=== PATIENT | female | born 1945 | race Caucasian/White ===

== ENCOUNTER → 2023-07-17 08:48 | Outpatient (REF) | payer BC, SELFPAY | LOC: HWRAD 08:48 | PROVIDERS: ATTENDING PHYSICIAN Internal Medicine Hematology & Oncology; FAMILY PHYSICIAN Family Medicine | DX: C48.1 Malignant neoplasm of specified parts of peritoneum (principal); Z51.11 Encounter for antineoplastic chemotherapy; Z45.2 Encounter for adjustment and management of vascular access device; D50.9 Iron deficiency anemia, unspecified; D70.1 Agranulocytosis secondary to cancer chemotherapy | CPT/HCPCS: 71260; 74177; Q9967 ==

== ENCOUNTER → 2023-08-23 14:44 | Outpatient (REF) | payer BC, SELFPAY ==
[2023-08-23 16:04] LABS: % Basophils 0.8 % (0-2); % Immature Granulocytes 0.3 % (0-0.5); % Lymphocytes 18.3 % (20.5-51.1); % Monocytes 17.3 % (1.7-9.3); % Neutrophils 54.3 % (42.2-75.2); Absolute Basophils 0.1 10^3/uL (0-0.2); Absolute Eosinophils 0.7 10^3/uL (0-0.7); Absolute Lymphocytes 1.4 10^3/uL (1.2-3.4); Absolute Monocytes 1.4 10^3/uL (0.1-0.6); Absolute Neutrophils 4.3 10^3/uL (1.4-6.5); Hematocrit 37.5 % (37.0-47.0); Hemoglobin 12.2 g/dL (12.0-16.0); Mean Corp Hgb Conc. 32.5 g/dL (33.0-37.0); Mean Corpuscular Hgb 29.8 pg (27.0-31.0); Mean Corpuscular Volume 91.7 fL (81.0-99.0); Nucleated Red Blood Cells % 0 %; Platelet Count 232 10^3/uL (130-400); Red Blood Cell Count 4.09 10^6/uL (4.20-5.40); Red Cell Dist. Width 20.8 % (11.5-14.5); White Blood Cell Count 7.9 10^3/uL (4.8-10.8)
[2023-08-23 16:27] LABS: NT-proBNP 123 pg/ml
== END ==
LOC: RAD 14:44
PROVIDERS: ATTENDING PHYSICIAN Family Medicine
DX: M79.89 Other specified soft tissue disorders (principal); R60.0 Localized edema
CPT/HCPCS: 36415; 83880; 85025; 93970

== ENCOUNTER → 2023-09-13 12:07 | Outpatient (REF) | payer BC, SELFPAY ==
[2023-09-13 15:28] LABS: Blood Urea Nitrogen 30 mg/dl (7-17); Calcium 9.4 mg/dl (8.4-10.2); Carbon Dioxide 29 mmol/L (22-30); Chloride 100 mmol/L (98-107); Glucose 120 mg/dl (70-99); Potassium 3.8 mmol/L (3.5-5.1); Sodium 138 mmol/L (135-145); eGFR 51.11
== END ==
LOC: HWLAB 12:07
PROVIDERS: ATTENDING PHYSICIAN Family Medicine
DX: R60.0 Localized edema (principal)
CPT/HCPCS: 36415; 80048

== ENCOUNTER → 2023-12-19 10:27 | Outpatient (REF) | payer BC, SELFPAY | LOC: HWRAD 10:27 | PROVIDERS: ATTENDING PHYSICIAN Internal Medicine Hematology & Oncology; FAMILY PHYSICIAN Family Medicine | DX: C48.1 Malignant neoplasm of specified parts of peritoneum (principal); Z51.11 Encounter for antineoplastic chemotherapy; Z45.2 Encounter for adjustment and management of vascular access device; D50.9 Iron deficiency anemia, unspecified; D70.1 Agranulocytosis secondary to cancer chemotherapy | CPT/HCPCS: 71260; 74177; Q9967 ==

== ENCOUNTER 2024-02-18 11:28 | Emergency (ER) | payer BC, SELFPAY ==
[2024-02-18 11:35] VITALS: BP 160/77
--- NOTE | 2024-02-18 11:38 | ED.GENMED ---
ED Provider Triage
-
Patient seen by provider in Triage?: Seen in Triage
Attestation: A medical screening examination has been initiated by a qualified medical provider. Based on the assessment performed at this time, it has been determined that an emergent medical condition may exist and the patient has been informed
that further medical evaluation and possible additional diagnostic testing may be needed.
HPI: 78-year-old female presents for evaluation of acute onset right upper abdominal pain that began this morning while having a bowel movement. She has a large ventral hernia and felt a 'lump' developed adjacent to this hernia after the bowel
movement, took a dose of Tylenol and states pain is resolved, no longer feels the lump
GENERAL: Alert , in no apparent distress
EYE: No visual abnormalities.
NECK: Trachea midline
ENT: No visible abnormalities.
LUNGS: No acute respiratory distress
NEUROLOGICAL: Alert and oriented
SKIN: Skin intact. No visible changes.
MUSCULOSKELETAL: Moving extremities normally
PSYCH: Normal and appropriate interaction.
A/P: Abdominal exam while in a chair with no palpable right upper quadrant hernia, large ventral hernia soft and easily reducible, at this time we will hold off on labs, may be muscular strain versus small lateral abdominal wall hernia
This is a medical evaluation conducted in person to initiate diagnostic evaluation and provide initial therapeutics. Please see further documentation by the treating clinician.
History of Present Illness
General
Chief Complaint: Abdominal Pain
Past History
Past History
ED Past Medical History: Cancer (Ovarian), Renal failure and Other ('Heart murmur')
ED Past Surgical History: Orthopedic and Urological (Bilateral nephrostomy tubes)
Social History
Tobacco: Non-smoker
Alcohol: Occasional
Drug: None
Personal: Other
Living: alone
Employment: Other
Family History
Family History: Other
ED Attending Note
-
Portions of this chart may have been created with voice recognition software.� Occasional wrong word or��sound alike� substitutions may have occurred due to the inherent limitations of voice recognition software.
Discharge Plan
Departure
Prescriptions:
No Action
amlodipine 10 MG tablet
10 mg PO DAILY
pantoprazole 40 MG tablet,delayed release (DR/EC)
40 mg PO BID
multivitamin with folic acid [Tab-A-Crow] 1 TABLET tablet
1 tab PO DAILY
Prevagen 1 tablet tablet
1 tab PO DAILY
acetaminophen 325 mg Tablet
650 mg PO DAILYPRN PRN (Reason: mild pain)
Interventions
Interventions:
*Risk Screen - Suicide Last Done: 02/18/24 11:35
Discharge Date and Time
Print Language: MACEDONIAN
[2024-02-18 12:23] VITALS: BMI 36.1
--- NOTE | 2024-02-18 12:58 | ED.GENMED ---
ED Provider Triage
<Alcon Renteria PA-C - Last Filed: 02/19/24 09:58>
-
Patient seen by provider in Triage?: Seen in Triage
Attestation: A medical screening examination has been initiated by a qualified medical provider. Based on the assessment performed at this time, it has been determined that an emergent medical condition may exist and the patient has been informed
that further medical evaluation and possible additional diagnostic testing may be needed.
HPI: 78-year-old female presents for evaluation of acute onset right upper abdominal pain that began this morning while having a bowel movement. She has a large ventral hernia and felt a 'lump' developed adjacent to this hernia after the bowel
movement, took a dose of Tylenol and states pain is resolved, no longer feels the lump
GENERAL: Alert , in no apparent distress
EYE: No visual abnormalities.
NECK: Trachea midline
ENT: No visible abnormalities.
LUNGS: No acute respiratory distress
NEUROLOGICAL: Alert and oriented
SKIN: Skin intact. No visible changes.
MUSCULOSKELETAL: Moving extremities normally
PSYCH: Normal and appropriate interaction.
A/P: Abdominal exam while in a chair with no palpable right upper quadrant hernia, large ventral hernia soft and easily reducible, at this time we will hold off on labs, may be muscular strain versus small lateral abdominal wall hernia
This is a medical evaluation conducted in person to initiate diagnostic evaluation and provide initial therapeutics. Please see further documentation by the treating clinician.
History of Present Illness
<Rasheeda Klein PA-C - Last Filed: 02/18/24 19:14>
General
Chief Complaint: Abdominal Pain
Source: patient
Exam Limitations: none
Time Seen by Provider: 02/18/24 12:41
Nursing documentation reviewed up to this point in time: agreed with
History of Present Illness
History of Present Illness:
78 y/o female with PMH of ovarian cancer s/p hysterectomy, GERD, HTN, ventral incisional hernia, presents to the emergency department today with concerns of a 30 min episode of severe lower abdominal pain. Patient states that she felt the pain over
her hernia. She stated that this pain started after having a bowel movement. She subsequently took Tylenol and her symptoms resolved. She denies nausea, vomiting, fevers, chills. She had a prior history of ovarian cancer and had to get a
hysterectomy and they believe her hernia to be incisional. She states that she she used to follow with gynecologic oncologic many years ago who wanted her to follow up with general surgery but she has not been able to follow up and did not feel
that it was necessary since it was not causing her any problems. Patient denies dark tarry stools, rectal bleeding, recent travel outside the country.
Past History
<Rasheeda Klein PA-C - Last Filed: 02/18/24 19:14>
Past History
ED Past Medical History: Cancer (Ovarian), Renal failure and Other ('Heart murmur')
ED Past Surgical History: Orthopedic and Urological (Bilateral nephrostomy tubes)
Social History
Tobacco: Non-smoker
Alcohol: Occasional
Drug: None
Personal: Other
Living: alone
Employment: Other
Family History
Family History: Other
Review of Systems
<MILO Heart Last Filed: 02/18/24 19:14>
Review of Systems
All Other Systems: ROS reviewed and negative except as documented in HPI and ROS
Phy Exam
<MILO Heart Last Filed: 02/18/24 19:14>
Physical Exam
Physical Exam:
General: Patient is well appearing and in no acute distress; non-toxic
Skin: Warm and dry, no rashes or lesions
Head: Normocephalic, atraumatic
Eyes: Sclera non-icteric. EOMs intact. PERRLA.
Cardiac: Regular rate and rhythm, no murmurs
Peripheral Vascular: No lower extremity swelling or edema
Pulm: Normal respiratory effort, no wheezes
Abdomen: No abdominal tenderness to palpation. Reducible ventral hernia noted. No guarding.
Neuro: CN II-XII intact, no focal neurologic deficits.
Psychiatric: Appropriate mood and affect.
Course
Carlos Manuellt;Rasheeda Klein PA-C - Last Filed: 02/18/24 19:14>
Orders/Labs/Results
Orders:
Orders
02/18/24 13:26
CT Abd/pelvis W Iv Cont Urgent
Comment:
Reason For Exam: diffuse lower abdominal pain
02/18/24 14:05
Complete Blood Count/With Diff Urgent
Comprehensive Metabolic Panel Urgent
Abnormal Lab Results
02/18/24
14:05
RBC 4.12 L 10^6/uL
(4.20-5.40)
MCH 31.6 H pg
(27.0-31.0)
RDW 15.9 H %
(11.5-14.5)
Absolute Monos (auto) 1.0 H 10^3/uL
(0.1-0.6)
Lymphocytes % 17.5 L %
(20.5-51.1)
Monocytes % 14.5 H %
(1.7-9.3)
Potassium 3.4 L mmol/L
(3.5-5.1)
BUN 25 H mg/dl
(7-17)
02/18/24 14:05
02/18/24 14:05
Vital Signs
Initial and Last Documented VS:
Initial Vital Signs
Temp Pulse Resp BP Pulse Ox
98.7 F 71 20 160/77 97
02/18/24 11:35 02/18/24 11:35 02/18/24 11:35 02/18/24 11:35 02/18/24 11:35
Last Documented Vital Signs
Temp Pulse Resp BP Pulse Ox
98.7 F 71 18 151/82 100
02/18/24 11:35 02/18/24 14:42 02/18/24 14:42 02/18/24 14:42 02/18/24 14:42
<Elvis Escobar MD - Last Filed: 02/18/24 16:22>
Orders/Labs/Results
Orders:
Orders
02/18/24 13:26
CT Abd/pelvis W Iv Cont Urgent
Comment:
Reason For Exam: diffuse lower abdominal pain
02/18/24 14:05
Complete Blood Count/With Diff Urgent
Comprehensive Metabolic Panel Urgent
Abnormal Lab Results
02/18/24
14:05
RBC 4.12 L 10^6/uL
(4.20-5.40)
MCH 31.6 H pg
(27.0-31.0)
RDW 15.9 H %
(11.5-14.5)
Absolute Monos (auto) 1.0 H 10^3/uL
(0.1-0.6)
Lymphocytes % 17.5 L %
(20.5-51.1)
Monocytes % 14.5 H %
(1.7-9.3)
Potassium 3.4 L mmol/L
(3.5-5.1)
BUN 25 H mg/dl
(7-17)
02/18/24 14:05
02/18/24 14:05
Vital Signs
Initial and Last Documented VS:
Initial Vital Signs
Temp Pulse Resp BP Pulse Ox
98.7 F 71 20 160/77 97
02/18/24 11:35 02/18/24 11:35 02/18/24 11:35 02/18/24 11:35 02/18/24 11:35
Last Documented Vital Signs
Temp Pulse Resp BP Pulse Ox
98.7 F 71 18 151/82 100
02/18/24 11:35 02/18/24 14:42 02/18/24 14:42 02/18/24 14:42 02/18/24 14:42
<Alcon Renteria PA-C - Last Filed: 02/19/24 09:58>
Orders/Labs/Results
Orders:
Orders
02/18/24 13:26
CT Abd/pelvis W Iv Cont Urgent
Comment:
Reason For Exam: diffuse lower abdominal pain
02/18/24 14:05
Complete Blood Count/With Diff Urgent
Comprehensive Metabolic Panel Urgent
Abnormal Lab Results
02/18/24
14:05
RBC 4.12 L 10^6/uL
(4.20-5.40)
MCH 31.6 H pg
(27.0-31.0)
RDW 15.9 H %
(11.5-14.5)
Absolute Monos (auto) 1.0 H 10^3/uL
(0.1-0.6)
Lymphocytes % 17.5 L %
(20.5-51.1)
Monocytes % 14.5 H %
(1.7-9.3)
Potassium 3.4 L mmol/L
(3.5-5.1)
BUN 25 H mg/dl
(7-17)
02/18/24 14:05
02/18/24 14:05
Vital Signs
Initial and Last Documented VS:
Initial Vital Signs
Temp Pulse Resp BP Pulse Ox
98.7 F 71 20 160/77 97
02/18/24 11:35 02/18/24 11:35 02/18/24 11:35 02/18/24 11:35 02/18/24 11:35
Last Documented Vital Signs
Temp Pulse Resp BP Pulse Ox
98.7 F 71 18 151/82 100
02/18/24 11:35 02/18/24 14:42 02/18/24 14:42 02/18/24 14:42 02/18/24 14:42
<Rasheeda Klein PA-C - Last Filed: 02/18/24 19:14>
MDM/Problems Addressed
Differential Diagnosis Includes:
ddx include incarcerated hernia, deep hernia pain, diverticulitis, colitis, metastatic disease
MDM/Problems Addressed:
78-year-old female with a history of ovarian cancer, ventral hernia for previous surgical incision presents emergency department today with concerns of 3-minute episode of severe abdominal pain. Patient states that she took Tylenol and by the time
she presented emergency department, her pain resolved. She denies nausea or vomiting, denies any other history of abdominal surgeries. On exam, she is well-appearing, she has a reducible ventral hernia with no signs of incarceration or
strangulation. She has no skin rashes or lesions over the abdomen. Patient was sent for CAT scan of the abdomen which revealed no acute process, did no her multiple hernias, however no signs of obstruction or strangulation. Since being in the
emergency department for around 4 to 5 hours, patient has not had another episode of this pain. She is stable for discharge at this point. Give her follow-up for general surgery. Return precautions discussed
Chronic conditions affecting care:
HTN, GERD, ovarian cancer
<Rasheeda Klein PA-C - Last Filed: 02/18/24 19:14>
*Pulse Oximetry
Patient hypoxic: no
*Critical Care Note
Total Time (30-74mins, 75-104mins- exclusive of procedures): Not Applicable
Data Reviewed
Review of Other/Old Records Reveals: Records (reviewed ER physician documentation from 04/30/23, patient seen for closed head injury) and Discharge Summary (reviewed discharge summary from 04/20/23,)
Source: patient
Prescriptions/Medications Considered But Not Given:
n/a
Further Testing Considered But Not Given:
n/a
<Rasheeda Klein PA-C - Last Filed: 02/18/24 19:14>
Patient Management
Escalation/DeEscalation of care consider admission/obs:
Admit not indicated, patient stable for discharge
ED Attending Note
<Rasheeda Klein PA-C - Last Filed: 02/18/24 19:14>
-
Portions of this chart may have been created with voice recognition software.� Occasional wrong word or��sound alike� substitutions may have occurred due to the inherent limitations of voice recognition software.
<Elvis Escobar MD - Last Filed: 02/18/24 16:22>
ED Attending Note
Patient seen and examined by attending physician: Yes
ED Attending Note:
I have seen and evaluated the patient with a [id number] encounter. I have spoken to the advance practicer provider and involved in the medical history, the physical exam, medical decision making.
Evaluation and management service: agree unless noted differently below.
Results interpretation: agree unless noted differently below.
Focused HPI: 78-year-old female with history as documented presents to the emergency room for evaluation of abdominal pain. She reports she was sitting at her computer at around 9 AM and had sudden onset of rather intense pain in the lower abdomen
near her abdominal wall hernia. She says that the pain was quite intense and she had to stop working. She says she took a Tylenol and after about 30 minutes symptoms completely resolved and she is now completely pain-free. She denies any
associated nausea or vomiting. She had a bowel movement about 20 minutes prior to onset of his symptoms and it was normal. She has not had any recent urinary symptoms. She denies similar symptoms in the past.
Physical exam: Awake alert not in distress. Hypertensive otherwise normal vitals. Abdomen soft, nontender to deep palpation; she has a soft reducible ventral hernia.
Medical Decision Makin-year-old female presents for evaluation after an episode of abdominal pain�since has completely resolved. Hypertensive otherwise normal vitals. Physical exam as above. She had labs done in triage with no clinically
significant abnormalities. She was sent for a CT of the abdomen pelvis and the read is pending. If negative can likely discharge with surgical referral for hernia repair�suspect pain was likely related to her hernia. She has no signs of
incarceration or strangulation at present.
Discharge Plan
Departure
Patient Disposition: Home (Routine Discharge)
Date of Disposition: 02/18/24
Time of Disposition: 16:30
Patient with high blood pressure during this ER visit?: Yes
Condition: Good
Discharge Problem:
Abdominal pain
Instructions: Abdominal Pain, BLOOD PRESSURE
Prescriptions:
No Action
amlodipine 10 MG tablet
10 mg PO DAILY
pantoprazole 40 MG tablet,delayed release (DR/EC)
40 mg PO BID
multivitamin with folic acid [Tab-A-Crow] 1 TABLET tablet
1 tab PO DAILY
Prevagen 1 tablet tablet
1 tab PO DAILY
acetaminophen 325 mg Tablet
650 mg PO DAILYPRN PRN (Reason: mild pain)
Referrals:
Beau Nuno MD [Active] - Call in 1-3 days for appt
UNKNOWN - PT NOT,INTERVIEWE [Family Provider] -
Activity Restrictions/Additional Instructions:
Please return to the emergency department with new or worsening symptoms.
Please call the attached number to schedule appoint with general surgery. You may need repair of your hernia in the future.
Interventions
Interventions:
*Risk Screen - Suicide Last Done: 02/18/24 11:35
*General Assessment Last Done: 02/18/24 12:25
*Nursing Disposition Last Done: 02/18/24 16:39
ZF-Nrsmmo-Ecddajrgec Assessment Last Done: 02/18/24 12:23
Discharge Date and Time
Discharge Date/Time: 02/18/24 16:39
Print Language: SAMI
[2024-02-18 14:42] VITALS: BP 151/82
[2024-02-18 14:49] LABS: % Basophils 0.8 % (0-2); % Eosinophils 3.5 % (0-6); % Immature Granulocytes 0.3 % (0-0.5); % Lymphocytes 17.5 % (20.5-51.1); % Monocytes 14.5 % (1.7-9.3); % Neutrophils 63.4 % (42.2-75.2); Absolute Basophils 0.1 10^3/uL (0-0.2); Absolute Eosinophils 0.2 10^3/uL (0-0.7); Absolute Lymphocytes 1.2 10^3/uL (1.2-3.4); Absolute Neutrophils 4.2 10^3/uL (1.4-6.5); Hematocrit 37.9 % (37.0-47.0); Mean Corp Hgb Conc. 34.3 g/dL (33.0-37.0); Mean Corpuscular Hgb 31.6 pg (27.0-31.0); Mean Platelet Volume 9.1 fL (7.4-10.4); Nucleated Red Blood Cells % 0 %; Platelet Count 208 10^3/uL (130-400); Red Blood Cell Count 4.12 10^6/uL (4.20-5.40); Red Cell Dist. Width 15.9 % (11.5-14.5); White Blood Cell Count 6.6 10^3/uL (4.8-10.8)
[2024-02-18 15:01] LABS: ALT (SGPT) 26 U/L (0-35); AST (SGOT) 27 U/L (14-36); Albumin 4.2 g/dl (3.5-5.0); Alkaline Phosphatase 87 U/L (38-126); Blood Urea Nitrogen 25 mg/dl (7-17); Calcium 9.3 mg/dl (8.4-10.2); Carbon Dioxide 27 mmol/L (22-30); Chloride 103 mmol/L (98-107); Estimated Creatinine Clearance 61 ml/min; Glucose 96 mg/dl (70-99); Potassium 3.4 mmol/L (3.5-5.1); Sodium 141 mmol/L (135-145); Total Bilirubin 0.5 mg/dl (0.2-1.3); Total Protein 7.3 g/dl (6.3-8.2); eGFR > 60.00
== END 2024-02-18 16:39 | disposition home or self-care (01) ==
LOC: EMR 11:28
PROVIDERS: Physician Assistant; EMERGENCY PHYSICIAN Emergency Medicine
DX: R10.30 Lower abdominal pain, unspecified (principal); I10 Essential (primary) hypertension; K21.9 Gastro-esophageal reflux disease without esophagitis
CPT/HCPCS: 99285; 74177; 80053; 85025; Q9967

== ENCOUNTER → 2024-04-10 08:21 | Outpatient (REF) | payer BC, SELFPAY | LOC: HWRAD 08:21 | PROVIDERS: ATTENDING PHYSICIAN Internal Medicine Hematology & Oncology | DX: C48.1 Malignant neoplasm of specified parts of peritoneum (principal); Z51.11 Encounter for antineoplastic chemotherapy; Z45.2 Encounter for adjustment and management of vascular access device; D50.9 Iron deficiency anemia, unspecified; D70.1 Agranulocytosis secondary to cancer chemotherapy | CPT/HCPCS: 71260; 74177; Q9967 ==

== ENCOUNTER → 2024-04-27 14:41 | Outpatient (REF) | payer BC, SELFPAY | LOC: RAD 14:41 | PROVIDERS: ATTENDING PHYSICIAN Internal Medicine Hematology & Oncology | DX: C48.1 Malignant neoplasm of specified parts of peritoneum (principal); Z51.11 Encounter for antineoplastic chemotherapy; Z45.2 Encounter for adjustment and management of vascular access device; D50.9 Iron deficiency anemia, unspecified; D70.1 Agranulocytosis secondary to cancer chemotherapy; R22.42 Localized swelling, mass and lump, left lower limb | CPT/HCPCS: 93970 ==

== ENCOUNTER → 2024-06-12 13:37 | Outpatient (REF) | payer BC, SELFPAY | LOC: HWRCS 13:37 | PROVIDERS: ATTENDING PHYSICIAN Internal Medicine Hematology & Oncology; PRIMARYCARE PHYSICIAN Family Medicine | DX: C48.1 Malignant neoplasm of specified parts of peritoneum (principal) | CPT/HCPCS: 93306 ==

== ENCOUNTER 2024-06-16 02:14 | Observation (INO) | payer BC, SELFPAY ==
[2024-06-15 15:51] VITALS: BMI 37.2
[2024-06-15 15:53] VITALS: BP 187/96
[2024-06-15 20:05] VITALS: BP 148/84
[2024-06-15 20:56] LABS: ALT (SGPT) 14 U/L (0-35); AST (SGOT) 25 U/L (14-36); Albumin 3.7 g/dl (3.5-5.0); Alkaline Phosphatase 101 U/L (38-126); Blood Urea Nitrogen 22 mg/dl (7-17); Calcium 9.2 mg/dl (8.4-10.2); Carbon Dioxide 27 mmol/L (22-30); Chloride 100 mmol/L (98-107); Glucose 115 mg/dl (70-99); Potassium 3.1 mmol/L (3.5-5.1); Sodium 134 mmol/L (135-145); Total Bilirubin 0.5 mg/dl (0.2-1.3); Total Protein 6.8 g/dl (6.3-8.2); eGFR > 60.00
[2024-06-15 21:01] LABS: NT-proBNP 115 pg/ml; Troponin I < 0.012 ng/ml
[2024-06-15 23:00] VITALS: BP 164/88
[2024-06-16] VITALS (13 sets, daily range): BP systolic 75–159; BP diastolic 62–119
--- NOTE | 2024-06-16 00:14 | ED.GENMED ---
History of Present Illness
General
Chief Complaint: Breathing Problem
Source: patient
Exam Limitations: none
Time Seen by Provider: 06/16/24 00:03
Nursing documentation reviewed up to this point in time: agreed with
History of Present Illness
History of Present Illness:
Patient with history of recurrent ovarian cancer, currently receiving treatment, presents to ED secondary to worsening left lower leg redness with drainage, despite taking 2 different antibiotics. In addition, patient has noted increased work of
breathing over the past 2 days with exertion. Denies fever or chills. Denies nausea, vomiting, or diarrhea. Denies loss of appetite. Denies headache. Denies sick contact. Patient does have history of pleural effusion which has required
drainage in the past.
Past History
Past History
ED Past Medical History: Cancer (Ovarian), Renal failure and Other ('Heart murmur')
ED Past Surgical History: Orthopedic and Urological (Bilateral nephrostomy tubes)
Social History
Tobacco: Non-smoker
Alcohol: Occasional
Drug: None
Personal: Other
Living: alone
Employment: Other
Family History
Family History: Other
Review of Systems
Review of Systems
Allergies reviewed?: Yes
All Other Systems: ROS reviewed and negative except as documented in HPI and ROS
Constitutional: Reports no symptoms; Denies fever or chills
Respiratory: Reports trouble breathing; Denies cough
Cardiac: Reports no symptoms
ABD/GI: Reports no symptoms
Musculoskeletal: Reports edema
Skin: Reports other (Leg redness with swelling)
Neurological: Reports no symptoms
Phy Exam
Physical Exam
Physical Exam:
Physical Exam
General: no apparent distress, not acutely ill. afebrile
Head: nc/at. eomi
Neck: supple. normal range of motion.
Abdomen: normal bowel sounds. not tender.
Neuro: alert and oriented. no focal neurological deficits
Skin: LLE erythema/swelling noted with serosanguineous drainage noted along medial malleolus
Psychiatric: well kept. interactive and cooperative
Extremities: no calf tenderness
Scores
Heart Failure Risk
Heart Failure Risk Score: Not Applicable
Course
Orders/Labs/Results
Orders:
Orders
06/15/24 15:59
Electrocardiogram (*1) Urgent
Reason for Study: Shortness of Breath
EKG- Treatment ONCE
06/15/24 16:07
CXR2 [CR Chest - 2 Views ] Urgent
Comment:
Reason For Exam: SOB
06/15/24 20:25
Venous Doppler Lwr Ext Left [US Periph Venous LOWER Ext LT] Urgent
Comment:
Reason For Exam: swelling
06/15/24 20:31
Comprehensive Metabolic Panel Urgent
Magnesium Urgent
Comment: ADDED
NT-proBNP Urgent
Troponin I Urgent
06/15/24 20:45
Complete Blood Count/With Diff Routine
06/16/24 00:14
Piperacillin/Tazo 3.375 Gram [Zosyn] 3.375 gram in 50 ml IV NOW
06/16/24 00:45
Blood Culture Q30M
HOA Source: Blood/Venous
Specimen Description:
06/16/24 00:46
Blood Culture Q30M
HOA Source: Blood/Venous
Specimen Description:
06/16/24 01:19
Vancomycin [Vancocin] 2,000 mg 0.9% Sodium Chloride 500 ml [Nss] 500 ml IV NOW
06/16/24 01:54
Admit/Transfer Patient As Directed
Co-Sign Provider:
Level of Care: Observation services
Assign to:: Medical/Surgical
Physician / Group: hospitalist
Diagnosis: recurrent pleural effusion, cellulitis
06/16/24 01:55
Code Status As Directed
Resuscitation Status: Full Code
PRN Pain Medication Management As Directed
May give lesser potent ordered pain med per pt: Yes
preference::
Protocol:: Medication orders for pain may be administered in a
manner that supports deferring to patient preference
when the pt is:
- Requesting an ordered lesser potent pain medication.
Least to most potent pain medications are defined
as: acetaminophen < NSAID < tramadol < opioids
(morphine, oxycodone, hydromorphone).
- Requesting a lesser dose of the same medication IF
ORDERED.
- Requesting a less intrusive route of administration
if both routes are prescribed by the provider (PO <
IV).
06/16/24 02:00
Flush (0.9% Sodium Chloride) [Flush (Nss)] See Dose Instructions IV PER PROTOCOL
06/16/24 02:01
Potassium Chloride [KCl] 40 meq PO NOW STA
Potassium Chloride [KCl] 20 meq 0.9% Sodium Chloride 150 ml [Nss] 150 ml IV NOW
06/16/24 02:38
Acetaminophen [Tylenol] 650 mg PO Q4HPRN PRN
Bisacodyl [Dulcolax] 10 mg RECTAL [id number] PRN
Docusate W/Senna [Senokot-S] 1 tablet PO BIDPRN PRN
Polyethylene Glycol Powder [Miralax] 17 grams PO DAILYPRN PRN
VANCOMYCIN Pharmacy to Dose [VANCOCIN Pharmacy to Dose] 1 each Pharmacy To Prepare [Call Pharmacy To Prepare] 0 ml IV PER PROTOCOL
06/16/24 02:38
Consult Notification Routine
Specialty to Notify: IRAD (Interventional Radiology)
IRAD CONSULT Routine
Consulting Provider: Franklin Alexander
Was physician already notified: No
Reason for Consult/Procedure: thoracentesis for R pleural effusion
Acknowledgement that appropriate orders are entered: Yes
Body Fluid Cell Count Routine
What is the Body Fluid: pleural fluid
Comment: post procedure
Body Fluid LDH Routine
Fluid Source: Pleural
Body Fluid Protein Routine
Fluid Source: Pleural
Body Fluid pH Routine
Fluid Source: Pleural
Fluid Culture with Gram Stain Routine
HOA Source: Pleural Fluid
Specimen Description:
Comment: post procedure
MRSA Screen Routine
HOA Source: Nose
Specimen Description:
Activity As Directed
Activity Level: With Assistance
Vital Signs As Directed
Frequency: Per unit guidelines
Pulse Ox/spot Check [RESP] Routine
Quantity: 1
DX Deep Vein Thrombosis Video Routine
06/16/24 Breakfast
Regular
Basic Metabolic Panel IN AM
Complete Blood Count/No Diff IN AM
LDH IN AM
Comment: post procedure, add on to morning labs if already drawn
Magnesium IN AM
Total Protein IN AM
Comment: post procedure, add on to morning labs if already drawn
06/16/24 08:00
Amlodipine [Norvasc] 10 mg PO DAILY
Furosemide [Lasix] 40 mg PO DAILY
Pantoprazole [Protonix] 40 mg PO BID
06/16/24 18:00
Enoxaparin Sodium [Lovenox] 40 mg SC QPM
Abnormal Lab Results
06/15/24 06/16/24
20:31 00:45
MCHC 32.9 L g/dL
(33.0-37.0)
RDW 16.1 H %
(11.5-14.5)
Absolute Lymphs (auto) 0.7 L 10^3/uL
(1.2-3.4)
Absolute Monos (auto) 1.0 H 10^3/uL
(0.1-0.6)
Lymphocytes % 10.8 L %
(20.5-51.1)
Monocytes % 14.6 H %
(1.7-9.3)
Sodium 134 L mmol/L
(135-145)
Potassium 3.1 L mmol/L
(3.5-5.1)
BUN 22 H mg/dl
(7-17)
Glucose 115 H mg/dl
(70-99)
06/16/24 00:45
06/15/24 20:31
Vital Signs
Initial and Last Documented VS:
Initial Vital Signs
Temp Pulse Resp BP Pulse Ox
98.2 F 104 18 187/96 97
06/15/24 15:53 06/15/24 15:53 06/15/24 15:53 06/15/24 15:53 06/15/24 15:53
Last Documented Vital Signs
Temp Pulse Resp BP Pulse Ox
97.9 F 78 22 124/66 95
06/15/24 20:05 06/16/24 02:15 06/16/24 02:15 06/16/24 02:00 06/16/24 01:45
MDM/Problems Addressed
MDM/Problems Addressed:
History and exam concerning for worsening left lower leg cellulitis, despite taking antibiotics. As such, will be admitted for IV antibiotics, secondary to failed outpatient therapy. In addition, moderate pleural effusion noted on chest x-ray,
which may require thoracentesis during hospitalization, if patient continues to have symptoms.
*Critical Care Note
Total Time (30-74mins, 75-104mins- exclusive of procedures): Not Applicable
ED Attending Note
-
Portions of this chart may have been created with voice recognition software.� Occasional wrong word or��sound alike� substitutions may have occurred due to the inherent limitations of voice recognition software.
Discharge Plan
Departure
Patient Disposition: Admit
Date of Disposition: 06/16/24
Time of Disposition: 00:15
Admit to: Med/Surg
Presentation/result/management discussed w/ accepting MD/DO: Hospitalist
Discharge Problem:
Pleural effusion
Interventions
Interventions:
*Risk Screen - Suicide Last Done: 06/15/24 15:53
*General Assessment Last Done: 06/16/24 00:51
*Neglect/Abuse Screening Last Done: 06/15/24 15:53
*ED COVID-19 Vaccine History Last Done: 06/16/24 00:51
ED- Cardiac Assessment Last Done: 06/16/24 01:15
ED- Pulmonary Assessment Last Done: 06/16/24 01:15
[2024-06-16] MEDS: ZOSYN 50 IV (00:57)
[2024-06-16 01:15] LABS: % Basophils 0.6 % (0-2); % Eosinophils 2.6 % (0-6); % Immature Granulocytes 0.3 % (0-0.5); % Lymphocytes 10.8 % (20.5-51.1); % Monocytes 14.6 % (1.7-9.3); % Neutrophils 71.1 % (42.2-75.2); Absolute Eosinophils 0.2 10^3/uL (0-0.7); Absolute Lymphocytes 0.7 10^3/uL (1.2-3.4); Absolute Neutrophils 4.7 10^3/uL (1.4-6.5); Hematocrit 40.7 % (37.0-47.0); Hemoglobin 13.4 g/dL (12.0-16.0); Mean Corp Hgb Conc. 32.9 g/dL (33.0-37.0); Mean Corpuscular Hgb 30.3 pg (27.0-31.0); Mean Corpuscular Volume 92.1 fL (81.0-99.0); Mean Platelet Volume 9.2 fL (7.4-10.4); Nucleated Red Blood Cells % 0 %; Platelet Count 225 10^3/uL (130-400); Red Blood Cell Count 4.42 10^6/uL (4.20-5.40); Red Cell Dist. Width 16.1 % (11.5-14.5); White Blood Cell Count 6.6 10^3/uL (4.8-10.8)
[2024-06-16] MEDS: VANCOCIN 540 MG IV (01:36)
[2024-06-16 01:38] LABS: Magnesium 1.8 mg/dl (1.6-2.3)
--- NOTE | 2024-06-16 01:42 | HPS.HSE ---
Family Physician
-
Family Physician: * NONE
Chief Complaint
-
Left lower extremity swelling and shortness of breath
History of Present Illness
This is a 78-year-old female with past medical history of ovarian cancer with peritoneal carcinomatosis status post hysterectomy and status post radiation with recurrence of disease pending repeat chemotherapy, hypertension, GERD who presents to the
emergency department with 2 weeks of left lower extremity swelling and ongoing shortness of breath.
Patient reports that she has been having swelling and pain in the left lower extremity for about 2 weeks. She has tried to oral antibiotics in the outpatient setting with no improvement. She reports tenderness to palpation and redness. She has a
area that weeps. She was transiently on Lasix for bilateral lower extremity swelling recently but this swelling in the right leg is completely resolved with persistent swelling in the left leg. She had an outpatient ultrasound that was negative
for DVT before trial of antibiotics. She denies fevers or chills.
Patient reports that over the last few days she has had more dyspnea on exertion. She does not feel short of breath at rest. She denies having any chest pain palpitations lightheadedness or dizziness. She denies any fevers or chills.
In the emergency department she was afebrile, blood pressure was 140/75 with a pulse of 74 satting 93% on room air. Chest x-ray shows a moderate right pleural effusion. Ultrasound was negative for DVT. CBC was unremarkable. Electrolytes were
notable for a potassium of 3.1.
Medical History
Past Medical History
Past Medical History: Reports Cancer (Ovarian cancer status post hysterectomy and bilateral oophorectomy, carcinomatosis status post oral chemotherapy with recurrence, history of pleural effusion likely malignant.), GERD and HTN
Past Surgical History: Reports Gynocological (Total abdominal hysterectomy with bilateral salpingo-oophorectomy) and Orthopedic (Bilateral hip replacement, total knee arthroplasty)
Social History
Tobacco: Non-smoker
Alcohol: None
Drug: None
Personal: Single
Living: Alone
Employment: Employed
Family History
Family History: Not pertinent
Allergies / Home Medications
Allergies reflects when Allergies were last updated in [facility].
Home Medications with original date entered in [facility]
Allergy/Medication List:
Allergies
Allergy/AdvReac Type Severity Reaction Status Date / Time
adhesive Allergy Rash Verified 06/15/24 15:57
aprepitant [From Emend] Allergy Facial Verified 06/15/24 15:57
redness
and
shaking
all over
fosaprepitant [From Emend] Allergy Facial Verified 06/15/24 15:57
redness
and
shaking
all over
paclitaxel [From Taxol] Allergy Shaking Verified 06/15/24 15:57
all over
and facial
redness
Home Medications
amlodipine 10 mg tablet 10 mg PO DAILY Blood pressure 06/21/21
pantoprazole 40 mg tablet,delayed release 40 mg PO BID Gastrointestinal issue 06/21/21
Prevagen 1 tab PO DAILY Supplement 06/23/21
multivitamin with folic acid 400 mcg tablet ([facility]row) 1 tab PO DAILY Supplement 06/23/21
acetaminophen 325 mg tablet 650 mg PO DAILYPRN PRN mild pain 04/19/23
Review of Systems
-
History Source: Patient
Constitutional: Reports No Symptoms
EENT: Reports No Symptoms
Respiratory: Reports Trouble Breathing
Cardiac: Reports No Symptoms
Abdomen/GI: Reports No Symptoms
: Reports No Symptoms
Musculoskeletal: Reports Edema
Skin: Reports Rash
Neurological: Reports No Symptoms
Endocrine: Reports No Symptoms
Hematologic/Lymphatic: Reports No Symptoms
Psych: Reports No Symptoms
Physical Exam
Vital Signs
Vital Signs
Temp Pulse Resp BP Pulse Ox
97.9 F 74 18 140/75 95
06/15/24 20:05 06/15/24 23:00 06/15/24 15:53 02/04/25 00:36 06/16/24 00:45
Physical Exam
General: Well Developed and No Apparent Distress
HEENT: NormoCephalic, Anicteric, Moist mucous membranes and Atraumatic
Respiratory: Clear
Cardiac: S1/S2 and Regular Rhythm
Breast: Deferred by me
GI: Soft
Rectal: Deferred by Provider
Genito-urinary: Deferred by me
Musculoskeletal: No Clubbing, No Cyanosis and Edema, Left Lower Extremity (2+); No Edema, Right Lower Extremity
Skin: Rash (Apparent cellulitis with erythema redness and induration from the ankle to just below the knee on the left. There is mild tenderness to palpation. There is an area suggestive of her with pain and now crusting.)
Neuro: AO x 3 and Nonfocal/grossly intact
Hematologic/Lymphatic: No Lymphadenopathy
Psych: Calm
Laboratory Results
-
06/16/24 00:45
06/15/24 20:31
Laboratory Results
Total Bilirubin 0.5 mg/dl (0.2-1.3) 06/15/24 20:31
AST 25 U/L (14-36) 06/15/24 20:31
ALT 14 U/L (0-35) 06/15/24 20:31
Alkaline Phosphatase 101 U/L (38-126) 06/15/24 20:31
Troponin I < 0.012 ng/ml 06/15/24 20:31
Data Reviewed
-
Diagnostic Radiology: Image Personally Visualized and interpreted and Report Reviewed by me
Ultrasound: Report Reviewed by me
Lab Data: Labs Reviewed by me
Old Records: Reviewed
Impression/Plan
-
IMPRESSION:
78-year-old female with history of ovarian cancer with carcinomatosis coming into the emergency department with more recent dyspnea on exertion, satting 93% and also with a left lower extremity cellulitis resistant to outpatient antibiotics after 2
weeks of treatment. She is afebrile, no leukocytosis and otherwise well-appearing.
PLAN:
1. Shortness of breath -mostly dyspnea on exertion. She had a recent echocardiogram which shows a EF of 65%, some elevated PA pressures to 45 systolic estimated. She has had 2 lower extremity ultrasounds for over the left lower extremity swelling
over the last 2 weeks that have been negative for DVT. X-ray shows a moderate right pleural effusion. She had a screening CT in March which she showed only a tiny amount of pleural effusion suggesting an increase in the pleural effusion since
then. This increase could be secondary to ongoing malignancy versus exacerbated by congestive heart failure.
- admit to telemetry for possible chf exacerbation
- normal bnp, normal echo, will continue oral lasix for now
- continue lasix 40mg po for now
- IR consult for therapeutic thoracentesis and re-evaluate. If still SOB. Consider CT PE
2. Cellulitis - Appears to have failed outpatient bactrim and a second abx which we are unable to identify
- IV vancomycin for now
- mrsa swab
- negative LE DVT study
DVT PPX - lovenox sq
Code status - full code
[2024-06-16] MEDS: KCL 40 MEQ PO (02:48)
[2024-06-16] MEDS: KCL 160 MEQ IV (04:04)
[2024-06-16] MEDS: TYLENOL 650 MG PO (04:29)
[2024-06-16 05:55] LABS: Hemoglobin 12.2 g/dL (12.0-16.0); Mean Corpuscular Hgb 30.3 pg (27.0-31.0); Mean Platelet Volume 9.2 fL (7.4-10.4); Platelet Count 216 10^3/uL (130-400); Red Blood Cell Count 4.02 10^6/uL (4.20-5.40); Red Cell Dist. Width 16.2 % (11.5-14.5); White Blood Cell Count 6.7 10^3/uL (4.8-10.8)
[2024-06-16 06:27] LABS: Blood Urea Nitrogen 20 mg/dl (7-17); Calcium 8.4 mg/dl (8.4-10.2); Carbon Dioxide 24 mmol/L (22-30); Chloride 106 mmol/L (98-107); Estimated Creatinine Clearance 70 ml/min; Glucose 94 mg/dl (70-99); LDH 193 U/L (120-246); Magnesium 1.9 mg/dl (1.6-2.3); Sodium 138 mmol/L (135-145); Total Protein 6.7 g/dl (6.3-8.2); eGFR > 60.00
[2024-06-16] MEDS: PROTONIX 40 MG PO (07:30)
[2024-06-16] MEDS: LASIX 40 MG PO (07:30)
[2024-06-16] MEDS: NORVASC 10 MG PO (07:30)
[2024-06-16 09:22] LABS: Body Fluid Protein 6.3 g/dl
[2024-06-16 09:44] LABS: Body Fluid Mononuclear 87.8 %; Body Fluid Polymorphonuclear 12.2 %; Body Fluid WBC 1186 /CUMM
[2024-06-16 09:47] LABS: Body Fluid Second Tech EM
[2024-06-16 09:49] LABS: Body Fluid LDH 1570 U/L
--- NOTE | 2024-06-16 10:48 | PHA.VAN.IN ---
Assessment
- Assessment
Renal Function: Appears similar to baseline
AUC Dosing Plan
- Dosing Variables
Dosing Weight (kg): 95
Dosing CrCl (ml/min): 70
Vd coefficient (L/kg): 0.7
- Empiric Dosing
Initial / Loading Dose: 2000mg - 2/4 01:36
Maintenance Regimen: Vanc 1000mg Q12H starting at 1800
Estimated AUC (mcg*h/mL): 496
Estimated Peak (mcg*h/mL): 28.5
Estimated Trough (mcg/ml): 14.3
Estimated Half Life (H): 11.1
- Monitoring
No levels ordered at this time: consider levels in next few days
Pharmacokinetics Vancomycin I
- -
Patient Age: 78
Patient Sex: Female
Vancomycin Day #: 1
Indication: Skin And Soft Tissue
Requesting Provider: Dr. Blunt
Pertinent Antimicrobial Allergies:
no pertinent antibiotic allergies
Height / Weight:
Height 5 ft 3 in
Actual Weight 95.3 kg
Pertinent Past Medical History: BMI ~37; ovarian cancer with carcinomatosis
- Vital Signs / Lab Results
Temp Pulse Resp BP Pulse Ox
97.5 F 73 20 132/76 99
06/16/24 09:45 06/16/24 09:45 06/16/24 09:45 06/16/24 09:45 06/16/24 09:45
Lab Results - Hematology
06/15/24 06/16/24 06/16/24
20:31 00:45 05:36
WBC Cancelled 6.6 6.7
Lab Results - Chemistry
06/15/24 06/16/24
20:31 05:36
BUN 22 H 20 H
Creatinine 0.8 0.7
Estimated Creat Clear 70
Albumin 3.7
Microbiology Results
06/16/24 08:34 Gram Stain - Preliminary
Pleural Fluid
--- NOTE | 2024-06-16 12:14 | CON.ID ---
Consultation
-
Date/Time Consultation Requested: 06/16/24 11:20
Date/Time Consultation Performed: 06/16/24 12:14
Requesting Provider: Dr Clark
Performing Provider: Dr Srinivasan
Reason for Consultation: Non-purulent cellulitis
Chief Complaint / Past History
Chief Complaint
left lower extremity swelling and tenderness
History of Present Illness
Ms Blue is an 78-year-old female with history of ovarian cancer with peritoneal carcinomatosis status post hysterectomy, radiation with recurrence of disease pending repeat chemotherapy; she presented to the emergency department for 2 weeks of
left lower extremity swelling and shortness of breath. She reports bilateral swelling and also pain in the left lower extremity for about 2 weeks. She was placed on keflex 500 mg PO QID by report with no improvement in redness and swelling in that
area; there is weaping on the medial side of her leg. She was transiently on Lasix for bilateral lower extremity swelling and the right leg is completely resolved, however with persistent swelling in the left leg. Outpatient ultrasound that was
negative for DVT. She denies fevers or chills.
In the emergency department she was afebrile, blood pressure was 140/75 with a pulse of 74 satting 93% on room air. wbc 6.6, hgb 13.4, plt 225, na 134, cr 0.8, Chest x-ray shows a moderate right pleural effusion. Ultrasound was negative for DVT.
She underwent throacentesis that was monocytic and body fluid culture no growth to date. blood cultures x2 no growth to date. Initially on vancomycin and zosyn, now on vancomycin. ID is consulted for assistance with mangement.
Past History
Additional Past Medical History:
Ovarian cancer status post hysterectomy and bilateral oophorectomy, carcinomatosis status post oral chemotherapy with recurrence, history of pleural effusion likely malignant.), GERD and HTN
Additional Past Surgical History:
Total abdominal hysterectomy with bilateral salpingo-oophorectomy) and Orthopedic (Bilateral hip replacement, total knee arthroplasty
Allergy History:
adhesive Allergy (Verified 06/15/24 15:57)
Rash
aprepitant [From Emend] Allergy (Verified 06/15/24 15:57)
Facial redness and shaking all over
fosaprepitant [From Emend] Allergy (Verified 06/15/24 15:57)
Facial redness and shaking all over
paclitaxel [From Taxol] Allergy (Verified 06/15/24 15:57)
Shaking all over and facial redness
Medications Reviewed: Yes
Social History
Tobacco: Non-Smoker
Alcohol: None
Drug: None
Family History
Family History: Not Pertinent
Review of Systems
Review of Systems
General: Negative Fever or Chills
All systems: All other systems were reviewed and were negative
Vital Signs
Temp Pulse Resp BP Pulse Ox
97.5 F 73 20 132/76 99
06/16/24 09:45 06/16/24 09:45 06/16/24 09:45 06/16/24 09:45 06/16/24 09:45
Physical Exam
Physical Exam
Constitutional: No Acute Distress
Cardiovascular: Regular Rate and S1/S2; Negative Murmur or Rub
Pulmonary: Clear and Symmetric; Negative Wheezes, Rales or Rhonchi
Gastrointestinal: Soft, Non Tender, Non Distended and Normal Bowel Sounds
Extremities: Other (left lower extremity mild erythema, 2+ edema, area of crusting medially c/w draining wound, mildly warm)
Skin: Warm and Dry; Negative Rash or Jaundice
Lab / Diagnostic Study Results
06/16/24 05:36
06/16/24 05:36
Abs Immat Gran (auto) 0.0 10^3/uL (0-0.05) 06/16/24 00:45
Absolute Neuts (auto) 4.7 10^3/uL (1.4-6.5) 06/16/24 00:45
Absolute Lymphs (auto) 0.7 10^3/uL (1.2-3.4) L 06/16/24 00:45
Absolute Monos (auto) 1.0 10^3/uL (0.1-0.6) H 06/16/24 00:45
Absolute Basos (auto) 0.0 10^3/uL (0-0.2) 06/16/24 00:45
Immature Gran % 0.3 % (0-0.5) 06/16/24 00:45
Neutrophils % 71.1 % (42.2-75.2) 06/16/24 00:45
Lymphocytes % 10.8 % (20.5-51.1) L 06/16/24 00:45
Monocytes % 14.6 % (1.7-9.3) H 06/16/24 00:45
Eosinophils % 2.6 % (0-6) 06/16/24 00:45
Basophils % 0.6 % (0-2) 06/16/24 00:45
Microbiology Results
Micro:
06/16/24 08:34 Body Fluid Culture - Pending
Pleural Fluid Gram Stain - Preliminary
06/16/24 05:36 MRSA Screen - Pending
Nose
06/16/24 00:46 Blood Culture - Pending
Blood/Venous
06/16/24 00:45 Blood Culture - Pending
Blood/Venous
Assessment / Plan
Nonpurulent Cellulitis
Uncontrolled Edema of the LLE
Class II obesity
- emphasized need for compression - can start with TEZ wrap
- elevation 1 hour after meals above the level of the heart
- keflex 1000 mg PO QID x7 more days
- follow up with pcp
--- NOTE | 2024-06-16 12:51 | W.PN.HOSP.TC ---
Today's Communication/Plan
-
Transition to Keflex 1 g for 7 days with leg elevation
Follow-up with oncologist for pleural fluid cytology
Discharge
Assessment / Plan
Assessment / Plan
#Right exudative pleural Effusion
-Presented with exertional dyspnea; recent echocardiogram fairly unremarkable
-Multiple lower extremity ultrasounds recently negative for DVT, low suspicion for PE
-Chest x-ray showed right-sided pleural effusion, recurrent
-Status post thoracentesis of 700 mL yellow fluid from right pleura
-Fluid studies exudative, suspect malignant, cytology pending
-Stable on room air after thoracentesis
-Will follow-up cytology with PCP and oncologist
#Nonpurulent Cellulitis
#Chronic venous insufficiency
-Suspect that antibiotic efficacy dampened by chronic edema in the extremity that cellulitis is present
-Appears to have failed outpatient bactrim and a second abx which we are unable to identify
-Was on IV vancomycin here, consulted ID today for consideration of oral antibiotic regimen
-Transition to Keflex 1 g 4 times daily for 7 days
-Leg elevation above level of heart for 1 hour after meals to promote venous drainage
-Follow-up with PCP
DVT PPX - lovenox sq
Code status - full code
Discussed case with infectious disease
Anticipated Discharge: Today
Subjective/Interval History
-
Date of Service: June 16, 2024
Seen and examined at the bedside following thoracentesis. No acute event since admission. AFVSS on room air
She states she feels much better since fluid was drained. Also mentions that she typically has edema in the left lower extremity that is worse than the right extremity.
Otherwise denies any new complaints. Requesting to go home today
Objective Data
-
Labs:
Laboratory Results
06/16/24 06/16/24
00:45 05:36
WBC 6.6 6.7
Hgb 13.4 12.2
Hct 40.7 37.0
Plt Count 225 216
Sodium 138
Potassium 4.0 D
Chloride 106
Carbon Dioxide 24
BUN 20 H
Creatinine 0.7
Glucose 94
Calcium 8.4
Vital Signs:
Vital Signs
Temp Pulse Resp BP Pulse Ox
97.5 F 73 20 132/76 99
06/16/24 09:45 06/16/24 09:45 06/16/24 09:45 06/16/24 09:45 06/16/24 09:45
Review of Systems
-
History Source: Patient
All other systems: Reviewed and negative
Physical Exam
-
General: Well Developed, No Apparent Distress, Comfortable and Obese
HEENT: Normocephalic, Atraumatic and Moist Mucous Membranes
Respiratory: Clear to Auscultation and Non Labored Respirations; Negative Wheezes, Rales or Decreased Breath Sounds
Cardiac: Regular Rhythm and S1/S2; Negative Murmur, Rub or Gallop
GI: Soft, Nontender, Nondistended and Normal Bowel Sounds
Musculoskeletal: No Clubbing, No Cyanosis and No Edema
Skin: Warm, Dry and Normal Turgor; Negative Rash
Neuro: AO x 3 and Nonfocal/Grossly Intact
Psych: Calm
Data Reviewed
-
Labs: Labs Reviewed by me and Discussed with Patient
[2024-06-16] MEDS: KEFLEX 1000 MG PO (13:18)
--- NOTE | 2024-06-16 13:25 | CM ---
CM reviewed chart and noted dc order
CM met with pt bedside
Pt [place] alone in [place] with [address]
[place] with ADls, drives+
No DMEs or VN/SNF hx
No financial insecurities
PCP- none, PCP retired, she believes she has been to resident clinic once and plans to return and establish care permanently
Rx- [facility]
Pt is OBS- OBS form completed
Copy provided to pt
Discharge Dispositio- home, no needs, family transport
== END 2024-06-16 13:30 | disposition home or self-care (01) ==
LOC: LDRP 02:14
PROVIDERS: Emergency Medicine; ADMITTING PHYSICIAN Internal Medicine; ATTENDING PHYSICIAN Internal Medicine; EMERGENCY PHYSICIAN Emergency Medicine; OTHER PHYSICIAN Student in an Organized Health Care Education/Training Program
DX: C56.9 Malignant neoplasm of unspecified ovary (principal); J91.0 Malignant pleural effusion; R06.02 Shortness of breath; I87.2 Venous insufficiency (chronic) (peripheral); C78.6 Secondary malignant neoplasm of retroperitoneum and peritoneum; L03.116 Cellulitis of left lower limb; M79.89 Other specified soft tissue disorders; I10 Essential (primary) hypertension; K21.9 Gastro-esophageal reflux disease without esophagitis; R60.9 Edema, unspecified; E66.812 Obesity, class 2; K44.9 Diaphragmatic hernia without obstruction or gangrene; R94.31 Abnormal electrocardiogram [ECG] [EKG]; M79.605 Pain in left leg; R06.09 Other forms of dyspnea; Z92.3 Personal history of irradiation; Z92.21 Personal history of antineoplastic chemotherapy; Z90.710 Acquired absence of both cervix and uterus; Z90.722 Acquired absence of ovaries, bilateral; Z96.643 Presence of artificial hip joint, bilateral; Z96.653 Presence of artificial knee joint, bilateral; Z88.8 Allergy status to other drugs, medicaments and biological substances; Z91.048 Other nonmedicinal substance allergy status; Z60.2 Problems related to living alone; Z68.37 Body mass index [BMI] 37.0-37.9, adult
CPT/HCPCS: 88305; 32555; 71045; 71046; 80048; 80053; 83615; 83735; 83880; 83986; 84155; 84157; 84484; 85025; 85027; 87015; 87040; 87070; 87205; 88112; 89051; 93005; 93971; 96365; 96366; 96367; 99285

== ENCOUNTER → 2024-06-24 15:28 | Outpatient (REF) | payer BC, SELFPAY | LOC: HWRAD 15:28 | PROVIDERS: ATTENDING PHYSICIAN Student in an Organized Health Care Education/Training Program | DX: J90 Pleural effusion, not elsewhere classified (principal) | CPT/HCPCS: 71046 ==

== ENCOUNTER 2024-06-25 13:10 | Inpatient (IN) | payer BC, MEDICARE, SELFPAY ==
[2024-06-25] VITALS (13 sets, daily range): BP systolic 108–144; BP diastolic 57–86; BMI 37.6; BMI 36.0
--- NOTE | 2024-06-25 10:23 | ED.GENMED ---
History of Present Illness
<Guerline Hicks PA-C - Last Filed: 06/25/24 11:51>
General
Chief Complaint: Medication Reaction
Source: patient, records and witness
Time Seen by Provider: 06/25/24 10:21
History of Present Illness
History of Present Illness:
78yoF with a history of metastatic ovarian cancer, hypertension, GERD, and anemia presenting after an episode of unresponsiveness. Patient received her first round of a new chemotherapy today (Doxil). Shortly after receiving this, she remembers
feeling funny. She reportedly seemed flushed and then went unresponsive. Staff at the infusion center were unable to palpate a pulse and CPR was initiated. Patient received about 1 minute of chest compressions. She was not on the monitor during the
episode. When ER staff arrived, she was on a non-rebreather mask with palpable pulses. Initial vitals were HR 82, 164/115, and oxygen saturation 96% on NRB. Normal sinus rhythm on the monitor. She did receive IV Solumedrol and Pepcid for possible
drug reaction.
She is awake and alert on arrival. Patient currently reports some chest discomfort which she did not have prior to this episode. She does report feeling short of breath this morning but had to walk to the infusion center without a wheelchair. She
was scheduled to have a thoracentesis today for recurrent pleural effusions. Of note, patient does have L leg swelling and has been on multiple courses of antibiotics recently for cellulitis of the leg. Venous duplex of LLE on 06/15/24 was negative
for DVT. Echocardiogram on 06/12/24 showed an EF of 65%.
Past History
<Guerline Hicks PA-C - Last Filed: 06/25/24 11:51>
Past History
ED Past Medical History: Cancer (Ovarian), Renal failure and Other ('Heart murmur')
ED Past Surgical History: Orthopedic and Urological (Bilateral nephrostomy tubes)
Social History
Tobacco: Non-smoker
Alcohol: Occasional
Drug: None
Personal: Other
Living: alone
Employment: Other
Family History
Family History: Other
Phy Exam
<Guerline Hicks PA-C - Last Filed: 06/25/24 11:51>
General Physical Exam
General Presentation: no apparent distress
General Skin: warm and dry
General Habitus: normal
General Mental: alert
ENT Exam
ENT Exam: normocephalic
Cardiovascular Exam
Cardiovascular Exam: systolic murmur
Pulmonary Exam
Pulmonary Exam: no respiratory distress, no rales, no crackles, no rhonchi, decreased breath sounds and other (Breath sounds decreased at the bases. No crepitus or skin changes of chest wall. )
Neurological Exam
Neurological Exam: alert
Jose Coma Scale
Eye Opening: Spontaneous
Verbal Response: Oriented
Motor Response: Obeys Commands
GCS Total Score: 15
Musculoskeletal Exam
Musculoskeletal Exam: other (L lower leg edematous and covered in crista wrap)
Skin Exam
Skin Exam: normal color and warm/dry
Psychiatric Exam
Psychiatric Exam: normal mood/affect
Course
<Guerline Hicks PA-C - Last Filed: 06/25/24 11:51>
Orders/Labs/Results
Orders:
Orders
06/25/24 10:20
Electrocardiogram (*1) Urgent
Reason for Study: Other
Other Reason for Exam: post code
06/25/24 10:21
EKG- Treatment ONCE
06/25/24 10:22
Cardiac Monitoring- Treatment ONCE
CR Chest Portable - 1 View Urgent
Comment:
Reason For Exam: s/p CPR, SOB
Reason Study Needs to be Portable: Patient Unstable
06/25/24 10:38
Heparin Pf [Heparin Lock Flush] 500 unit .ROUTE .[facility]
06/25/24 10:41
Complete Blood Count/With Diff Urgent
Comprehensive Metabolic Panel Urgent
PT/INR [Prothrombin Time] Urgent
PTT Urgent
Troponin I Urgent
06/25/24 11:30
Add On- LAB Urgent
Tests Added?: BNP
Abnormal Lab Results
06/25/24
10:41
RDW 16.5 H %
(11.5-14.5)
Abs Immat Gran (auto) 0.1 H 10^3/uL
(0-0.05)
Absolute Lymphs (auto) 0.9 L 10^3/uL
(1.2-3.4)
Immature Gran % 1.7 H %
(0-0.5)
Neutrophils % 79.6 H %
(42.2-75.2)
Lymphocytes % 10.6 L %
(20.5-51.1)
Glucose 123 H mg/dl
(70-99)
Albumin 3.4 L g/dl
(3.5-5.0)
06/25/24 10:41
06/25/24 10:41
Vital Signs
Initial and Last Documented VS:
Initial Vital Signs
Temp Pulse Resp BP
97.8 F 85 18 144/79
06/25/24 10:14 06/25/24 10:14 06/25/24 10:14 06/25/24 10:14
Last Documented Vital Signs
Temp Pulse Resp BP Pulse Ox
97.8 F 83 23 140/68 95
06/25/24 10:14 06/25/24 10:46 06/25/24 10:46 06/25/24 10:46 06/25/24 11:42
<Keaton Ferguson MD - Last Filed: 06/25/24 10:49>
Orders/Labs/Results
Orders:
Orders
06/25/24 10:20
Electrocardiogram (*1) Urgent
Reason for Study: Other
Other Reason for Exam: post code
06/25/24 10:21
EKG- Treatment ONCE
06/25/24 10:22
Cardiac Monitoring- Treatment ONCE
CR Chest Portable - 1 View Urgent
Comment:
Reason For Exam: s/p CPR, SOB
Reason Study Needs to be Portable: Patient Unstable
06/25/24 10:38
Heparin Pf [Heparin Lock Flush] 500 unit .ROUTE .[facility]
06/25/24 10:41
Complete Blood Count/With Diff Urgent
Comprehensive Metabolic Panel Urgent
PT/INR [Prothrombin Time] Urgent
PTT Urgent
Troponin I Urgent
06/25/24 11:30
Add On- LAB Urgent
Tests Added?: BNP
Abnormal Lab Results
06/25/24
10:41
RDW 16.5 H %
(11.5-14.5)
Abs Immat Gran (auto) 0.1 H 10^3/uL
(0-0.05)
Absolute Lymphs (auto) 0.9 L 10^3/uL
(1.2-3.4)
Immature Gran % 1.7 H %
(0-0.5)
Neutrophils % 79.6 H %
(42.2-75.2)
Lymphocytes % 10.6 L %
(20.5-51.1)
Glucose 123 H mg/dl
(70-99)
Albumin 3.4 L g/dl
(3.5-5.0)
06/25/24 10:41
06/25/24 10:41
Vital Signs
Initial and Last Documented VS:
Initial Vital Signs
Temp Pulse Resp BP
97.8 F 85 18 144/79
06/25/24 10:14 06/25/24 10:14 06/25/24 10:14 06/25/24 10:14
Last Documented Vital Signs
Temp Pulse Resp BP Pulse Ox
97.8 F 83 23 140/68 95
06/25/24 10:14 06/25/24 10:46 06/25/24 10:46 06/25/24 10:46 06/25/24 11:42
<Guerline Hicks PA-C - Last Filed: 06/25/24 11:51>
MDM/Problems Addressed
Differential Diagnosis Includes:
78yoF here after an episode of unresponsiveness after receiving Doxil for the first time. Hx of metastatic ovarian cancer. She felt funny, became flushed, and lost pulses. Received 1 minute of CPR before pulses came back. Initial rhythm after
episode was NSR. She is awake and alert on arrival. She reports some chest discomfort which she did not have prior to this. Also c/o SOB. She was due for thoracentesis this morning. Differential diagnosis includes but is not limited to: cardiac
arrest, medication reaction, arrhythmia, vasovagal episode
Initial ED plan: Check cardiac labs, coags, EKG, and CXR.
<Guerline Hicks PA-C - Last Filed: 06/25/24 11:51>
*EKG
Interpreted by ED Provider?: Yes
EKG Intrepretation Date: 06/25/24
Heart Rate: 84
Rate: normal
Rhythm: sinus
Townsend: normal axis
Interval: normal interval
QRS Pattern: normal QRS
Ischemia: no ischemia
*Critical Care Note
Total Time (30-74mins, 75-104mins- exclusive of procedures): Not Applicable
<Guerline Hicks PA-C - Last Filed: 06/25/24 11:51>
Update Note
Update Note:
EKG shows NSR without ischemic changes and troponin WNL. CXR shows mild pulmonary edema and small bilateral effusions. Suspect chest pain is musculoskeletal 2/2 chest compressions. Patient continues to be on oxygen, not oxygen dependent at baseline.
Will wean as able. Patient admitted for further evaluation and management.
ED Attending Note
<Guerline Hicks PA-C - Last Filed: 06/25/24 11:51>
-
Portions of this chart may have been created with voice recognition software.� Occasional wrong word or��sound alike� substitutions may have occurred due to the inherent limitations of voice recognition software.
<Keaton Ferguson MD - Last Filed: 06/25/24 10:49>
ED Attending Note
Patient seen and examined by attending physician: Yes
I performed the substantive portion of visit, reviewed & personally made and approve the management plan that is documented in note by myself or CARTER.: Yes
ED Attending Note:
78-year-old female received a first dose of chemotherapeutic medication for peritoneal CA. Apparently became flushed and then unresponsive. Apparently pulseless. CPR times a minute. Upon awakening she was in a normal sinus rhythm with stable
vital signs. No monitor was placed during the episode. Does complain of some chest pain after awakening. Also has had some ongoing shortness of breath but this is not new.
On exam patient is nontoxic and stable. Some decreased breath sounds to the right base. Port upper chest wall. Regular rate and rhythm. Abdomen nontender. Some midline chest wall tenderness. No crepitus. She does have swelling and a wrap to
her left leg.
Impression: Likely medication reaction given the timing. However given prolonged CPR with no documented rhythm she clearly warrants inpatient observation. Would consider pulmonary emboli although unlikely. She does have pleural effusions and a
reason for her ongoing shortness of breath.
Discharge Plan
Departure
Patient Disposition: Admit
Date of Disposition: 06/25/24
Time of Disposition: 11:40
Presentation/result/management discussed w/ accepting MD/DO: Hospitalist
Discharge Problem:
Episode of unresponsiveness
Prescriptions:
No Action
amlodipine 10 MG tablet
10 mg PO DAILY
pantoprazole 40 MG tablet,delayed release (DR/EC)
40 mg PO BID
multivitamin with folic acid [Tab-A-Crow] 1 TABLET tablet
1 tab PO DAILY
Prevagen 1 tablet tablet
1 tab PO DAILY
furosemide 40 mg tablet
40 mg PO DAILY
prochlorperazine maleate 10 mg tablet
10 mg PO Q6HPRN PRN (Reason: nausea/vomiting)
ondansetron 8 mg tablet,disintegrating
8 mg PO Q8HPRN PRN (Reason: nausea/vomiting)
cephalexin 500 mg Capsule
1,000 mg PO QID 7 Days Qty: 56 0RF
Interventions
Interventions:
*General Assessment Last Done: 06/25/24 10:49
ED- Fall Risk Assessment Last Done: 06/25/24 10:49
*ED COVID-19 Vaccine History Last Done: 06/25/24 10:56
ED-Skin Assessment Last Done: 06/25/24 10:49
ED- Pulmonary Assessment Last Done: 06/25/24 10:49
ED-EENT Assessment Last Done: 06/25/24 10:56
Discharge Date and Time
Print Language: YI
[2024-06-25 10:54] LABS: % Basophils 0.4 % (0-2); % Eosinophils 1.6 % (0-6); % Immature Granulocytes 1.7 % (0-0.5); % Lymphocytes 10.6 % (20.5-51.1); % Monocytes 6.1 % (1.7-9.3); % Neutrophils 79.6 % (42.2-75.2); Absolute Eosinophils 0.1 10^3/uL (0-0.7); Absolute Immature Granulocytes 0.1 10^3/uL (0-0.05); Absolute Lymphocytes 0.9 10^3/uL (1.2-3.4); Absolute Monocytes 0.5 10^3/uL (0.1-0.6); Absolute Neutrophils 6.5 10^3/uL (1.4-6.5); Hematocrit 41.5 % (37.0-47.0); Hemoglobin 13.7 g/dL (12.0-16.0); Mean Corpuscular Hgb 30.6 pg (27.0-31.0); Mean Corpuscular Volume 92.6 fL (81.0-99.0); Nucleated Red Blood Cells % 0 %; Platelet Count 206 10^3/uL (130-400); Red Blood Cell Count 4.48 10^6/uL (4.20-5.40); Red Cell Dist. Width 16.5 % (11.5-14.5); White Blood Cell Count 8.2 10^3/uL (4.8-10.8)
[2024-06-25 11:11] LABS: ALT (SGPT) 20 U/L (0-35); AST (SGOT) 36 U/L (14-36); Albumin 3.4 g/dl (3.5-5.0); Alkaline Phosphatase 110 U/L (38-126); Blood Urea Nitrogen 13 mg/dl (7-17); Calcium 8.8 mg/dl (8.4-10.2); Carbon Dioxide 26 mmol/L (22-30); Chloride 102 mmol/L (98-107); Estimated Creatinine Clearance 71 ml/min; Glucose 123 mg/dl (70-99); Potassium 4.1 mmol/L (3.5-5.1); Sodium 137 mmol/L (135-145); Total Bilirubin 0.7 mg/dl (0.2-1.3); Total Protein 6.8 g/dl (6.3-8.2); eGFR > 60.00
[2024-06-25 11:15] LABS: INR 1.06; PT 14.4 Sec (11.4-14.6)
[2024-06-25 11:20] LABS: Troponin I < 0.012 ng/ml
--- NOTE | 2024-06-25 12:18 | HPS.HSE ---
Family Physician
-
Family Physician: Ridge Castaneda MD, Resident
Chief Complaint
-
episode of unresponsiveness
History of Present Illness
Ms. Rosalie Blue is a 78 yo woman with hx metastatic ovarian cancer, essential HTN, GERD, anemia who had episode of unresponsiveness after receiving first found of new chemotherapy today (Doxil). Staff at infusion center were unable to palpate a
pulse and CPR was initiated. She received about one minute of chest compressions, placed on NRB and had palpable puse at time of rapid response arrival. Vitals HR 82, BP 164/115, SpO2 96% NRB. She received IV Solumedrol and IV Pepcid for possible
drug reaction.
Patient states that she didn't feel well last night 2/2 pain in her left leg. She was recently hospitalized 06/16-06/18 for LLE cellulitis and swelling 2/2 venous insufficiency. She states since discharge her wound appears better but her leg looks
more swollen. She has felt short of breath since the weekend, she has known pleural effusions. She couldn't find a wheelchair so walked to infusion center and felt winded. After she was given chemotherapy she had a feeling of generalized illness
and flushing and was going to call for nurse but passed out. She denies chest pain prior to event or while getting ready this morning.
She felt chills last night, none this morning. No recent measured fevers. No nausea/vomiting/diarrhea. She has been eating and drinking okay. Her LLE remains swollen, she has tried elevating it at home with futon but notes that it's often
difficult.
Medical History
Past Medical History
Past Medical History: Reports Cancer (Ovarian cancer status post hysterectomy and bilateral oophorectomy, carcinomatosis status post oral chemotherapy with recurrence, history of pleural effusion likely malignant.), GERD and HTN
Past Surgical History: Reports Gynocological (Total abdominal hysterectomy with bilateral salpingo-oophorectomy) and Orthopedic (Bilateral hip replacement, total knee arthroplasty)
Social History
Tobacco: Non-smoker
Alcohol: None
Drug: None
Personal: Single
Living: Alone
Employment: Employed
Family History
Family History: Not pertinent
Allergies / Home Medications
Allergies reflects when Allergies were last updated in [employer].
Home Medications with original date entered in [employer]
Allergy/Medication List:
Allergies
Allergy/AdvReac Type Severity Reaction Status Date / Time
adhesive Allergy Rash Verified 06/25/24 10:19
aprepitant [From Emend] Allergy Facial Verified 06/25/24 10:19
redness
and
shaking
all over
fosaprepitant [From Emend] Allergy Facial Verified 06/25/24 10:19
redness
and
shaking
all over
paclitaxel [From Taxol] Allergy Shaking Verified 06/25/24 10:19
all over
and facial
redness
Home Medications
amlodipine 10 mg tablet 10 mg PO DAILY Blood pressure 06/21/21
pantoprazole 40 mg tablet,delayed release 40 mg PO DAILY Gastrointestinal issue 06/21/21
Prevagen 1 tab PO DAILY Supplement 06/23/21
multivitamin with folic acid 400 mcg tablet (Tab-A-Crow) 1 tab PO DAILY Supplement 06/23/21
furosemide 40 mg tablet 40 mg PO DAILY Fluid Retention/Swelling 06/16/24
vit C 250 mg-vit E 90 mg-zinc 40 mg-copper 1 [id number] capsule (PreserVision AREDS-2) 1 tab PO BID Supplement 06/25/24
Review of Systems
-
History Source: Patient
A 12 point ROS was completed and negative except as noted: Yes
Physical Exam
Vital Signs
Vital Signs
Temp Pulse Resp BP Pulse Ox
97.8 F 80 18 129/68 94
06/25/24 10:14 06/25/24 12:00 06/25/24 12:05 06/25/24 12:00 06/25/24 12:00
Physical Exam
General: No Apparent Distress and Conversant
HEENT: PERRLA
Respiratory: Rales (bibasilar ); No Wheezes
Cardiac: S1/S2 and Regular Rhythm
GI: Soft and Ostomy
Musculoskeletal: Other (LLE with warmth and edema )
Skin: Warm and Dry; No Rash
Neuro: AO x 3
Psych: Calm
Laboratory Results
-
06/25/24 10:41
06/25/24 10:41
Laboratory Results
PT 14.4 Sec (11.4-14.6) 06/25/24 10:41
INR 1.06 06/25/24 10:41
APTT 28.0 Sec (23.4-35.0) 06/25/24 10:41
Total Bilirubin 0.7 mg/dl (0.2-1.3) 06/25/24 10:41
AST 36 U/L (14-36) 06/25/24 10:41
ALT 20 U/L (0-35) 06/25/24 10:41
Alkaline Phosphatase 110 U/L (38-126) 06/25/24 10:41
Troponin I < 0.012 ng/ml 06/25/24 10:41
Data Reviewed
-
Diagnostic Radiology: Report Reviewed by me
Lab Data: Labs Reviewed by me
Impression/Plan
-
Ms. 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
of new chemotherapy today (Doxil). Staff at infusion center were unable to palpate a pulse and CPR was initiated, she had palpable pulses upon arrival of rapid response team to infusion center.
Triage VS: T 97.8, P 85, RR 18, BP 144/79
LABS: WBC 8.2, Hg 13.7, PLT 206, Na 137, K+ 4.1, Cl 102, CO2 26, Cr 0.7, Glucose 123, liver enzymes WNL, Trop < 0.012
EKG: NSR @ 84, no significant change from prior
CXR:
IMPRESSION:
Mild pulmonary edema with stable size of the small bilateral pleural effusions, more pronounced on the right, with adjacent bibasilar atelectasis.
Loss of Consciousness
-history suggestive of vasovagal syncope; unclear if patient truly lost pulse
-initial Troponin negative
-admit to telemetry
-trend Troponin
-repeat TTE
-Cardiology consult
-PT/OT tomorrow AM (post trending Troponins)
Heart Failure preserved EF acute exacerbation
-CXR with mild edema and patient increasingly short of breath
-TTE from 06/12/24 with EF 65%
-will repeat TTE as above
-hold off on IV Diuresis given recent syncope, for now continue SECOND OPERATOR Lasix 40mg PO QD
-follow up further Cardiology recs
LLE swelling
-patient s/p multiple rounds of antibioitics; US negative on 06/15
-LLE remains swollen, venous insufficiency thought to be contributing
-will repeat LLE US
-consider reconsulting ID based on above results
Essential HTN
-hold SECOND OPERATOR Amlodipine for now
GERD
-SECOND OPERATOR Protonix
Metastatic Ovarian Cancer
-follows with Dr. Chin
-will consult Oncology here
DVT PPx Lovenox subQ
FULL CODE
76 minutes spent on patient care
[2024-06-25 13:09] LABS: NT-proBNP 168 pg/ml
[2024-06-25] MEDS: TYLENOL 1000 MG PO (13:33)
--- NOTE | 2024-06-25 14:02 | CON.ONC ---
Documented by User: [email or web address] Avendano 06/25/24 14:21
Impression
Impression
Primary peritoneal carcinoma
Malignant pleural effusions
suspected anaphylactic reaction to Doxil today.
Plan
Plan
Doxil will be discontinued indefinitely.
Continue as needed thoracentesis for malignant pleural effusions if symptomatic
Goals remain restorative so will opt for another line of palliative intent therapy upon hospital recovery after discharge in follow up with Dr. Chin
Patient History
History of Present Illness
78-year-old female with primary peritoneal carcinoma with progressive disease including poorly healing cellulitis of the left lower extremity and malignant pleural effusions. She was in our office today receiving her first dose of Doxil and had a
suspected anaphylactic reaction send she was unresponsive and seemingly without a pulse after initiation of this medication. She was given Pepcid, Solu-Medrol, CPR, and rapid response was called. Upon rapid response arrival she did have a pulse.
Admission labs show no significant abnormalities in CBC, coags or CMP. She tells me that her chronic left lower extremity pain and swelling are at baseline. Her ultrasound of the left lower extremity today was negative for DVT. Her chest x-ray
shows mild pulmonary edema and small bilateral pleural effusions. She last underwent thoracentesis on June 16, 2024 which drained 700 cc, cytology is positive for malignancy.
Clinically, she is awake and alert. She reports feeling 'much better.' She denies chest pain, palpitations, shortness of breath at rest, nausea, vomiting, diarrhea, constipation, or abdominal pain.
Afebrile, no hypotension, 4 L nasal cannula without hypoxia.
Past-Medical/Surgical History
Past�Medical�History Heart�murmur Hypertension Arthritis, HFpEF
Surgical�History Right�hip�2004 Left�hip�2015 Right�knee�2020 FERNIE/BSO�cytoreduction�12/2021�Dr.�Jas�Knight
Social�History Patient�denies�ever�using�tobacco. Patient�reports�alcohol�use�as�follows:�Patient�reports�on�average�<1�drinks�per�week�of�alcohol/beer.� Current�alcohol�user.�Patient�reports�an�average�of�1�drinks�per�week.
Marital�Status:�Patient�is� Family�Medical�History Aunt�breast�cancer,�Great�Aunt�breast�cancer.
Patient Medication
�Medication �Instructions �Recorded �Confirmed �Last Taken �Type
amlodipine 10 mg tablet 10 mg PO DAILY Blood pressure 06/21/21 06/25/24 06/24/24 History
pantoprazole 40 mg tablet,delayed 40 mg PO DAILY Gastrointestinal 06/21/21 06/25/24 06/24/24 History
release issue
Prevagen 1 tab PO DAILY Supplement 06/23/21 06/25/24 06/24/24 History
multivitamin with folic acid 400 1 tab PO DAILY Supplement 06/23/21 06/25/24 06/24/24 History
mcg tablet (Tab-A-Crow)
furosemide 40 mg tablet 40 mg PO DAILY Fluid 06/16/24 06/25/24 06/24/24 History
Retention/Swelling
vit C 250 mg-vit E 90 mg-zinc 40 1 tab PO BID Supplement 06/25/24 06/25/24 Unknown History
mg-copper 1 [id number]
capsule (PreserVision AREDS-2)
Review of Systems
-
Review of systems notable for HPI, otherwise negative negative
Physical Exam
-
General: No Apparent Distress
HEENT: Moist Mucous Membranes; Negative Jaundice
Cardiology: Normal Sinus Rhythm
Pulmonary: Other (diminished b/l LE)
GI: Soft
Extremities: Pulses Present and Edema (Chronic left lower extremity edema)
Neurology: Non Focal
Psych: Calm
Labs
Lab Results
WBC 8.2 10^3/uL (4.8-10.8) 06/25/24 10:41
RBC 4.48 10^6/uL (4.20-5.40) 06/25/24 10:41
Hgb 13.7 g/dL (12.0-16.0) 06/25/24 10:41
Hct 41.5 % (37.0-47.0) 06/25/24 10:41
MCV 92.6 fL (81.0-99.0) 06/25/24 10:41
MCH 30.6 pg (27.0-31.0) 06/25/24 10:41
MCHC 33.0 g/dL (33.0-37.0) 06/25/24 10:41
RDW 16.5 % (11.5-14.5) H 06/25/24 10:41
Plt Count 206 10^3/uL (130-400) 06/25/24 10:41
MPV 9.0 fL (7.4-10.4) 06/25/24 10:41
Abs Immat Gran (auto) 0.1 10^3/uL (0-0.05) H 06/25/24 10:41
Absolute Neuts (auto) 6.5 10^3/uL (1.4-6.5) 06/25/24 10:41
Absolute Lymphs (auto) 0.9 10^3/uL (1.2-3.4) L 06/25/24 10:41
Absolute Monos (auto) 0.5 10^3/uL (0.1-0.6) 06/25/24 10:41
Absolute Eos (auto) 0.1 10^3/uL (0-0.7) 06/25/24 10:41
Absolute Basos (auto) 0.0 10^3/uL (0-0.2) 06/25/24 10:41
Immature Gran % 1.7 % (0-0.5) H 06/25/24 10:41
Neutrophils % 79.6 % (42.2-75.2) H 06/25/24 10:41
Lymphocytes % 10.6 % (20.5-51.1) L 06/25/24 10:41
Monocytes % 6.1 % (1.7-9.3) 06/25/24 10:41
Eosinophils % 1.6 % (0-6) 06/25/24 10:41
Basophils % 0.4 % (0-2) 06/25/24 10:41
Creatinine 0.7 mg/dL (0.6-1.0) 06/25/24 10:41
Vital Signs
Vital Signs
Temp Pulse Resp BP Pulse Ox
97.8 F 80 18 129/68 94
06/25/24 10:14 06/25/24 12:00 06/25/24 12:05 06/25/24 12:00 06/25/24 12:00

Documented by User: Trev Jamil MD 06/25/24 14:36
Plan
Plan
Doxil will be discontinued indefinitely.
Continue as needed thoracentesis for malignant pleural effusions if symptomatic
Goals remain restorative so will opt for another line of palliative intent therapy upon hospital recovery after discharge in follow up with Dr. Chin
Oncology Addendum:
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
-metastatic ovarian cancer - of Dr. Chin
-apparent anaphylactic reaction to doxil today in office w/ 1st infusion - rapid response/ CPR - to ER
-additional w/u as per ER/ medicine - to evaluate for other causes of unresponsive event
will continue to follow with you.
[2024-06-25 14:13] LABS: Magnesium 1.8 mg/dl (1.6-2.3); Phosphorus 3.5 mg/dl (2.5-4.5)
--- NOTE | 2024-06-25 14:23 | CON.CAR ---
Consultation
Consultation Request
Date/Time Consultation Performed: June 25, 2024 at 14: 50
Requesting Provider: Hospitalist service
Performing Provider: Dr. Franklin Duke
Reason for Consultation: Loss of consciousness
Medical History
-
Chief Complaint: Loss of consciousness with transient CPR during chemotherapy
History of Present Illness:
This is a 78-year-old female with a complex medical history. She was metastatic primary peritoneal carcinoma previously treated with bevacizumab maintenance therapy with concern for significant progression and malignant pleural effusions requiring
periodic thoracentesis. She was at [facility] this morning for initiation of her first dose of Doxil. She reported feeling dizzy and was going to alert her nurse when she became unresponsive. CPR was initiated transiently. She is
now awake and fully conversant. She denies any chest discomfort or prior history of syncope or near syncope. She is reasonably active at home. She does her own grocery shopping and cooking. She cares for her house. She states that general
day-to-day activities have become more difficult but she continues to live independently. Maybe some more shortness of breath with physical activity which improves following thoracenteses. Her last thoracentesis was on 06/16/2024 draining 700 mL with
cytology positive for malignancy.
She has experienced swelling in the left lower extremity over the past several weeks and was tried on oral antibiotics with some improvement. Unfortunately, the leg remains tender to palpation and is quite erythematous. She reports progressive
swelling and discomfort from the bottom of her calf now up to behind the left knee. Last admission she received IV Vancomycin and Zosyn. ID was consulted. She did have left LE ultrasound with no sonographic evidence of left lower extremity DVT.
Multiple prominent left inguinal lymph nodes with largest measuring 2.7x1.3x1.5 cm
-06/25/2024: Left LE Duplex U/S: left LE ultrasound with no sonographic evidence of left lower extremity DVT. Multiple prominent left inguinal lymph nodes with largest measuring 2.7 x 1.3 x 1.5 cm
-06/12/2024: Echo: LV: Hyperdynamic LV with mild concentric hypertrophy and estimated ejection fraction of 65%. RV: Normal, LA: Normal, RA: Normal, MV: MAC with trace MR, AV: Sclerotic but not stenotic. No aortic insufficiency. TV: Mild TR
estimated PAP of 40-45 mmHg, pericardium: Trace pericardial effusion
Past medical history:
-Metastatic primary peritoneal carcinoma
-Hypertension
-Cardiac murmur
-Arthritis
-Degenerative joint disease
Social history:
-Tobacco: None, EtOH: Social use only
Allergies / Home Medications
Allergy/AdvReac Type Severity Reaction Status Date / Time
adhesive Allergy Rash Verified 06/25/24 10:19
aprepitant [From Emend] Allergy Facial Verified 06/25/24 10:19
redness
and
shaking
all over
fosaprepitant [From Emend] Allergy Facial Verified 06/25/24 10:19
redness
and
shaking
all over
paclitaxel [From Taxol] Allergy Shaking Verified 06/25/24 10:19
all over
and facial
redness
�Medication �Instructions �Recorded �Confirmed �Type
amlodipine 10 mg tablet 10 mg PO DAILY Blood pressure 06/21/21 06/25/24 History
pantoprazole 40 mg tablet,delayed 40 mg PO DAILY Gastrointestinal 06/21/21 06/25/24 History
release issue
Prevagen 1 tab PO DAILY Supplement 06/23/21 06/25/24 History
multivitamin with folic acid 400 1 tab PO DAILY Supplement 06/23/21 06/25/24 History
mcg tablet (Tab-A-Crow)
furosemide 40 mg tablet 40 mg PO DAILY Fluid 06/16/24 06/25/24 History
Retention/Swelling
vit C 250 mg-vit E 90 mg-zinc 40 1 tab PO BID Supplement 06/25/24 06/25/24 History
mg-copper 1 [id number]
capsule (PreserVision AREDS-2)
Review of Systems
-
History Source: Patient
All other systems: Negative unless noted
Constitutional: Fatigue and Chills (Subjective fever and rigors 24 hours before admission)
Respiratory: Trouble Breathing (Shortness of breath which temporarily improves following thoracentesis)
Cardiac: Syncope (Syncopal episode today with initiation of chemotherapy. She became dizzy but denied any chest discomfort and reports no history of chest discomfort)
Abdomen/GI: Abdominal Pain and Other (Bloating)
Musculoskeletal: Joint Pain and Muscle Stiffness
Skin: No Symptoms
Neurological: No Symptoms
Physical Exam
Vital Signs
Temp Pulse Resp BP Pulse Ox
97.8 F 80 18 129/68 94
06/25/24 10:14 06/25/24 12:00 06/25/24 12:05 06/25/24 12:00 06/25/24 12:00
Lab Results
06/25/24 10:41
06/25/24 10:41
Troponin I < 0.012 ng/ml 06/25/24 10:41
Nxz-B-Hnpiproppfm Pept 168 pg/ml 06/25/24 10:41
Physical Exam:
GEN: AAO x 3. No acute distress
HEENT: NC/AT, sclera are anicteric, hearing and nares are normal. MMM
NECK: Supple. Normal JVP
LUNGS: Diminished breath sounds at the bases bilaterally. No wheezing.
CV: Regular rate and rhythm. Normal S1/S2. Murmur: I-II/ murmur USB
ABD : Soft, NT, bowel sounds present
EXT: Left leg erythematous below the knee and is tender to palpation and moderately edematous.
NEURO: No focal neurologic deficits
Impression / Plan
-
IMPRESSION:
-Syncopal / unresponsive episode with initiation of chemotherapy: Differential dx would include medication reaction, arrhythmia, or profound vasovagal episode
-Metastatic primary peritoneal carcinoma with malignant pleural effusions
-Inguinal lymphadenopathy
-Small pericardial effusion noted on last echocardiogram
-Cardiac murmur with normal LVEF
RECOMMENDATION:
-Repeat echo to assess for LVOT gradient and pericardial effusion size
-Cardiac monitoring
-Will follow
Data Reviewed
-
EKG: Tracing Personally Visualized and interpreted
Radiology: Report Reviewed by me
Ultrasound: Report Reviewed by me
Medical Tests (Nuc Med, Echo etc): Report Reviewed by me
Labs: Labs Reviewed by me
Total Time Spent with Patient (in minutes): Time reviewing chart and old records, echo, LE ultrasound 55 minutes
--- NOTE | 2024-06-25 14:36 | CON.ID ---
Consultation
-
Date/Time Consultation Requested: 06/25/24 14:30
Date/Time Consultation Performed: 06/25/24 14:37
Requesting Provider: Dr Cortez
Performing Provider: Dr Srinivasan
Reason for Consultation: relapse of cellulitis
Chief Complaint / Past History
Chief Complaint
episode of unresponsiveness
History of Present Illness
Ms Blue is an 78 year old female with history of ovarian cancer with peritoneal carcinomatosis status post hysterectomy, radiation with recurrence of disease pending repeat chemotherapy, class II obesity; she presented to the emergency
department 06/16 for 2 weeks of left lower extremity swelling and shortness of breath. She reported bilateral swelling and also pain in the left lower extremity for about 2 weeks. She was placed on keflex 500 mg PO QID by report with no improvement
in redness and swelling in that area; there is weaping on the medial side of her leg. She was transiently on Lasix for bilateral lower extremity swelling and the right leg is completely resolved, however with persistent swelling in the left leg.
Outpatient ultrasound that was negative for DVT. She denies fevers or chills. She was initially started on cefazolin with some improvement, compression and elevation recommended and she was prescribed kefelx 1000 mg PO QID x7 days.
Then last night she noted some pain in the left leg and increased swelling. No fevers or chills. She has had diffulty elevating the leg at home.
She now represents reports she had her first round of new chemotherapy (doxil) same day, then noted chest discomfort, shortness of breath. She was due for a thoracentesis today but presented to the ER instead where she was noted to have left leg
swelling. While in the office, she was nonresponsive and providers were unable to find a pulse, BRIM CURLER called and CPR started and lasted about 1 minute, placed on NRB, she was prescribed pepcid, solumedrol. She revived. Since then denies chest
pain, palpitations, shortness of breath at rest, nausea, vomiting, diarrhea, constipation, or abdominal pain.
Since arrival this visit she has been afebrile, bp stable, wbc 8.2, hgb 13, plt 206, L shift is noted, cr 0.7, lfts wnl, repeat venous US: no DVT, left inguinal LNs are noted consistent with known malignancy, CXR mild pulmonary edema, with small
bilateral effusions. She has been seen by oncology Dr Jamil who suspects anaphylactic reaction to doxil.
Past History
Additional Past Medical History:
Ovarian cancer status post hysterectomy and bilateral oophorectomy, carcinomatosis status post oral chemotherapy with recurrence, history of pleural effusion likely malignant, GERD and HTN
Additional Past Surgical History:
Total abdominal hysterectomy with bilateral salpingo-oophorectomy) and Orthopedic (Bilateral hip replacement, total knee arthroplasty
Allergy History:
adhesive Allergy (Verified 06/25/24 10:19)
Rash
aprepitant [From Emend] Allergy (Verified 06/25/24 10:19)
Facial redness and shaking all over
fosaprepitant [From Emend] Allergy (Verified 06/25/24 10:19)
Facial redness and shaking all over
paclitaxel [From Taxol] Allergy (Verified 06/25/24 10:19)
Shaking all over and facial redness
Medications Reviewed: Yes
Social History
Tobacco: Non-Smoker
Alcohol: Occasional
Personal:
Family History
Family History: Other (Aunt breast cancer, Great Aunt breast cancer)
Review of Systems
Review of Systems
General: Negative Fever or Chills
All systems: All other systems were reviewed and were negative
Vital Signs
Temp Pulse Resp BP Pulse Ox
97.8 F 80 18 129/68 94
06/25/24 10:14 06/25/24 12:00 06/25/24 12:05 06/25/24 12:00 06/25/24 12:00
Physical Exam
Physical Exam
Constitutional: No Acute Distress
Cardiovascular: Regular Rate and S1/S2; Negative Murmur or Rub
Pulmonary: Clear and Symmetric; Negative Wheezes, Rales or Rhonchi
Gastrointestinal: Soft, Non Tender, Non Distended and Normal Bowel Sounds
Extremities: Other (1+ pitting edema through the LLE, warm, erythema)
Skin: Warm and Dry; Negative Rash or Jaundice
Wound: Other (venous ulceration of the medial left, distal leg with honey colored crusting)
Lab / Diagnostic Study Results
06/25/24 10:41
06/25/24 10:41
Abs Immat Gran (auto) 0.1 10^3/uL (0-0.05) H 06/25/24 10:41
Absolute Neuts (auto) 6.5 10^3/uL (1.4-6.5) 06/25/24 10:41
Absolute Lymphs (auto) 0.9 10^3/uL (1.2-3.4) L 06/25/24 10:41
Absolute Monos (auto) 0.5 10^3/uL (0.1-0.6) 06/25/24 10:41
Absolute Basos (auto) 0.0 10^3/uL (0-0.2) 06/25/24 10:41
Immature Gran % 1.7 % (0-0.5) H 06/25/24 10:41
Neutrophils % 79.6 % (42.2-75.2) H 06/25/24 10:41
Lymphocytes % 10.6 % (20.5-51.1) L 06/25/24 10:41
Monocytes % 6.1 % (1.7-9.3) 06/25/24 10:41
Eosinophils % 1.6 % (0-6) 06/25/24 10:41
Basophils % 0.4 % (0-2) 06/25/24 10:41
PT 14.4 Sec (11.4-14.6) 06/25/24 10:41
INR 1.06 06/25/24 10:41
Assessment / Plan
Recurrent, Nonpurulent LLE Cellulitis
Uncontrolled Lymphedema
Venous Ulceration
- start cefazolin 2 gm IV q8 hours
- compression and elevation
- lotion to the intact skin only
- getting lasix as well
- outpatient follow up with lymphedema clinic for possible SCD script
[2024-06-25 17:24] LABS: Troponin I 0.042 ng/ml
[2024-06-25] MEDS: LOVENOX 40 MG SC (18:02)
[2024-06-25] MEDS: ANCEF 10 IV (18:02)
--- NOTE | 2024-06-25 18:46 | TRANSFER ---
Pt transferred from ED to 333. Pt walked from stretcher to bed. VSS, admission and assessment complete by this RN. Pt on 2L NC. No pain, call garvin within reach. Oriented to room.
[2024-06-25] MEDS: TYLENOL 650 MG PO (20:27)
[2024-06-25 22:51] LABS: Troponin I 0.024 ng/ml
[2024-06-26] VITALS (8 sets, daily range): BP systolic 138–159; BP diastolic 65–87; PULSE 77; O2SAT 97; BMI 35.6
[2024-06-26] MEDS: ANCEF 10 IV ×3 (03:07→17:29)
[2024-06-26] MEDS: TYLENOL 650 MG PO ×3 (03:10→23:21)
[2024-06-26 05:00] LABS: % Basophils 0.1 % (0-2); % Immature Granulocytes 0.3 % (0-0.5); % Lymphocytes 4.7 % (20.5-51.1); % Monocytes 7.2 % (1.7-9.3); % Neutrophils 87.7 % (42.2-75.2); Absolute Lymphocytes 0.5 10^3/uL (1.2-3.4); Absolute Monocytes 0.7 10^3/uL (0.1-0.6); Absolute Neutrophils 8.8 10^3/uL (1.4-6.5); Hematocrit 37.5 % (37.0-47.0); Hemoglobin 12.2 g/dL (12.0-16.0); Mean Corp Hgb Conc. 32.5 g/dL (33.0-37.0); Mean Corpuscular Hgb 30.7 pg (27.0-31.0); Mean Corpuscular Volume 94.2 fL (81.0-99.0); Mean Platelet Volume 8.7 fL (7.4-10.4); Nucleated Red Blood Cells % 0 %; Platelet Count 200 10^3/uL (130-400); Red Blood Cell Count 3.98 10^6/uL (4.20-5.40); Red Cell Dist. Width 16.6 % (11.5-14.5)
[2024-06-26 05:25] LABS: Troponin I < 0.012 ng/ml
[2024-06-26 05:26] LABS: Blood Urea Nitrogen 20 mg/dl (7-17); Calcium 8.6 mg/dl (8.4-10.2); Carbon Dioxide 28 mmol/L (22-30); Chloride 103 mmol/L (98-107); Estimated Creatinine Clearance 69 ml/min; Glucose 135 mg/dl (70-99); Potassium 4.2 mmol/L (3.5-5.1); Sodium 137 mmol/L (135-145); eGFR > 60.00
[2024-06-26] MEDS: PROTONIX 40 MG PO (08:36)
[2024-06-26] MEDS: LASIX 40 MG PO (08:36)
--- NOTE | 2024-06-26 08:57 | W.PN.HOSP.TC ---
Today's Communication/Plan
-
see bold
Assessment / Plan
Assessment / Plan
78 yo woman with hx metastatic ovarian cancer with peritoneal carcinomatosis s/p hysterectomy, radiation with recurrence of disease, essential HTN, ALEXIS, anemia who had episode of unresponsiveness after receiving first found of new chemotherapy today
(Doxil). Staff at infusion center were unable to palpate a pulse and CPR was initiated, she had palpable pulses upon arrival of rapid response team to infusion center.
Loss of Consciousness
-Appreciate oncology input, suspect secondary to anaphylaxis to doxil
-Appreciate cardiology input, echo unremarkable
�Troponins are negative, EKG without any changes, cardiology has signed off
�PT/OT recommends home PT
Heart Failure preserved EF acute exacerbation
-CXR with mild edema and patient increasingly short of breath
-TTE from 06/12/24 with EF 65%
-Continue MACHINE FORMER Lasix 40mg PO QD
Acute left lower extremity cellulitis
-Patient s/p multiple rounds of antibioitics; US negative on 06/15
-Repeat ultrasound on 06/25 also negative
�Seen by ID, started on IV Ancef for cellulitis
Chronic malignant pleural effusion
�Last thoracentesis on 06/16/24
�Consult IR to see if there is enough to drain on the right side
Essential HTN
-Hold MACHINE FORMER Amlodipine for now
GERD
-MACHINE FORMER Protonix
Metastatic Ovarian Cancer
-Follows with Dr. Chin, seen by oncology here
DVT prophylaxis�subcu Lovenox
Full code
Total time spent to see the patient on the floor, examine the patient, review data and lab results, discuss treatment plan with patient, nursing staff around 50 minutes.
Physical Exam
General: Appears chronically ill, no acute distress
HEENT: Normocephalic, Atraumatic, EOMI, MMM
Respiratory: Clear to Auscultation bilaterally
Cardiac: Normal S1/S2, Regular Rate and Rhythm
GI: Soft, Nontender, Nondistended, Normal Bowel Sounds
Extremities: No Clubbing, Cyanosis, or Edema
Neuro: Nonfocal/Grossly Intact
Psych: Calm, Cooperative
Derm: No Visible lesions
Anticipated Discharge: 24 - 48 hours
Subjective/Interval History
-
Date of Service: June 26, 2024
Patient complains of soreness in her left foot. She has dyspnea with activity. She also reports musculoskeletal chest pain from chest compressions. No fever, no vomiting. Poorly
Objective Data
-
Labs:
Laboratory Results
06/26/24
04:45
WBC 10.0
Hgb 12.2
Hct 37.5
Plt Count 200
Sodium 137
Potassium 4.2
Chloride 103
Carbon Dioxide 28
BUN 20 H
Creatinine 0.7
Glucose 135 H
Calcium 8.6
Vital Signs:
Vital Signs
Temp Pulse Resp BP Pulse Ox
96.4 F L 70 13 140/87 96
06/26/24 07:44 06/26/24 08:36 06/26/24 07:44 06/26/24 08:36 06/26/24 07:44
I&O
06/25/24 06/26/24 06/27/24
06:59 06:59 06:59
Intake Total 720 / 720
Balance 720 / 720
--- NOTE | 2024-06-26 10:48 | CM ---
Pt seen bedside. Initial assessment completed. Admitted for episode of unresponsiveness.
Pt reports that she lives alone in a single story home- 2 steps to enter the home. Pt reports she is primarily independent w/ ambulating. Pt shares she does have a cane but she doesn't use it. Pt states she was at SNF a few years ago in [place]
but doesn't recall the name. Pt was prev known to [facility] in the past. Pt denies receiving any current OP or home services at this time. Pt states both her children and her neighbor are very helpful.
Address, points of contact and insurance verified
PCP: Dr. Castaneda
Pharmacy: [facility]
PT/OT evaluated pt and is currently recommending HH at d/c
Plan: Home w/ HH if agreeable. CM will confirm if pt would like HH and which provider
--- NOTE | 2024-06-26 10:56 | W.PN.ID1 ---
Date of Service
Date of Service: June 26, 2024
Today's Communication
c/w cefazolin 2 gm IV q8 hours today, when stable for dc can transition to keflex 500 mg PO QID for a 7 day total course; then transition to oral keflex 500 mg PO qday as suppression indefinitely
Assessment / Plan
Recurrent, Nonpurulent LLE Cellulitis
Uncontrolled Lymphedema
Venous Ulceration
- c/w cefazolin 2 gm IV q8 hours today, when stable for dc can transition to keflex 500 mg PO QID for a 7 day total course; then transition to oral keflex 500 mg PO qday as suppression indefinitely
- compression and elevation
- lotion to the intact skin only
- getting lasix as well
- outpatient follow up with lymphedema clinic
Chief Complaint
-: Cellulitis
Subjective / Review of Systems
afebrile
bp stable
no events overnight
much less erythema and tenderness of the LLE
Vital Signs / Physical Exam
Vital Signs
Vital Signs
Temp Pulse Resp BP Pulse Ox
96.4 F L 70 13 140/87 96
06/26/24 07:44 06/26/24 08:36 06/26/24 07:44 06/26/24 08:36 06/26/24 07:44
Physical Exam
Constitutional: No Acute Distress and Chronically Ill
Cardiovascular: Regular Rate and S1/S2; Negative Murmur or Rub
Pulmonary: Clear and Symmetric; Negative Wheezes or Rales
Gastrointestinal: Soft, Non Tender, Non Distended and Normal Bowel Sounds
Skin: Warm, Dry and Rash (markedly improved, edema remains 1+); Negative Jaundice
Objective Data
Lab Data
Lab Results
06/26/24 04:45
06/26/24 04:45
PT 14.4 Sec (11.4-14.6) 06/25/24 10:41
INR 1.06 06/25/24 10:41
APTT 28.0 Sec (23.4-35.0) 06/25/24 10:41
Estimated Creat Clear 69 ml/min 06/26/24 04:45
Total Bilirubin 0.7 mg/dl (0.2-1.3) 06/25/24 10:41
AST 36 U/L (14-36) 06/25/24 10:41
ALT 20 U/L (0-35) 06/25/24 10:41
Alkaline Phosphatase 110 U/L (38-126) 06/25/24 10:41
Most recent labs reviewed.
--- NOTE | 2024-06-26 11:54 | W.PN.CARDCBS ---
Addendum entered and electronically signed by Franklin Adams MD 06/26/24 15:53:
Pleasant 78-year-old woman with primary peritoneal carcinoma with malignant pleural effusions and inguinal lymphadenopathy who experienced an acute hypersensitivity reaction/anaphylactic response to Doxil infusion on June 25. At present, she
feels well. Receiving Cefazolin for left lower extremity cellulitis
PMH/PSH: As above, plus GERD, hypertension, hysterectomy and bilateral salpingo-oophorectomy, hip replacements, total hip arthroplasty
Current medications: Furosemide 40 mg a day, pantoprazole 40 mg a day, Lovenox, Ancef, heparin
Echo: Normal EF, normal atria, normal RV, aortic sclerosis and trace mitral regurgitation, pulmonary artery pressure 37 mmHg
142/76,, respiratory rate 13, pulse 89, head neck exam unremarkable lungs are clear but decreased in bases, regular rate and rhythm without rales, abdomen benign, extremities with edema on left, leg wrapped,
Labs reviewed
Impression:
Primary peritoneal carcinoma with malignant pleural effusion
Acute hypersensitivity reaction/anaphylaxis to Doxil
Patient has recovered from her acute event and appears stable from cardiac standpoint at this time.
Her echo is satisfactory, troponin was negative, EKG was without acute changes
We will sign off, please call if problems
Original Note:
Today's Communication / Plan
-
stable cardiac status
unresponsive episode felt to be reaction to doxil (chemo)
Impression / Plan
-
IMPRESSION:
-Syncopal / unresponsive episode, felt to be most likely chemotherapy medication reaction, possible anaphylaxis
-Metastatic primary peritoneal carcinoma with malignant pleural effusions
-Inguinal lymphadenopathy
-Small pericardial effusion noted on last echocardiogram
-Cardiac murmur with normal LVEF
ECHO 06/25/24: EF 55 to 60%, trace MR, mild TR, PAP 37 mmHg, pericardial fat pad and trace effusion noted, no significant change compared to prior from 06/12/2024
RECOMMENDATIONS:
-Patient was receiving new chemotherapy (Doxil) yesterday and cancer infusion center when had syncopal/unresponsive episode. She received brief CPR and was brought to the emergency room and subsequently admitted
-Review of telemetry overnight without evidence of arrhythmia, in SR
-Echocardiogram with results as above, EF preserved, no significant pericardial effusion or valvular disease
-Troponin initially negative, increased to 0.04, and has subsequently returned to less than 0.012. No feelings of chest pain. EKG without acute ischemic changes. Suspected transient troponin elevation secondary to CPR so will be treated as
nonischemic myocardial injury
-Doxil will be discontinued indefinitely. Defer to oncology for alternative treatment options
-She reports left lower extremity edema, erythema which has been ongoing for several weeks. She states she has had several courses of antibiotics without improvement. Presently on IV antibiotics. Peripheral vascular ultrasound without evidence of
DVT.
-will plan to sign off
Progress Note - Liturgical Music Director
Subjective
Date of Service: June 26, 2024
Reports no issues overnight. No lightheadedness. Reports some chest soreness likely from CPR
Objective
Labs:
06/26/24 04:45
06/26/24 04:45
Labs
Hgb 12.2 g/dL (12.0-16.0) 06/26/24 04:45
Hct 37.5 % (37.0-47.0) 06/26/24 04:45
Plt Count 200 10^3/uL (130-400) 06/26/24 04:45
PT 14.4 Sec (11.4-14.6) 06/25/24 10:41
INR 1.06 06/25/24 10:41
APTT 28.0 Sec (23.4-35.0) 06/25/24 10:41
Sodium 137 mmol/L (135-145) 06/26/24 04:45
Potassium 4.2 mmol/L (3.5-5.1) 06/26/24 04:45
BUN 20 mg/dl (7-17) H 06/26/24 04:45
Creatinine 0.7 mg/dL (0.6-1.0) 06/26/24 04:45
Glucose 135 mg/dl (70-99) H 06/26/24 04:45
Troponins
06/25/24 06/25/24 06/25/24
10:41 16:30 22:09
Troponin I < 0.012 0.042 H* D 0.024 D
06/26/24
04:45
Troponin I < 0.012 D
Vital Signs and I&O:
Vital Signs
Temp Pulse Resp BP Pulse Ox
97.8 F 79 13 140/82 98
06/26/24 11:09 06/26/24 11:09 06/26/24 11:09 06/26/24 11:09 06/26/24 11:09
Vital Signs
Temp Pulse Resp BP Pulse Ox
97.8 F 79 13 140/82 98
06/26/24 11:09 06/26/24 11:09 06/26/24 11:09 06/26/24 11:09 06/26/24 11:09
Intake & Output
06/24/24 06/25/24 06/26/24 06/27/24
07:59 07:59 07:59 07:59
Intake Total 720 / 720
Balance 720 / 720
Physical Exam
Physical Exam
GEN: No distress, awake, alert, oriented x3. obese. on supp O2
HEENT: supple, anicteric, mmm, eomi
LUNGS: CTA anterolaterally, no wheezes/rales
CV: Reg, S1/S2, 1/6 murmur
ABD: soft, BS+, NT/ND
EXT: No cyanosis, clubbing. 3+ edema of LLE with erythema
NEURO: Gross non-focal
SKIN: Warm, pink, dry. No rash. R chest port
--- NOTE | 2024-06-26 12:51 | W.PN.ONC2 ---
Today's Communication / Plan
-
.
Impression
Impression
Primary peritoneal carcinoma
Malignant pleural effusions
suspected anaphylactic reaction to Doxil 06/25.
Plan
Plan
Doxil will be discontinued indefinitely.
Continue as needed thoracentesis for malignant pleural effusions if symptomatic
Goals remain restorative so will opt for another line of palliative intent therapy upon hospital recovery after discharge in follow up with Dr. Chin
additional w/u per medicine - to evaluate for other causes of unresponsive event
will continue to follow with you.
Subjective/Objective
Subjective
no new complaints. 2L NC
Vital Signs:
Vital Signs
Temp Pulse Resp BP Pulse Ox
97.8 F 79 13 140/82 98
06/26/24 11:09 06/26/24 11:09 06/26/24 11:09 06/26/24 11:09 06/26/24 11:09
Lab Results:
Laboratory Data
WBC 10.0 10^3/uL (4.8-10.8) 06/26/24 04:45
Hgb 12.2 g/dL (12.0-16.0) 06/26/24 04:45
Plt Count 200 10^3/uL (130-400) 06/26/24 04:45
PT 14.4 Sec (11.4-14.6) 06/25/24 10:41
INR 1.06 06/25/24 10:41
APTT 28.0 Sec (23.4-35.0) 06/25/24 10:41
eGFR > 60.00 06/26/24 04:45
Physical Exam
HEENT: Moist Mucous Membranes; No Jaundice
Cardiology: Normal Sinus Rhythm
Pulmonary: Other (diminished b/l bases)
GI: Soft
Extremities: Pulses Present and Edema (LLE dressing intact)
[2024-06-26] MEDS: LOVENOX 40 MG SC (17:29)
[2024-06-26] MEDS: TUMS CHEWABLE TABLET 200 MG PO (21:47)
[2024-06-27] MEDS: ANCEF 10 IV ×2 (01:39→11:18)
[2024-06-27] MEDS: MAALOX 30 ML PO (02:42)
[2024-06-27] MEDS: TORADOL 15 MG IV (02:42)
[2024-06-27 03:55] VITALS: BP 133/70
--- NOTE | 2024-06-27 07:12 | W.PN.ONC2 ---
Today's Communication / Plan
-
Stable for D/C from oncology perspective.
Will need indefinite Keflex ppx
Impression
Impression
Primary peritoneal carcinoma
Malignant pleural effusions
suspected anaphylactic reaction to Doxil 06/25.
Recurrent, Nonpurulent LLE Cellulitis
Plan
Plan
Doxil will be discontinued indefinitely.
Continue as needed thoracentesis for malignant pleural effusions if symptomatic
Appreciate ID advise regarding usp Keflex Tx: transition to keflex 500 mg PO QID for a 7 day total course; then transition to oral keflex 500 mg PO qday as suppression indefinitely
Subjective/Objective
Chief Complaint
ACS Heme ONC
Subjective
Improved. SOB stable.
Vital Signs:
Vital Signs
Temp Pulse Resp BP Pulse Ox
97.8 F 67 18 133/70 97
06/27/24 03:55 06/27/24 03:55 06/27/24 03:55 06/27/24 03:55 06/27/24 03:55
Lab Results:
Laboratory Data
WBC 10.0 10^3/uL (4.8-10.8) 06/26/24 04:45
Hgb 12.2 g/dL (12.0-16.0) 06/26/24 04:45
Plt Count 200 10^3/uL (130-400) 06/26/24 04:45
PT 14.4 Sec (11.4-14.6) 06/25/24 10:41
INR 1.06 06/25/24 10:41
APTT 28.0 Sec (23.4-35.0) 06/25/24 10:41
eGFR > 60.00 06/26/24 04:45
Physical Exam
HEENT: No Jaundice
Cardiology: S1 and S2
Pulmonary: Other (diminished B/L at bases)
GI: Soft
Extremities: No C/C/E
[2024-06-27] MEDS: PROTONIX 40 MG PO (07:16)
[2024-06-27] MEDS: LASIX 40 MG PO (07:16)
[2024-06-27 07:17] VITALS: BP 148/81
[2024-06-27] MEDS: TYLENOL 650 MG PO (07:22)
--- NOTE | 2024-06-27 07:50 | W.PN.HOSP.TC ---
Today's Communication/Plan
-
Discharge home with home care tomorrow
Assessment / Plan
Assessment / Plan
78 yo woman with hx metastatic ovarian cancer with peritoneal carcinomatosis s/p hysterectomy, radiation with recurrence of disease, essential HTN, ALEXIS, anemia who had episode of unresponsiveness after receiving first found of new chemotherapy today
(Doxil). Staff at infusion center were unable to palpate a pulse and CPR was initiated, she had palpable pulses upon arrival of rapid response team to infusion center.
Loss of Consciousness
-Appreciate oncology input, suspect secondary to anaphylaxis to doxil
-Appreciate cardiology input, echo unremarkable
�Troponins are negative, EKG without any changes, cardiology has signed off
�PT/OT recommends home PT, cleared by oncology for discharge
Heart Failure preserved EF acute exacerbation
-CXR with mild edema and patient increasingly short of breath
-TTE from 06/12/24 with EF 65%
-Continue ENVIRONMENTAL HEALTH NURSE Lasix 40mg PO QD
Acute left lower extremity cellulitis
-Patient s/p multiple rounds of antibioitics; US negative on 06/15
-Repeat ultrasound on 06/25 also negative
�Seen by ID, started on IV Ancef for cellulitis
-Plan to discharge on Keflex
Chronic malignant pleural effusion
�Last thoracentesis on 06/16/24
�Consult IR to see if there is enough to drain on the right side
Essential HTN
-Resume amlodipine at decreased dose of 5 mg daily instead of 10 mg
GERD
-ENVIRONMENTAL HEALTH NURSE Protonix
Metastatic Ovarian Cancer
-Follows with Dr. Chin, seen by oncology here
DVT prophylaxis�subcu Lovenox
Full code
Total time spent to see the patient on the floor, examine the patient, review data and lab results, discuss treatment plan with patient, nursing staff around 51 minutes.
Physical Exam
General: Appears chronically ill, no acute distress
HEENT: Normocephalic, Atraumatic, EOMI, MMM
Respiratory: Diminished breath sounds at the bases bilaterally
Cardiac: Normal S1/S2, Regular Rate and Rhythm
GI: Soft, Nontender, Nondistended, Normal Bowel Sounds
Extremities: No Clubbing, Cyanosis
Severe left lower extremity edema, darkened erythema, and tenderness
Neuro: Nonfocal/Grossly Intact
Anticipated Discharge: Within 24 hours
Subjective/Interval History
-
Date of Service: June 26, 2024
Patient reports feeling better. She has musculoskeletal chest pain from compressions. Denies lightheadedness, dizziness, or shortness of breath. No fever, no vomiting.
Objective Data
-
Labs:
Laboratory Results
06/26/24
04:45
WBC 10.0
Hgb 12.2
Hct 37.5
Plt Count 200
Sodium 137
Potassium 4.2
Chloride 103
Carbon Dioxide 28
BUN 20 H
Creatinine 0.7
Glucose 135 H
Calcium 8.6
Vital Signs:
Vital Signs
Temp Pulse Resp BP Pulse Ox
98.0 F 89 13 142/76 97
06/26/24 15:12 06/26/24 15:12 06/26/24 15:12 06/26/24 15:12 06/26/24 15:12
I&O
06/25/24 06/26/24 06/27/24
06:59 06:59 06:59
Intake Total 720 / 720
Balance 720 / 720
--- NOTE | 2024-06-27 13:04 | W.PN.UPDATE ---
Update Note
Progress Note Update
Patient is in need of oxygen on exertion due to pulse oximetry of 94% on room air at rest; 89% on room air with exertion.
Patient was placed on 2L O2 via nasal cannula with saturation of 95%. Oxygen will help to improve hypoxemia.
Patient is mobile within the home. Albuterol therapy has been discussed and is ineffective in treating hypoxemia-related symptoms.
Oxygen will improve the patient's symptoms.
--- NOTE | 2024-06-27 14:51 | CM ---
entered order for discharge .
Spoke with pt h aid her son Fernando will drive her home.
Offered V she declined need.
IMM signed on admission 2 days ago .pt agrees with dc.
PLAN Home no needs
--- NOTE | 2024-06-27 14:52 | W.DCSUMMARY ---
Discharge Summary
Discharge Data
Date of Admission: 06/25/24
Date of Discharge: 06/27/24
-
Pending Results: No
Hospital Course
Discharge diagnosis:
Loss of consciousness with suspected anaphylactic reaction to Doxil
Chronic malignant right pleural effusion
Recurrent left lower extremity cellulitis
Acute heart failure with a preserved ejection fraction
Essential hypertension
Primary peritoneal carcinoma
Gastroesophageal reflux disease
Consults: Cardiology, oncology
Echo:
1. Left ventricle: Normal size and function. The estimated ejection fraction
is 55-60%
2. Right ventricle: Normal
3. Atria: Normal size
4. Mitral valve: Trace mitral regurgitation
5. Aortic valve: Sclerotic. No aortic insufficiency. Trileaflet valve.
6. Tricuspid valve: Mild tricuspid regurgitation. Estimated pulmonary artery
systolic pressure is 37 mmHg
7. Pericardium: Pericardial fat pad and trace effusion is noted
8. When compared to the most recent echocardiogram from 06/12/2024, there has
been no significant change
Hospital course:
78-year-old female with a past medical history of primary peritoneal carcinoma, chronic right malignant pleural effusion, recurrent left lower extremity cellulitis, and heart failure who was admitted for loss of consciousness after receiving a Doxil
infusion. Patient was seen in conjunction with cardiology and oncology. Her echocardiogram was unrevealing. There were no events on telemetry. Oncology suspects that she had an anaphylactic reaction to Doxil.
Patient has a history of heart failure, and did receive a dose of IV Lasix for acute heart failure with a preserved ejection fraction. She was then resumed on her previous home Lasix dose of 40 mg daily.
Patient has recurrent left lower extremity cellulitis. She was seen in conjunction with ID, and treated with IV Ancef. She is discharged on Keflex 2 g 4 times daily for 2 weeks.
For her chronic right malignant pleural effusion, her last thoracentesis with 06/16/2024. She has been instructed to call her oncologist office on 06/29/2024 so they can arrange an outpatient thoracentesis. Patient reports understanding.
Patient's multiple medical conditions have been optimized. She is discharged home with home care. She needs to follow-up with her primary care doctor in 1 week, and her usual oncologist in the office in 2-3 weeks.
Disposition: Home with home care
Discharge planning: Required 47 minutes
Discharge Plan
-
Patient Disposition: Home with Home Care
Discharge Diagnosis/Procedures: Anaphylactic reaction to Doxil, chronic bilateral pleural effusions, peritoneal carcinomatosis, left lower extremity cellulitis
Condition: Fair
Diet: 2 Gram Sodium
Activity: As tolerated
Driving Restrictions: As prior to admission
Activity Restrictions/Additional Instructions:
Please call Dr. Chin's office on 06/29/2024 so he can arrange for outpatient thoracentesis.
Follow-up with your primary care doctor in 1 week.
Referrals:
Ridge Castaneda MD, Resident [Family Provider] - in one week
Prescriptions:
New
cephalexin 500 mg capsule
1,000 mg PO QID 14 Days Qty: 112 0RF
Continued
amlodipine 10 MG tablet
10 mg PO DAILY
pantoprazole 40 MG tablet,delayed release (DR/EC)
40 mg PO DAILY
multivitamin with folic acid [Tab-A-Crow] 1 TABLET tablet
1 tab PO DAILY
Prevagen 1 tablet tablet
1 tab PO DAILY
furosemide 40 mg tablet
40 mg PO DAILY
PreserVision AREDS-2 250-90-40-1 mg Capsule
1 tab PO BID
Discharge Orders:
Discharge Patient (As Directed); Ordered 06/27/24
Ordered By: Leandro Pandya
Discharge Date and Time
Discharge Date/Time: 06/27/24 16:13
Print Language: FRENCH
[2024-06-27 15:25] VITALS: BP 138/76
== END 2024-06-27 16:13 | disposition home or self-care (01) | DRG 915 ==
LOC: 3 WEST ACU 13:10
PROVIDERS: Physician Assistant; ADMITTING PHYSICIAN Student in an Organized Health Care Education/Training Program; ATTENDING PHYSICIAN Family Medicine; CONSULT PHYSICIAN Internal Medicine Hematology & Oncology; EMERGENCY PHYSICIAN Emergency Medicine; FAMILY PHYSICIAN Student in an Organized Health Care Education/Training Program; OTHER PHYSICIAN Internal Medicine Interventional Cardiology; OTHER PHYSICIAN Student in an Organized Health Care Education/Training Program
DX: T88.6XXA Anaphylactic reaction due to adverse effect of correct drug or medicament properly administered, initial encounter (principal); I50.33 Acute on chronic diastolic (congestive) heart failure; J91.0 Malignant pleural effusion; C56.9 Malignant neoplasm of unspecified ovary; C78.6 Secondary malignant neoplasm of retroperitoneum and peritoneum; J98.11 Atelectasis; L03.116 Cellulitis of left lower limb; T45.1X5A Adverse effect of antineoplastic and immunosuppressive drugs, initial encounter; I11.0 Hypertensive heart disease with heart failure; D63.0 Anemia in neoplastic disease; K21.9 Gastro-esophageal reflux disease without esophagitis; I87.2 Venous insufficiency (chronic) (peripheral); Z90.710 Acquired absence of both cervix and uterus; Z96.659 Presence of unspecified artificial knee joint; Z96.643 Presence of artificial hip joint, bilateral; M19.90 Unspecified osteoarthritis, unspecified site; Z80.3 Family history of malignant neoplasm of breast; Z79.899 Other long term (current) drug therapy
CPT/HCPCS: 93308; 71045; 76604; 80048; 80053; 83735; 83880; 84100; 84484; 85025; 85610; 85730; 93005; 93321; 93325; 93971; 97163; 97166; 99285

== ENCOUNTER → 2024-06-29 08:06 | Outpatient (REF) | payer OTHER, SELFPAY | LOC: WOUND 08:06 | PROVIDERS: ATTENDING PHYSICIAN Surgery; FAMILY PHYSICIAN Student in an Organized Health Care Education/Training Program | DX: L97.321 Non-pressure chronic ulcer of left ankle limited to breakdown of skin (principal); I87.2 Venous insufficiency (chronic) (peripheral) | CPT/HCPCS: 99203 ==

== ENCOUNTER → 2024-07-01 15:35 | Outpatient (REF) | payer BC, MEDICARE, SELFPAY ==
[2024-07-01 16:12] LABS: ALT (SGPT) 10 U/L (0-35); AST (SGOT) 21 U/L (14-36); Albumin 3.9 g/dl (3.5-5.0); Alkaline Phosphatase 90 U/L (38-126); Blood Urea Nitrogen 23 mg/dl (7-17); Calcium 8.8 mg/dl (8.4-10.2); Carbon Dioxide 30 mmol/L (22-30); Chloride 96 mmol/L (98-107); Glucose 93 mg/dl (70-99); Potassium 4.1 mmol/L (3.5-5.1); Sodium 135 mmol/L (135-145); Total Bilirubin 0.6 mg/dl (0.2-1.3); Total Protein 7.1 g/dl (6.3-8.2); eGFR > 60.00
[2024-07-01 17:44] LABS: % Basophils 0.4 % (0-2); % Eosinophils 4.2 % (0-6); % Immature Granulocytes 0.4 % (0-0.5); % Lymphocytes 8.2 % (20.5-51.1); % Monocytes 13.8 % (1.7-9.3); Absolute Eosinophils 0.3 10^3/uL (0-0.7); Absolute Lymphocytes 0.6 10^3/uL (1.2-3.4); Absolute Monocytes 1.1 10^3/uL (0.1-0.6); Absolute Neutrophils 5.7 10^3/uL (1.4-6.5); Hematocrit 42.7 % (37.0-47.0); Hemoglobin 13.5 g/dL (12.0-16.0); Mean Corp Hgb Conc. 31.6 g/dL (33.0-37.0); Mean Corpuscular Hgb 30.4 pg (27.0-31.0); Mean Corpuscular Volume 96.2 fL (81.0-99.0); Mean Platelet Volume 10.4 fL (7.4-10.4); Nucleated Red Blood Cells % 0 %; Platelet Count 275 10^3/uL (130-400); Red Blood Cell Count 4.44 10^6/uL (4.20-5.40); Red Cell Dist. Width 16.9 % (11.5-14.5); White Blood Cell Count 7.8 10^3/uL (4.8-10.8)
== END ==
LOC: CLAB 15:35
PROVIDERS: ATTENDING PHYSICIAN Student in an Organized Health Care Education/Training Program
DX: C56.9 Malignant neoplasm of unspecified ovary (principal)
CPT/HCPCS: 80053; 85025

== ENCOUNTER → 2024-07-02 08:24 | Outpatient (REF) | payer BC, MEDICARE, SELFPAY ==
[2024-07-02 08:49] VITALS: BP 135/86; BP_SYST 82
== END ==
LOC: RADI 08:24
PROVIDERS: ATTENDING PHYSICIAN Student in an Organized Health Care Education/Training Program; FAMILY PHYSICIAN Orthopaedic Surgery
DX: J90 Pleural effusion, not elsewhere classified (principal); Z53.8 Procedure and treatment not carried out for other reasons
CPT/HCPCS: 76604

== ENCOUNTER → 2024-07-13 13:56 | Outpatient (REF) | payer BC, MEDICARE, SELFPAY | LOC: WOUND 13:56 | PROVIDERS: ATTENDING PHYSICIAN Surgery; FAMILY PHYSICIAN Student in an Organized Health Care Education/Training Program | DX: L97.321 Non-pressure chronic ulcer of left ankle limited to breakdown of skin (principal); C78.6 Secondary malignant neoplasm of retroperitoneum and peritoneum; I89.0 Lymphedema, not elsewhere classified; I87.2 Venous insufficiency (chronic) (peripheral); C48.2 Malignant neoplasm of peritoneum, unspecified; C56.9 Malignant neoplasm of unspecified ovary | CPT/HCPCS: 99213 ==

== ENCOUNTER → 2024-07-16 11:04 | Outpatient (REF) | payer BC, MEDICARE, SELFPAY ==
[2024-07-16 11:15] VITALS: BP 131/71; BP_SYST 90
[2024-07-16 12:30] VITALS: BP 148/92
== END ==
LOC: RADI 11:04
PROVIDERS: ATTENDING PHYSICIAN Student in an Organized Health Care Education/Training Program
DX: J90 Pleural effusion, not elsewhere classified (principal)
CPT/HCPCS: 32555; 71045

== ENCOUNTER 2024-08-18 15:42 | Emergency (ER) | payer BC, MEDICARE, SELFPAY ==
[2024-08-18 15:47] VITALS: BP 164/84
[2024-08-18 18:28] VITALS: BMI 36.6
--- NOTE | 2024-08-18 19:11 | ED.GENMED ---
History of Present Illness
General
Chief Complaint: Fall
Source: patient
Exam Limitations: none
Time Seen by Provider: 08/18/24 17:55
Nursing documentation reviewed up to this point in time: agreed with
History of Present Illness
History of Present Illness:
pt is a 78 y/o F
with h/o ovarian ca recurrent, chemo, nephrostomy tube, RF
here with mechanical fall today a few hours ago
she was stepping up a step outside her house and went to grab the door handle and msised and fell backwards, striking head on the ground
has a laceration on the back of her head
no thinners
brought in by EMS
small localized headache around wound
tetanus outdated
Past History
Past History
ED Past Medical History: Cancer (Ovarian), Renal failure and Other ('Heart murmur')
ED Past Surgical History: Orthopedic and Urological (Bilateral nephrostomy tubes)
Social History
Tobacco: Non-smoker
Alcohol: Occasional
Drug: None
Personal: Other
Living: alone
Employment: Other
Family History
Family History: Other
Review of Systems
Review of Systems
Allergies reviewed?: Yes
All Other Systems: Not applicable
Phy Exam
Physical Exam
Physical Exam:
GENERAL: Alert , in no apparent distress
HEAD: hematoma R parietal region with bleeding matted to head; after irrigation there is a small 0.25 cm arc shaped superficial lac, closed not bleeding with a 2 cm surroudning hematoma
NECK: no midline tenderness, active ROM intact, no paraspinal muscle tenderness;
EYE: pupils equal and reactive, EOMs intact.
ENT: o/p clr, mmm. no hemotympanum
CARDIAC: Regular rate and rhythm, no edema
LUNGS: Clear breath sounds bilaterally, no acute respiratory distress, no wheezes/rales/rhonchi
ABDOMEN: Soft, without focal tenderness, no r/g, no cvat
NEUROLOGICAL: Alert and oriented, no focal neuro deficits, CN intact, 5/5 strength, sensation intact; tremor slight at rest, much worse with intention
SKIN: Warm and dry,
MUSCULOSKELETAL: lymphedema
PSYCH: Normal and appropriate interaction.
Course
Orders/Labs/Results
Orders:
Orders
08/18/24 15:50
CT Head W/o Iv Contrast Urgent
Comment:
Reason For Exam: fall, head strike
08/18/24 19:18
Tetanus/Diphth/Acelpertussis [Adacel] 0.5 ml IM .ONCE ONE
Vital Signs
Initial and Last Documented VS:
Initial Vital Signs
Temp Pulse Resp BP Pulse Ox
36.6 C 106 16 164/84 95
08/18/24 15:47 08/18/24 15:47 08/18/24 15:47 08/18/24 15:47 08/18/24 15:47
Last Documented Vital Signs
Temp Pulse Resp BP Pulse Ox
36.6 C 106 16 164/84 99
08/18/24 15:47 08/18/24 15:47 08/18/24 15:47 08/18/24 15:47 08/18/24 17:44
MDM/Problems Addressed
Differential Diagnosis Includes:
laceration, head injury
MDM/Problems Addressed:
78 y/o F with ovarian ca
uses cane
no AC
fell backwards striking head today
no LOC
awake and alert, no vomiting, no confusion
head ct neg
laceratino irrigated
\\already closed; no wound repair required
teatnus updated
will see how pt is on her feet, may recommend walker
*Critical Care Note
Total Time (30-74mins, 75-104mins- exclusive of procedures): Not Applicable
ED Attending Note
-
Portions of this chart may have been created with voice recognition software.� Occasional wrong word or��sound alike� substitutions may have occurred due to the inherent limitations of voice recognition software.
Discharge Plan
Departure
Patient Disposition: Home (Routine Discharge)
Date of Disposition: 08/18/24
Time of Disposition: 19:41
Patient with high blood pressure during this ER visit?: No
Condition: Fair
Covid-19: Not Applicable
Discharge Problem:
Fall, Hematoma of scalp
Instructions: Wound Care (DC), Head Injury in Adults (DC)
Prescriptions:
No Action
amlodipine 10 MG tablet
10 mg PO DAILY
pantoprazole 40 MG tablet,delayed release (DR/EC)
40 mg PO DAILY
multivitamin with folic acid [Tab-A-Crow] 1 TABLET tablet
1 tab PO DAILY
Prevagen 1 tablet tablet
1 tab PO DAILY
furosemide 40 mg tablet
40 mg PO DAILY
PreserVision AREDS-2 250-90-40-1 mg Capsule
1 tab PO BID
cephalexin 500 mg capsule
1,000 mg PO QID 14 Days Qty: 112 0RF
Referrals:
Michael Ruano MD, Resident [Family Provider] -
Activity Restrictions/Additional Instructions:
Your CAT scan was negative for any intracranial bleeding or skull fracture. You have a hematoma which is a lump under the skin noted as a bruise. Please ice off-and-on
Take Tylenol every 6 hours as needed for pain. You have a superficial laceration that is closed and not bleeding so we are not going to need to place stitches. It may ooze a little bit here and there. You might want to consider keeping it dry for
24 hours before washing her hair.
Return for any dizziness, vomiting, severe headache, confusion etc. Otherwise follow-up with your doctor. You were given a tetanus shot
Interventions
Interventions:
*Risk Screen - Suicide Last Done: 08/18/24 15:47
*General Assessment Last Done: 08/18/24 15:47
*Neglect/Abuse Screening Last Done: 08/18/24 15:47
*ED- Fall Risk Assessment Last Done: 08/18/24 15:47
*ED COVID-19 Vaccine History Last Done: 08/18/24 15:47
ED-Musculoskeletal Assessment Last Done: 08/18/24 17:44
ED- Neurological Assessment Last Done: 08/18/24 17:44
ED-Skin Assessment Last Done: 08/18/24 17:44
Discharge Date and Time
Print Language: [id number]
[2024-08-18] MEDS: ADACEL 0.5 ML IM (19:26)
== END 2024-08-18 20:13 | disposition home or self-care (01) ==
LOC: EMR 15:42
PROVIDERS: EMERGENCY PHYSICIAN Emergency Medicine
DX: S01.01XA Laceration without foreign body of scalp, initial encounter (principal); W10.9XXA Fall (on) (from) unspecified stairs and steps, initial encounter; C56.9 Malignant neoplasm of unspecified ovary; Z23 Encounter for immunization
CPT/HCPCS: 90471; 99284; 70450; 90715

== ENCOUNTER 2024-08-20 20:31 | Inpatient (IN) | payer BC, MEDICARE, SELFPAY ==
[2024-08-20] VITALS (7 sets, daily range): BP systolic 109–146; BP diastolic 58–72; BMI 33.9
--- NOTE | 2024-08-20 15:20 | ED.GENMED ---
History of Present Illness
<Colleen Bass PA-C - Last Filed: 08/21/24 02:51>
General
Chief Complaint: Weakness
Source: patient
Exam Limitations: none
Time Seen by Provider: 08/20/24 15:16
Nursing documentation reviewed up to this point in time: agreed with
History of Present Illness
History of Present Illness:
Patient is a 78-year-old female with history hypertension, hyperlipidemia, metastatic ovarian cancer currently undergoing treat presenting to the emergency department for generalized weakness. Patient was seen in the ED 2 days ago after a fall with
head strike. She had normal CT imaging of her head at that time. However�since going home she states that she has had intermittent episodes of 'loss of control of her bilateral upper and lower extremities '. Patient reports an episode of fainting
today. She also states that she has been incontinent to urine over the past few days. She feels extremely weak bilaterally.
Patient denies any recent fevers, chest pain, shortness of breath, numbness/tingling in extremities, or bowel incontinence. She has no back pain.
Patient is not on any blood thinners.
Past History
<Colleen Bass PA-C - Last Filed: 08/21/24 02:51>
Past History
ED Past Medical History: Cancer (Ovarian), Renal failure and Other ('Heart murmur')
ED Past Surgical History: Orthopedic and Urological (Bilateral nephrostomy tubes)
Social History
Tobacco: Non-smoker
Alcohol: Occasional
Drug: None
Personal: Other
Living: alone
Employment: Other
Family History
Family History: Other
Review of Systems
<Colleen Bass PA-C - Last Filed: 08/21/24 02:51>
Review of Systems
Allergies reviewed?: Yes
All Other Systems: ROS reviewed and negative except as documented in HPI and ROS
Phy Exam
<Colleen Bass PA-C - Last Filed: 08/21/24 02:51>
Physical Exam
Physical Exam:
Vitals: Mildly hypertensive, otherwise stable vital signs. Afebrile
General: Patient is in no apparent distress.
Skin: Warm and dry, no rashes or lesions
Head: Normocephalic, atraumatic
Eyes: Sclera nonicteric. EOMs intact. No nystagmus.
Throat: Protecting airway
Neck: Normal ROM, no cervical spine tenderness, no meningismus
Cardiac: Regular rate and rhythm, no murmurs.
Pulm: Normal respiratory effort, no wheezes, rales, rhonchi heard on exam.
Abdomen: Abdomen soft and nontender.
Extremities: 2+ pitting edema of right lower extremity with erythema and warmth. Generalized weakness of b/l lower extremities with palpable DP pulses.
Neuro: AAOx3. Grossly intact
Psychiatric: Normal affect.
Course
<Colleen Bass PA-C - Last Filed: 08/21/24 02:51>
Orders/Labs/Results
Orders:
Orders
08/20/24 Dinner
Regular
At Your Request: Full Participation
08/20/24 15:36
Electrocardiogram (*1) Urgent
Reason for Study: Fatigue / Weakness
EKG- Treatment ONCE
08/20/24 15:40
US Legs, Bilateral [US Periph Venous LOWER Ext Jose Carlos] Urgent
Comment: hx malignancy
Reason For Exam: b/l lower extremity swelling
08/20/24 15:51
0.9% Sodium Chloride 500 ml [Nss] 500 ml IV BOLUS
08/20/24 15:57
COVID-19 Antigen Urgent
Source: Nasal Swab
Complete Blood Count/With Diff Urgent
Comprehensive Metabolic Panel Urgent
NT-proBNP Urgent
Troponin I Urgent
Influenza A+B Rapid Molecular Urgent
HOA Source: Nasal Swab
Specimen Description:
08/20/24 16:59
Urinalysis Reflex To Culture Urgent
Date Specimen was Collected: 08/20/24
Time Specimen was Collected: 16:56
08/20/24 18:50
MR Lumbar Without Contrast Urgent
Comment:
Reason For Exam: weakness in hands and feet; h/o metastatic cancer
Recent pill cam endoscopy?: No
MR Thoracic Spine Without Urgent
Comment:
Reason For Exam: weakness in hands and feet; h/o metastatic cancer
Recent pill cam endoscopy?: No
08/20/24 18:51
CeFAZolin 2 GRAM [Ancef] 2 grams in 10 ml IV NOW
08/20/24 19:51
MR Cervical Spine Without Urgent
Comment:
Reason For Exam: weakness in hands and feet; h/o metastatic cancer
Recent pill cam endoscopy?: No
08/20/24 19:52
Admit/Transfer Patient As Directed
Co-Sign Provider:
Level of Care: Inpatient admission
Assign to:: Telemetry
Physician / Group: Thea Blunt
Diagnosis: cellulitis, generalized weakness, transaminitis
Reason for Telemetry: Syncope
Date to Stop Telemetry: 08/22/24
Time to Stop Telemetry: 11:00
Reason for Hospitalization: cellulitis, generalized weakness, transaminitis
Expected length of stay greater than two midnights?: Yes
ELOS- Estimated Length of Stay in days: 3
I certify the patient meets the requirements for IP care: Yes
Furosemide [Lasix] 40 mg IV NOW STA
PRN Pain Medication Management As Directed
May give lesser potent ordered pain med per pt: Yes
preference::
Protocol:: Medication orders for pain may be administered in a
manner that supports deferring to patient preference
when the pt is:
- Requesting an ordered lesser potent pain medication.
Least to most potent pain medications are defined
as: acetaminophen < NSAID < tramadol < opioids
(morphine, oxycodone, hydromorphone).
- Requesting a lesser dose of the same medication IF
ORDERED.
- Requesting a less intrusive route of administration
if both routes are prescribed by the provider (PO <
IV).
08/20/24 19:54
Code Status As Directed
Resuscitation Status: Full Code
08/20/24 19:58
US Abdomen Complete/Upper Urgent
Comment:
Reason For Exam: Transaminitis
08/20/24 20:07
MRSA Screen Routine
HOA Source: Nose
Specimen Description:
08/20/24 20:55
Acetaminophen [Tylenol] 650 mg PO Q4HPRN PRN
08/20/24 20:55
INFECTIOUS DISEASE CONSULT Routine
Consulting Provider: Ela Srinivasan
Was physician already notified: Yes
Activity As Directed
Activity Level: Out of Bed-Early Mobility
Intake/ Output As Directed
Frequency: Per unit guidelines
Vital Signs As Directed
Frequency: Per unit guidelines
Weight As Directed
Frequency: Daily
Pt Eval And Treat Routine
Activity Level: Out of Bed-Early Mobility
DX Deep Vein Thrombosis Video Routine
08/21/24 02:00
CeFAZolin 1 GRAM [Ancef] 1 gram in 5 ml IV Q8H
08/21/24 06:00
Complete Blood Count/No Diff IN AM
Comprehensive Metabolic Panel IN AM
08/21/24 08:00
Amlodipine [Norvasc] 10 mg PO DAILY
Furosemide [Lasix] 40 mg IV DAILY
Pantoprazole [Protonix] 40 mg PO DAILY
08/21/24 18:00
Enoxaparin Sodium [Lovenox] 40 mg SC QPM
08/22/24 11:00
DC Protocol for Telemetry ONCE
Abnormal Lab Results
08/20/24
15:57
RBC 3.34 L 10^6/uL
(4.20-5.40)
Hgb 10.1 L g/dL
(12.0-16.0)
Hct 29.9 L %
(37.0-47.0)
RDW 19.8 H %
(11.5-14.5)
Abs Immat Gran (auto) 0.1 H 10^3/uL
(0-0.05)
Absolute Neuts (auto) 6.6 H 10^3/uL
(1.4-6.5)
Absolute Lymphs (auto) 0.5 L 10^3/uL
(1.2-3.4)
Immature Gran % 1.3 H %
(0-0.5)
Neutrophils % 86.2 H %
(42.2-75.2)
Lymphocytes % 5.9 L %
(20.5-51.1)
BUN 37 H mg/dl
(7-17)
Glucose 123 H mg/dl
(70-99)
AST 157 H U/L
(14-36)
ALT 79 H U/L
(0-35)
Alkaline Phosphatase 180 H U/L
(38-126)
Total Protein 6.0 L g/dl
(6.3-8.2)
Albumin 2.7 L g/dl
(3.5-5.0)
08/20/24 15:57
08/20/24 15:57
Vital Signs
Initial and Last Documented VS:
Initial Vital Signs
BP
135/72
08/20/24 15:22
Last Documented Vital Signs
Temp Pulse Resp BP Pulse Ox
99.1 F 86 25 140/82 94
08/21/24 00:27 08/21/24 01:30 08/21/24 01:30 08/21/24 01:00 08/21/24 01:30
<Elvis Escobar MD - Last Filed: 08/20/24 18:55>
Orders/Labs/Results
Orders:
Orders
08/20/24 Dinner
Regular
At Your Request: Full Participation
08/20/24 15:36
Electrocardiogram (*1) Urgent
Reason for Study: Fatigue / Weakness
EKG- Treatment ONCE
08/20/24 15:40
US Legs, Bilateral [US Periph Venous LOWER Ext Jose Carlos] Urgent
Comment: hx malignancy
Reason For Exam: b/l lower extremity swelling
08/20/24 15:51
0.9% Sodium Chloride 500 ml [Nss] 500 ml IV BOLUS
08/20/24 15:57
COVID-19 Antigen Urgent
Source: Nasal Swab
Complete Blood Count/With Diff Urgent
Comprehensive Metabolic Panel Urgent
NT-proBNP Urgent
Troponin I Urgent
Influenza A+B Rapid Molecular Urgent
HOA Source: Nasal Swab
Specimen Description:
08/20/24 16:59
Urinalysis Reflex To Culture Urgent
Date Specimen was Collected: 08/20/24
Time Specimen was Collected: 16:56
08/20/24 18:50
MR Lumbar Without Contrast Urgent
Comment:
Reason For Exam: weakness in hands and feet; h/o metastatic cancer
Recent pill cam endoscopy?: No
MR Thoracic Spine Without Urgent
Comment:
Reason For Exam: weakness in hands and feet; h/o metastatic cancer
Recent pill cam endoscopy?: No
08/20/24 18:51
CeFAZolin 2 GRAM [Ancef] 2 grams in 10 ml IV NOW
08/20/24 19:51
MR Cervical Spine Without Urgent
Comment:
Reason For Exam: weakness in hands and feet; h/o metastatic cancer
Recent pill cam endoscopy?: No
08/20/24 19:52
Admit/Transfer Patient As Directed
Co-Sign Provider:
Level of Care: Inpatient admission
Assign to:: Telemetry
Physician / Group: Thea Blunt
Diagnosis: cellulitis, generalized weakness, transaminitis
Reason for Telemetry: Syncope
Date to Stop Telemetry: 08/22/24
Time to Stop Telemetry: 11:00
Reason for Hospitalization: cellulitis, generalized weakness, transaminitis
Expected length of stay greater than two midnights?: Yes
ELOS- Estimated Length of Stay in days: 3
I certify the patient meets the requirements for IP care: Yes
Furosemide [Lasix] 40 mg IV NOW STA
PRN Pain Medication Management As Directed
May give lesser potent ordered pain med per pt: Yes
preference::
Protocol:: Medication orders for pain may be administered in a
manner that supports deferring to patient preference
when the pt is:
- Requesting an ordered lesser potent pain medication.
Least to most potent pain medications are defined
as: acetaminophen < NSAID < tramadol < opioids
(morphine, oxycodone, hydromorphone).
- Requesting a lesser dose of the same medication IF
ORDERED.
- Requesting a less intrusive route of administration
if both routes are prescribed by the provider (PO <
IV).
08/20/24 19:54
Code Status As Directed
Resuscitation Status: Full Code
08/20/24 19:58
US Abdomen Complete/Upper Urgent
Comment:
Reason For Exam: Transaminitis
08/20/24 20:07
MRSA Screen Routine
HOA Source: Nose
Specimen Description:
08/20/24 20:55
Acetaminophen [Tylenol] 650 mg PO Q4HPRN PRN
08/20/24 20:55
INFECTIOUS DISEASE CONSULT Routine
Consulting Provider: Ela Srinivasan
Was physician already notified: Yes
Activity As Directed
Activity Level: Out of Bed-Early Mobility
Intake/ Output As Directed
Frequency: Per unit guidelines
Vital Signs As Directed
Frequency: Per unit guidelines
Weight As Directed
Frequency: Daily
Pt Eval And Treat Routine
Activity Level: Out of Bed-Early Mobility
DX Deep Vein Thrombosis Video Routine
08/21/24 02:00
CeFAZolin 1 GRAM [Ancef] 1 gram in 5 ml IV Q8H
08/21/24 06:00
Complete Blood Count/No Diff IN AM
Comprehensive Metabolic Panel IN AM
08/21/24 08:00
Amlodipine [Norvasc] 10 mg PO DAILY
Furosemide [Lasix] 40 mg IV DAILY
Pantoprazole [Protonix] 40 mg PO DAILY
08/21/24 18:00
Enoxaparin Sodium [Lovenox] 40 mg SC QPM
08/22/24 11:00
DC Protocol for Telemetry ONCE
Abnormal Lab Results
08/20/24
15:57
RBC 3.34 L 10^6/uL
(4.20-5.40)
Hgb 10.1 L g/dL
(12.0-16.0)
Hct 29.9 L %
(37.0-47.0)
RDW 19.8 H %
(11.5-14.5)
Abs Immat Gran (auto) 0.1 H 10^3/uL
(0-0.05)
Absolute Neuts (auto) 6.6 H 10^3/uL
(1.4-6.5)
Absolute Lymphs (auto) 0.5 L 10^3/uL
(1.2-3.4)
Immature Gran % 1.3 H %
(0-0.5)
Neutrophils % 86.2 H %
(42.2-75.2)
Lymphocytes % 5.9 L %
(20.5-51.1)
BUN 37 H mg/dl
(7-17)
Glucose 123 H mg/dl
(70-99)
AST 157 H U/L
(14-36)
ALT 79 H U/L
(0-35)
Alkaline Phosphatase 180 H U/L
(38-126)
Total Protein 6.0 L g/dl
(6.3-8.2)
Albumin 2.7 L g/dl
(3.5-5.0)
08/20/24 15:57
08/20/24 15:57
Vital Signs
Initial and Last Documented VS:
Initial Vital Signs
BP
135/72
08/20/24 15:22
Last Documented Vital Signs
Temp Pulse Resp BP Pulse Ox
99.1 F 86 25 140/82 94
08/21/24 00:27 08/21/24 01:30 08/21/24 01:30 08/21/24 01:00 08/21/24 01:30
<Colleen Bass PA-C - Last Filed: 08/21/24 02:51>
MDM/Problems Addressed
Differential Diagnosis Includes:
Not limited to: UTI, acute dehydration, electrolyte imbalance, viral illness, deconditioning, medication side effect, metastatic disease, etc
MDM/Problems Addressed:
78 y.o F w/ history as documented notable for metastatic ovarian cancer presenting today via EMS with lower extremity weakness and frequent falls at home. Also w/ new onset urinary incontinence over the past few days. No fevers, back pain, chest
pain, or shortness of breath. No numbness/tingling in lower extremities. Vitals and physical exam as above. Patient does have generalized weakness to b/l lower extremities w/ 2+ pitting edema of RLE along with overlying erythema and warmth. She has
benign abdominal exam with clear lungs. No evidence of traumatic injury to back with no midline tenderness. Will check basic labs, urine, give IVF. Given current malignancy and increased risk- concern for possible DVT although clinically more
suspicious of cellulitis. Will get b/l lower extremity US.
Update: Labs are reviewed. Mild anemia. Chemistry with new elevations in LFTs along with elevated alkaline phosphatase. One differential for this would be bony metastasis to spine. Other considerations are medication side effect, general
deconditioning, viral illness. No evidence of DVT on b/l lower extremity US. Ultimately - patient will require admission for generalized weakness and frequent falls. Will cover w/ IV abx for suspected cellulitis of RLE. While less likely etiology of
LE weakness given no evidence of urinary retention on exam - attending physician did order MRI thoracic/lumbar spine for evaluation during hospitalization. Patient accepted to hospitalist service in stable condition for continued management.
<Colleen Bass PA-C - Last Filed: 08/21/24 02:51>
*Radiology
Radiology exam reviewed: radiology read reviewed
*Pulse Oximetry
Patient hypoxic: no
*EKG
Interpreted by ED Provider?: Yes
EKG Intrepretation Date: 08/20/24
Interpretation: abnormal
Comparison EKG: changes noted
Heart Rate: 93
Rate: normal
Rhythm: sinus
Interval: long QT
QRS Pattern: normal QRS
Ischemia: non-specific ST changes
*Eight Arm Operator Interpretation
Rate: normal
Interpretation: normal
Heart Rate: 90
Rhythm: sinus
*Critical Care Note
Total Time (30-74mins, 75-104mins- exclusive of procedures): Not Applicable
<Colleen Bass PA-C - Last Filed: 08/21/24 02:51>
Patient Management
Discussion with other providers: Hospitalist (Case discussed with hospitalist)
Escalation/DeEscalation of care consider admission/obs:
Admit for further management
ED Attending Note
<Colleen Bass PA-C - Last Filed: 08/21/24 02:51>
-
Portions of this chart may have been created with voice recognition software.� Occasional wrong word or��sound alike� substitutions may have occurred due to the inherent limitations of voice recognition software.
<Elvis Escobar MD - Last Filed: 08/20/24 18:55>
ED Attending Note
Patient seen and examined by attending physician: Yes
ED Attending Note:
I have seen and evaluated the patient with a [id number] encounter. I have spoken to the advance practicer provider and involved in the medical history, the physical exam, medical decision making.
Evaluation and management service: agree unless noted differently below.
Results interpretation: agree unless noted differently below.
Focused HPI: 78-year-old female with history as noted significant for metastatic ovarian cancer presents for evaluation of weakness in her extremities, multiple falls. Patient says that for the past 2 or 3 days she has felt extremely weak to the
point that she has had 3 falls. No serious injuries or head strike she says but having significant difficulty ambulating which prompted EMS to bring her to the hospital. She has not had any fever or chills. She denies any cough or shortness of
breath. She denies any abdominal pain. No nausea or vomiting. She denies any headache or neck pain or back pain. She has had some incontinence of urine. She has noted some increased swelling in her legs and redness particular on the right side.
Physical exam: Awake and alert oriented x 3. Vital signs normal. Abdomen nontender. She has +2 edema in the legs bilaterally. She has dry cracked skin; right lower extremity in particular is erythematous and warm to the touch; more chronic
venous stasis changes in the left lower extremity. Generally weak in her extremities but strength is symmetric no focal deficits.
Medical Decision Makin-year-old female presents with weakness in her extremities, multiple falls. Vitals and exam as above. Labs sent off including a CBC and a CMP which showed elevated alk phos and marginally elevated transaminases.
Urinalysis shows no infection. DVT study negative. Viral swabs negative. It could be that she is generally weak from right lower extremity cellulitis. Cover with antibiotics. Must also consider spinal metastasis given incontinence and weakness
with known cancer history although somewhat less likely with weakness in arms and legs and weakness being generally symmetric and without objective urinary retention on bladder scan today. Will order MR thoracic and lumbar spine to evaluate. Could
also simply be generalized weakness related to cancer treatment. Will admit for continued management.
Discharge Plan
Departure
Patient Disposition: Admit
Date of Disposition: 08/20/24
Time of Disposition: 18:52
Presentation/result/management discussed w/ accepting MD/DO: Hospitalist
Discharge Problem:
Cellulitis of right leg, Generalized weakness
Interventions
Interventions:
*Risk Screen - Suicide Last Done: 08/20/24 13:26
*General Assessment Last Done: 08/20/24 15:20
*Neglect/Abuse Screening Last Done: 08/20/24 13:26
*ED- Fall Risk Assessment Last Done: 08/20/24 15:20
*ED COVID-19 Vaccine History Last Done: 08/21/24 00:14
ED- Cardiac Assessment Last Done: 08/20/24 15:25
ED- Neurological Assessment Last Done: 08/20/24 15:25
ED- Pulmonary Assessment Last Done: 08/20/24 15:25
[2024-08-20] MEDS: NSS 500 IV (16:00)
[2024-08-20 16:06] LABS: % Basophils 0.1 % (0-2); % Immature Granulocytes 1.3 % (0-0.5); % Lymphocytes 5.9 % (20.5-51.1); % Monocytes 6.5 % (1.7-9.3); % Neutrophils 86.2 % (42.2-75.2); Absolute Immature Granulocytes 0.1 10^3/uL (0-0.05); Absolute Lymphocytes 0.5 10^3/uL (1.2-3.4); Absolute Monocytes 0.5 10^3/uL (0.1-0.6); Absolute Neutrophils 6.6 10^3/uL (1.4-6.5); Hematocrit 29.9 % (37.0-47.0); Hemoglobin 10.1 g/dL (12.0-16.0); Mean Corp Hgb Conc. 33.8 g/dL (33.0-37.0); Mean Corpuscular Hgb 30.2 pg (27.0-31.0); Mean Corpuscular Volume 89.5 fL (81.0-99.0); Mean Platelet Volume 8.8 fL (7.4-10.4); Nucleated Red Blood Cells % 0.9 %; Platelet Count 163 10^3/uL (130-400); Red Blood Cell Count 3.34 10^6/uL (4.20-5.40); Red Cell Dist. Width 19.8 % (11.5-14.5); White Blood Cell Count 7.7 10^3/uL (4.8-10.8)
[2024-08-20 16:29] LABS: NT-proBNP 855 pg/ml; Troponin I < 0.012 ng/ml
[2024-08-20 16:44] LABS: ALT (SGPT) 79 U/L (0-35); AST (SGOT) 157 U/L (14-36); Albumin 2.7 g/dl (3.5-5.0); Alkaline Phosphatase 180 U/L (38-126); Blood Urea Nitrogen 37 mg/dl (7-17); Calcium 8.5 mg/dl (8.4-10.2); Carbon Dioxide 28 mmol/L (22-30); Chloride 99 mmol/L (98-107); Estimated Creatinine Clearance 48 ml/min; Glucose 123 mg/dl (70-99); Potassium 3.5 mmol/L (3.5-5.1); Sodium 135 mmol/L (135-145); Total Bilirubin 0.8 mg/dl (0.2-1.3); eGFR 56.95
[2024-08-20 16:52] LABS: COVID-19 Antigen Negative (Negative)
[2024-08-20 17:15] LABS: Urine Albumin Negative (Neg - Trace); Urine Bilirubin Negative (Negative); Urine Character Clear (Clear); Urine Color Yellow; Urine Glucose Negative (Negative); Urine Ketone Negative (Negative); Urine Leukocyte Negative (Negative); Urine Nitrite Negative (Negative); Urine Occult Blood Negative (Negative); Urine Specific Gravity 1.025 (<1.030); Urine Urobilinogen 1+ (Neg - 1+)
[2024-08-20] MEDS: ANCEF 10 IV (18:57)
--- NOTE | 2024-08-20 19:06 | HPS.HSE ---
Family Physician
-
Family Physician: NOT KNOW UNKNOWN - PT DOES
Chief Complaint
-
weakness and recurrent falls
History of Present Illness
Patient is a 78-year-old female with past medical history significant for hypertension, HFpEF, GERD and metastatic ovarian cancer who presented to [facility] ED for evaluation of BLLE weakness and recurrent falls. Patient reports a fall on Saturday where
she fell back on step and hit hear head. She went to ED for evaluation and was discharged home with no acute findings. Patient then reports yesterday having significant weakness in all extremities with inability to control them that lasted
approximately 30-45 minutes then resolved. Today she reports that she was sitting on futon attempting to get dressed and experienced the same weakness in all extremities and inability to control them, she then woke on floor in front of futon and
does not recall how she got there. Patient denies any previous loss of consciousness, no dizziness, palpitations, cough or shortness of breath. Patient also reported new onset of episodes of urinary incontinence.
Medical History
Past Medical History
Past Medical History: Reports Other
Additional Past Medical History:
hypertension
HFpEF
GERD
Ovarian cancer status post hysterectomy and bilateral oophorectomy
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
history of malignant pleural effusion
Past Surgical History: Reports Other
Additional Past Surgical History:
Total abdominal hysterectomy with bilateral salpingo-oophorectomy
Bilateral hip replacement
right total knee arthroplasty
cataract extraction
Social History
Tobacco: Non-smoker
Alcohol: Occasional
Drug: None
Personal: Single
Living: Alone
Employment: Employed
Family History
Family History: Not pertinent
Allergies / Home Medications
Allergies reflects when Allergies were last updated in [facility].
Home Medications with original date entered in [facility]
Allergy/Medication List:
Allergies
Allergy/AdvReac Type Severity Reaction Status Date / Time
adhesive Allergy Rash Verified 08/20/24 13:30
aprepitant [From Emend] Allergy Facial Verified 08/20/24 13:30
redness
and
shaking
all over
fosaprepitant [From Emend] Allergy Facial Verified 08/20/24 13:30
redness
and
shaking
all over
paclitaxel [From Taxol] Allergy Shaking Verified 08/20/24 13:30
all over
and facial
redness
Home Medications
amlodipine 10 mg tablet 10 mg PO DAILY Blood pressure 06/21/21
pantoprazole 40 mg tablet,delayed release 40 mg PO DAILY Gastrointestinal issue 06/21/21
Prevagen 1 tab PO DAILY Supplement 06/23/21
multivitamin with folic acid 400 mcg tablet (Tab-A-Crow) 1 tab PO DAILY Supplement 06/23/21
furosemide 40 mg tablet 40 mg PO DAILY Fluid Retention/Swelling 06/16/24
vit C 250 mg-vit E 90 mg-zinc 40 mg-copper 1 [id number]-[id number]-qaivyf capsule (PreserVision AREDS-2) 1 tab PO BID Supplement 06/25/24
acetaminophen 500 mg tablet (Tylenol Extra Strength) 1,000 mg PO QIDPRN PRN mild pain 08/20/24
furosemide 20 mg tablet (Lasix) 20 mg PO Q48H 08/20/24
Review of Systems
-
History Source: Patient
Constitutional: Reports No Symptoms
EENT: Reports No Symptoms
Respiratory: Reports No Symptoms
Cardiac: Reports No Symptoms
Abdomen/GI: Reports No Symptoms
: Reports No Symptoms
Musculoskeletal: Reports No Symptoms
Skin: Reports No Symptoms
Neurological: Reports Weakness
Endocrine: Reports No Symptoms
Hematologic/Lymphatic: Reports No Symptoms
Psych: Reports No Symptoms
Physical Exam
Vital Signs
Vital Signs
Temp Pulse Resp BP Pulse Ox
98.4 F 88 16 146/69 94
08/20/24 15:25 08/20/24 17:00 08/20/24 18:00 08/20/24 17:00 08/20/24 18:00
Physical Exam
General: Well Developed, Well Nourished, No Apparent Distress, Comfortable, Conversant and Obese
HEENT: NormoCephalic, Moist mucous membranes, Atraumatic, Tatums Conjunctivae, Nose Appears Normal and Ears Appear Normal
Respiratory: Clear and Non Labored Respirations
Cardiac: S1/S2 and Regular Rhythm; No Murmur or Rub
Breast: Deferred by me
GI: Soft, Non Tender, Non Distended and Normal Bowel Sounds; No Organomegaly
Rectal: Deferred by Provider
Genito-urinary: Deferred by me
Musculoskeletal: No Clubbing, No Cyanosis, Edema, Left Lower Extremity, Edema, Right Lower Extremity and Other (bilateral upper and bilateral lower extremity weakness/intermittent loss of control )
Skin: Rash and IV/Catheter Site
Neuro: Awake, Alert, AO x 3 and Nonfocal/grossly intact
Psych: Calm and Intact Judgment/Insight
Laboratory Results
-
08/20/24 15:57
08/20/24 15:57
Laboratory Results
Total Bilirubin 0.8 mg/dl (0.2-1.3) 08/20/24 15:57
AST 157 U/L (14-36) H 08/20/24 15:57
ALT 79 U/L (0-35) H 08/20/24 15:57
Alkaline Phosphatase 180 U/L (38-126) H 08/20/24 15:57
Troponin I < 0.012 ng/ml 08/20/24 15:57
Data Reviewed
-
Ultrasound: Report Reviewed by me (BL LE US: No evidence of deep venous thrombosis of the lower extremities bilaterally. Enlarged bilateral likely pathologic lymph nodes with suspicious lymph nodes seen on relative recent prior PET scan May 14
2024.)
Medical Tests (Nuc Med, Echo, EKG etc): Report Reviewed by me (EKG: NORMAL SINUS RHYTHM NONSPECIFIC ST ABNORMALITY)
Lab Data: Labs Reviewed by me (hgb 10.1, hct 29.9, WBC 7.7, Neut 86.2, AST 157, ALT 79, Alk Phos 180, BNP 855)
Impression/Plan
-
IMPRESSION/PLAN:
#BLLE weakness and recurrent falls
#RLE cellulitis vs. chronic venous stasis
BLLE US: No evidence of deep venous thrombosis of the lower extremities bilaterally.
Enlarged bilateral likely pathologic lymph nodes with suspicious lymph nodes seen on relative recent prior PET scan May 14, 2024.
EKG: NORMAL SINUS RHYTHM
NONSPECIFIC ST ABNORMALITY
- Admit to telemetry
- Consult ID
- MRSA swab
- IV antibiotics
- supportive care
#transaminitis
likely drug induced
new episodes of BL UE and BL LE weakness and new onset urinary incontinence
AST 157, ALT 79, Alk Phos 180
- MR spine for potential metastatic disease
- Abdominal US pending
- monitor CMP
#hypertension
- continue amlodipine
#HFpEF
BNP 855
- IV Lasix 40mg daily
- hold PO Lasix
- daily weights
- I & Os
#GERD
- continue pantoprazole
#Ovarian cancer status post hysterectomy and bilateral oophorectomy
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
#history of malignant pleural effusion
follows with [facility], currently receiving chemotherapy
- continue to follow out patient
Code status: full code
DCT Prophylaxis: Lovenox sq
--- NOTE | 2024-08-20 19:24 | W.PN.UPDATE ---
Update Note
Progress Note Update
Patient seen and congestion with therapy. Agree with findings on history and physical. I concur with the assessment plan listed otherwise.
Briefly, this is a 78-year-old female who has a past medical history significant for primary peritoneal carcinoma, chronic right malignant pleural effusions, recurrent lower extremity cellulitis, CHF with preserved EF, history of recent admission
for anaphylaxis secondary to doxorubicin infusion which has now been discontinued will now presents to the emergency department with recurrent falls. Patient had a mechanical fall 2 days ago with a head strike and was not on any thinners. She was
evaluated in the ED. CT head was negative. She was discharged. Now presents to the emergency department again with intermittent episodes of weakness and loss of control of her bilateral upper and lower extremities. She reports another fainting
episode today. She reports incontinence of the urine over the last few days. She reports weakness/inability to move her legs bilaterally as well as simultaneous weakness of the upper extremities bilaterally which resolved after about 30 minutes
one day ago. She then found herself sitting on her futon today, she woke up finding her self on the floor when she came to. Unclear duration of episode. She denies any recollection of chest pain, palpitations, lightheadedness or dizziness. She
denies any cough fevers or chills.
Denies numbness tingling or incontinence of the bowel.
In the emergency department, she was afebrile with a temp of 98.4 oxygen saturation of 94% blood pressure of 150/70 with a pulse of 88. Respirate was 16. ECG showed normal sinus rhythm without any acute changes compared to prior. Troponin was
negative. BNP was unchanged at 800. CBC was unremarkable and unchanged compared to prior. Electrolytes BUN/creatinine were essentially in the normal range for her. Sodium 135. She has new elevations in AST to 157, ALT 279 and alk phos 180.
UA was unremarkable. DVT of the joshua lower extremities was negative.
On exam she is generally well appearing with 3+ bilateral lower extremity swelling. There is erythema, edema, induration, tenderness and calor on the RLE. She has weakness in her bilateral lower extremity likely secondary to the swelling. Upper
ext strenght appears intact.
1. Weakness - Bilateral upper and lower extremity weakness with incontinence concerning for new myelopathy with possible mets/cord compression vs cellulitis.
- admit to telemetry
- mri C-T-L spine pending
- u/a is negative
- serial b/s for retention
- steroids/neuro consults depending on mri results
- PT eval
2. Fainting episode - Normal initial evaluation for syncope in ED. She is hemodynamically stable. with apparent volume overload ECG unremarkable. Trop negative.
- telemetry
- orthostatics
- continue her current medications
- recent echo was normal, will not repeat at this time
3. Cellulitis - new RLE cellulitis. Prior admission to with LLE cellulitis improved with ANCEF. Neg MRSA
- Ancef for now
- elevate legs
- ID consultation
4. Transaminitis - Suspect drug induced (gemcitabine, vs volume related as BNP has a significant jump from baseline)
- RUQ u/s
- trend lfts
5. CHF - Mild CHF exacerbation with elevated BNP and joshua LE swelling. Known diastolic CHF on lasix 40 and 60 alternating days. Edema. No JVD appreciated
- telemetry
- increase her diuretics to 40mg iv bid for now and monitor her weight and swelling
- would hold off on repeat echo unless she is orthostatic or hypotensive
DVT PPX - lovenox sq
Code status - Full code
[2024-08-20] MEDS: LASIX 40 MG IV (20:08)
[2024-08-21] VITALS (17 sets, daily range): BP systolic 97–140; BP diastolic 50–82; PULSE 85; BMI 33.9; BMI 35.0
[2024-08-21] MEDS: ANCEF 5 IV ×3 (02:51→17:16)
[2024-08-21 05:37] LABS: Hematocrit 25.8 % (37.0-47.0); Hemoglobin 8.9 g/dL (12.0-16.0); Mean Corp Hgb Conc. 34.5 g/dL (33.0-37.0); Mean Corpuscular Hgb 30.5 pg (27.0-31.0); Mean Corpuscular Volume 88.4 fL (81.0-99.0); Mean Platelet Volume 9.4 fL (7.4-10.4); Platelet Count 146 10^3/uL (130-400); Red Blood Cell Count 2.92 10^6/uL (4.20-5.40); Red Cell Dist. Width 19.4 % (11.5-14.5); White Blood Cell Count 7.2 10^3/uL (4.8-10.8)
[2024-08-21 06:00] LABS: ALT (SGPT) 58 U/L (0-35); AST (SGOT) 107 U/L (14-36); Albumin 2.1 g/dl (3.5-5.0); Alkaline Phosphatase 143 U/L (38-126); Blood Urea Nitrogen 34 mg/dl (7-17); Calcium 7.9 mg/dl (8.4-10.2); Carbon Dioxide 27 mmol/L (22-30); Chloride 103 mmol/L (98-107); Estimated Creatinine Clearance 60 ml/min; Glucose 95 mg/dl (70-99); Potassium 2.9 mmol/L (3.5-5.1); Sodium 137 mmol/L (135-145); Total Bilirubin 0.5 mg/dl (0.2-1.3); eGFR > 60.00
--- NOTE | 2024-08-21 07:32 | W.PN.HOSP.TC ---
Today's Communication/Plan
-
See plan
Assessment / Plan
Assessment / Plan
Physical Exam
General: Not in acute distress
HEENT: Normocephalic, Moist mucous membranes, Atraumatic
Respiratory: Clear to Auscultation Bilaterally
Cardiac: S1/S2 and Regular Rhythm
GI: Soft, Non Tender, Non Distended and Normal Bowel Sounds
Musculoskeletal: No Cyanosis. Edema, Left Lower Extremity; Edema, Right Lower Extremity
Skin: Warm. Dry.
Neuro: Awake, Alert, Oriented x3. Cranial Nerves 2 through 12 intact. Sensation grossly intact bilaterally. Strength 5/5 in the bilateral upper extremities. Strength 2/5 in the bilateral lower extremities.
Psych: Calm and Intact Judgment/Insight
Assessment/Plan
Patient denies any previous loss of consciousness, no dizziness, palpitations, cough or shortness of breath. Patient also reported new onset of episodes of urinary incontinence.
78-year-old female who has a past medical history significant for primary peritoneal carcinoma, metastatic ovarian cancer, chronic right malignant pleural effusions, recurrent lower extremity cellulitis, HFpEF, hypertension, GERD, history of recent
admission for anaphylaxis secondary to doxorubicin infusion (which was previously discontinued) presented for recurrent falls/evaluation of bilateral lower extremity weakness (patient said she had bilateral upper extremity weakness on August 18, 2024
as well -- now improved). Patient had a mechanical fall ~2 days prior to presentation (so on August 18, 2024) with a head strike (on cement floor on step down outside her residence) and was not on any blood thinners. She was evaluated in the ED, and
CT head was negative. She was discharged home. Patient then reports that on August 20, 2024, had significant weakness in all extremities with inability to control them that lasted approximately 30-45 minutes then resolved. Then she reported she was
sitting on futon attempting to get dressed and experienced the same weakness in all extremities and inability to control them, she then woke on floor in front of futon and does not recall how she got there. She reported passing out for a short
period of time, on 08/20/24. She also reported urinary incontinence over the prior few days. She reported weakness/inability to move her legs bilaterally as well as simultaneous weakness of the upper extremities bilaterally which resolved after
about 30 minutes one day prior. She denied any recollection of chest pain, palpitations, lightheadedness or dizziness. She denied any cough fevers or chills and she also denied any neck pain or back pain. She also denied numbness tingling or
incontinence of the bowel.
In the emergency department, she was afebrile with a temp of 98.4 oxygen saturation of 94% blood pressure of 150/70 with a pulse of 88. Respirate was 16. ECG showed normal sinus rhythm without any acute changes compared to prior. Troponin was
negative. BNP was unchanged at 800. CBC was unremarkable and unchanged compared to prior. Electrolytes BUN/creatinine were essentially in the normal range for her. Sodium 135. She had new elevations in AST to 157, ALT 279 and alk phos 180.
UA was unremarkable. DVT of the bilateral lower extremities was negative.
On exam she is generally well appearing with 3+ bilateral lower extremity swelling. There is erythema, edema, induration, tenderness and calor on the RLE. She has weakness in her bilateral lower extremity likely secondary to the swelling. Upper
ext strenght appears intact.'
#Weakness - Bilateral upper and lower extremity weakness with urinary incontinence concerning for new myelopathy with possible mets/cord compression
#Recent Frequent Falls
#Urinary Incontinence associated with the weakness
- Monitor on telemetry
- MRI cbout-Nrimvlpi-B-L spine pending (MRI initially ordered in the ER by ER provider, I then spoke to neurosurgery as a curbside, and they said an MRI both with and without contrast is indicated in this case, so re-ordered MRI
imaging with AND without contrast)
- u/a unremarkable
- Monitor bladder scans for urinary retention
- Steroids/neurosurgery consults depending on MRI results
- PT eval
#Syncope on 08/20/24 - Normal initial evaluation for syncope in ED
- Continue to monitor on telemetry
- Orthostatics
- Continue her current medications
- recent echo in June 2024 was unremarkable, given new syncope (patient has not had syncope before), recheck echo
#Cellulitis - new RLE cellulitis. Prior admission to with LLE cellulitis improved with ANCEF.
- Ancef for now
- elevate legs
- ID consulted at the time of admission
- No DVT on lower extremity ultrasound
- Wound care
#Bilateral Lower Extremity Edema
-Possibly from low albumin vs. CHF
-Follow-up echo
#Transaminitis - Suspect drug induced (gemcitabine) vs volume related as BNP has a significant jump from baseline)
#Elevated Alkaline Phosphatase
- RUQ u/s: Gallbladder with stones and 'wall echo sign'. Negative sonographic Mackay's sign. Mildly enlarged common bile duct and findings suggesting some intrahepatic biliary tract dilatation. Consider MRI/MRCP for more complete evaluation.
- trend lfts
#CHF - Mild CHF exacerbation with elevated BNP and bilateral LE swelling
- Known diastolic CHF on lasix 40 and 60 alternating days. Edema. No JVD appreciated
- Monitor on telemetry
- Continue Lasix 40mg iv bid for now and monitor her weight and swelling
- BNP however is unremarkable for age @ 853 (but increased from baseline)
- Daily weights
- I's and O's
#Metastatic Ovarian Cancer
#Ovarian cancer status post hysterectomy and bilateral oophorectomy
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
#History of malignant pleural effusion
-follows with [facility], currently receiving chemotherapy
-Currently undergoing treatment with Dr. Chin
#Hypertension
-Continue Amlodipine
#GERD
-Continue Pantoprazole
#Enlarged bilateral likely pathologic lymph nodes with suspicious lymph nodes seen on relative recent prior PET scan May 14, 2024 on ultrasound this hospitalization
#Small splenic high attenuation densities most likely representing old granulomatous disease on abdominal ultrasound
#Bilateral parapelvic renal cysts on abdominal ultrasound
DVT Prophylaxis: Lovenox subq
Code Status: Full code
Anticipated Discharge: > 48 hours
Subjective/Interval History
-
Date of Service: August 21, 2024
Patient was seen and examined. She denied any new complaints, still with weakness which is mostly in the legs.
Objective Data
-
Labs:
Laboratory Results
08/21/24
05:15
WBC 7.2
Hgb 8.9 L
Hct 25.8 L
Plt Count 146
Sodium 137
Potassium 2.9 L
Chloride 103
Carbon Dioxide 27
BUN 34 H
Creatinine 0.8
Glucose 95
Calcium 7.9 L
Total Bilirubin 0.5
AST 107 H
ALT 58 H
Alkaline Phosphatase 143 H
Vital Signs:
Vital Signs
Temp Pulse Resp BP Pulse Ox
99.1 F 76 20 120/62 90
08/21/24 00:27 08/21/24 06:15 08/21/24 06:15 08/21/24 06:00 08/21/24 06:15
[2024-08-21] MEDS: PROTONIX 40 MG PO (07:50)
[2024-08-21] MEDS: KCL 40 MEQ PO (07:50)
[2024-08-21] MEDS: NORVASC 10 MG PO (07:50)
[2024-08-21] MEDS: KCL 260 MEQ IV (07:57)
[2024-08-21 08:58] LABS: Magnesium 1.6 mg/dl (1.6-2.3)
--- NOTE | 2024-08-21 09:56 | WOUNDNOTE ---
RIGHT LE BLISTER
--- NOTE | 2024-08-21 10:36 | WOUNDNOTE ---
[facility] RN note: Patient admitted with RLE cellulitis, weakness and falls
See H&P for complete history.
PMH: Ovarian cancer (current) CHF, arthritis, bilateral hip and knee replacement
Wound Location and type/assessment: Patient admitted with right LE open blister, right LE cellulitis. Left LE with dry skin and venous stasis changes. Patient wears compression with TEZ at home. +pedal pulses. Patient can turn with minimal
assistance. She ambulates with walker and cane at home. Heels and sacrum blanchable and intact.
Appetite: Good
Pressure redistribution devices in place: Versa Care Accumax
Plan: Left open blister cleaned with saline and local wound care provided as ordered. Heels off-loaded on pillows on no-sting barrier and adhesive foam applied to heels. Patient explained that she cannot tolerate compression at this time, but is
aware it is ordered for when pain decreases. Aquaphor for dry skin to left LE. Will confirm orders with hospitalist and update nurse. Updated care plan and will follow as needed.
Note to case management of equipment requested for discharge:
Recommend follow up at wound care center upon discharge.
[2024-08-21] MEDS: LASIX IV (10:58)
--- NOTE | 2024-08-21 12:56 | CON.ID ---
Consultation
-
Date/Time Consultation Requested: August 20, 20242054
Date/Time Consultation Performed: August 21, 2024 1300
Requesting Provider: VICKY Burrows
Performing Provider: Dr. Marina Perry
Reason for Consultation: Cellulitis
Chief Complaint / Past History
Chief Complaint
Weakness and falls.
History of Present Illness
78-year-old female with history of primary peritoneal carcinomatosis, malignant pleural effusion, with progression of disease currently on chemotherapy who presented to the hospital due to bilateral lower extremity greater then upper extremity
weakness. On June 20, she presented to the ED after falling and hitting the back of her head. Head CT was unremarkable. She was discharged to home. The following day she noted acute weakness of all 4 extremities, especially lower extremities
lasting about an hour. Yesterday she had recurrence of the lower extremity weakness. She woke up and found herself sitting on the floor next to the futon. She reports urine incontinence several weeks. Patient also noted recent increasing right
leg edema and erythema. No fevers or chills.
Past History
Additional Past Medical History:
Primary peritoneal carcinomatosis, R malignant pleural effusions, with progression, currently on chemo
Ovarian cancer status post FERNIE, BSO
Hypertension
Heart failure with preserved EF
Bilateral lower extremity edema
Bilateral total hip replacement
Right total knee replacement
Allergy History:
adhesive Allergy (Verified 08/20/24 13:30)
Rash
aprepitant [From Emend] Allergy (Verified 08/20/24 13:30)
Facial redness and shaking all over
fosaprepitant [From Emend] Allergy (Verified 08/20/24 13:30)
Facial redness and shaking all over
paclitaxel [From Taxol] Allergy (Verified 08/20/24 13:30)
Shaking all over and facial redness
Medications Reviewed: Yes
Current Antibiotics:
Cefazolin
Social History
Tobacco: Non-Smoker
Alcohol: None
Drug: None
Personal:
Family History
Family History: Not Pertinent
Review of Systems
Review of Systems
General: Negative Fever, Chills or Change in Appetite
HEENT: Negative Sinus Problems or Headache
Cardiovascular: Negative Chest Pain or Dyspnea
Respiratory: Negative Dyspnea or Cough
Gasteroenterology: Negative Nausea, Vomiting or Diarrhea
Genital / Urological: Negative Dysuria or Flank Pain
Endocrine: Weakness
Neurological: Negative Dizziness
All systems: All other systems were reviewed and were negative
Vital Signs
Temp Pulse Resp BP Pulse Ox
97.9 F 85 23 99/55 92
08/21/24 08:01 08/21/24 10:32 08/21/24 10:32 08/21/24 10:32 08/21/24 07:00
Physical Exam
Physical Exam
Constitutional: No Acute Distress, Comfortable and Chronically Ill
Eyes: No Conjunctival Hemorrhage and Sclera Anicteric
Cardiovascular: Regular Rate and S1/S2
Pulmonary: Other (Decreased BS bases)
Gastrointestinal: Soft, Non Tender and Non Distended
Extremities: Edema (RLE>LLE) and Erythema (RLE: foot to knee bright erythema, warm. Ruptured blister on hdz is dry.)
Neurological: AO x 3
Lab / Diagnostic Study Results
08/21/24 05:15
08/21/24 05:15
Abs Immat Gran (auto) 0.1 10^3/uL (0-0.05) H 08/20/24 15:57
Absolute Neuts (auto) 6.6 10^3/uL (1.4-6.5) H 08/20/24 15:57
Absolute Lymphs (auto) 0.5 10^3/uL (1.2-3.4) L 08/20/24 15:57
Absolute Monos (auto) 0.5 10^3/uL (0.1-0.6) 04/10/25 15:57
Absolute Basos (auto) 0.0 10^3/uL (0-0.2) 08/20/24 15:57
Immature Gran % 1.3 % (0-0.5) H 08/20/24 15:57
Neutrophils % 86.2 % (42.2-75.2) H 08/20/24 15:57
Lymphocytes % 5.9 % (20.5-51.1) L 08/20/24 15:57
Monocytes % 6.5 % (1.7-9.3) 08/20/24 15:57
Eosinophils % 0.0 % (0-6) 08/20/24 15:57
Basophils % 0.1 % (0-2) 08/20/24 15:57
Microbiology Results
Micro:
08/20/24 20:07 MRSA Screen - Pending
Nose
08/20/24 15:57 Influenza Types A & B (LOU) - Final
Nasal Swab Negative for Influenza A & B, NAAT
Negative results must be combined with clinical observations
and patient history.
Nucleic Acid Amplification test (NAAT)performed on the
[employer] NOW platform.
08/20/24 ABD US: Gallbladder with stones and 'wall echo sign'. Negative sonographic Mackay's sign. Mildly enlarged common bile duct and findings suggesting some intrahepatic biliary tract dilatation. Consider MRI/MRCP for more complete evaluation.
Assessment / Plan
# Acute RLE cellulitis
- Vasc US: no DVT
- Elevate LE
- Continue with cefazolin (d2)
- When improve, transition to cephalexin 500mg po qid to complete 10day total abx course.
# Weakness of BLE>BUE
# Peritoneal carcinomatosis with progression on chemo
- MRI/ T/L spine pending to assess for mets.
# Conditions [employer]
Primary peritoneal carcinomatosis, R malignant pleural effusions, with progression, currently on chemo
Ovarian cancer status post FERNIE, BSO
Hypertension
Heart failure with preserved EF
Bilateral lower extremity edema
Bilateral total hip replacement
Right total knee replacement
[2024-08-21] MEDS: HYDROPHOR 1 APPLIC TOPICAL (14:07)
[2024-08-21] MEDS: LOVENOX 40 MG SC (17:17)
--- NOTE | 2024-08-21 18:03 | PTCARENOTE ---
Pt. received from ED in hospital bed. Pt. oreitnted to room, and nursing assesment complete. All questions asked and answered. Will continue with plan of care.
[2024-08-21 21:55] LABS: Potassium 3.6 mmol/L (3.5-5.1)
[2024-08-22] MEDS: ANCEF 5 IV ×3 (02:47→17:17)
[2024-08-22] MEDS: FLUSH (NSS) 1 FLUSH IV ×2 (02:48→20:52)
[2024-08-22 03:00] VITALS: BP 129/67
[2024-08-22 06:00] VITALS: BMI 35.3
[2024-08-22 06:13] LABS: Hemoglobin 8.9 g/dL (12.0-16.0); Mean Corp Hgb Conc. 34.2 g/dL (33.0-37.0); Mean Corpuscular Hgb 30.4 pg (27.0-31.0); Mean Corpuscular Volume 88.7 fL (81.0-99.0); Mean Platelet Volume 9.6 fL (7.4-10.4); Platelet Count 139 10^3/uL (130-400); Red Blood Cell Count 2.93 10^6/uL (4.20-5.40); Red Cell Dist. Width 20.2 % (11.5-14.5); White Blood Cell Count 7.9 10^3/uL (4.8-10.8)
[2024-08-22 07:00] VITALS: BP 127/66
[2024-08-22 07:08] LABS: Blood Urea Nitrogen 27 mg/dl (7-17); Calcium 6.9 mg/dl (8.4-10.2); Carbon Dioxide 21 mmol/L (22-30); Chloride 112 mmol/L (98-107); Estimated Creatinine Clearance 80 ml/min; Glucose 78 mg/dl (70-99); Magnesium 1.5 mg/dl (1.6-2.3); Potassium 3.2 mmol/L (3.5-5.1); Sodium 140 mmol/L (135-145); eGFR > 60.00
[2024-08-22] MEDS: NORVASC 10 MG PO (08:06)
[2024-08-22] MEDS: LASIX 40 MG IV (08:06)
[2024-08-22] MEDS: PROTONIX 40 MG PO (08:06)
[2024-08-22] MEDS: TYLENOL 650 MG PO (08:11)
[2024-08-22] MEDS: TIGAN 200 MG IM ×2 (10:53→17:50)
[2024-08-22] MEDS: MAGNESIUM SULFATE 50 IV ×2 (10:54→22:44)
[2024-08-22 11:00] VITALS: BP 142/76
[2024-08-22] MEDS: HYDROPHOR 1 APPLIC TOPICAL (11:08)
--- NOTE | 2024-08-22 12:27 | W.PN.HOSP.TC ---
Today's Communication/Plan
-
See plan
Assessment / Plan
Assessment / Plan
Physical Exam
General: Not in acute distress
HEENT: Normocephalic, Moist mucous membranes, Atraumatic
Respiratory: Clear to Auscultation Bilaterally
Cardiac: S1/S2 and Regular Rhythm
GI: Soft, Non Tender, Non Distended and Normal Bowel Sounds
Musculoskeletal: No Cyanosis. Edema, Left Lower Extremity; Edema, Right Lower Extremity
Skin: Warm. Dry.
Neuro: Awake, Alert, Oriented x3. Cranial Nerves 2 through 12 intact. Sensation grossly intact bilaterally. Strength 5/5 in the bilateral upper extremities. Strength 2/5 in the bilateral lower extremities.
Psych: Calm and Intact Judgment/Insight
Assessment/Plan
Patient denies any previous loss of consciousness, no dizziness, palpitations, cough or shortness of breath. Patient also reported new onset of episodes of urinary incontinence.
78-year-old female who has a past medical history significant for primary peritoneal carcinoma, metastatic ovarian cancer, chronic right malignant pleural effusions, recurrent lower extremity cellulitis, HFpEF, hypertension, GERD, history of recent
admission for anaphylaxis secondary to doxorubicin infusion (which was previously discontinued) presented for recurrent falls/evaluation of bilateral lower extremity weakness (patient said she had bilateral upper extremity weakness on August 18, 2024
as well -- now improved). Patient had a mechanical fall ~2 days prior to presentation (so on August 18, 2024) with a head strike (on cement floor on step down outside her residence) and was not on any blood thinners. She was evaluated in the ED, and
CT head was negative. She was discharged home. Patient then reports that on August 20, 2024, had significant weakness in all extremities with inability to control them that lasted approximately 30-45 minutes then resolved. Then she reported she was
sitting on futon attempting to get dressed and experienced the same weakness in all extremities and inability to control them, she then woke on floor in front of futon and does not recall how she got there. She reported passing out for a short
period of time, on 08/20/24. She also reported urinary incontinence over the prior few days. She reported weakness/inability to move her legs bilaterally as well as simultaneous weakness of the upper extremities bilaterally which resolved after
about 30 minutes one day prior. She denied any recollection of chest pain, palpitations, lightheadedness or dizziness. She denied any cough fevers or chills and she also denied any neck pain or back pain. She also denied numbness tingling or
incontinence of the bowel.
In the emergency department, she was afebrile with a temp of 98.4 oxygen saturation of 94% blood pressure of 150/70 with a pulse of 88. Respirate was 16. ECG showed normal sinus rhythm without any acute changes compared to prior. Troponin was
negative. BNP was unchanged at 800. CBC was unremarkable and unchanged compared to prior. Electrolytes BUN/creatinine were essentially in the normal range for her. Sodium 135. She had new elevations in AST to 157, ALT 279 and alk phos 180.
UA was unremarkable. DVT of the bilateral lower extremities was negative.
On exam she is generally well appearing with 3+ bilateral lower extremity swelling. There is erythema, edema, induration, tenderness and calor on the RLE. She has weakness in her bilateral lower extremity likely secondary to the swelling. Upper
ext strenght appears intact.'

#Weakness - Bilateral upper and lower extremity weakness with urinary incontinence concerning for new myelopathy with possible mets/cord compression
#Recent Frequent Falls
#Urinary Incontinence associated with the weakness
- Monitor on telemetry
- MRI [id number] spine pending (MRI initially ordered in the ER by ER provider, I then spoke to neurosurgery as a curbside, and they said an MRI both with and without contrast is indicated in this case, so re-ordered MRI
imaging with AND without contrast)
- u/a unremarkable
- Monitor bladder scans for urinary retention
- Steroids/neurosurgery consults depending on MRI results
- PT eval
#Syncope on 08/20/24 - Normal initial evaluation for syncope in ED
- Continue to monitor on telemetry -- no concerning findings thus far
- Orthostatics
- Continue her current medications
- Recent echo in June 2024 was unremarkable, given new syncope (patient has not had syncope before), rechecked echo which is unremarkable except for aortic sclerosis without stenosis, mild to moderate tricuspid
regurgitation. Estimated pulmonary artery pressure of 40-45 mmHg - assuming a right atrial pressure of 3 mmHg.
#Nausea/Vomiting on 08/22/24 morning
#Large paraesophageal hiatal hernia on T-Spine MRI
-Unable to properly tolerate oral intake on 08/22/24
-AXR done on 08/22/24 with nonobstructive bowel gas pattern and moderate colonic stool burden
-Could Ancef started on 08/21/24 be contributing?
-Could patient's recent chemotherapy be contributing?
-Check CT of Abdomen/Pelvis with PO and IV contrast
-prn Tigan given mild QTc prolongation in setting of low electrolytes
#Cellulitis - new RLE cellulitis. Prior admission to with LLE cellulitis improved with ANCEF.
- Ancef for now
- elevate legs
- ID consulted at the time of admission
- No DVT on lower extremity ultrasound
- Wound care
#Bilateral Lower Extremity Edema
-Suspected from low albumin; no DVT on lower extremity ultrasound
-Follow-up echo okay
#Severe Spinal Canal Stenosis on L-Spine MRI
#Disc herniations at multiple levels of the spine
-Neurosurgery was consulted given MRI findings and mentioned there us no severe neural compression in the cervical, or thoracic spine to explain patient's episode of bilateral upper, and lower extremity weakness; patient does not have any other
concurrent symptomatology such as severe back pain, bilateral lower extremity paresthesias, or radiculopathy. From a neurosurgical standpoint, it appears that lumbar spondylotic changes/stenosis are likely incidental in nature, chronic findings, and
not the cause of the patient's immediate/acute onset of bilateral upper extremity, and lower extremity weakness. Therefore, no urgent neurosurgical intervention is recommended at present time.
-Continue physical therapy
#Large amount of edema in the right psoas muscle and in the iliacus muscles on L-Spine MRI
-Neurosurgery mentioned unclear what MRI findings regarding edema within the subcutaneous tissues, deep iliacus, psoas, and paraspinal muscles, presacral space mean?
-Possibly posttraumatic from fall
-See neurosurgery note from 08/22/24
#Moderate diffuse interstitial disease in the lungs on T-Spine MRI
#Moderate-sized left pleural effusion with an adjacent large left lower lobe basilar airspace consolidation, on T-Spine MRI
#Small Right Pleural Effusion on T-Spine MRI
#Recent History of Malignant Pleural Effusions
-Patient remains on room air, no SOB and no chest pain
-Can be evaluated for inpatient vs. outpatient thoracentesis
-Will need outpatient pulmonary follow-up
#Transaminitis - Suspect drug induced (gemcitabine) vs volume related as BNP has a significant jump from baseline)
#Elevated Alkaline Phosphatase
- RUQ u/s: Gallbladder with stones and 'wall echo sign'. Negative sonographic Mackay's sign. Mildly enlarged common bile duct and findings suggesting some intrahepatic biliary tract dilatation. Consider MRI/MRCP for more complete evaluation.
- trend lfts
#CHF - Mild CHF exacerbation with elevated BNP and bilateral LE swelling
- Known diastolic CHF on lasix 40 and 60 alternating days. Edema. No JVD appreciated
- Monitor on telemetry
- Continue Lasix 40mg iv bid for now and monitor her weight and swelling
- BNP however is unremarkable for age @ 89 (but increased from baseline)
- Daily weights
- I's and O's
#Moderate cardiomegaly on T-Spine MRI
-Echo from 08/21/24 okay with trivial pericardial effusion
#Metastatic Ovarian Cancer
#Ovarian cancer status post hysterectomy and bilateral oophorectomy
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
#History of malignant pleural effusion
#Suspected anaphylactic reaction to Doxil 06/25/24
-follows with [facility] [place], currently receiving chemotherapy
-Currently undergoing treatment with Dr. Chin
#New Moderate Left Hydroureteronephrosis suggesting distal left ureteral obstruction on L-Spine MRI
#On L-Spine MRI: 1.8 cm mass in the upper pole of the left kidney. Diagnostic possibilities are (1) a complex cyst or (2) less likely renal cell carcinoma
-I discussed with on-call urologist on 08/22/24, and they mentioned based on the L-Spine MRI findings, patient has bilateral parapelvic renal cysts which were errantly interpreted to be �hydro� on MRI; UA shows no blood; Renal function as of
08/22/24 is normal
-Therefore, no need for urology consultation or urosurgical intervention.
#Hypertension
-Continue Amlodipine
#GERD
-Continue Pantoprazole
#Enlarged bilateral likely pathologic lymph nodes with suspicious lymph nodes seen on relative recent prior PET scan May 14, 2024 on ultrasound this hospitalization
#Small splenic high attenuation densities most likely representing old granulomatous disease on abdominal ultrasound
#Bilateral parapelvic renal cysts on abdominal ultrasound
DVT Prophylaxis: Lovenox subq
Code Status: Full code
Anticipated Discharge: > 48 hours
Subjective/Interval History
-
Date of Service: August 22, 2024
Patient was seen and examined. She had some nausea/vomiting today, with poor PO intake given those symptoms, but denied chest pain, abdominal pain or shortness of breath.
Objective Data
-
Labs:
Laboratory Results
08/22/24
05:43
WBC 7.9
Hgb 8.9 L
Hct 26.0 L
Plt Count 139
Sodium 140
Potassium 3.2 L
Chloride 112 H
Carbon Dioxide 21 L
BUN 27 H
Creatinine 0.6
Glucose 78
Calcium 6.9 L*
Total Bilirubin Pending
AST Pending
ALT Pending
Vital Signs:
Vital Signs
Temp Pulse Resp BP Pulse Ox
97.6 F 83 16 142/76 92
08/22/24 11:00 08/22/24 11:00 08/22/24 11:00 08/22/24 11:00 08/22/24 11:00
I&O
08/21/24 08/22/24 08/23/24
06:59 06:59 06:59
Intake Total 480 / 480 480 / 480
Balance 480 / 480 480 / 480
[2024-08-22 12:53] LABS: Troponin I < 0.012 ng/ml
[2024-08-22 12:57] LABS: ALT (SGPT) 56 U/L (0-35); AST (SGOT) 164 U/L (14-36); Direct Bilirubin 0.5 mg/dl (0.0-0.4); Total Bilirubin 0.7 mg/dl (0.2-1.3)
[2024-08-22] MEDS: KCL 260 MEQ IV (13:41)
[2024-08-22 15:00] VITALS: BP 148/76
--- NOTE | 2024-08-22 16:50 | CON.NS ---
Consultation
-
Date/Time Consultation Performed: 08/22/2024; 16:50
Performing Provider: Namita
Chief Complaint
History of Present Illness
This is a neurosurgical consultation on 78-year-old female with active medical issues including hypertension, heart failure, metastatic ovarian cancer with ongoing progression of disease, who presents with bilateral lower extremity weakness,
recurrent falls. She had a fall earlier last week, on Saturday at which time she presented to the emergency room for evaluation. She was discharged home with no acute findings. She then presented again on 08/20/2024 after having significant
weakness in all extremities with inability to control them. This episode lasted approximately 30 to 45 minutes, that then resolved. She was also noted to have possible right lower extremity cellulitis, versus chronic venous stasis. Blood work
revealed transaminitis. MRI of the spine was ordered to look for potential metastatic disease. She does have confirmed peritoneal carcinomatosis status post chemotherapy with recurrence as well as history of malignant pleural effusion.
Patient seen and examined. She reports that she had an episode on Saturday, where she had diffuse weakness of all extremities, but needs to have persistent bilateral lower extremity weakness. She denies any back pain, she denies any numbness,
tingling, or radiating pain into the lower extremities.
Review of Systems
-
A 10 point review systems including constitutional, ENT, cardiovascular, respiratory, GI, , neurologic, musculoskeletal, hematologic, endocrinologic was performed, was negative except for stated in HPI.
Medication and Allergies
Home Medications
Home Medications
�Medication �Instructions �Recorded
amlodipine 10 mg tablet 10 mg PO DAILY Blood pressure 06/21/21
pantoprazole 40 mg tablet,delayed 40 mg PO DAILY Gastrointestinal 06/21/21
release issue
Prevagen 1 tab PO DAILY Supplement 06/23/21
multivitamin with folic acid 400 1 tab PO DAILY Supplement 06/23/21
mcg tablet (Tab-A-Crow)
furosemide 40 mg tablet 40 mg PO DAILY Fluid 06/16/24
Retention/Swelling
vit C 250 mg-vit E 90 mg-zinc 40 1 tab PO BID Supplement 06/25/24
mg-copper 1 [id number]
capsule (PreserVision AREDS-2)
acetaminophen 500 mg tablet 1,000 mg PO QIDPRN PRN mild pain 08/20/24
(Tylenol Extra Strength)
furosemide 20 mg tablet (Lasix) 20 mg PO Q48H 08/20/24
Allergies
Allergies
Allergy/AdvReac Type Severity Reaction Status Date / Time
adhesive Allergy Rash Verified 08/20/24 13:30
aprepitant [From Emend] Allergy Facial Verified 08/20/24 13:30
redness
and
shaking
all over
fosaprepitant [From Emend] Allergy Facial Verified 08/20/24 13:30
redness
and
shaking
all over
paclitaxel [From Taxol] Allergy Shaking Verified 08/20/24 13:30
all over
and facial
redness
Physical Exam
-
Exam:
Awake, alert, no apparent distress
Cranial nerves II to XII are grossly intact.
Speech is fluent, comprehension intact repetition is normal.
Motor: 5/5 strength bilaterally in bilateral upper and lower extremities.
Sensation to light touch intact bilaterally in lower extremities, except for distally in the lower extremities due to significant wrapping of the legs due to vasogenic edema
No tenderness to palpation in the lumbar spine.
Right anterior knee surgical incision/scar
Head is normocephalic atraumatic
Neck is supple
Breathing nonlabored
Cardiac: Regular rate
Abdomen is soft
Extremities: Bilateral lower extremities erythematous, edematous
MRI of the thoracic spine with and without contrast was performed. Images were personally viewed and interpreted by me. There are also localization sagittal T2 database admin images that are available for review looking at the cervical spine. I see no
obvious evidence of severe spinal cord compression, cord signal change noted in the cervical spine. MRI of the thoracic spine does not demonstrate any obvious evidence of thoracic spinal cord compression. MRI of the lumbar spine demonstrates
multilevel lumbar degenerative disc disease, and spondylotic changes, which causes varying levels of spinal stenosis. No obvious acute process within the spinal canal is noted. Patient has moderate to severe spinal stenosis noted at L5-S1, grade 1
anterolisthesis of L4 on L5, with severe central canal stenosis right greater than left foraminal narrowing. Moderate to severe L3-L4 spinal canal stenosis, with moderate to severe spinal canal stenosis at L2-L3.
There is note made regarding moderate edema within the right posterior paraspinal muscles, right psoas muscle, large edema within the iliac us muscles, and presacral space, as well as through the posterior subcutaneous fat of the lower back.
Problems
-
Problem Status Onset Code
Generalized weakness R53.1
Cellulitis of right leg L03.115
Assessment / Plan
-
This is an 78-year-old female who has history of ovarian cancer, with progression of disease through chemotherapy, who presents with bilateral lower extremity weakness, as well as? Bilateral upper extremity weakness. Symptoms and upper extremity
were episodic in nature.
Unclear etiology of bilateral lower extremity weakness, could be multifactorial i.e. focal due to bilateral lower extremity edema, hemodynamic, cardiac etc?
I see no evidence of severe neural compression in the cervical, or thoracic spine to explain patient's episode of bilateral upper, and lower extremity weakness. While she does have moderate to severe lumbar spondylosis, and associated spinal
stenosis, she does not have any other concurrent symptomatology such as severe back pain, bilateral lower extremity paresthesias, or radiculopathy.
Unclear what MRI findings regarding edema within the subcutaneous tissues, deep iliacus, psoas, and paraspinal muscles, presacral space mean?
Could be posttraumatic given patient did say that she fell. She denies having any radiation throughout the peritoneum, or lumbar spine that could explain this.
According to radiology report this did NOT appear to enhance? With contrast, so less likely would be infectious/inflammatory?
From a neurosurgical standpoint, it appears that lumbar spondylotic changes/stenosis are likely incidental in nature, chronic findings, and not the cause of the patient's immediate/acute onset of bilateral upper extremity, and lower extremity
weakness. Therefore, no urgent neurosurgical intervention is recommended at present time.
Suggest ongoing physical therapy and Defer to medicine for further evaluation/workup if needed for these muscle findings, as clinically indicated.
Patient can go home per my specialty: Tomorrow
[2024-08-22] MEDS: LOVENOX 40 MG SC (17:17)
--- NOTE | 2024-08-22 18:26 | PTCARENOTE ---
This AM pt. with sudden onset of nausea and threw up her breakfast. Proceeded to throw up an additional three times. MD notified, a once time dose of tigan, potassium and magnesium ordered. Pt. resting comfortably throughout the day. Ate a few sips
of broth for lunch with no complaints. At around 1800, pt. took a few bites of sherbert and threw up 3 more times. MD notified. Tigan PRN ordered. Pt states 'feeling better' currently resting in bed. Will continue with plan of care.
[2024-08-22 19:09] LABS: Troponin I < 0.012 ng/ml
[2024-08-22 19:30] VITALS: BP 131/66
--- NOTE | 2024-08-22 20:00 | PTCARENOTE ---
Assumed care of patient from previous RN. Patient c/o nausea and requesting additional meds at this time. Per dayshift RN - patient nauseous and vomiting multiple times throughout the day. Patient with increased urine output, incontinent throughout
the day and placed back on purwick by dayshift with total of over 2 canisters output by end of shift. Patient incontinent multiple small stools this afternoon, soft per dayshift. Patient stating she generally does not feel well. Notified VICKY Islas
Wood of concerns that have transpired, as patient has completely different presentation than previous night for this RN. CT head and CT A/P ordered to evaluate. Repeat labs ordered and drawn. Awaiting results and further instruction.
[2024-08-22 20:37] LABS: Potassium 3.2 mmol/L (3.5-5.1)
[2024-08-22] MEDS: ZOFRAN 4 MG IV (21:02)
[2024-08-22 21:03] LABS: Magnesium 1.7 mg/dl (1.6-2.3)
--- NOTE | 2024-08-22 21:03 | PTCARENOTE ---
Addendum entered by Fartun Krause RN 08/23/24 02:27:
Patient verbalizes relief from dose of Zofran after returning to unit. Able to rest comfortably after getting settled back in bed after testing. Call garvin in reach. Will continue to monitor.
Original Note:
Patient down to CT scan for Head and A/P -- vomited on way downstairs, dose of IV zofran verified after leaving unit -- dose pulled and provided to patient down in CT scan. Will monitor.
[2024-08-22] MEDS: CALCIUM GLUCONATE 100 IV (21:23)
[2024-08-22] MEDS: MIRALAX 17 GRAMS PO (22:46)
--- NOTE | 2024-08-22 23:10 | PTCARENOTE ---
Addendum entered by Fartun Krause RN 08/23/24 02:32:
Amylase and Lipase results elevated -- HOME MANAGEMENT SUPERVISOR notified. GI cosulted by PERINATAL SPECIALIST, IVFs ordered. Will continue to monitor.
Original Note:
CT results called in and results also faxed. Notified HOME MANAGEMENT SUPERVISOR of results of A/P scan. Findings for possible acute pancreatitis - HOME MANAGEMENT SUPERVISOR placed orders for Amylase and Lipase to be drawn. Awaiting results.
[2024-08-22 23:53] VITALS: BP 139/85
[2024-08-23 00:09] LABS: Amylase 3013 U/L (30-110); Lipase > 4000 U/L (23-300)
[2024-08-23] MEDS: KCL 270 MEQ IV (01:04)
[2024-08-23] MEDS: ANCEF 5 IV ×2 (02:46→11:01)
[2024-08-23 03:15] VITALS: BP 119/70
--- NOTE | 2024-08-23 04:43 | W.PN.UPDATE ---
Addendum entered and electronically signed by VICKY Leblanc 08/23/24 06:21:
cancelled my Zosyn order since she is continuing Ceftin for cellulitis. Defer to day team for further abt adjustments.
Original Note:
Update Note
Progress Note Update
nursing reports patient with frequent vomiting all day today with limited relief with Tigan. Also incontinent all day of urine and stool..Concerns raised since she had previous fall with head strike few days prior. CT of head at that time was
negative. Neuro checks WNL. Repeated CT head tonight and remained negative for acute findings. CT abd/Pelvis done with concerns for pancreatitis/cholangitis with gallstones. Lipase >4000 and amylase 3013. Will add zosyn IV for now to cover
cholecystitis. Morning labs thus far are pending after magnesium, calcium, and potassium repletion. Vomiting improved with Zofran. LR at 100ml/hr for pancreatitis with caution due to hx of HF (daily use of Lasix).
[2024-08-23 05:19] VITALS: BMI 34.2
[2024-08-23] MEDS: LR 1000 IV ×3 (05:21→20:49)
[2024-08-23 07:00] VITALS: BP 145/86
--- NOTE | 2024-08-23 08:19 | W.PN.HOSP.TC ---
Today's Communication/Plan
-
Acute pancreatitis and cholecystitis
IV Fluids for pancreatitis, but in the setting of CHF, MUST watch carefully for SOB, hypoxia, pulmonary edema, etc
Continue antibiotics with Unasyn
Appreciate specialists involved
Assessment / Plan
Assessment / Plan
Physical Exam
General: Not in acute distress
HEENT: Normocephalic, Moist mucous membranes, Atraumatic
Respiratory: Clear to Auscultation Bilaterally
Cardiac: S1/S2 and Regular Rhythm
GI: Soft, Non Tender, Non Distended and Normal Bowel Sounds
Musculoskeletal: No Cyanosis. Edema, Left Lower Extremity; Edema, Right Lower Extremity
Skin: Warm. Dry.
Neuro: Awake, Alert, Oriented x3. Cranial Nerves 2 through 12 intact. Sensation grossly intact bilaterally. Strength 5/5 in the bilateral upper extremities. Strength 2/5 in the bilateral lower extremities.
Psych: Calm and Intact Judgment/Insight
Assessment/Plan
78-year-old female who has a past medical history significant for primary peritoneal carcinoma, metastatic ovarian cancer, chronic right malignant pleural effusions, recurrent lower extremity cellulitis, HFpEF, hypertension, GERD, history of recent
admission for anaphylaxis secondary to doxorubicin infusion (which was previously discontinued) presented for recurrent falls/evaluation of bilateral lower extremity weakness (patient said she had bilateral upper extremity weakness on August 18, 2024
as well -- now improved). Patient had a mechanical fall ~2 days prior to presentation (so on August 18, 2024) with a head strike (on cement floor on step down outside her residence) and was not on any blood thinners. She was evaluated in the ED, and
CT head was negative. She was discharged home. Patient then reports that on August 20, 2024, had significant weakness in all extremities with inability to control them that lasted approximately 30-45 minutes then resolved. Then she reported she was
sitting on futon attempting to get dressed and experienced the same weakness in all extremities and inability to control them, she then woke on floor in front of futon and does not recall how she got there. She reported passing out for a short
period of time, on 08/20/24. She also reported urinary incontinence over the prior few days. She reported weakness/inability to move her legs bilaterally as well as simultaneous weakness of the upper extremities bilaterally which resolved after
about 30 minutes one day prior. She denied any recollection of chest pain, palpitations, lightheadedness or dizziness. She denied any cough fevers or chills and she also denied any neck pain or back pain. She also denied numbness tingling or
incontinence of the bowel.
In the emergency department, she was afebrile with a temp of 98.4 oxygen saturation of 94% blood pressure of 150/70 with a pulse of 88. Respirate was 16. ECG showed normal sinus rhythm without any acute changes compared to prior. Troponin was
negative. BNP was unchanged at 800. CBC was unremarkable and unchanged compared to prior. Electrolytes BUN/creatinine were essentially in the normal range for her. Sodium 135. She had new elevations in AST to 157, ALT 279 and alk phos 180.
UA was unremarkable. DVT of the bilateral lower extremities was negative.
On exam she is generally well appearing with 3+ bilateral lower extremity swelling. There is erythema, edema, induration, tenderness and calor on the RLE. She has weakness in her bilateral lower extremity likely secondary to the swelling. Upper
ext strenght appears intact.'

#Weakness - Bilateral upper and lower extremity weakness with urinary incontinence concerning for new myelopathy with possible mets/cord compression
#Recent Frequent Falls
#Urinary Incontinence associated with the weakness
- Monitor on telemetry
- MRI [id number] spine pending (MRI initially ordered in the ER by ER provider, I then spoke to neurosurgery as a curbside, and they said an MRI both with and without
contrast is indicated in this case, so re-ordered MRI
imaging with AND without contrast)
- u/a unremarkable
- Monitor bladder scans for urinary retention
- PT eval
#Syncope on 08/20/24
- Continue to monitor on telemetry
- Orthostatics
- Continue her current medications
- Recent echo in June 2024 was unremarkable, given new syncope (patient has not had syncope before), rechecked echo which is unremarkable except for aortic sclerosis
without stenosis, mild to moderate tricuspid regurgitation. Estimated pulmonary artery pressure of 40-45 mmHg - assuming a right atrial pressure of 3 mmHg.
#Nausea/Vomiting on 08/22/24 morning
#Large paraesophageal hiatal hernia on T-Spine MRI
#Moderate hiatal hernia on CT A/P
#Wide neck umbilical hernia on CT A/P
#Acute Pancreatitis (very high lipase+CT showed acute pancreatitis) -- suspected secondary to gallstone, no alcohol intake
#Cholelithiasis
#Acute Cholecystitis
#Mild intrahepatic biliary ductal dilation on CT
-Unable to properly tolerate oral intake on 08/22/24
-AXR done on 08/22/24 with nonobstructive bowel gas pattern and moderate colonic stool burden
-CT of Abdomen/Pelvis with PO and IV contrast findings above with acute pancreatitis and cholecystitis
-MRI/MRCP
-Aggressive IV fluids BUT need to be careful with patient's CHF -- adjust IV fluids to maintain urine output to 0.5 cc/kg/hr -- watch for worsening hypoxia,
pulmonary edema
-Unasyn
-Blood cultures
-GI consulted
-After discussion with GI we determined that a surgery consult was also necessary for a possible percutaneous cholecystostomy tube
-May need HIDA scan and if ACC confirmed then surgery will do the perc tube above
-prn Tigan ordered given mild QTc prolongation in setting of low electrolytes recently
#Transaminitis - gemcitabine) vs gallstones/biliary issues
#Elevated Alkaline Phosphatase
- RUQ u/s: Gallbladder with stones and 'wall echo sign'. Negative sonographic Mackay's sign. Mildly enlarged common bile duct and findings suggesting some intrahepatic biliary
tract dilatation. Consider MRI/MRCP for more complete evaluation.
- Trend LFTs
#Cellulitis - new RLE cellulitis. Prior admission to with LLE cellulitis improved with ANCEF.
- Ancef changed to Unasyn on 08/23/24 given new cholecystitis
- elevate legs
- ID consulted at the time of admission
- No DVT on lower extremity ultrasound
- Wound care
#Bilateral Lower Extremity Edema
-Suspected from low albumin; no DVT on lower extremity ultrasound
-Follow-up echo okay
#Severe Spinal Canal Stenosis on L-Spine MRI
#Disc herniations at multiple levels of the spine
-Neurosurgery was consulted given MRI findings and mentioned there us no severe neural compression in the cervical, or thoracic spine to explain patient's episode of bilateral upper, and lower extremity weakness; patient does not have any other
concurrent symptomatology such as severe back pain, bilateral lower extremity paresthesias, or radiculopathy. From a neurosurgical standpoint, it appears that lumbar spondylotic changes/stenosis are likely incidental in nature, chronic findings, and
not the cause of the patient's immediate/acute onset of bilateral upper extremity, and lower extremity weakness. Therefore, no urgent neurosurgical intervention is recommended at present time.
-Continue physical therapy
#Large amount of edema in the right psoas muscle and in the iliacus muscles on L-Spine MRI
-Neurosurgery mentioned unclear what MRI findings regarding edema within the subcutaneous tissues, deep iliacus, psoas, and paraspinal muscles, presacral space mean?
-Possibly posttraumatic from fall
-See neurosurgery note from 08/22/24
#Moderate diffuse interstitial disease in the lungs on T-Spine MRI
#Moderate-sized left pleural effusion with an adjacent large left lower lobe basilar airspace consolidation, on T-Spine MRI
#Small Right Pleural Effusion on T-Spine MRI
#Recent History of Malignant Pleural Effusions
-Patient today required 2 L of NC oxygen (previously was on room air) -- possibly from IV fluids for pancreatitis -- for now continue IV fluids but may need to be stopped if patient
develops SOB or worsening hypoxia or pulmonary edema
-Can be evaluated for inpatient vs. outpatient thoracentesis
-Will need outpatient pulmonary follow-up
#CHF - Mild CHF exacerbation with elevated BNP and bilateral LE swelling
- Known diastolic CHF on lasix 40 and 60 alternating days. Edema. No JVD appreciated
- Monitor on telemetry
- IV Lasix previously given but now on hold given the above issues with pancreatitis and needing IV fluids
- BNP however is unremarkable for age @ 853 (but increased from baseline)
- Daily weights
- I's and O's
#Moderate cardiomegaly on T-Spine MRI
-Echo from 08/21/24 okay with trivial pericardial effusion
#Metastatic Ovarian Cancer
#Ovarian cancer status post hysterectomy and bilateral oophorectomy
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
#History of malignant pleural effusion
#Suspected anaphylactic reaction to Doxil 06/25/24
-follows with [facility], currently receiving chemotherapy
-Her chemo was Gemzar (gemcitabine) -- the Gemzar is two weeks on one off and this is her third cycle per her report and she is pretty with it
-Currently undergoing treatment with Dr. Chin
#New Moderate Left Hydroureteronephrosis suggesting distal left ureteral obstruction on L-Spine MRI
#On L-Spine MRI: 1.8 cm mass in the upper pole of the left kidney. Diagnostic possibilities are (1) a complex cyst or (2) less likely renal cell carcinoma
#On CT A/P: Malrotation of the kidneys. Mild right hydronephrosis, likely related to mass effect on the proximal ureter from adjacent peripancreatic inflammatory
change
-I discussed with on-call urologist on 08/22/24, and they mentioned based on the L-Spine MRI findings, patient has bilateral parapelvic renal cysts which were errantly interpreted to be �hydro� on MRI; UA shows no blood; Renal function as of
08/22/24 is normal
-Therefore, no need for urology consultation or urosurgical intervention.
#Hypertension
-Continue Amlodipine
#GERD
-Continue Pantoprazole
#Enlarged bilateral likely pathologic lymph nodes with suspicious lymph nodes seen on relative recent prior PET scan May 14, 2024 on ultrasound this hospitalization
#Small splenic high attenuation densities most likely representing old granulomatous disease on abdominal ultrasound
#Bilateral parapelvic renal cysts on abdominal ultrasound
DVT Prophylaxis: Lovenox subq
Code Status: Full code
Total time spent today on patient's care including chart review, placing orders, speaking with the patient and the patient's nurse, coordinating care with specialists, seeing and examining the patient was 60 minutes.
Anticipated Discharge: > 48 hours
Subjective/Interval History
-
Date of Service: August 23, 2024
Patient was seen and examined. She denied any shortness of breath or pain. Still with some nausea.
Objective Data
-
Labs:
Laboratory Results
08/22/24 08/23/24
20:11 06:00
WBC Pending
Hgb Pending
Hct Pending
Plt Count Pending
Sodium Pending
Potassium 3.2 L Pending
Chloride Pending
Carbon Dioxide Pending
BUN Pending
Creatinine Pending
Glucose Pending
Calcium Pending
Total Bilirubin Pending
AST Pending
ALT Pending
Alkaline Phosphatase Pending
Vital Signs:
Vital Signs
Temp Pulse Resp BP Pulse Ox
98.0 F 81 18 119/70 94
08/23/24 03:15 08/23/24 03:15 08/23/24 03:15 08/23/24 03:15 08/23/24 03:15
I&O
08/22/24 08/23/24 08/24/24
06:59 06:59 06:59
Intake Total 480 / 480 2140 / 2140
Output Total 3450 / 3450
Balance 480 / 480 -1310 / -1310
[2024-08-23] MEDS: NORVASC 10 MG PO (08:51)
[2024-08-23] MEDS: MIRALAX PO (08:51)
[2024-08-23] MEDS: HYDROPHOR 1 APPLIC TOPICAL (08:51)
[2024-08-23] MEDS: PROTONIX 40 MG PO (08:51)
[2024-08-23] MEDS: FLAGYL 500 MG 100 IV ×2 (08:55→15:50)
--- NOTE | 2024-08-23 09:52 | CON.GI ---
Consultation
-
Date/Time Consultation Requested: 08/22/2024
Date/Time Consultation Performed: 08/23/2024
Requesting Provider: Ambar Mckoy
Performing Provider: Dr Pandya
Reason for Consultation: elevated lipase
Medical History
Chief Complaint / HPI
Chief Complaint: falls
History of Present Illness:
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 She follows with Dr Chin and her last chemo was gemzar started few months ago
last infusion was Saturday prior to admission. 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 She describes 3 mechanical falls and was in our ER on , Sat and . On the 3rd visit she was admitted. During this admission she was seen
by ID and neurosurgery. She is being treated for cellulitis. GI consulted for abd pain and elevated lipase >4000.
She currently states abd pain is 1 out of 10. She had nausea with vomiting prior to admission which is now resolved. She denies prior history of pancreatitis or gallbladder issues. She denies fever, chills, dysphagia, reflux or heartburn, or
diarrhea. She had some constipation but states had normal BM yesterday. She is not aware of blood b/c she did not look. She does not drink ETOH or any new meds other than gemzar. No prior h/o elevated LFTs
Past Medical History
Past Medical History: Other (Stage 4 ovarian cancer with carcinomatosis and malignant pleural effusion, GERD constipation HTN, CHF, falls)
Past Surgical History: Other (Hysterectomy and BSO, bilateral hip replacement, cataracts, R total knee arthroplasty)
Social History
Tobacco: Non-Smoker
Alcohol: None
Drug: None
Living: Alone (son and daughter lives nearby)
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
Family History
Family History: Other (Denies FH of CRC or GI cancers)
Allergies / Home Medications
Allergy/AdvReac Type Severity Reaction Status Date / Time
adhesive Allergy Rash Verified 08/20/24 13:30
aprepitant [From Emend] Allergy Facial Verified 08/20/24 13:30
redness
and
shaking
all over
fosaprepitant [From Emend] Allergy Facial Verified 08/20/24 13:30
redness
and
shaking
all over
paclitaxel [From Taxol] Allergy Shaking Verified 08/20/24 13:30
all over
and facial
redness
�Medication �Instructions �Recorded
amlodipine 10 mg tablet 10 mg PO DAILY Blood pressure 06/21/21
pantoprazole 40 mg tablet,delayed 40 mg PO DAILY Gastrointestinal 06/21/21
release issue
Prevagen 1 tab PO DAILY Supplement 06/23/21
multivitamin with folic acid 400 1 tab PO DAILY Supplement 06/23/21
mcg tablet (Tab-A-Crow)
furosemide 40 mg tablet 40 mg PO DAILY Fluid 06/16/24
Retention/Swelling
vit C 250 mg-vit E 90 mg-zinc 40 1 tab PO BID Supplement 06/25/24
mg-copper 1 [id number]
capsule (PreserVision AREDS-2)
acetaminophen 500 mg tablet 1,000 mg PO QIDPRN PRN mild pain 08/20/24
(Tylenol Extra Strength)
furosemide 20 mg tablet (Lasix) 20 mg PO Q48H 08/20/24
Review of Systems
-
All other systems: A 12 pt ROS was Negative except as stated above in HPI
Vital Signs
Temp Pulse Resp BP Pulse Ox
97.6 F 82 16 145/86 90
08/23/24 07:00 08/23/24 07:00 08/23/24 07:00 08/23/24 07:00 08/23/24 07:00
Physical Exam
Exam
GEN: No acute distress, conversant, pleasant obese
HEENT: anicteric, extraocular movements intact, clear oropharynx without exudates, PORT in R chest
GI: soft, obese mildly distended, not tender to palpation, normal active bowel sounds, no hepatosplenomegaly
EXT: warm, well perfused, 2+ edema bilaterally with stasis changes bilateral leg wrapped
NEURO: AAOx3, non-focal
Results
WBC 7.9 10^3/uL (4.8-10.8) 08/22/24 05:43
Hgb 8.9 g/dL (12.0-16.0) L 08/22/24 05:43
Hct 26.0 % (37.0-47.0) L 08/22/24 05:43
MCV 88.7 fL (81.0-99.0) 08/22/24 05:43
Plt Count 139 10^3/uL (130-400) 08/22/24 05:43
Absolute Neuts (auto) 6.6 10^3/uL (1.4-6.5) H 08/20/24 15:57
Sodium 140 mmol/L (135-145) 08/22/24 05:43
Potassium 3.2 mmol/L (3.5-5.1) L 08/22/24 20:11
Chloride 112 mmol/L (98-107) H 08/22/24 05:43
Carbon Dioxide 21 mmol/L (22-30) L 08/22/24 05:43
BUN 27 mg/dl (7-17) H 08/22/24 05:43
Creatinine 0.6 mg/dL (0.6-1.0) 08/22/24 05:43
Calcium 6.9 mg/dl (8.4-10.2) L* 08/22/24 05:43
Total Bilirubin 0.7 mg/dl (0.2-1.3) 08/22/24 05:43
AST 164 U/L (14-36) H 08/22/24 05:43
ALT 56 U/L (0-35) H 08/22/24 05:43
Alkaline Phosphatase 143 U/L (38-126) H 08/21/24 05:15
Amylase 3013 U/L (30-110) H* 08/22/24 20:11
Lipase > 4000 U/L (23-300) H* 08/22/24 20:11
Diagnostic Image Results:
CTAP IV contrast: 1. Pronounced inflammatory change surrounding the pancreas, consistent with acute pancreatitis. No evidence of pancreatic necrosis or peripancreatic fluid collection.
2. Multiple gallstones within the gallbladder. Gallbladder wall thickening and adjacent inflammatory change. Findings may be reactive due to acute pancreatitis, or may represent acute cholecystitis.
3. Mild intrahepatic biliary ductal dilation. Common bile duct is of top normal size, measuring 5 mm in diameter. No definite radiopaque common bile duct stones are appreciated. If clinical concern for choledocholithiasis remains high, consider MRCP.
4. Malrotation of the kidneys. Mild right hydronephrosis, likely related to mass effect on the proximal ureter from adjacent peripancreatic inflammatory change.
5. Moderate hiatal hernia. Wide neck umbilical hernia.
Prior GI Procedures:
EGD/Colonoscopy: none prior
Assessment / Plan
-
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 She follows with Dr Chin and her last chemo was gemzar started few months ago
last infusion was Saturday prior to admission. GI consulted for acute pancreatitis 1st episode.
Impression
- Acute pancreatitis
1st episode. Gemzar is only new med and not strongly linked to pancreatitis
Other consideration is gallstone
No ETOH intake
- Leukocytosis
- Elevated LFTs
Could be related to gemzar vs biliary disease
- Frequent falls
- Stage 4 ovarian cancer
- Carcinomatosis
- Constipation
- Moderate hiatal hernia
- GERD
- HTN
- CHF
Recommendations
- C/w abx add blood cultures today
- MRI MRCP
- Check TG and IGG4, correct electrolytes
- C/w IVF tricky given her h/o CHF
- CLD
- Miralax daily
- Protonix 40mg IV daily basis
- Trend LFTs
Will follow with you
Data Reviewed
-
CT Scan: Report Reviewed by me
-
-
Thank you for consultation and allowing me to participate in the patient's care. Please call the licensed professional counselor GI physician during the after hours with any questions or concerns.
[2024-08-23 09:59] LABS: ALT (SGPT) 97 U/L (0-35); AST (SGOT) 338 U/L (14-36); Albumin 2.5 g/dl (3.5-5.0); Alkaline Phosphatase 552 U/L (38-126); Blood Urea Nitrogen 18 mg/dl (7-17); Calcium 8.1 mg/dl (8.4-10.2); Carbon Dioxide 32 mmol/L (22-30); Chloride 100 mmol/L (98-107); Estimated Creatinine Clearance 78 ml/min; Glucose 93 mg/dl (70-99); Potassium 3.7 mmol/L (3.5-5.1); Sodium 136 mmol/L (135-145); Total Bilirubin 2.3 mg/dl (0.2-1.3); Total Protein 5.6 g/dl (6.3-8.2); eGFR > 60.00
[2024-08-23 10:03] LABS: Hematocrit 30.8 % (37.0-47.0); Hemoglobin 10.4 g/dL (12.0-16.0); Mean Corp Hgb Conc. 33.8 g/dL (33.0-37.0); Mean Corpuscular Hgb 30.7 pg (27.0-31.0); Mean Corpuscular Volume 90.9 fL (81.0-99.0); Mean Platelet Volume 9.7 fL (7.4-10.4); Platelet Count 167 10^3/uL (130-400); Red Blood Cell Count 3.39 10^6/uL (4.20-5.40); Red Cell Dist. Width 20.9 % (11.5-14.5); White Blood Cell Count 11.2 10^3/uL (4.8-10.8)
[2024-08-23 10:19] LABS: % Basophils 0.4 % (0-2); % Eosinophils 0.1 % (0-6); % Immature Granulocytes 5.4 % (0-0.5); % Lymphocytes 5.8 % (20.5-51.1); % Monocytes 7.5 % (1.7-9.3); % Neutrophils 80.8 % (42.2-75.2); Absolute Immature Granulocytes 0.6 10^3/uL (0-0.05); Absolute Lymphocytes 0.7 10^3/uL (1.2-3.4); Absolute Monocytes 0.8 10^3/uL (0.1-0.6); Absolute Neutrophils 9.1 10^3/uL (1.4-6.5); Nucleated Red Blood Cells % 1.3 %
--- NOTE | 2024-08-23 10:31 | PTCARENOTE ---
Orders placed to upgrade pt. to IMU due to strict Q1hr I/O with orders to titrate IVF based on urine output. This RN will place bell and call report to IMU when bed is ready.
[2024-08-23 12:06] VITALS: BP 118/75
--- NOTE | 2024-08-23 12:45 | CON.GS ---
Addendum entered and electronically signed by Oleksandr Farooq MD 08/23/24 13:12:
I saw and examined the patient independently.
The Language Interpreter's note was reviewed and I agree with the note, assessment and plan except where noted below.
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
found to have pancreatitis on CT imaging. Gallstones and gallbladder wall thickening also noted. Interestingly the, the patient endorses no abdominal pain and is not tender in the right upper quadrant or epigastrium. Nevertheless, given her CT
scan findings and elevated lipase she meets criteria for pancreatitis and her most likely etiology is gallstone related though secondary medication is also a possibility.
Agree with MRI, if there is concerning findings for acute cholecystitis please obtain a HIDA scan. Given her age, cancer and ongoing syncopal episodes she would be high risk candidate for surgery, we may elect just to do a percutaneous
cholecystostomy tube if ACC is confirmed on HIDA.
Diet per GI
Syncope workup per primary
Continue antibiotics.
Surgery will continue to follow
Original Note:
Medical History
-
History of Present Illness:
78 yo female with a h/o ovarian ca s/p FERNIE/BSO, primary peritoneal carcinomatosis, R malignant pleural effusions, with progression, currently on chemo and HFpEF who presented after several falls through the ED and on ABX for cellulitis of the LE.
She had noted nausea and vomiting yesterday but feels better today. She notes no changes to her bowel habits and has been passing flatus/stools. She complains of mild pressure to her mid abdomen but denies pain or tenderness on exam. She has been
afebrile.
Past Medical History
Past Medical History: Cancer (Ovarian s/p FERNIE/BSO, Primary peritoneal carcinomatosis, R malignant pleural effusions, with progression, currently on chemo), CHF, HTN and Other (known incisional hernia)
Past Surgical History: Gynecological (FERNIE/BSO) and Orthopedic (BL THR, R THR)
Social History
Tobacco: Non-Smoker
Alcohol: None
Personal:
Living: Alone
Employment: Employed
Family History
Family History: Reviewed & Not Pertinent
Allergies / Home Medications
Allergy/AdvReac Type Severity Reaction Status Date / Time
adhesive Allergy Rash Verified 08/20/24 13:30
aprepitant [From Emend] Allergy Facial Verified 08/20/24 13:30
redness
and
shaking
all over
fosaprepitant [From Emend] Allergy Facial Verified 08/20/24 13:30
redness
and
shaking
all over
paclitaxel [From Taxol] Allergy Shaking Verified 08/20/24 13:30
all over
and facial
redness
�Medication �Instructions �Recorded �Confirmed �Type
amlodipine 10 mg tablet 10 mg PO DAILY Blood pressure 06/21/21 08/20/24 History
pantoprazole 40 mg tablet,delayed 40 mg PO DAILY Gastrointestinal 06/21/21 08/20/24 History
release issue
Prevagen 1 tab PO DAILY Supplement 06/23/21 08/20/24 History
multivitamin with folic acid 400 1 tab PO DAILY Supplement 06/23/21 08/20/24 History
mcg tablet (Tab-A-Crow)
furosemide 40 mg tablet 40 mg PO DAILY Fluid 06/16/24 08/20/24 History
Retention/Swelling
vit C 250 mg-vit E 90 mg-zinc 40 1 tab PO BID Supplement 06/25/24 08/20/24 History
mg-copper 1 [id number]
capsule (PreserVision AREDS-2)
acetaminophen 500 mg tablet 1,000 mg PO QIDPRN PRN mild pain 08/20/24 08/20/24 History
(Tylenol Extra Strength)
furosemide 20 mg tablet (Lasix) 20 mg PO Q48H 08/20/24 08/20/24 History
Review of Systems
-
History Source: Patient
All other systems: Negative unless noted
A 10 point review of systems was completed, and was negative except as per HPI.
Physical Exam
Vital Signs
Temp Pulse Resp BP Pulse Ox
97.6 F 77 18 118/75 98
08/23/24 12:06 08/23/24 12:06 08/23/24 12:06 08/23/24 12:06 08/23/24 12:06
08/22/24 08/23/24 08/24/24
06:59 06:59 06:59
Actual Weight 90.492 kg 87.453 kg
Body Mass Index (BMI) 34.2
Lab Results
08/23/24 08:58
08/23/24 08:58
WBC 11.2 10^3/uL (4.8-10.8) H 08/23/24 08:58
Hgb 10.4 g/dL (12.0-16.0) L 08/23/24 08:58
Hct 30.8 % (37.0-47.0) L 08/23/24 08:58
Plt Count 167 10^3/uL (130-400) D 08/23/24 08:58
Abs Immat Gran (auto) 0.6 10^3/uL (0-0.05) H 08/23/24 08:58
Neutrophils % 80.8 % (42.2-75.2) H 08/23/24 08:58
Physical Exam
General: Well Developed
HEENT: Moist Mucous Membranes
Respiratory: Non Labored Respirations
GI: Soft, Non Tender, Non Distended and Other (Incisional hernia: soft/reducible)
Skin: Other (TEZ wraps to BLLE, erythema to RLE)
Neuro: Awake, Alert and AO x 3
Psych: Calm
Data Reviewed
-
CT Scan: Image Personally Visualized and interpreted, Report Reviewed by me, Discussed with Physician, Discussed with Nurse and Discussed with Patient
Labs: Labs Reviewed by me, Discussed with Physician, Discussed with Nurse and Discussed with Patient
Assessment / Plan
-
78 yo female with h/o ovarian ca s/p FERNIE/BSO, primary peritoneal carcinomatosis, R malignant pleural effusions, with progression, currently on chemo and HFpEF who presented after several falls through the ED and has been on ABX for cellulitis of the
LE. She developed intractable n/v yesterday prompting CT imaging which demonstrated acute pancreatitis, gallstones are noted with some reactive gallbladder wall thickening. Incisional hernia without evidence of incarceration on image or exam. Hiatal
hernia present as well. Labwork is remarkable for mild leukocytosis. Bilirubin elevated to 2.3 with transaminitis as well as elevated amylase and lipase. Unclear etiology of pancreatitis: likely medication vs gallstone mediated. She notes
resolution of nausea with mild discomfort to her mid abdomen but is not tender on exam. Incisional hernia present which is soft and reducible on exam without tenderness.
Poor surgical candidate for cholecystectomy given her cancer history and prior surgery, fortunately, there is no evidence of cholecystitides currently. Cholecystectomy in this setting would be to prevent future recurrence and at this point risks
outweigh benefit.
--MRCP pending
--Diet/management of pancreatitis as per GI
--- NOTE | 2024-08-23 14:55 | CM ---
Patient seen at bedside
IA completed
Dx: Cellulitis, generalized weakness
CT abdomen/pelvis done-acute pancreatitis
PMH: h/o ovarian ca s/p FERNIE/BSO, primary peritoneal carcinomatosis, R malignant pleural effusions, with progression, currently on chemotherapy, HF, fall at home
Lives in 1 story home, 2 steps to enter
PT rec Home PT vs. SNF
SNF-would need ins auth
discussed chemo would need to be placed on hold with SNF stay
[facility] in past, denies rehab
PCP: residency clinic, Dr. Chaves
Pharmacy: [address], [place]
PLAN: Anticipate SNF, CM to continue to follow hospital progression for dispo planning
[2024-08-23 15:00] VITALS: BP 123/64
--- NOTE | 2024-08-23 15:50 | W.PN.ID1 ---
Date of Service
Date of Service: August 23, 2024
Today's Communication
switched to unasyn
Assessment / Plan
# Suspected Calculous vs Acalculous cholecystitis
- blood cultures x2 in progress
- MRI abd done but not yet read by radiology awaiting their read
- unasyn
- appreciate surgery and GI input
# Acute RLE cellulitis
- Vasc US: no DVT
- Elevate LE
- adjusted to unasyn as above
# Weakness of BLE>BUE
# Peritoneal carcinomatosis with progression on chemo
- MRI/ T/L spine pending to assess for mets.
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
Primary peritoneal carcinomatosis, R malignant pleural effusions, with progression, currently on chemo
Ovarian cancer status post FERNIE, BSO
Hypertension
Heart failure with preserved EF
Bilateral lower extremity edema
Bilateral total hip replacement
Right total knee replacement
Chief Complaint
-: Cellulitis
Subjective / Review of Systems
afebrile
bp stable
Vital Signs / Physical Exam
Vital Signs
Vital Signs
Temp Pulse Resp BP Pulse Ox
97.6 F 77 18 118/75 98
08/23/24 12:06 08/23/24 12:06 08/23/24 12:06 08/23/24 12:06 08/23/24 12:06
Physical Exam
Constitutional: No Acute Distress
Cardiovascular: Regular Rate and S1/S2; Negative Murmur or Rub
Pulmonary: Clear and Symmetric; Negative Wheezes or Rales
Gastrointestinal: Soft, Non Tender, Non Distended, Normal Bowel Sounds and Other (midline hernia soft, reducible, chronic )
Skin: Warm, Dry and Rash (RLE erythema, warmth, swelling; with compression on); Negative Jaundice
Lines: Port
Objective Data
Lab Data
Lab Results
08/23/24 08:58
08/23/24 08:58
Estimated Creat Clear 78 ml/min 08/23/24 08:58
Total Bilirubin 2.3 mg/dl (0.2-1.3) H D 08/23/24 08:58
AST 338 U/L (14-36) H 08/23/24 08:58
ALT 97 U/L (0-35) H 08/23/24 08:58
Alkaline Phosphatase 552 U/L (38-126) H 08/23/24 08:58
Amylase 3013 U/L (30-110) H* 08/22/24 20:11
Most recent labs reviewed.
Laboratory Tests
08/22/24 08/23/24
20:11 08:58
Total Bilirubin 2.3 H D
AST 338 H
ALT 97 H
Alkaline Phosphatase 552 H
Amylase 3013 H*
Lipase > 4000 H*
Micro Results:
08/23/24 11:45 Blood Culture - Pending
Blood/Venous
08/23/24 10:32 Blood Culture - Pending
Blood/Venous
08/20/24 20:07 MRSA Screen - Final
Nose No Methicillin Resistant Staphylococcus aureus isolated.
08/20/24 15:57 Influenza Types A & B (LOU) - Final
Nasal Swab Negative for Influenza A & B, NAAT
Negative results must be combined with clinical observations
and patient history.
Nucleic Acid Amplification test (NAAT)performed on the
[employer] platform.
08/20/24 ABD US: Gallbladder with stones and 'wall echo sign'. Negative sonographic Mackay's sign. Mildly enlarged common bile duct and findings suggesting some intrahepatic biliary tract dilatation. Consider MRI/MRCP for more complete evaluation.
[2024-08-23] MEDS: UNASYN IV ×2 (17:01→21:29)
--- NOTE | 2024-08-23 17:01 | CON.ONC ---
Impression
Impression
Ovarian/primary peritoneal cancer, currently on palliative gemcitabine
Mechanical falls
Acute hyperbilirubinemia
Mechanical falls
Plan
Plan
Await MRCP, eval for stone causing acute elevation in bilirubin.
Gemcitabine can affect LFT's but LFT's were near normal 08/12 and bili was normal 08/22.
Fractionate bili.
Too soon to say whether gemcitabine is working for her.
Discussions of goals of care are ongoing between pt and Dr. Chin but as of most recent discussion, still wanted active care.
At this time remains full code.
Patient History
History of Present Illness
78-year-old female with history of primary peritoneal carcinomatosis, malignant pleural effusion, with progression of disease currently on gemcitabine chemotherapy. Pt was doing well until 08/18 when she stumbled on steps after failing to grab door
handle solidly. Fell and struck back of head -> ED -> d/c'd home. The next day she was dressing to go out to lunch but began to feel sick and very weak and could not continue getting dressed. She then 'ended up on the floor' and went back to ED.
She reports urine incontinence several weeks. Patient also noted recent increasing right leg edema and erythema. No fevers or chills. Labwork was significant for new onset hyperbilirubinemia with bili 2.3 vs. 0.7 on day before. Labs were also
consistent with pancreatitis which was confirmed upon CT scan although pt had no symptoms. Plan is for MRCP. CT also showed known L pleural effusion and new moderate L hydroureteronephrosis suggesting distal L ureteral obstruction. She has been
diagnosed with acute RLE cellulitis. Pt currently awake, alert and without complaint.
Past-Medical/Surgical History
Past Medical History
Primary peritoneal carcinomatosis, R malignant pleural effusions, with progression, currently on chemo
Ovarian cancer status post FERNIE, BSO
Hypertension
Heart failure with preserved EF
Bilateral lower extremity edema
Past Surgical History
Bilateral total hip replacement
Right total knee replacement
Allergies
Rash from aprepitant
Facial redness and shaking all over from aprepitant
Facial redness and shaking all over from paclitaxel
Anaphylaxis complicated by cardiac arrest from Doxil
Social History
Tobacco: Non-Smoker
Alcohol: None
Drug: None
Personal:
Family History
Family History: Not Pertinent
Patient Medication
�Medication �Instructions �Recorded �Confirmed �Last Taken �Type
amlodipine 10 mg tablet 10 mg PO DAILY Blood pressure 06/21/21 08/20/24 08/19/24 History
pantoprazole 40 mg tablet,delayed 40 mg PO DAILY Gastrointestinal 06/21/21 08/20/24 08/19/24 History
release issue
Prevagen 1 tab PO DAILY Supplement 06/23/21 08/20/24 08/19/24 History
multivitamin with folic acid 400 1 tab PO DAILY Supplement 06/23/21 08/20/24 08/19/24 History
mcg tablet (Tab-A-Crow)
furosemide 40 mg tablet 40 mg PO DAILY Fluid 06/16/24 08/20/24 2 Days Ago History
Retention/Swelling ~08/18/24
vit C 250 mg-vit E 90 mg-zinc 40 1 tab PO BID Supplement 06/25/24 08/20/24 08/19/24 History
mg-copper 1 [id number]
capsule (PreserVision AREDS-2)
acetaminophen 500 mg tablet 1,000 mg PO QIDPRN PRN mild pain 08/20/24 08/20/24 3 Days Ago History
(Tylenol Extra Strength) ~08/17/24
furosemide 20 mg tablet (Lasix) 20 mg PO Q48H 08/20/24 08/20/24 Unknown History
Active Medications
Generic Name Dose Route Start Last Admin
Trade Name Freq PRN Reason Stop Dose Admin
Acetaminophen 650 mg 08/20/24 20:55 08/22/24 08:11
Acetaminophen 325 Mg Tablet PO 09/17/24 20:54 650 mg
Q4HPRN PRN Administration
mild pain/MORRIS/temp> 100.4F
Amlodipine Besylate 10 mg 08/21/24 08:00 08/23/24 08:51
Amlodipine 10 Mg Tablet PO 09/18/24 07:59 10 mg
DAILY MOHAN Administration
Bisacodyl 10 mg 08/23/24 08:00
Bisacodyl 10 Mg Rectal Suppository RECTAL 09/20/24 07:59
DAILYPRN PRN
no bm prior day
Emollient Ointment 0 applic 08/21/24 11:00 08/23/24 08:51
Petrolatum/Mineral Oil (Hydrophor) Oint 100 Gram TOPICAL 09/18/24 10:59 1 applic
DAILY MOHAN Administration
Enoxaparin Sodium 40 mg 08/21/24 18:00 08/22/24 17:17
Enoxaparin Sodium 40 Mg/0.4 Ml Syringe SC 09/18/24 17:59 40 mg
QPM MOHAN Administration
Furosemide 40 mg 08/21/24 08:00 08/22/24 08:06
Furosemide 40 Mg (10 Mg/Ml) 4 Ml Vial IV 09/18/24 07:59 40 mg
DAILY MOHAN Administration
Heparin Sodium (Porcine) 500 unit 08/21/24 17:30 08/22/24 17:17
Heparin Flush Pf (100 Unit/Ml) 5 Ml Syringe IV 09/18/24 17:29 500 unit
PER PROTOCOL MOHAN Administration
Lactated Ringer's 1,000 mls @ 125 mls/hr 08/23/24 02:00 08/23/24 05:21
Lr IV 1,000 mls
.Q8H MOHAN Administration
Ampicillin Sodium/Sulbactam 120 mls @ 240 mls/hr 08/23/24 16:00
Sodium 3 gm/ Sodium Chloride IV
Q6H MOHAN
Pantoprazole Sodium 40 mg 08/21/24 08:00 08/23/24 08:51
Pantoprazole 40 Mg Delayed Release Tablet PO 09/18/24 07:59 40 mg
DAILY MOHAN Administration
Polyethylene Glycol 17 grams 08/22/24 19:20 08/23/24 08:51
Polyethylene Glycol Powder 17 Grams Packet PO 09/19/24 19:19 Not Given
DAILY MOHAN
Sodium Chloride 0 flush 08/20/24 22:00 08/22/24 20:52
Sodium Chloride 0.9% (Flush) Syringe IV 09/17/24 21:59 1 flush
PER PROTOCOL MOHAN Administration
Trimethobenzamide HCl 200 mg 08/22/24 17:45 08/22/24 17:50
Trimethobenzamide 200 Mg/2 Ml Vial IM 09/19/24 17:44 200 mg
Q6HPRN PRN Administration
nausea/vomiting
Review of Systems
-
ROS negative except as per HPI
History Source: Patient and Records
Physical Exam
-
Awake, alert, non-toxic appearing
Lungs clear
Heart regular
Abd soft, non-tender
R leg erythema and swelling
Neuro grossly non-focal
Labs
Lab Results
WBC 11.2 10^3/uL (4.8-10.8) H 08/23/24 08:58
RBC 3.39 10^6/uL (4.20-5.40) L 08/23/24 08:58
Hgb 10.4 g/dL (12.0-16.0) L 08/23/24 08:58
Hct 30.8 % (37.0-47.0) L 08/23/24 08:58
MCV 90.9 fL (81.0-99.0) 08/23/24 08:58
MCH 30.7 pg (27.0-31.0) 08/23/24 08:58
MCHC 33.8 g/dL (33.0-37.0) 08/23/24 08:58
RDW 20.9 % (11.5-14.5) H 08/23/24 08:58
Plt Count 167 10^3/uL (130-400) D 08/23/24 08:58
MPV 9.7 fL (7.4-10.4) 08/23/24 08:58
Abs Immat Gran (auto) 0.6 10^3/uL (0-0.05) H 08/23/24 08:58
Absolute Neuts (auto) 9.1 10^3/uL (1.4-6.5) H 08/23/24 08:58
Absolute Lymphs (auto) 0.7 10^3/uL (1.2-3.4) L 08/23/24 08:58
Absolute Monos (auto) 0.8 10^3/uL (0.1-0.6) H 08/23/24 08:58
Absolute Eos (auto) 0.0 10^3/uL (0-0.7) 08/23/24 08:58
Absolute Basos (auto) 0.0 10^3/uL (0-0.2) 08/23/24 08:58
Immature Gran % 5.4 % (0-0.5) H 08/23/24 08:58
Neutrophils % 80.8 % (42.2-75.2) H 08/23/24 08:58
Lymphocytes % 5.8 % (20.5-51.1) L 08/23/24 08:58
Monocytes % 7.5 % (1.7-9.3) 08/23/24 08:58
Eosinophils % 0.1 % (0-6) 08/23/24 08:58
Basophils % 0.4 % (0-2) 08/23/24 08:58
Creatinine 0.6 mg/dL (0.6-1.0) 08/23/24 08:58
Vital Signs
Vital Signs
Temp Pulse Resp BP Pulse Ox
97.7 F 79 18 123/64 100
08/23/24 15:00 08/23/24 15:00 08/23/24 15:00 08/23/24 15:00 08/23/24 15:00
[2024-08-23] MEDS: LOVENOX 40 MG SC (17:34)
[2024-08-23 18:12] LABS: Direct Bilirubin 1.6 mg/dl (0.0-0.4)
[2024-08-23 19:23] VITALS: BP 121/95
[2024-08-23 23:26] VITALS: BP 115/62
[2024-08-24] VITALS (9 sets, daily range): BP systolic 75–135; BP diastolic 49–79; PULSE 75; O2SAT 98; BMI 34.6
[2024-08-24] MEDS: LR 1000 IV (04:08)
[2024-08-24] MEDS: UNASYN IV ×4 (04:08→21:00)
--- NOTE | 2024-08-24 06:33 | W.PN.HOSP.TC ---
Today's Communication/Plan
-
npo after midnight for ERCP
gentle IV hydration while NPO
daily weight I/O
wean O2 supplementation as tolerated
cont abx as per ID
Assessment / Plan
Assessment / Plan
Physical Exam
General: Not in acute distress
HEENT: Normocephalic, Moist mucous membranes, Atraumatic
Respiratory: Clear to Auscultation Bilaterally
Cardiac: S1/S2 and Regular Rhythm
GI: Soft, Non Tender, Non Distended and Normal Bowel Sounds
Musculoskeletal: No Cyanosis. No edema
Skin: Warm. Dry.
Neuro: AOx3 conversant coherent. Strength 5/5 in the bilateral upper extremities. Strength 3/5 LLE 4/5 RLE
Psych: Calm and Intact Judgment/Insight
Assessment/Plan
78-year-old female who has a past medical history significant for primary peritoneal carcinoma, metastatic ovarian cancer, chronic right malignant pleural effusions, recurrent lower extremity cellulitis, HFpEF, hypertension, GERD, history of recent
admission for anaphylaxis secondary to doxorubicin infusion (which was previously discontinued) presented for recurrent falls/evaluation of bilateral lower extremity weakness (patient said she had bilateral upper extremity weakness on August 18, 2024
as well -- now improved). Patient had a mechanical fall ~2 days prior to presentation (so on August 18, 2024) with a head strike (on cement floor on step down outside her residence) and was not on any blood thinners. She was evaluated in the ED, and
CT head was negative. She was discharged home. Patient then reports that on August 20, 2024, had significant weakness in all extremities with inability to control them that lasted approximately 30-45 minutes then resolved. Then she reported she was
sitting on futon attempting to get dressed and experienced the same weakness in all extremities and inability to control them, she then woke on floor in front of futon and does not recall how she got there. She reported passing out for a short
period of time, on 08/20/24. She also reported urinary incontinence over the prior few days. She reported weakness/inability to move her legs bilaterally as well as simultaneous weakness of the upper extremities bilaterally which resolved after
about 30 minutes one day prior. She denied any recollection of chest pain, palpitations, lightheadedness or dizziness. She denied any cough fevers or chills and she also denied any neck pain or back pain. She also denied numbness tingling or
incontinence of the bowel.
In the emergency department, she was afebrile with a temp of 98.4 oxygen saturation of 94% blood pressure of 150/70 with a pulse of 88. Respirate was 16. ECG showed normal sinus rhythm without any acute changes compared to prior. Troponin was
negative. BNP was unchanged at 800. CBC was unremarkable and unchanged compared to prior. Electrolytes BUN/creatinine were essentially in the normal range for her. Sodium 135. She had new elevations in AST to 157, ALT 279 and alk phos 180.
UA was unremarkable. DVT of the bilateral lower extremities was negative.
On exam she is generally well appearing with 3+ bilateral lower extremity swelling. There is erythema, edema, induration, tenderness and calor on the RLE. She has weakness in her bilateral lower extremity likely secondary to the swelling. Upper
ext strenght appears intact.'

#Weakness - Bilateral upper and lower extremity weakness with urinary incontinence concerning for new myelopathy with possible mets/cord compression (less likely)
#Recent Frequent Falls
#Urinary Incontinence associated with the weakness
- Monitor on telemetry
- MRI brain no acute abn's
- MRI cervical spine appreciated no acute abn's, chronic degenerative changes noted
- u/a unremarkable
- Monitor bladder scans for urinary retention
- PT eval appreciated SNF rehab
-Neurosurgery eval appreciated no surgical intervention indicated at this time
#Syncope on 08/20/24
- Continue to monitor on telemetry
- Orthostatics
- Continue her current medications
- Recent echo in June 2024 was unremarkable, given new syncope (patient has not had syncope before), ECHO was repeated here 08/21 noted no significant change from prior study
#Nausea/Vomiting on 08/22/24 morning
#Acute Pancreatitis (very high lipase+CT showed acute pancreatitis) -- suspected secondary to gallstone, no alcohol intake
#Cholelithiasis
#Mild intrahepatic biliary ductal dilation on CT
#Mild Transaminitis
-AXR done on 08/22/24 with nonobstructive bowel gas pattern and moderate colonic stool burden
-CT of Abdomen/Pelvis with PO and IV contrast findings above with acute pancreatitis vs cholecystitis
- RUQ u/s: Gallbladder with stones and 'wall echo sign'. Negative sonographic Mackay's sign. Mildly enlarged common bile duct and findings suggesting some intrahepatic biliary tract dilatation.
-MRI/MRCP appreciated choledocholithiasis and likely pancreatitis vs cholecystitis (less likely)
-Lipase since trended down <1000, IVF completed
-Unasyn as per ID
-Blood cultures NGTD
-GI consult appreciated npo after midnight for ERCP
-Surgery consult appreciated tentative plan for cholecystectomy this admission timing to be determined
-Tigan Compazine prn Nausea (QT not significantly prolonged recent EKGs 08/22)
#Cellulitis - new RLE cellulitis. Prior admission to with LLE cellulitis improved with ANCEF.
- Ancef changed to Unasyn on 08/23/24 given new cholecystitis
- elevate legs
- ID consult appreciated
- No DVT on lower extremity ultrasound
- Wound care
#Bilateral Lower Extremity Edema
-Suspected from low albumin; no DVT on lower extremity ultrasound
-Repeat ECHO noted no significant change as above
#Severe Spinal Canal Stenosis on L-Spine MRI
#Disc herniations at multiple levels of the spine
-Neurosurgery eval appreciated surgical intervention not indicated
-Continue physical therapy
#Large amount of edema in the right psoas muscle and in the iliacus muscles on L-Spine MRI
-suspect posttraumatic from fall
#Moderate diffuse interstitial disease in the lungs on T-Spine MRI
#Moderate-sized left pleural effusion with an adjacent large left lower lobe basilar airspace consolidation, on T-Spine MRI
#Small Right Pleural Effusion on T-Spine MRI
#Recent History of Malignant Pleural Effusions
-IR eval appreciated s/p Left thoracentesis 550 cc
-wean O2 as tolerated
#Chronic HFpEF
- Known diastolic CHF on lasix 40 and 60 alternating days, diuresis held for IVF given for pancreatitis, cont hold while NPO for ERCP
- Monitor on telemetry
- BNP unremarkable for age @ 853
- Daily weights
- I's and O's
#Metastatic Ovarian Cancer
#Ovarian cancer status post hysterectomy and bilateral oophorectomy
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
#History of malignant pleural effusion
#Suspected anaphylactic reaction to Doxil 06/25/24
-follows with [place], currently receiving chemotherapy
-On Gemzar (gemcitabine) undergoing treatment with Dr. Chin
#New Moderate Left Hydroureteronephrosis suggesting distal left ureteral obstruction on L-Spine MRI
#On L-Spine MRI: 1.8 cm mass in the upper pole of the left kidney. Diagnostic possibilities are (1) a complex cyst or (2) less likely renal cell carcinoma
#On CT A/P: Malrotation of the kidneys. Mild right hydronephrosis, likely related to mass effect on the proximal ureter from adjacent peripancreatic inflammatory
change
-Dr Thomason discussed with on-call urologist on 08/22/24, and they mentioned based on the L-Spine MRI findings, patient has bilateral parapelvic renal cysts which were errantly interpreted to be �hydro� on MRI; UA shows no blood; No significant
Kidney dysfunction noted.
-Per discussion, no need for urology consultation or urosurgical intervention.
#Hypertension
-Continue Amlodipine
#GERD
-Continue Pantoprazole
#Enlarged bilateral likely pathologic lymph nodes with suspicious lymph nodes seen on relative recent prior PET scan May 14, 2024 on ultrasound this hospitalization
#Small splenic high attenuation densities most likely representing old granulomatous disease on abdominal ultrasound
#Bilateral parapelvic renal cysts on abdominal ultrasound
DVT Prophylaxis: Lovenox subq
Code Status: Full code
Discussed with patient and patient's daughter Grace
I spent a total of 50 minutes with the patient or on the floor. More than 50% of this time involved counseling and coordination of care.
Anticipated Discharge: 24 - 48 hours
Subjective/Interval History
-
Date of Service: August 24, 2024
no acute distress resting comfortably in bed. reports overall feeling well. abd pain resolved at this time. remains oxygen dependent but otherwise stable respiratory status.
Objective Data
-
Labs:
Laboratory Results
08/24/24
06:00
WBC Pending
Hgb Pending
Hct Pending
Plt Count Pending
Sodium Pending
Potassium Pending
Chloride Pending
Carbon Dioxide Pending
BUN Pending
Creatinine Pending
Glucose Pending
Calcium Pending
Total Bilirubin Pending
AST Pending
ALT Pending
Alkaline Phosphatase Pending
Vital Signs:
Vital Signs
Temp Pulse Resp BP Pulse Ox
97.7 F 64 18 135/73 97
08/24/24 03:18 08/24/24 03:18 08/24/24 03:18 08/24/24 03:18 08/24/24 03:18
I&O
08/22/24 08/23/24 08/24/24
06:59 06:59 06:59
Intake Total 480 / 480 2140 / 2140 1440 / 1440
Output Total 3450 / 3450 1125 / 1125
Balance 480 / 480 -1310 / -1310 315 / 315
[2024-08-24] MEDS: PROTONIX 40 MG PO (08:12)
[2024-08-24] MEDS: MIRALAX 17 GRAMS PO (08:12)
[2024-08-24] MEDS: NORVASC 10 MG PO (08:12)
[2024-08-24] MEDS: HYDROPHOR 1 APPLIC TOPICAL (08:13)
--- NOTE | 2024-08-24 09:10 | W.PN.ONC2 ---
Documented by User: VICKY Avendano 08/24/24 16:35
Today's Communication / Plan
-
.
Impression
Impression
Ovarian/primary peritoneal cancer, currently on palliative gemcitabine
Mechanical falls
Acute pancreatitis
Acute hyperbilirubinemia -CB 8.8mm w numerous filling defets c/w choledocholithiasis
Moderate bilateral hydronephrosis
Plan
Plan
choledocholithiasis/acute pancreatitis management per GI
gemcitabine induced pancreatitis is a rare complication, usually mild and resolve on their own, however, fulminant acute pancreatitis is a more severe. MRCP findings and acute rise in LFTs more suggestive for gallstone pancreatitis rather then
medication induced
Too soon to say whether gemcitabine is working for her.
restorative goals
on IV abx, follow cultures
f/u B12, folate
f/u MRI brain and C spine
ID, neurosurgery, surgery, and GI are following
Daughter in law at bedside, updates provided and questions answered
Subjective/Objective
Subjective
no new complaints
Vital Signs:
Vital Signs
Temp Pulse Resp BP Pulse Ox
98.4 F 80 16 134/74 2
08/24/24 07:39 08/24/24 07:39 08/24/24 07:39 08/24/24 07:39 08/24/24 07:39
Lab Results:
Laboratory Data
WBC 11.2 10^3/uL (4.8-10.8) H 08/23/24 08:58
Hgb 10.4 g/dL (12.0-16.0) L 08/23/24 08:58
Plt Count 167 10^3/uL (130-400) D 08/23/24 08:58
eGFR > 60.00 08/23/24 08:58

Documented by User: Tatyana Perez MD 08/24/24 19:18
Today's Communication / Plan
-
Plan noted for possible cholecystectomy.
--- NOTE | 2024-08-24 10:11 | W.PN.GI.CBS2 ---
Addendum entered and electronically signed by Mary Reyes Do, MD 08/24/24 14:07:
I saw and examined the patient.
The GASTROENTEROLOGY TEACHER's note was reviewed and I agree with the note.
Comment: Rosalie denies further abd pain tolerating CLD. Denies nausea/vomiting. Vitals stable AF. Exam obese NTTP, NABS. Labs reviewed WBC rising. BC negative
Recommendations
- Results of MRI d/w pt
- Recommend ERCP tomorrow
- C/w CLD and NPO at MN
- C/w abx per ID
- BC negative but WBC rising
- Add INR for tomorrow
- Appreciate surgical recs
Will follow with you
Addendum entered and electronically signed by VICKY Cheung 08/24/24 12:26:
Pt now agreeable to review with daughter-- I updated on MRI results and plan for ERCp. Reviewed with Dr. Shabazz for IR eval for effusion to as now on O2 2 liter
Addendum entered and electronically signed by VICKY Cheung 08/24/24 10:38:
Pt also for MRI brain/cervical spine
Original Note:
Today's Communication / Plan
-
MRI as noted with CBD stones
plan for ERCP tomorrow
cont abx, ID following
am labs pending
ok for clear diet, NPO for am
hold Lovenox, add compression stocking
t/c surgical eval
Miralax daily
cont PPI
AM labs pending
I offered to call family -- pt declined
Assessment / Plan
-
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 She follows with Dr Chin and her last chemo was gemzar started few months ago
last infusion was Saturday prior to admission. GI consulted for acute pancreatitis 1st episode related to gallstone pancreatitis.
08/23/24- MR abdomen -
The common bile duct is mildly dilated measuring 8.8 mm with numerous filling defects consistent with choledocholithiasis.
Findings of acute pancreatitis without evidence of peripancreatic collection. There is edema throughout the right upper quadrant.
Cholelithiasis. There is pericholecystic fluid which may be secondary to the pancreatitis however cholecystitis cannot be excluded.
Moderate bilateral hydronephrosis, similar to prior.
Moderate bilateral pleural effusions with adjacent atelectasis, slightly increased from prior.
Moderate/large hiatal hernia.
Impression
- Acute pancreatitis with gallstone related with numerous filling defects on MRCP, edema and no collection on MRI
1st episode
Gemzar is only new med and not strongly linked to pancreatitis less likely adding to pancreatitis
No ETOH intake
TG, IGG4 pending
-cholelithiasis
- Leukocytosis
- Elevated LFTs
- Frequent falls
- Stage 4 ovarian cancer
-b/l hydro similar to prior on MRI
-moderate b/l pleural effusions slight increase per MRI
- Carcinomatosis
- Constipation
- Moderate/large hiatal hernia
- GERD
- HTN
- CHF
Recommendations
MRI as noted with CBD stones
plan for ERCP tomorrow
cont abx, ID following
am labs pending
ok for clear diet, NPO for am
hold Lovenox, add compression stocking
t/c surgical eval
Miralax daily
cont PPI
AM labs pending
I offered to call family -- pt declined
Subjective
Subjective
Date of Service: August 24, 2024
still with some mild abdominal pain, NPO
Objective
Data Reviewed
Laboratory Data:
Laboratory Results
Magnesium 2.0 mg/dl (1.6-2.3) 08/23/24 08:58
Total Bilirubin 2.3 mg/dl (0.2-1.3) H D 08/23/24 08:58
AST 338 U/L (14-36) H 08/23/24 08:58
ALT 97 U/L (0-35) H 08/23/24 08:58
Alkaline Phosphatase 552 U/L (38-126) H 08/23/24 08:58
Amylase 3013 U/L (30-110) H* 08/22/24 20:11
Lipase > 4000 U/L (23-300) H* 08/22/24 20:11
Vital Signs and I&O:
Vital Signs
Temp Pulse Resp BP Pulse Ox
98.4 F 80 16 134/74 2
08/24/24 07:39 08/24/24 07:39 08/24/24 07:39 08/24/24 07:39 08/24/24 07:39
I&O
08/23/24 08/24/24 08/25/24
06:59 06:59 06:59
Intake Total 2140 / 2140 2440 / 2440
Output Total 3450 / 3450 1125 / 1125
Balance -1310 / -1310 1315 / 1315
Physical Exam
Physical Exam
HEENT: Other (mild jaunidce )
Cardiology: Normal Sinus Rhythm
Pulmonary: Clear
GI: Soft, Non Distended and Tender (minimal epigastric pain)
Extremities: No Edema
Neuro: Non Focal
[2024-08-24 10:17] LABS: % Basophils 0.2 % (0-2); % Eosinophils 0.1 % (0-6); % Monocytes 7.5 % (1.7-9.3); % Neutrophils 87.2 % (42.2-75.2); Absolute Immature Granulocytes 0.3 10^3/uL (0-0.05); Absolute Lymphocytes 0.5 10^3/uL (1.2-3.4); Absolute Monocytes 1.3 10^3/uL (0.1-0.6); Absolute Neutrophils 14.6 10^3/uL (1.4-6.5); Hematocrit 31.2 % (37.0-47.0); Hemoglobin 10.2 g/dL (12.0-16.0); Mean Corp Hgb Conc. 32.7 g/dL (33.0-37.0); Mean Corpuscular Hgb 30.1 pg (27.0-31.0); Mean Platelet Volume 9.9 fL (7.4-10.4); Nucleated Red Blood Cells % 0.2 %; Platelet Count 157 10^3/uL (130-400); Red Blood Cell Count 3.39 10^6/uL (4.20-5.40); Red Cell Dist. Width 21.3 % (11.5-14.5); White Blood Cell Count 16.8 10^3/uL (4.8-10.8)
--- NOTE | 2024-08-24 10:24 | W.PN.GS2 ---
Today's Communication / Plan
-
Tentatively planning for CCY this admission.
Assessment / Plan
-
This is an 78-year-old female with a history of ovarian cancer status post FERNIE/BSO, primary peritoneal carcinomatosis currently on chemotherapy who presents with gallstone pancreatitis confirmed on MRI imaging.
Appreciate GI consult, agree with ERCP upfront.
Given her peritoneal carcinomatosis and ongoing chemotherapy cholecystectomy though indicated will be fairly challenging, we will discuss with the patient regarding timing and risks. If patient is interested in surgery, we will pursue CCY this week
General surgery will continue to follow with you.
Time Spent
Total Time Spent with Patient (in minutes): 20
Subjective Data
-
Date of Service: August 24, 2024
Interval Events:
No acute events overnight. MRI showed significant choledocholithiasis as well as cholelithiasis. Pain Controlled. Denies Nausea/Vomiting. Tolerated diet, n.p.o. for possible procedure today.
Objective Data
-
Intake and Output
08/23/24 08/24/24 08/25/24
06:59 06:59 06:59
Intake Total 2140 / 2140 2440 / 2440
Output Total 3450 / 3450 1125 / 1125
Balance -1310 / -1310 1315 / 1315
Intake:
Oral fluids 1680 / 1680 1440 / 1440
IV fluids (Total) 420 / 420 1000 / 1000
IV piggybacks 40 / 40
Output:
Urine, Voided 3450 / 3450 1125 / 1125
Other:
Number of approximated MODERATE 2 1
amounts of urine
Number of approximated LARGE 4 2
amounts of urine
How many times incontinent 2 2
MODERATE amount urine
How many times incontinent 2 2
SATURATED amount urine
Number of immeasurable emeses? 1
Vital Signs
Temp Pulse Resp BP Pulse Ox
98.4 F 80 16 134/74 2
08/24/24 07:39 08/24/24 07:39 08/24/24 07:39 08/24/24 07:39 08/24/24 07:39
Lab Results
08/24/24 09:28
Calcium 8.1 mg/dl (8.4-10.2) L 08/23/24 08:58
Magnesium 2.0 mg/dl (1.6-2.3) 08/23/24 08:58
Total Bilirubin 2.3 mg/dl (0.2-1.3) H D 08/23/24 08:58
Direct Bilirubin 1.6 mg/dl (0.0-0.4) H 08/23/24 08:58
AST 338 U/L (14-36) H 08/23/24 08:58
ALT 97 U/L (0-35) H 08/23/24 08:58
Alkaline Phosphatase 552 U/L (38-126) H 08/23/24 08:58
Total Protein 5.6 g/dl (6.3-8.2) L 08/23/24 08:58
Albumin 2.5 g/dl (3.5-5.0) L 08/23/24 08:58
Physical Exam
-
GENERAL/NEURO: Awake, Alert, no distress
CHEST: Unlabored breathing on RA
ABDOMEN: Soft, Non-Tender, Non-Distended
Patient has a central line: Yes (Port)
[2024-08-24 12:09] LABS: Folate 4.2 ng/ml (2.76-20); Vitamin B12 969 pg/ml (239-931)
[2024-08-24 12:22] LABS: IgG 1003 mg/dl (700-1600)
[2024-08-24 12:23] LABS: ALT (SGPT) 85 U/L (0-35); AST (SGOT) 202 U/L (14-36); Albumin 2.3 g/dl (3.5-5.0); Alkaline Phosphatase 427 U/L (38-126); Blood Urea Nitrogen 12 mg/dl (7-17); Calcium 7.7 mg/dl (8.4-10.2); Carbon Dioxide 28 mmol/L (22-30); Chloride 97 mmol/L (98-107); Estimated Creatinine Clearance 79 ml/min; Glucose 77 mg/dl (70-99); Iron 37 ug/dl (37-170); Lipase 788 U/L (23-300); Magnesium 1.5 mg/dl (1.6-2.3); Potassium 3.4 mmol/L (3.5-5.1); Sodium 133 mmol/L (135-145); Total Bilirubin 0.8 mg/dl (0.2-1.3); Total Protein 5.3 g/dl (6.3-8.2); Triglycerides 117 mg/dl (10-149); eGFR > 60.00
--- NOTE | 2024-08-24 12:24 | W.PN.ID1 ---
Date of Service
Date of Service: August 24, 2024
Today's Communication
Continue Unasyn. Follow white count. Await await tentative 08/25 ERCP
Assessment / Plan
# Suspected Calculous vs Acalculous cholecystitis
- blood cultures x2 in progress
- MRI abd with mildly dilated CBD and multiple filling defects.
- Continue unasyn
# Acute RLE cellulitis
- Vasc US: no DVT
- Elevate LE
- adjusted to unasyn as above
# Weakness of BLE>BUE
# Peritoneal carcinomatosis with progression on chemo
- MRI of T/L spine and brain pending to assess for mets.
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
Primary peritoneal carcinomatosis, R malignant pleural effusions, with progression, currently on chemo
Ovarian cancer status post FERNIE, BSO
Hypertension
Heart failure with preserved EF
Bilateral lower extremity edema
Bilateral total hip replacement
Right total knee replacement
Chief Complaint
-: Leukocytosis
Subjective / Review of Systems
Review of Systems: No Fever, No Chills, No Abdominal Pain, No Nausea and No Vomiting
Vital Signs / Physical Exam
Vital Signs
Vital Signs
Temp Pulse Resp BP Pulse Ox
98.5 F 83 16 134/79 97
08/24/24 10:53 08/24/24 10:53 08/24/24 10:53 08/24/24 10:53 08/24/24 10:53
Physical Exam
Constitutional: No Acute Distress
Cardiovascular: Regular Rate and S1/S2; Negative Murmur or Rub
Pulmonary: Clear and Symmetric; Negative Wheezes or Rales
Gastrointestinal: Soft, Non Tender, Non Distended, Normal Bowel Sounds and Other (midline hernia soft, reducible, chronic )
Skin: Warm, Dry, Rash (RLE erythema, warmth, swelling; with compression on) and Jaundice
Neurological: Awake and Alert
Psychological: Calm
Lines: Port
Objective Data
Lab Data
Lab Results
08/24/24 09:28
08/24/24 09:27
Estimated Creat Clear 79 ml/min 08/24/24 09:27
Total Bilirubin 0.8 mg/dl (0.2-1.3) D 08/24/24 09:27
AST 202 U/L (14-36) H 08/24/24 09:27
ALT 85 U/L (0-35) H 08/24/24 09:27
Alkaline Phosphatase 427 U/L (38-126) H 08/24/24 09:27
Amylase 3013 U/L (30-110) H* 08/22/24 20:11
Most recent labs reviewed.
Micro Results:
08/23/24 11:45 Blood Culture - Preliminary
Blood/Venous No Growth in 24 hours- Final report to follow
08/23/24 10:32 Blood Culture - Preliminary
Blood/Venous No Growth in 24 hours- Final report to follow
08/20/24 20:07 MRSA Screen - Final
Nose No Methicillin Resistant Staphylococcus aureus isolated.
08/20/24 15:57 Influenza Types A & B (LOU) - Final
Nasal Swab Negative for Influenza A & B, NAAT
Negative results must be combined with clinical observations
and patient history.
Nucleic Acid Amplification test (NAAT)performed on the
[employer] platform.
Imaging:
08/23/24 abdominal ultrasound: Common bile duct is mildly dilated with numerous filling defects consistent with choledocholithiasis. Findings of acute pancreatitis without evidence of Michael pancreatic collection. Edema throughout the right upper
quadrant. There is pericholecystic fluid which may be secondary to pancreatitis but cholecystitis cannot be excluded. Please see full dictation for additional detail.
08/20/24 ABD US: Gallbladder with stones and 'wall echo sign'. Negative sonographic Mackay's sign. Mildly enlarged common bile duct and findings suggesting some intrahepatic biliary tract dilatation. Consider MRI/MRCP for more complete evaluation.
[2024-08-24 15:26] LABS: Body Fluid pH 7.55
[2024-08-24 15:36] LABS: Body Fluid Mononuclear 65.4 %; Body Fluid Polymorphonuclear 34.6 %; Body Fluid WBC 110 /CUMM
[2024-08-24 15:42] LABS: Body Fluid Glucose 118 mg/dl; Body Fluid LDH 161 U/L; Body Fluid Protein 3.1 g/dl; Body Fluid Triglycerides < 30 mg/dl
[2024-08-24 15:56] LABS: Body Fluid Second Tech FB
[2024-08-24 18:19] LABS: Body Fluid Amylase 181 U/L
[2024-08-25] VITALS (10 sets, daily range): BP systolic 95–138; BP diastolic 51–70; BMI 34.9
[2024-08-25] MEDS: LR 1000 IV (01:48)
[2024-08-25] MEDS: UNASYN IV ×4 (03:38→21:16)
--- NOTE | 2024-08-25 05:57 | VATNOTE ---
08/25 8046
Unable to obtain blood return from port. PCN aware and will contact [employer] for order for cathflo. PCN will page VAT when medicaion arrives to floor.
--- NOTE | 2024-08-25 06:22 | W.PN.HOSP.TC ---
Today's Communication/Plan
-
diet as per GI
abx as per ID
see a/p
Assessment / Plan
Assessment / Plan
Physical Exam
General: Not in acute distress
HEENT: Normocephalic, Moist mucous membranes, Atraumatic
Respiratory: Clear to Auscultation Bilaterally, stable respiratory status on room air
Cardiac: S1/S2 and Regular Rhythm
GI: Soft, Non Tender, Non Distended and Normal Bowel Sounds
Musculoskeletal: No Cyanosis. No edema
Skin: Warm. Dry.
Neuro: AOx3 conversant coherent. Strength 5/5 in the bilateral upper extremities. Strength 3/5 LLE 4/5 RLE
Psych: Calm and Intact Judgment/Insight
Assessment/Plan
78-year-old female who has a past medical history significant for primary peritoneal carcinoma, metastatic ovarian cancer, chronic right malignant pleural effusions, recurrent lower extremity cellulitis, HFpEF, hypertension, GERD, history of recent
admission for anaphylaxis secondary to doxorubicin infusion (which was previously discontinued) presented for recurrent falls/evaluation of bilateral lower extremity weakness (patient said she had bilateral upper extremity weakness on August 18, 2024
as well -- now improved). Patient had a mechanical fall ~2 days prior to presentation (so on August 18, 2024) with a head strike (on cement floor on step down outside her residence) and was not on any blood thinners. She was evaluated in the ED, and
CT head was negative. She was discharged home. Patient then reports that on August 20, 2024, had significant weakness in all extremities with inability to control them that lasted approximately 30-45 minutes then resolved. Then she reported she was
sitting on futon attempting to get dressed and experienced the same weakness in all extremities and inability to control them, she then woke on floor in front of futon and does not recall how she got there. She reported passing out for a short
period of time, on 08/20/24. She also reported urinary incontinence over the prior few days. She reported weakness/inability to move her legs bilaterally as well as simultaneous weakness of the upper extremities bilaterally which resolved after
about 30 minutes one day prior. She denied any recollection of chest pain, palpitations, lightheadedness or dizziness. She denied any cough fevers or chills and she also denied any neck pain or back pain. She also denied numbness tingling or
incontinence of the bowel.
In the emergency department, she was afebrile with a temp of 98.4 oxygen saturation of 94% blood pressure of 150/70 with a pulse of 88. Respirate was 16. ECG showed normal sinus rhythm without any acute changes compared to prior. Troponin was
negative. BNP was unchanged at 800. CBC was unremarkable and unchanged compared to prior. Electrolytes BUN/creatinine were essentially in the normal range for her. Sodium 135. She had new elevations in AST to 157, ALT 279 and alk phos 180.
UA was unremarkable. DVT of the bilateral lower extremities was negative.
On exam she is generally well appearing with 3+ bilateral lower extremity swelling. There is erythema, edema, induration, tenderness and calor on the RLE. She has weakness in her bilateral lower extremity likely secondary to the swelling. Upper
ext strenght appears intact.'

#Weakness - Bilateral upper and lower extremity weakness with urinary incontinence concerning for new myelopathy with possible mets/cord compression (less likely)
#Recent Frequent Falls
#Urinary Incontinence associated with the weakness
- Monitor on telemetry
- MRI brain no acute abn's
- MRI cervical spine appreciated no acute abn's, chronic degenerative changes noted
- u/a unremarkable
- Monitor bladder scans for urinary retention
- PT eval appreciated SNF rehab
-Neurosurgery eval appreciated no surgical intervention indicated at this time
#Syncope on 08/20/24
- Continue to monitor on telemetry
- Orthostatics
- Continue her current medications
- Recent echo in June 2024 was unremarkable, given new syncope (patient has not had syncope before), ECHO was repeated here 08/21 noted no significant change from prior study
#Nausea/Vomiting on 08/22/24 morning- since resolved
#Acute Pancreatitis (very high lipase+CT showed acute pancreatitis) -- suspected secondary to gallstone, no alcohol intake
#Cholelithiasis
#Mild intrahepatic biliary ductal dilation on CT
#Mild Transaminitis
-AXR done on 08/22/24 with nonobstructive bowel gas pattern and moderate colonic stool burden
-CT of Abdomen/Pelvis with PO and IV contrast findings above with acute pancreatitis vs cholecystitis
- RUQ u/s: Gallbladder with stones and 'wall echo sign'. Negative sonographic Mackay's sign. Mildly enlarged common bile duct and findings suggesting some intrahepatic biliary tract dilatation.
-MRI/MRCP appreciated choledocholithiasis and likely pancreatitis vs cholecystitis (less likely)
-Lipase since trended down <1000, IVF completed
-Unasyn as per ID
-Blood cultures NGTD
-GI consult appreciated ERCP was attempted 08/25 but unsuccessful, conservative mgmt recommended for now, repeat ERCP attempt planned next week.
-Surgery consult appreciated tentative plan for cholecystectomy this admission timing to be determined
-Tigan Compazine prn Nausea (QT not significantly prolonged recent EKGs 08/22)
#Cellulitis - new RLE cellulitis. Prior admission to with LLE cellulitis improved with ANCEF.
- Ancef changed to Unasyn on 08/23/24 given new cholecystitis
- elevate legs
- ID consult appreciated
- No DVT on lower extremity ultrasound
- Wound care
#Bilateral Lower Extremity Edema
-Suspected from low albumin; no DVT on lower extremity ultrasound
-Repeat ECHO noted no significant change as above
#Severe Spinal Canal Stenosis on L-Spine MRI
#Disc herniations at multiple levels of the spine
-Neurosurgery eval appreciated surgical intervention not indicated
-Continue physical therapy
#Large amount of edema in the right psoas muscle and in the iliacus muscles on L-Spine MRI
-suspect posttraumatic from fall
#Moderate diffuse interstitial disease in the lungs on T-Spine MRI
#Moderate-sized left pleural effusion with an adjacent large left lower lobe basilar airspace consolidation, on T-Spine MRI
#Small Right Pleural Effusion on T-Spine MRI
#Recent History of Malignant Pleural Effusions
-IR eval appreciated s/p Left thoracentesis 550 cc
-weaned off O2, stable respiratory status on room air
#Chronic HFpEF
- Known diastolic CHF on lasix 40 and 60 alternating days, diuresis held for IVF given for pancreatitis, since resumed Lasix 40 mg PO daily (hold when NPO for procedures)
- Monitor on telemetry
- BNP unremarkable for age @ 89
- Daily weights
- I's and O's
#Hypomagnesemia
#Hypokalemia
monitor and replete as necessary
#Metastatic Ovarian Cancer
#Ovarian cancer status post hysterectomy and bilateral oophorectomy
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
#History of malignant pleural effusion
#Suspected anaphylactic reaction to Doxil 06/25/24
-follows with [place], currently receiving chemotherapy
-On Gemzar (gemcitabine) undergoing treatment with Dr. Chin
#New Moderate Left Hydroureteronephrosis suggesting distal left ureteral obstruction on L-Spine MRI
#On L-Spine MRI: 1.8 cm mass in the upper pole of the left kidney. Diagnostic possibilities are (1) a complex cyst or (2) less likely renal cell carcinoma
#On CT A/P: Malrotation of the kidneys. Mild right hydronephrosis, likely related to mass effect on the proximal ureter from adjacent peripancreatic inflammatory
change
-Dr Thomason discussed with on-call urologist on 08/22/24, and they mentioned based on the L-Spine MRI findings, patient has bilateral parapelvic renal cysts which were errantly interpreted to be �hydro� on MRI; UA shows no blood; No significant
Kidney dysfunction noted.
-Per discussion, no need for urology consultation or urosurgical intervention.
#Hypertension
-Continue Amlodipine
#GERD
-Continue Pantoprazole
#Enlarged bilateral likely pathologic lymph nodes with suspicious lymph nodes seen on relative recent prior PET scan May 14, 2024 on ultrasound this hospitalization
#Small splenic high attenuation densities most likely representing old granulomatous disease on abdominal ultrasound
#Bilateral parapelvic renal cysts on abdominal ultrasound
DVT Prophylaxis: Lovenox subq
Code Status: Full code
Discussed with patient
I spent a total of 50 minutes with the patient or on the floor. More than 50% of this time involved counseling and coordination of care.
Anticipated Discharge: 24 - 48 hours
Subjective/Interval History
-
Date of Service: August 25, 2024
No acute distress, reports overall feeling well, pain free. Stable respiratory status on room air, reports significant improvement in shortness of breath since thoracentesis yesterday.
Objective Data
-
Labs:
Laboratory Results
08/25/24
06:00
WBC Pending
Hgb Pending
Hct Pending
Plt Count Pending
PT Pending
INR Pending
APTT Pending
Sodium Pending
Potassium Pending
Chloride Pending
Carbon Dioxide Pending
BUN Pending
Creatinine Pending
Glucose Pending
Calcium Pending
Total Bilirubin Pending
AST Pending
ALT Pending
Alkaline Phosphatase Pending
Vital Signs:
Vital Signs
Temp Pulse Resp BP Pulse Ox
97.9 F 78 20 123/68 96
08/25/24 03:00 08/25/24 03:00 08/25/24 03:00 08/25/24 03:00 08/25/24 03:00
I&O
08/23/24 08/24/24 08/25/24
06:59 06:59 06:59
Intake Total 2140 / 2140 2440 / 2440
Output Total 3450 / 3450 1125 / 1125
Balance -1310 / -1310 1315 / 1315
[2024-08-25] MEDS: CATHFLO/ACTIVASE 2 MG INTRACATH (07:20)
[2024-08-25] MEDS: NORVASC 10 MG PO (07:41)
[2024-08-25] MEDS: PROTONIX 40 MG PO (07:41)
[2024-08-25] MEDS: MIRALAX PO (07:41)
[2024-08-25] MEDS: HYDROPHOR 1 APPLIC TOPICAL (07:42)
[2024-08-25 08:21] LABS: % Basophils 0.2 % (0-2); % Eosinophils 0.2 % (0-6); % Immature Granulocytes 1.8 % (0-0.5); % Lymphocytes 2.9 % (20.5-51.1); % Monocytes 6.5 % (1.7-9.3); % Neutrophils 88.4 % (42.2-75.2); Absolute Immature Granulocytes 0.3 10^3/uL (0-0.05); Absolute Lymphocytes 0.6 10^3/uL (1.2-3.4); Absolute Monocytes 1.3 10^3/uL (0.1-0.6); Absolute Neutrophils 17.1 10^3/uL (1.4-6.5); Hematocrit 30.1 % (37.0-47.0); Hemoglobin 10.1 g/dL (12.0-16.0); Mean Corp Hgb Conc. 33.6 g/dL (33.0-37.0); Mean Corpuscular Hgb 30.6 pg (27.0-31.0); Mean Corpuscular Volume 91.2 fL (81.0-99.0); Mean Platelet Volume 9.7 fL (7.4-10.4); Nucleated Red Blood Cells % 0.1 %; Platelet Count 147 10^3/uL (130-400); Red Cell Dist. Width 21.5 % (11.5-14.5); White Blood Cell Count 19.3 10^3/uL (4.8-10.8)
[2024-08-25 08:31] LABS: INR 1.34; PT 16.8 Sec (11.4-14.6)
[2024-08-25 08:32] LABS: APTT 33.4 Sec (23.4-35.0)
[2024-08-25 09:31] LABS: ALT (SGPT) 69 U/L (0-35); AST (SGOT) 136 U/L (14-36); Albumin 2.1 g/dl (3.5-5.0); Alkaline Phosphatase 354 U/L (38-126); Blood Urea Nitrogen 12 mg/dl (7-17); Calcium 7.5 mg/dl (8.4-10.2); Carbon Dioxide 29 mmol/L (22-30); Chloride 99 mmol/L (98-107); Estimated Creatinine Clearance 79 ml/min; Glucose 80 mg/dl (70-99); Magnesium 1.4 mg/dl (1.6-2.3); Phosphorus 2.6 mg/dl (2.5-4.5); Potassium 3.3 mmol/L (3.5-5.1); Sodium 134 mmol/L (135-145); Total Bilirubin 0.9 mg/dl (0.2-1.3); eGFR > 60.00
--- NOTE | 2024-08-25 10:51 | W.PN.UPDATE ---
Update Note
Progress Note Update
ERCP was aborted - unable to identify major papilla secondary multiple edematous folds in the area. Findings discussed with patient's daughter . She would like to hold off on transfer to tertiary facilities. Since patient is asymptomatic and her
LFT's downtrending it's reasonable to see how she does clinically . Repeat ERCP with next week - inpatient vs outpatient depends on hospital course .
[2024-08-25] MEDS: MAGNESIUM SULFATE 100 IV (11:56)
[2024-08-25] MEDS: KCL ELIXIR 40 MEQ PO (11:56)
--- NOTE | 2024-08-25 12:53 | CM ---
CM attempted to meet with pt to discuss discharge plan. Pt recovering from ERCP today under general anesthesia; unable to converse at this time.
CM to f/u later today and/or in AM to discuss d/c plan for SNF vs. home with home care. Will need SNF authorization if pt chooses SNF transfer.
--- NOTE | 2024-08-25 15:27 | W.PN.ID1 ---
Date of Service
Date of Service: August 25, 2024
Today's Communication
See below.
Assessment / Plan
# Choledocholithiasis, possible cholecystitis
-MRI abd with mildly dilated CBD and multiple filling defects.
-pt asymptomatic
- blood cultures x2 neg to date
- 08/24 failed attempt for ERCP due to edema
- Plan for repeat ERCP next week.
- Continue unasyn for now.
If dc prior to repeat ERCP, can transition to Augmentin 875m po bid through procedure.
# Acute RLE cellulitis
-improving
- Vasc US: no DVT
- Elevate LE/Compression
- Continue Unasyn as above.
# Peritoneal carcinomatosis with progression on chemo
# Malignant pleural effusion
- 08/24 s/p left thoracentesis 500 cc, cx neg to date, cytology pending
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
Primary peritoneal carcinomatosis, R malignant pleural effusions, with progression, currently on chemo
Ovarian cancer status post FERNIE, BSO
Hypertension
Heart failure with preserved EF
Bilateral lower extremity edema
Bilateral total hip replacement
Right total knee replacement
Chief Complaint
-: Leukocytosis and Cellulitis
Subjective / Review of Systems
Right leg swelling better.
No abdominal pain.
No diarrhea. No urine sxs
Vital Signs / Physical Exam
Vital Signs
Vital Signs
Temp Pulse Resp BP Pulse Ox
97.4 F 72 17 138/70 98
08/25/24 15:01 08/25/24 15:01 08/25/24 15:01 08/25/24 15:01 08/25/24 15:01
Physical Exam
Constitutional: No Acute Distress and Comfortable
Eyes: No Conjunctival Hemorrhage
Cardiovascular: Regular Rate and S1/S2
Pulmonary: Other (Decreased BS at bases)
Gastrointestinal: Soft, Non Tender, Distended (mild) and Normal Bowel Sounds
Extremities: Edema (BLE improved) and Erythema (RLE erythroderma decreased, receding)
Neurological: AO x 3
Lines: Port (RCW no erythema)
Objective Data
Lab Data
Lab Results
08/25/24 08:13
08/25/24 08:13
PT 16.8 Sec (11.4-14.6) H 08/25/24 08:13
INR 1.34 08/25/24 08:13
APTT 33.4 Sec (23.4-35.0) 08/25/24 08:13
Estimated Creat Clear 79 ml/min 08/25/24 08:13
Total Bilirubin 0.9 mg/dl (0.2-1.3) 08/25/24 08:13
AST 136 U/L (14-36) H 08/25/24 08:13
ALT 69 U/L (0-35) H 08/25/24 08:13
Alkaline Phosphatase 354 U/L (38-126) H 08/25/24 08:13
Amylase 3013 U/L (30-110) H* 08/22/24 20:11
Most recent labs reviewed.
Micro Results:
08/23/24 11:45 Blood Culture - Preliminary
Blood/Venous No Growth in 48 hours- Final report to follow
08/23/24 10:32 Blood Culture - Preliminary
Blood/Venous No Growth in 48 hours- Final report to follow
08/24/24 15:00 Body Fluid Culture - Preliminary
Pleural Fluid No Growth After 18-24 Hours
Gram Stain - Preliminary
08/20/24 20:07 MRSA Screen - Final
Nose No Methicillin Resistant Staphylococcus aureus isolated.
08/20/24 15:57 Influenza Types A & B (LOU) - Final
Nasal Swab Negative for Influenza A & B, NAAT
Negative results must be combined with clinical observations
and patient history.
Nucleic Acid Amplification test (NAAT)performed on the
[employer] platform.
Imaging:
08/23/24 abdominal ultrasound: Common bile duct is mildly dilated with numerous filling defects consistent with choledocholithiasis. Findings of acute pancreatitis without evidence of Michael pancreatic collection. Edema throughout the right upper
quadrant. There is pericholecystic fluid which may be secondary to pancreatitis but cholecystitis cannot be excluded. Please see full dictation for additional detail.
08/20/24 ABD US: Gallbladder with stones and 'wall echo sign'. Negative sonographic Mackay's sign. Mildly enlarged common bile duct and findings suggesting some intrahepatic biliary tract dilatation. Consider MRI/MRCP for more complete evaluation.
[2024-08-25] MEDS: COMPAZINE 5 MG IV (22:41)
[2024-08-25] MEDS: TYLENOL 650 MG PO (22:55)
[2024-08-26] VITALS (8 sets, daily range): BP systolic 74–136; BP diastolic 51–77; PULSE 82–93; O2SAT 97; BMI 35.6
[2024-08-26] MEDS: UNASYN IV ×4 (03:59→21:42)
[2024-08-26] MEDS: LR IV (06:14)
--- NOTE | 2024-08-26 06:50 | W.PN.HOSP.TC ---
Today's Communication/Plan
-
diet as per GI
abx as per ID
pain control
see a/p
Assessment / Plan
Assessment / Plan
Physical Exam
General: Not in acute distress
HEENT: Normocephalic, Moist mucous membranes, Atraumatic
Respiratory: Clear to Auscultation Bilaterally, stable respiratory status on room air
Cardiac: S1/S2 and Regular Rhythm
GI: Soft, Distended, mild tenderness, Bowel Sounds present
Musculoskeletal: No Cyanosis. No edema
Skin: Warm. Dry.
Neuro: AOx3 conversant coherent. Strength 5/5 in the bilateral upper extremities. Strength 3/5 LLE 4/5 RLE
Psych: Calm and Intact Judgment/Insight
Assessment/Plan
78-year-old female who has a past medical history significant for primary peritoneal carcinoma, metastatic ovarian cancer, chronic right malignant pleural effusions, recurrent lower extremity cellulitis, HFpEF, hypertension, GERD, history of recent
admission for anaphylaxis secondary to doxorubicin infusion (which was previously discontinued) presented for recurrent falls/evaluation of bilateral lower extremity weakness (patient said she had bilateral upper extremity weakness on August 18, 2024
as well -- now improved). Patient had a mechanical fall ~2 days prior to presentation (so on August 18, 2024) with a head strike (on cement floor on step down outside her residence) and was not on any blood thinners. She was evaluated in the ED, and
CT head was negative. She was discharged home. Patient then reports that on August 20, 2024, had significant weakness in all extremities with inability to control them that lasted approximately 30-45 minutes then resolved. Then she reported she was
sitting on futon attempting to get dressed and experienced the same weakness in all extremities and inability to control them, she then woke on floor in front of futon and does not recall how she got there. She reported passing out for a short
period of time, on 08/20/24. She also reported urinary incontinence over the prior few days. She reported weakness/inability to move her legs bilaterally as well as simultaneous weakness of the upper extremities bilaterally which resolved after
about 30 minutes one day prior. She denied any recollection of chest pain, palpitations, lightheadedness or dizziness. She denied any cough fevers or chills and she also denied any neck pain or back pain. She also denied numbness tingling or
incontinence of the bowel.
In the emergency department, she was afebrile with a temp of 98.4 oxygen saturation of 94% blood pressure of 150/70 with a pulse of 88. Respirate was 16. ECG showed normal sinus rhythm without any acute changes compared to prior. Troponin was
negative. BNP was unchanged at 800. CBC was unremarkable and unchanged compared to prior. Electrolytes BUN/creatinine were essentially in the normal range for her. Sodium 135. She had new elevations in AST to 157, ALT 279 and alk phos 180.
UA was unremarkable. DVT of the bilateral lower extremities was negative.
On exam she is generally well appearing with 3+ bilateral lower extremity swelling. There is erythema, edema, induration, tenderness and calor on the RLE. She has weakness in her bilateral lower extremity likely secondary to the swelling. Upper
ext strenght appears intact.'

#Weakness - Bilateral upper and lower extremity weakness with urinary incontinence concerning for new myelopathy with possible mets/cord compression (less likely)
#Recent Frequent Falls
#Urinary Incontinence associated with the weakness
- Monitor on telemetry
- MRI brain no acute abn's
- MRI cervical spine appreciated no acute abn's, chronic degenerative changes noted
- u/a unremarkable
- Monitor bladder scans for urinary retention
- PT eval appreciated SNF rehab
-Neurosurgery eval appreciated no surgical intervention indicated at this time
#Syncope on 08/20/24
- monitor on telemetry
- Orthostatics
- Recent echo in June 2024 was unremarkable, ECHO 08/21 noted no significant change from prior study
#Nausea/Vomiting on 08/22/24 morning- since resolved
#Acute Pancreatitis (very high lipase+CT showed acute pancreatitis) -- likely secondary to gallstones, no alcohol intake
#Cholelithiasis
#Mild intrahepatic biliary ductal dilation on CT
#Mild Transaminitis
-AXR done on 08/22/24 with nonobstructive bowel gas pattern and moderate colonic stool burden
-CT of Abdomen/Pelvis with PO and IV contrast findings above with acute pancreatitis vs cholecystitis
- RUQ u/s: Gallbladder with stones and 'wall echo sign'. Negative sonographic Mackay's sign. Mildly enlarged common bile duct and findings suggesting some intrahepatic biliary tract dilatation.
-MRI/MRCP appreciated choledocholithiasis and likely pancreatitis vs cholecystitis (less likely)
-Lipase since trended down <1000, IVF completed, 08/26 trended back up with associate abd pain, IVF restarted
-Unasyn as per ID
-Blood cultures NGTD
-GI consult appreciated ERCP was attempted 08/25 but unsuccessful, conservative mgmt recommended for now, repeat ERCP attempt planned next week.
-Surgery consult appreciated tentative plan for cholecystectomy this admission timing to be determined
-Tigan Compazine prn Nausea (QT not significantly prolonged recent EKGs 08/22)
-morphine prn mod severe pain
#Constipation
bowel regimen
suppository prn
#Cellulitis - new RLE cellulitis. Prior admission to with LLE cellulitis improved with ANCEF.
- Ancef changed to Unasyn on 08/23/24 given new cholecystitis
- elevate legs
- ID consult appreciated
- No DVT on lower extremity ultrasound
- Wound care
#Bilateral Lower Extremity Edema
-Suspected from low albumin; no DVT on lower extremity ultrasound
-Repeat ECHO noted no significant change as above
#Severe Spinal Canal Stenosis on L-Spine MRI
#Disc herniations at multiple levels of the spine
-Neurosurgery eval appreciated surgical intervention not indicated
-Continue physical therapy
#Large amount of edema in the right psoas muscle and in the iliacus muscles on L-Spine MRI
-suspect posttraumatic from fall
#Moderate diffuse interstitial disease in the lungs on T-Spine MRI
#Moderate-sized left pleural effusion with an adjacent large left lower lobe basilar airspace consolidation, on T-Spine MRI
#Small Right Pleural Effusion on T-Spine MRI
#Recent History of Malignant Pleural Effusions
-IR eval appreciated s/p Left thoracentesis 550 cc
#Chronic HFpEF
- Known diastolic CHF on lasix 40 and 60 alternating days, diuresis held for IVF given for pancreatitis, since resumed Lasix 40 mg PO daily (hold when NPO for procedures)
- Monitor on telemetry
- BNP unremarkable for age @ 89
- Daily weights
- I's and O's
#Hypomagnesemia
#Hypokalemia
monitor and replete as necessary
#Metastatic Ovarian Cancer
#Ovarian cancer status post hysterectomy and bilateral oophorectomy
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
#History of malignant pleural effusion
#Suspected anaphylactic reaction to Doxil 06/25/24
-follows with [place], currently receiving chemotherapy
-On Gemzar (gemcitabine) undergoing treatment with Dr. Chin
-Oncology eval appreciated
#New Moderate Left Hydroureteronephrosis suggesting distal left ureteral obstruction on L-Spine MRI
#On L-Spine MRI: 1.8 cm mass in the upper pole of the left kidney. Diagnostic possibilities are (1) a complex cyst or (2) less likely renal cell carcinoma
#On CT A/P: Malrotation of the kidneys. Mild right hydronephrosis, likely related to mass effect on the proximal ureter from adjacent peripancreatic inflammatory
change
-Dr Thomason discussed with on-call urologist on 08/22/24, and they mentioned based on the L-Spine MRI findings, patient has bilateral parapelvic renal cysts which were errantly interpreted to be �hydro� on MRI; UA shows no blood; No significant
Kidney dysfunction noted.
-Per discussion, no need for urology consultation or urosurgical intervention.
#Hypertension
-Continue Amlodipine
#GERD
-Continue Pantoprazole
#Enlarged bilateral likely pathologic lymph nodes with suspicious lymph nodes seen on relative recent prior PET scan May 14, 2024 on ultrasound this hospitalization
#Small splenic high attenuation densities most likely representing old granulomatous disease on abdominal ultrasound
#Bilateral parapelvic renal cysts on abdominal ultrasound
DVT Prophylaxis: Lovenox subq
Code Status: Full code
Discussed with patient and patient's daughter Grace
I spent a total of 50 minutes with the patient or on the floor. More than 50% of this time involved counseling and coordination of care.
Anticipated Discharge: 24 - 48 hours
Subjective/Interval History
-
Date of Service: August 26, 2024
reports abd pain, lipase level noted elevated, patient also noted constipated. Pain improved as day progressed with prn pain meds and IVF.
Objective Data
-
Labs:
Laboratory Results
08/26/24
06:00
WBC Pending
Hgb Pending
Hct Pending
Plt Count Pending
Sodium Pending
Potassium Pending
Chloride Pending
Carbon Dioxide Pending
BUN Pending
Creatinine Pending
Glucose Pending
Calcium Pending
Total Bilirubin Pending
AST Pending
ALT Pending
Alkaline Phosphatase Pending
Vital Signs:
Vital Signs
Temp Pulse Resp BP Pulse Ox
97.5 F 77 16 121/72 98
08/26/24 03:00 08/26/24 03:00 08/26/24 03:00 08/26/24 03:00 08/26/24 03:00
I&O
08/24/24 08/25/24 08/26/24
06:59 06:59 06:59
Intake Total 2440 / 2440 310 / 310
Output Total 1125 / 1125 350 / 350
Balance 1315 / 1315 -40 / -40
--- NOTE | 2024-08-26 08:09 | W.PN.ONC2 ---
Today's Communication / Plan
-
ERCP unsuccessful. Might need to be repeated next week. D/C planning per GI and medicine.
Cancer status has been progressing and switched to Gemzar. Too soon to know if it's effectively controlling her disease. Abd Ct and MRI do not suggest POD.
Continue supportive care with restorative goals.
Impression
Impression
Ovarian/primary peritoneal cancer, currently on palliative gemcitabine
Mechanical falls
Acute pancreatitis
Acute hyperbilirubinemia -CB 8.8mm w numerous filling defets c/w choledocholithiasis
Moderate bilateral hydronephrosis
Plan
Plan
choledocholithiasis/acute pancreatitis management per GI
gemcitabine induced pancreatitis is a rare complication, usually mild and resolve on their own, however, fulminant acute pancreatitis is a more severe. MRCP findings and acute rise in LFTs more suggestive for gallstone pancreatitis rather then
medication induced
Too soon to say whether gemcitabine is working for her.
restorative goals
on IV abx, follow cultures
MRI brain and C spine negative for mets
ID, neurosurgery, surgery, and GI are following
Subjective/Objective
Chief Complaint
ACS Heme Onc Progress
Subjective
Feels nausea. Uncomfortable in the hospital bed (?mattress, cancer, biliary disease).
Vital Signs:
Vital Signs
Temp Pulse Resp BP Pulse Ox
99.0 F 82 11 127/73 100
08/26/24 07:22 08/26/24 07:22 08/26/24 07:22 08/26/24 07:22 08/26/24 07:22
Lab Results:
Laboratory Data
WBC 19.3 10^3/uL (4.8-10.8) H 08/25/24 08:13
Hgb 10.1 g/dL (12.0-16.0) L 08/25/24 08:13
Plt Count 147 10^3/uL (130-400) 08/25/24 08:13
PT 16.8 Sec (11.4-14.6) H 08/25/24 08:13
INR 1.34 08/25/24 08:13
APTT 33.4 Sec (23.4-35.0) 08/25/24 08:13
eGFR > 60.00 08/25/24 08:13
Physical Exam
NAD
HEENT: No Jaundice
Cardiology: S1 and S2
Pulmonary: Clear
GI: Soft
Extremities: Other (wrapped B/L)
Neuro: Non Focal
[2024-08-26] MEDS: COMPAZINE 5 MG IV (08:38)
[2024-08-26] MEDS: FLUSH (NSS) 2 FLUSH IV (08:39)
[2024-08-26] MEDS: TYLENOL 650 MG PO ×2 (08:40→13:18)
[2024-08-26] MEDS: MIRALAX 17 GRAMS PO (09:09)
[2024-08-26] MEDS: KLOR-CON 20 MEQ PO ×2 (09:09→21:43)
[2024-08-26] MEDS: PROTONIX 40 MG PO (09:10)
[2024-08-26] MEDS: NORVASC 10 MG PO (09:10)
[2024-08-26] MEDS: LASIX 40 MG PO (09:10)
[2024-08-26] MEDS: HYDROPHOR 1 APPLIC TOPICAL (09:14)
--- NOTE | 2024-08-26 10:59 | W.PN.GI.CBS2 ---
Today's Communication / Plan
-
trend LFT
repeat ERCP next week if patient remains in the hospital with
Assessment / Plan
-
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 She follows with Dr Chin and her last chemo was gemzar started few months ago
last infusion was Saturday prior to admission. GI consulted for acute pancreatitis 1st episode related to gallstone pancreatitis.
08/23/24- MR abdomen -
The common bile duct is mildly dilated measuring 8.8 mm with numerous filling defects consistent with choledocholithiasis.
Findings of acute pancreatitis without evidence of peripancreatic collection. There is edema throughout the right upper quadrant.
Cholelithiasis. There is pericholecystic fluid which may be secondary to the pancreatitis however cholecystitis cannot be excluded.
Moderate bilateral hydronephrosis, similar to prior.
Moderate bilateral pleural effusions with adjacent atelectasis, slightly increased from prior.
Moderate/large hiatal hernia.
Impression
- Acute pancreatitis with gallstone related with numerous filling defects on MRCP, edema and no collection on MRI
1st episode
Gemzar is only new med and not strongly linked to pancreatitis less likely adding to pancreatitis
No ETOH intake
TG, IGG4 pending
-cholelithiasis
- Leukocytosis
- Elevated LFTs
- Frequent falls
- Stage 4 ovarian cancer
-b/l hydro similar to prior on MRI
-moderate b/l pleural effusions slight increase per MRI
- Carcinomatosis
- Constipation
- Moderate/large hiatal hernia
- GERD
- HTN
- CHF
ERCP 08/26 - unsuccessful ( edematous folds. Unable to identify major papilla )
Recommendations
follow up am LFT
patient wants to remain on clear liquid for now. advance as tolerated
will plan for repeat ERCP next week with if patient remains in the hospital. Planned discussed with family yesterday.
Total Time Spent with Patient (in minutes): 35
Subjective
Subjective
Date of Service: August 26, 2024
denies any abd pain. tolerating CLD but intermittent nausea .
Objective
Data Reviewed
Laboratory Data:
Laboratory Results
PT 16.8 Sec (11.4-14.6) H 08/25/24 08:13
INR 1.34 08/25/24 08:13
APTT 33.4 Sec (23.4-35.0) 08/25/24 08:13
Phosphorus 2.6 mg/dl (2.5-4.5) 08/25/24 08:13
Magnesium 1.4 mg/dl (1.6-2.3) L 08/25/24 08:13
Total Bilirubin 0.9 mg/dl (0.2-1.3) 08/25/24 08:13
AST 136 U/L (14-36) H 08/25/24 08:13
ALT 69 U/L (0-35) H 08/25/24 08:13
Alkaline Phosphatase 354 U/L (38-126) H 08/25/24 08:13
Amylase 3013 U/L (30-110) H* 08/22/24 20:11
Lipase 788 U/L (23-300) H 08/24/24 09:27
Vital Signs and I&O:
Vital Signs
Temp Pulse Resp BP Pulse Ox
99.0 F 82 11 127/73 100
08/26/24 07:22 08/26/24 09:10 08/26/24 07:22 08/26/24 09:10 08/26/24 07:22
I&O
08/25/24 08/26/24 08/27/24
06:59 06:59 06:59
Intake Total 310 / 310
Output Total 350 / 350 150 / 150
Balance -40 / -40 -150 / -150
Physical Exam
Physical Exam
GI: Soft, Non Distended and Non Tender
[2024-08-26] MEDS: SENOKOT-S 1 TABLET PO ×2 (11:15→21:43)
[2024-08-26 11:19] LABS: Hematocrit 31.6 % (37.0-47.0); Hemoglobin 10.6 g/dL (12.0-16.0); Mean Corp Hgb Conc. 33.5 g/dL (33.0-37.0); Mean Corpuscular Hgb 30.6 pg (27.0-31.0); Mean Corpuscular Volume 91.3 fL (81.0-99.0); Mean Platelet Volume 10.4 fL (7.4-10.4); Platelet Count 209 10^3/uL (130-400); Red Blood Cell Count 3.46 10^6/uL (4.20-5.40); Red Cell Dist. Width 22.5 % (11.5-14.5); White Blood Cell Count 18.6 10^3/uL (4.8-10.8)
[2024-08-26 12:06] LABS: ALT (SGPT) 76 U/L (0-35); AST (SGOT) 164 U/L (14-36); Albumin 2.3 g/dl (3.5-5.0); Alkaline Phosphatase 714 U/L (38-126); Blood Urea Nitrogen 16 mg/dl (7-17); Calcium 7.8 mg/dl (8.4-10.2); Carbon Dioxide 29 mmol/L (22-30); Chloride 99 mmol/L (98-107); Estimated Creatinine Clearance 80 ml/min; Glucose 123 mg/dl (70-99); Magnesium 2.1 mg/dl (1.6-2.3); Phosphorus 2.5 mg/dl (2.5-4.5); Potassium 3.7 mmol/L (3.5-5.1); Sodium 133 mmol/L (135-145); Total Bilirubin 3.3 mg/dl (0.2-1.3); Total Protein 5.3 g/dl (6.3-8.2); eGFR > 60.00
[2024-08-26 12:37] LABS: Lipase > 4000 U/L (23-300)
[2024-08-26] MEDS: NSS 1000 IV (13:18)
--- NOTE | 2024-08-26 13:50 | W.PN.ID1 ---
Date of Service
Date of Service: August 26, 2024
Today's Communication
Continue Unasyn
Assessment / Plan
# Choledocholithiasis, possible cholecystitis
-MRI abd with mildly dilated CBD and multiple filling defects.
-pt asymptomatic
- blood cultures x2 neg to date
- 08/24 failed attempt for ERCP due to edema
- Plan for repeat ERCP next week.
- Continue unasyn for now.
If dc prior to repeat ERCP, can transition to Augmentin 875m po bid through procedure.
# Acute RLE cellulitis
-improving
- Vasc US: no DVT
- Elevate LE/Compression
- Continue Unasyn as above.
# Leukocytosis - slight improvement today.
- continue to trend.
# Ovarian cancer/Peritoneal carcinomatosis with progression on chemo
# Malignant pleural effusion
- 08/24 s/p left thoracentesis 500 cc, cx neg to date, cytology suspicious for malignancy
# Constipation
- Management by hospitalist
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
Primary peritoneal carcinomatosis, R malignant pleural effusions, with progression, currently on chemo
Ovarian cancer status post FERNIE, BSO
Hypertension
Heart failure with preserved EF
Bilateral lower extremity edema
Bilateral total hip replacement
Right total knee replacement
Chief Complaint
-: Leukocytosis and Cellulitis
Subjective / Review of Systems
No new complaints.
Vital Signs / Physical Exam
Vital Signs
Vital Signs
Temp Pulse Resp BP Pulse Ox
97.8 F 80 16 103/56 94
08/26/24 12:13 08/26/24 12:13 08/26/24 12:13 08/26/24 12:13 08/26/24 12:13
Physical Exam
Constitutional: No Acute Distress and Comfortable
Eyes: No Conjunctival Hemorrhage
Cardiovascular: Regular Rate and S1/S2
Pulmonary: Other (Decreased BS at bases)
Gastrointestinal: Soft, Non Tender, Distended (mild) and Normal Bowel Sounds
Extremities: Edema (BLE improved) and Erythema (RLE erythroderma decreased, receding)
Neurological: AO x 3
Lines: Port (RCW no erythema)
Objective Data
Lab Data
Lab Results
08/26/24 10:56
08/26/24 10:56
PT 16.8 Sec (11.4-14.6) H 08/25/24 08:13
INR 1.34 08/25/24 08:13
APTT 33.4 Sec (23.4-35.0) 08/25/24 08:13
Estimated Creat Clear 80 ml/min 08/26/24 10:56
Total Bilirubin 3.3 mg/dl (0.2-1.3) H D 08/26/24 10:56
AST 164 U/L (14-36) H 08/26/24 10:56
ALT 76 U/L (0-35) H 08/26/24 10:56
Alkaline Phosphatase 714 U/L (38-126) H 08/26/24 10:56
Amylase 3013 U/L (30-110) H* 08/22/24 20:11
Most recent labs reviewed.
Micro Results:
08/23/24 11:45 Blood Culture - Preliminary
Blood/Venous No Growth in 72 hours- Final report to follow
08/24/24 15:00 Body Fluid Culture - Preliminary
Pleural Fluid No Growth After 48 Hours
Gram Stain - Preliminary
08/23/24 10:32 Blood Culture - Preliminary
Blood/Venous No Growth in 72 hours- Final report to follow
08/20/24 20:07 MRSA Screen - Final
Nose No Methicillin Resistant Staphylococcus aureus isolated.
08/20/24 15:57 Influenza Types A & B (LOU) - Final
Nasal Swab Negative for Influenza A & B, NAAT
Negative results must be combined with clinical observations
and patient history.
Nucleic Acid Amplification test (NAAT)performed on the
[employer] platform.
Imaging:
08/23/24 abdominal ultrasound: Common bile duct is mildly dilated with numerous filling defects consistent with choledocholithiasis. Findings of acute pancreatitis without evidence of Michael pancreatic collection. Edema throughout the right upper
quadrant. There is pericholecystic fluid which may be secondary to pancreatitis but cholecystitis cannot be excluded. Please see full dictation for additional detail.
08/20/24 ABD US: Gallbladder with stones and 'wall echo sign'. Negative sonographic Mackay's sign. Mildly enlarged common bile duct and findings suggesting some intrahepatic biliary tract dilatation. Consider MRI/MRCP for more complete evaluation.
--- NOTE | 2024-08-26 15:33 | CM ---
PT OT evaluation indicate SNF.
Spoke with pt in room . Reviewed PT evals with patient.
She requested [facility] .
Referral entered in care port.
Pt requested to review above with dgt Grace [phone].Grace agreed with SNF choices.
Will need auth .
PLAN To SNf after located and auth obtained
[2024-08-26] MEDS: LOVENOX 40 MG SC (16:54)
[2024-08-27] MEDS: NSS 1000 IV ×2 (00:26→15:11)
[2024-08-27 03:40] VITALS: BP 143/61
[2024-08-27] MEDS: UNASYN IV ×4 (04:02→21:12)
[2024-08-27 04:17] LABS: Hematocrit 30.3 % (37.0-47.0); Hemoglobin 10.2 g/dL (12.0-16.0); Mean Corp Hgb Conc. 33.7 g/dL (33.0-37.0); Mean Corpuscular Hgb 30.4 pg (27.0-31.0); Mean Corpuscular Volume 90.2 fL (81.0-99.0); Mean Platelet Volume 10.5 fL (7.4-10.4); Platelet Count 216 10^3/uL (130-400); Red Blood Cell Count 3.36 10^6/uL (4.20-5.40); Red Cell Dist. Width 21.9 % (11.5-14.5); White Blood Cell Count 17.6 10^3/uL (4.8-10.8)
[2024-08-27 04:45] LABS: ALT (SGPT) 75 U/L (0-35); AST (SGOT) 127 U/L (14-36); Albumin 2.1 g/dl (3.5-5.0); Alkaline Phosphatase 693 U/L (38-126); Blood Urea Nitrogen 11 mg/dl (7-17); Calcium 7.3 mg/dl (8.4-10.2); Carbon Dioxide 28 mmol/L (22-30); Chloride 97 mmol/L (98-107); Estimated Creatinine Clearance 80 ml/min; Glucose 71 mg/dl (70-99); Magnesium 1.5 mg/dl (1.6-2.3); Phosphorus 2.6 mg/dl (2.5-4.5); Potassium 3.6 mmol/L (3.5-5.1); Sodium 132 mmol/L (135-145); Total Bilirubin 1.6 mg/dl (0.2-1.3); Total Protein 5.2 g/dl (6.3-8.2); eGFR > 60.00
[2024-08-27 06:00] VITALS: BMI 34.5
--- NOTE | 2024-08-27 06:47 | W.PN.HOSP.TC ---
Today's Communication/Plan
-
diet as per GI
cont abx
bowel regimen
pain control
wean O2 supplementation as tolerated
ok to dc case monitor
Assessment / Plan
Assessment / Plan
Physical Exam
General: Not in acute distress
HEENT: Normocephalic, Moist mucous membranes, Atraumatic
Respiratory: Clear to Auscultation Bilaterally, stable respiratory status on room air
Cardiac: S1/S2 and Regular Rhythm
GI: Soft, Distended, mild tenderness, Bowel Sounds present
Musculoskeletal: No Cyanosis. No edema
Skin: Warm. Dry.
Neuro: AOx3 conversant coherent. Strength 5/5 in the bilateral upper extremities. Strength 3/5 LLE 4/5 RLE
Psych: Calm and Intact Judgment/Insight
Assessment/Plan
78-year-old female who has a past medical history significant for primary peritoneal carcinoma, metastatic ovarian cancer, chronic right malignant pleural effusions, recurrent lower extremity cellulitis, HFpEF, hypertension, GERD, history of recent
admission for anaphylaxis secondary to doxorubicin infusion (which was previously discontinued) presented for recurrent falls/evaluation of bilateral lower extremity weakness (patient said she had bilateral upper extremity weakness on August 18, 2024
as well -- now improved). Patient had a mechanical fall ~2 days prior to presentation (so on August 18, 2024) with a head strike (on cement floor on step down outside her residence) and was not on any blood thinners. She was evaluated in the ED, and
CT head was negative. She was discharged home. Patient then reports that on August 20, 2024, had significant weakness in all extremities with inability to control them that lasted approximately 30-45 minutes then resolved. Then she reported she was
sitting on futon attempting to get dressed and experienced the same weakness in all extremities and inability to control them, she then woke on floor in front of futon and does not recall how she got there. She reported passing out for a short
period of time, on 08/20/24. She also reported urinary incontinence over the prior few days. She reported weakness/inability to move her legs bilaterally as well as simultaneous weakness of the upper extremities bilaterally which resolved after
about 30 minutes one day prior. She denied any recollection of chest pain, palpitations, lightheadedness or dizziness. She denied any cough fevers or chills and she also denied any neck pain or back pain. She also denied numbness tingling or
incontinence of the bowel.
In the emergency department, she was afebrile with a temp of 98.4 oxygen saturation of 94% blood pressure of 150/70 with a pulse of 88. Respirate was 16. ECG showed normal sinus rhythm without any acute changes compared to prior. Troponin was
negative. BNP was unchanged at 800. CBC was unremarkable and unchanged compared to prior. Electrolytes BUN/creatinine were essentially in the normal range for her. Sodium 135. She had new elevations in AST to 157, ALT 279 and alk phos 180.
UA was unremarkable. DVT of the bilateral lower extremities was negative.
On exam she is generally well appearing with 3+ bilateral lower extremity swelling. There is erythema, edema, induration, tenderness and calor on the RLE. She has weakness in her bilateral lower extremity likely secondary to the swelling. Upper
ext strenght appears intact.'

#Weakness - Bilateral upper and lower extremity weakness with urinary incontinence concerning for new myelopathy with possible mets/cord compression (less likely)
#Recent Frequent Falls
#Urinary Incontinence associated with the weakness
- Monitor on telemetry
- MRI brain no acute abn's
- MRI cervical spine appreciated no acute abn's, chronic degenerative changes noted
- u/a unremarkable
- Monitor bladder scans for urinary retention
- PT eval appreciated SNF rehab
-Neurosurgery eval appreciated no surgical intervention indicated at this time
#Syncope on 08/20/24
- monitor Orthostatics
- Recent echo in June 2024 was unremarkable, ECHO 08/21 noted no significant change from prior study
- no new episodes syncope or significant arrhythmia noted, telemonitoring completed
#Nausea/Vomiting on 08/22/24 morning- since resolved
#Acute Pancreatitis (very high lipase+CT showed acute pancreatitis) -- likely secondary to gallstones, no alcohol intake
#Cholelithiasis
#Mild intrahepatic biliary ductal dilation on CT
#Mild Transaminitis
-AXR done on 08/22/24 with nonobstructive bowel gas pattern and moderate colonic stool burden
-CT of Abdomen/Pelvis with PO and IV contrast findings above with acute pancreatitis vs cholecystitis
- RUQ u/s: Gallbladder with stones and 'wall echo sign'. Negative sonographic Mackay's sign. Mildly enlarged common bile duct and findings suggesting some intrahepatic biliary tract dilatation.
-MRI/MRCP appreciated choledocholithiasis and likely pancreatitis vs cholecystitis (less likely)
-Lipase since trended down <1000, IVF completed, 08/26 trended back up with associate abd pain, IVF restarted, completed with resolution, diet advanced to clear liquid as per GI
-Unasyn as per ID
-Blood cultures NGTD
-GI consult appreciated ERCP was attempted 08/25 but unsuccessful, conservative mgmt recommended for now, repeat ERCP attempt planned next week.
-Surgery consult appreciated tentative plan for cholecystectomy this admission timing to be determined
-Tigan Compazine prn Nausea (QT not significantly prolonged recent EKGs 08/22)
-morphine prn mod severe pain
#Constipation
bowel regimen
suppository prn
#Cellulitis - new RLE cellulitis. Prior admission to with LLE cellulitis improved with ANCEF.
- Ancef changed to Unasyn on 08/23/24 given new cholecystitis
- elevate legs
- ID consult appreciated
- No DVT on lower extremity ultrasound
- Wound care
#Bilateral Lower Extremity Edema
-Suspected from low albumin; no DVT on lower extremity ultrasound
-Repeat ECHO noted no significant change as above
#Severe Spinal Canal Stenosis on L-Spine MRI
#Disc herniations at multiple levels of the spine
-Neurosurgery eval appreciated surgical intervention not indicated
-Continue physical therapy
#Large amount of edema in the right psoas muscle and in the iliacus muscles on L-Spine MRI
-suspect posttraumatic from fall
#Moderate diffuse interstitial disease in the lungs on T-Spine MRI
#Moderate-sized left pleural effusion with an adjacent large left lower lobe basilar airspace consolidation, on T-Spine MRI
#Small Right Pleural Effusion on T-Spine MRI
#Recent History of Malignant Pleural Effusions
-IR eval appreciated s/p Left thoracentesis 550 cc
#Chronic HFpEF
- Known diastolic CHF on lasix 40 and 60 alternating days, diuresis held for IVF given for pancreatitis, since resumed Lasix 40 mg PO daily (hold when NPO for procedures)
- Monitor on telemetry
- BNP unremarkable for age @ 855
- Daily weights
- I's and O's
#Hypomagnesemia
#Hypokalemia
monitor and replete as necessary
#Metastatic Ovarian Cancer
#Ovarian cancer status post hysterectomy and bilateral oophorectomy
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
#History of malignant pleural effusion
#Suspected anaphylactic reaction to Doxil 06/25/24
-follows with [facility], currently receiving chemotherapy
-On Gemzar (gemcitabine) undergoing treatment with Dr. Chin
-Oncology eval appreciated
#New Moderate Left Hydroureteronephrosis suggesting distal left ureteral obstruction on L-Spine MRI
#On L-Spine MRI: 1.8 cm mass in the upper pole of the left kidney. Diagnostic possibilities are (1) a complex cyst or (2) less likely renal cell carcinoma
#On CT A/P: Malrotation of the kidneys. Mild right hydronephrosis, likely related to mass effect on the proximal ureter from adjacent peripancreatic inflammatory
change
-Dr Thomason discussed with on-call urologist on 08/22/24, and they mentioned based on the L-Spine MRI findings, patient has bilateral parapelvic renal cysts which were errantly interpreted to be �hydro� on MRI; UA shows no blood; No significant
Kidney dysfunction noted.
-Per discussion, no need for urology consultation or urosurgical intervention.
#Hypertension
-Continue Amlodipine
#GERD
-Continue Pantoprazole
#Enlarged bilateral likely pathologic lymph nodes with suspicious lymph nodes seen on relative recent prior PET scan May 14, 2024 on ultrasound this hospitalization
#Small splenic high attenuation densities most likely representing old granulomatous disease on abdominal ultrasound
#Bilateral parapelvic renal cysts on abdominal ultrasound
DVT Prophylaxis: Lovenox subq
Code Status: Full code
Discussed with patient and patient's daughter Grace
I spent a total of 50 minutes with the patient or on the floor. More than 50% of this time involved counseling and coordination of care.
Anticipated Discharge: > 48 hours
Subjective/Interval History
-
Date of Service: August 27, 2024
reports feeling well. Abd pain resolved. Comfortable at this time.
Objective Data
-
Labs:
Laboratory Results
08/27/24
03:49
WBC 17.6 H
Hgb 10.2 L
Hct 30.3 L
Plt Count 216
Sodium 132 L
Potassium 3.6
Chloride 97 L
Carbon Dioxide 28
BUN 11
Creatinine 0.5 L
Glucose 71
Calcium 7.3 L
Total Bilirubin 1.6 H D
AST 127 H
ALT 75 H
Alkaline Phosphatase 693 H
Vital Signs:
Vital Signs
Temp Pulse Resp BP Pulse Ox
97.3 F 81 18 143/61 97
08/27/24 03:40 08/27/24 03:40 08/27/24 03:40 08/27/24 03:40 08/27/24 03:40
I&O
08/25/24 08/26/24 08/27/24
06:59 06:59 06:59
Intake Total 310 / 310 720 / 720
Output Total 350 / 350 1150 / 1150
Balance -40 / -40 -430 / -430
[2024-08-27 07:20] VITALS: BP 126/76
[2024-08-27] MEDS: NORVASC 10 MG PO (07:55)
[2024-08-27] MEDS: MIRALAX 17 GRAMS PO (07:56)
[2024-08-27] MEDS: PROTONIX 40 MG PO (07:56)
[2024-08-27] MEDS: KLOR-CON 20 MEQ PO ×2 (07:56→20:47)
[2024-08-27] MEDS: SENOKOT-S 1 TABLET PO ×2 (07:56→20:47)
[2024-08-27] MEDS: HYDROPHOR 1 APPLIC TOPICAL (08:00)
--- NOTE | 2024-08-27 08:25 | W.PN.ONC2 ---
Today's Communication / Plan
-
.
Impression
Impression
Ovarian/primary peritoneal cancer, currently on palliative gemcitabine
Mechanical falls
Acute pancreatitis, lipase 4000
Acute hyperbilirubinemia -CB 8.8mm w numerous filling deficits c/w choledocholithiasis, ERCP 08/26 unsuccessful -improved T bili to 1.6, stable transaminitis
Moderate bilateral hydronephrosis
RLE cellulitis
Left pleural effusion, s/p thora 08/24, PAX8 ICH stains suspicious for involvement of known ovarian ca
Plan
Plan
choledocholithiasis, possible cholecytstitis/acute pancreatitis management per GI
gemcitabine induced pancreatitis is a rare complication, usually mild and resolve on their own, however, fulminant acute pancreatitis is a more severe. MRCP findings and acute rise in LFTs more suggestive for gallstone pancreatitis rather then
medication induced
possible ERCP next week with Dr. Davenport
Too soon to say whether gemcitabine is working for her.
restorative goals
on IV abx, follow cultures
MRI brain and C spine negative for mets
ID, neurosurgery, surgery, and GI are following
Subjective/Objective
Subjective
no new complaints
Vital Signs:
Vital Signs
Temp Pulse Resp BP Pulse Ox
98.1 F 81 17 126/76 99
08/27/24 07:20 08/27/24 07:55 08/27/24 07:20 08/27/24 07:55 08/27/24 07:20
Lab Results:
Laboratory Data
WBC 17.6 10^3/uL (4.8-10.8) H 08/27/24 03:49
Hgb 10.2 g/dL (12.0-16.0) L 08/27/24 03:49
Plt Count 216 10^3/uL (130-400) 08/27/24 03:49
PT 16.8 Sec (11.4-14.6) H 08/25/24 08:13
INR 1.34 08/25/24 08:13
APTT 33.4 Sec (23.4-35.0) 08/25/24 08:13
eGFR > 60.00 08/27/24 03:49
Physical Exam
HEENT: Moist Mucous Membranes
Cardiology: Normal Sinus Rhythm
Pulmonary: Clear
GI: Soft
Extremities: Pulses Present and Edema (b/l LE wrapped in TEZ)
[2024-08-27] MEDS: MAGNESIUM SULFATE 100 IV (08:45)
[2024-08-27 09:11] LABS: Lipase 361 U/L (23-300)
[2024-08-27 10:54] VITALS: BP 112/56
--- NOTE | 2024-08-27 11:40 | W.PN.ID1 ---
Date of Service
Date of Service: August 27, 2024
Today's Communication
Continue Unasyn.
Assessment / Plan
# Choledocholithiasis
# Gallstone pancreatitis
-MRI abd with mildly dilated CBD and multiple filling defects.
-Lipase >4000 (pt asymptomatic)
- blood cultures x2 neg
- 08/24 failed attempt for ERCP due to edema
- Plan for repeat ERCP next week.
- Continue Unasyn for now.
# Acute RLE cellulitis
- resolving
- Vasc US: no DVT
- Elevate LE/Compression
- Continue Unasyn as above.
# Leukocytosis - trending down
- continue to trend.
# Ovarian cancer/Peritoneal carcinomatosis with progression on chemo
# Bilateral malignant pleural effusion
- 08/24 s/p left thoracentesis 500 cc, cx neg to date, cytology suspicious for malignancy
# Constipation
- Management by hospitalist
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
Primary peritoneal carcinomatosis, R malignant pleural effusions, with progression, currently on chemo
Ovarian cancer status post FERNIE, BSO
Hypertension
Heart failure with preserved EF
Bilateral lower extremity edema
Bilateral total hip replacement
Right total knee replacement
Chief Complaint
-: Leukocytosis and Cellulitis
Subjective / Review of Systems
No BM yet.
No abd pain.
Vital Signs / Physical Exam
Vital Signs
Vital Signs
Temp Pulse Resp BP Pulse Ox
98.1 F 81 16 112/56 97
08/27/24 10:54 08/27/24 10:54 08/27/24 10:54 08/27/24 10:54 08/27/24 10:54
Physical Exam
Constitutional: No Acute Distress and Comfortable
Eyes: No Conjunctival Hemorrhage
Cardiovascular: Regular Rate and S1/S2
Pulmonary: Other (Decreased BS at bases)
Gastrointestinal: Soft, Non Tender, Distended (mild) and Normal Bowel Sounds
Extremities: Edema (BLE improved) and Erythema (RLE erythroderma decreased, receding)
Neurological: AO x 3
Lines: Port (RCW no erythema)
Objective Data
Lab Data
Lab Results
08/27/24 03:49
08/27/24 03:49
PT 16.8 Sec (11.4-14.6) H 08/25/24 08:13
INR 1.34 08/25/24 08:13
APTT 33.4 Sec (23.4-35.0) 08/25/24 08:13
Estimated Creat Clear 80 ml/min 08/27/24 03:49
Total Bilirubin 1.6 mg/dl (0.2-1.3) H D 08/27/24 03:49
AST 127 U/L (14-36) H 08/27/24 03:49
ALT 75 U/L (0-35) H 08/27/24 03:49
Alkaline Phosphatase 693 U/L (38-126) H 08/27/24 03:49
Amylase 3013 U/L (30-110) H* 08/22/24 20:11
Most recent labs reviewed.
Micro Results:
08/24/24 15:00 Body Fluid Culture - Final
Pleural Fluid No Growth After 72 Hours
Gram Stain - Final
08/23/24 10:32 Blood Culture - Preliminary
Blood/Venous No Growth in 4 days- Final report to follow
08/23/24 11:45 Blood Culture - Preliminary
Blood/Venous No Growth in 72 hours- Final report to follow
08/20/24 20:07 MRSA Screen - Final
Nose No Methicillin Resistant Staphylococcus aureus isolated.
08/20/24 15:57 Influenza Types A & B (LOU) - Final
Nasal Swab Negative for Influenza A & B, NAAT
Negative results must be combined with clinical observations
and patient history.
Nucleic Acid Amplification test (NAAT)performed on the
[employer] platform.
Imaging:
08/23/24 abdominal ultrasound: Common bile duct is mildly dilated with numerous filling defects consistent with choledocholithiasis. Findings of acute pancreatitis without evidence of Michael pancreatic collection. Edema throughout the right upper
quadrant. There is pericholecystic fluid which may be secondary to pancreatitis but cholecystitis cannot be excluded. Please see full dictation for additional detail.
08/20/24 ABD US: Gallbladder with stones and 'wall echo sign'. Negative sonographic Mackay's sign. Mildly enlarged common bile duct and findings suggesting some intrahepatic biliary tract dilatation. Consider MRI/MRCP for more complete evaluation.
[2024-08-27 13:56] VITALS: BP 104/53; PULSE 77; O2SAT 99
--- NOTE | 2024-08-27 14:25 | W.PN.GI.CBS2 ---
Today's Communication / Plan
-
clear liquid diet
Assessment / Plan
-
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 She follows with Dr Chin and her last chemo was gemzar started few months ago
last infusion was Saturday prior to admission. GI consulted for acute pancreatitis 1st episode related to gallstone pancreatitis.
08/23/24- MR abdomen -
The common bile duct is mildly dilated measuring 8.8 mm with numerous filling defects consistent with choledocholithiasis.
Findings of acute pancreatitis without evidence of peripancreatic collection. There is edema throughout the right upper quadrant.
Cholelithiasis. There is pericholecystic fluid which may be secondary to the pancreatitis however cholecystitis cannot be excluded.
Moderate bilateral hydronephrosis, similar to prior.
Moderate bilateral pleural effusions with adjacent atelectasis, slightly increased from prior.
Moderate/large hiatal hernia.
Impression
- Acute pancreatitis with gallstone related with numerous filling defects on MRCP, edema and no collection on MRI
1st episode
Gemzar is only new med and not strongly linked to pancreatitis less likely adding to pancreatitis
No ETOH intake
TG, IGG4 pending
-cholelithiasis
- Leukocytosis
- Elevated LFTs
- Frequent falls
- Stage 4 ovarian cancer
-b/l hydro similar to prior on MRI
-moderate b/l pleural effusions slight increase per MRI
- Carcinomatosis
- Constipation
- Moderate/large hiatal hernia
- GERD
- HTN
- CHF
ERCP 08/26 - unsuccessful ( edematous folds. Unable to identify major papilla )
Recommendations
Labs 08/26/2024-liver tests were trending up with elevated lipase. she was c/o nausea . Patient was kept n.p.o. IV fluids were started
Today she is feeling better with no abdominal pain/nausea/vomiting. LFTs/ lipase downtrending again.
Okay to start on clear liquid diet
will plan for repeat ERCP next week with if patient remains in the hospital. Planned discussed with family/ patient
Total Time Spent with Patient (in minutes): 35
Subjective
Subjective
Date of Service: August 27, 2024
Feeling better today. Denies any nausea vomiting or abdominal pain
Objective
Data Reviewed
Laboratory Data:
Laboratory Results
08/27/24 03:49
08/27/24 03:49
Laboratory Results
PT 16.8 Sec (11.4-14.6) H 08/25/24 08:13
INR 1.34 08/25/24 08:13
APTT 33.4 Sec (23.4-35.0) 08/25/24 08:13
Phosphorus 2.6 mg/dl (2.5-4.5) 08/27/24 03:49
Magnesium 1.5 mg/dl (1.6-2.3) L 08/27/24 03:49
Total Bilirubin 1.6 mg/dl (0.2-1.3) H D 08/27/24 03:49
AST 127 U/L (14-36) H 08/27/24 03:49
ALT 75 U/L (0-35) H 08/27/24 03:49
Alkaline Phosphatase 693 U/L (38-126) H 08/27/24 03:49
Amylase 3013 U/L (30-110) H* 08/22/24 20:11
Lipase 361 U/L (23-300) H 08/27/24 03:49
Vital Signs and I&O:
Vital Signs
Temp Pulse Resp BP Pulse Ox
98.1 F 81 16 112/56 94
08/27/24 10:54 08/27/24 10:54 08/27/24 10:54 08/27/24 10:54 08/27/24 13:59
I&O
08/26/24 08/27/24 08/28/24
06:59 06:59 06:59
Intake Total 310 / 310 720 / 720
Output Total 350 / 350 1150 / 1150
Balance -40 / -40 -430 / -430
Physical Exam
Physical Exam
GI: Soft, Non Distended and Non Tender
[2024-08-27 14:55] VITALS: BP 106/55
--- NOTE | 2024-08-27 16:33 | CM ---
PT OT evaluation indicate SNF.
PT assistance of 2.
She requested Ama Lee, [facility] ,[place] .
[facility] does not have a bed. LM with Sherrell Lee for bed.[place] indicated check for bed day of discharge.
Updated [facility] [phone].
Will need auth .
PLAN To SNf after located and auth obtained
[2024-08-27] MEDS: LOVENOX 40 MG SC (17:11)
[2024-08-27 23:45] VITALS: BP 116/57
[2024-08-28] MEDS: UNASYN IV ×4 (03:22→21:25)
[2024-08-28 05:32] VITALS: BMI 34.5
--- NOTE | 2024-08-28 05:39 | W.PN.GI.CBS2 ---
Today's Communication / Plan
-
LFTs improving, continue IV abx as per ID. If worsening pain, would de-escalate diet back to [facility]D over weekend. Plan for eventual ERCP next week pending timing with Dr. Davenport. See rest of care as outlined below.
Assessment / Plan
-
Ms. 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 She follows with Dr Chin and her last chemo was gemzar started few
months ago last infusion was Saturday prior to admission. GI consulted for acute pancreatitis 1st episode related to gallstone pancreatitis.
08/23/24- MR abdomen -
The common bile duct is mildly dilated measuring 8.8 mm with numerous filling defects consistent with choledocholithiasis.
Findings of acute pancreatitis without evidence of peripancreatic collection. There is edema throughout the right upper quadrant.
Cholelithiasis. There is pericholecystic fluid which may be secondary to the pancreatitis however cholecystitis cannot be excluded.
Moderate bilateral hydronephrosis, similar to prior.
Moderate bilateral pleural effusions with adjacent atelectasis, slightly increased from prior.
Moderate/large hiatal hernia.
Impression
#Acute pancreatitis with gallstone related with numerous filling defects on MRCP, edema and no collection on MRI
1st episode
Gemzar is only new med and not strongly linked to pancreatitis less likely adding to pancreatitis
No ETOH intake
TG, IGG4 pending
#Choledocholithiasis/Cholelithiasis
#Leukocytosis
#Elevated LFTs- Improving
#Stage 4 ovarian cancer
#Carcinomatosis
#Moderate b/l pleural effusions slight increase per MRI
#Constipation
#Moderate/large hiatal hernia
S/p ERCP 08/26 - unsuccessful ( edematous folds. Unable to identify major papilla )
Recommendations:
- Okay for low-residue diet, ensure low-fat diet. If worsening pain, would de-escalate back to CLD
- LFTs improving / trending down along with normalization of T Bili, continue to trend q daily
- No other worsening abd pain or other symptoms concerning for cholangitis despite persistent leukocytosis
- Remains on IV Unasyn as per ID
- Will discuss timing of repeat ERCP next week with Dr. Davenport as patient wishes to remain in the hospital, timing to be determined
- IV anti-emetics and pain control PRN
- Rest of care per primary team
Discussed with primary internal medicine team. GI team will monitor peripherally over weekend. Please reach back out if any questions or concerns.
Subjective
Subjective
Date of Service: August 28, 2024
- No acute events overnight, AM labs pending previous LFTs and T Bili trending down from labs on 08/27
Feeling well, resting comfortably without any abdominal pain, nausea or vomiting. No fevers, chills or other constitutional symptoms. Remains pleasant and tolerating diet without difficulty.
Objective
Data Reviewed
Laboratory Data:
Laboratory Results
PT 16.8 Sec (11.4-14.6) H 08/25/24 08:13
INR 1.34 08/25/24 08:13
APTT 33.4 Sec (23.4-35.0) 08/25/24 08:13
Phosphorus 2.6 mg/dl (2.5-4.5) 08/27/24 03:49
Magnesium 1.5 mg/dl (1.6-2.3) L 08/27/24 03:49
Total Bilirubin 1.6 mg/dl (0.2-1.3) H D 08/27/24 03:49
AST 127 U/L (14-36) H 08/27/24 03:49
ALT 75 U/L (0-35) H 08/27/24 03:49
Alkaline Phosphatase 693 U/L (38-126) H 08/27/24 03:49
Amylase 3013 U/L (30-110) H* 08/22/24 20:11
Lipase 361 U/L (23-300) H 08/27/24 03:49
Vital Signs and I&O:
Vital Signs
Temp Pulse Resp BP Pulse Ox
99.2 F 78 16 116/57 92
08/27/24 23:45 08/27/24 23:45 08/27/24 23:45 08/27/24 23:45 08/28/24 00:14
I&O
08/26/24 08/27/24 08/28/24
06:59 06:59 06:59
Intake Total 310 / 310 720 / 720
Output Total 350 / 350 1150 / 1150 200 / 200
Balance -40 / -40 -430 / -430 -200 / -200
Physical Exam
Physical Exam
HEENT: Anicteric and Moist mucous membranes
Cardiology: Normal Sinus Rhythm
Pulmonary: Other (Normal WOB )
GI: Soft, Distended (Protuberant abdomen, obese) and Non Tender
Extremities: Warm
Neuro: Non Focal
[2024-08-28 06:00] LABS: Hematocrit 30.5 % (37.0-47.0); Hemoglobin 10.3 g/dL (12.0-16.0); Mean Corp Hgb Conc. 33.8 g/dL (33.0-37.0); Mean Corpuscular Hgb 30.7 pg (27.0-31.0); Mean Platelet Volume 10.6 fL (7.4-10.4); Platelet Count 276 10^3/uL (130-400); Red Blood Cell Count 3.35 10^6/uL (4.20-5.40); Red Cell Dist. Width 22.8 % (11.5-14.5); White Blood Cell Count 18.2 10^3/uL (4.8-10.8)
[2024-08-28 06:16] LABS: ALT (SGPT) 52 U/L (0-35); AST (SGOT) 64 U/L (14-36); Albumin 2.1 g/dl (3.5-5.0); Alkaline Phosphatase 551 U/L (38-126); Blood Urea Nitrogen 14 mg/dl (7-17); Calcium 7.4 mg/dl (8.4-10.2); Carbon Dioxide 24 mmol/L (22-30); Chloride 100 mmol/L (98-107); Estimated Creatinine Clearance 79 ml/min; Glucose 57 mg/dl (70-99); Magnesium 2.1 mg/dl (1.6-2.3); Phosphorus 2.5 mg/dl (2.5-4.5); Potassium 3.7 mmol/L (3.5-5.1); Sodium 134 mmol/L (135-145); Total Bilirubin 1.1 mg/dl (0.2-1.3); Total Protein 5.1 g/dl (6.3-8.2); eGFR > 60.00
[2024-08-28 07:26] VITALS: BP 138/69
--- NOTE | 2024-08-28 07:31 | W.PN.HOSP.TC ---
Today's Communication/Plan
-
Low residue Low fat diet, diet to be downgraded to clears if not tolerating
cont abx as per ID
bowel regimen
pain control
Assessment / Plan
Assessment / Plan
Physical Exam
General: Not in acute distress
HEENT: Normocephalic, Moist mucous membranes, Atraumatic
Respiratory: Clear to Auscultation Bilaterally, stable respiratory status on room air
Cardiac: S1/S2 and Regular Rhythm
GI: Soft, Distended, mild tenderness, Bowel Sounds present
Musculoskeletal: No Cyanosis. No edema
Skin: Warm. Dry.
Neuro: AOx3 conversant coherent. Strength 5/5 in the bilateral upper extremities. Strength 3/5 LLE 4/5 RLE
Psych: Calm and Intact Judgment/Insight
Assessment/Plan
78-year-old female who has a past medical history significant for primary peritoneal carcinoma, metastatic ovarian cancer, chronic right malignant pleural effusions, recurrent lower extremity cellulitis, HFpEF, hypertension, GERD, history of recent
admission for anaphylaxis secondary to doxorubicin infusion (which was previously discontinued) presented for recurrent falls/evaluation of bilateral lower extremity weakness (patient said she had bilateral upper extremity weakness on August 18, 2024
as well -- now improved). Patient had a mechanical fall ~2 days prior to presentation (so on August 18, 2024) with a head strike (on cement floor on step down outside her residence) and was not on any blood thinners. She was evaluated in the ED, and
CT head was negative. She was discharged home. Patient then reports that on August 20, 2024, had significant weakness in all extremities with inability to control them that lasted approximately 30-45 minutes then resolved. Then she reported she was
sitting on futon attempting to get dressed and experienced the same weakness in all extremities and inability to control them, she then woke on floor in front of futon and does not recall how she got there. She reported passing out for a short
period of time, on 08/20/24. She also reported urinary incontinence over the prior few days. She reported weakness/inability to move her legs bilaterally as well as simultaneous weakness of the upper extremities bilaterally which resolved after
about 30 minutes one day prior. She denied any recollection of chest pain, palpitations, lightheadedness or dizziness. She denied any cough fevers or chills and she also denied any neck pain or back pain. She also denied numbness tingling or
incontinence of the bowel.
In the emergency department, she was afebrile with a temp of 98.4 oxygen saturation of 94% blood pressure of 150/70 with a pulse of 88. Respirate was 16. ECG showed normal sinus rhythm without any acute changes compared to prior. Troponin was
negative. BNP was unchanged at 800. CBC was unremarkable and unchanged compared to prior. Electrolytes BUN/creatinine were essentially in the normal range for her. Sodium 135. She had new elevations in AST to 157, ALT 279 and alk phos 180.
UA was unremarkable. DVT of the bilateral lower extremities was negative.
On exam she is generally well appearing with 3+ bilateral lower extremity swelling. There is erythema, edema, induration, tenderness and calor on the RLE. She has weakness in her bilateral lower extremity likely secondary to the swelling. Upper
ext strenght appears intact.'

#Weakness - Bilateral upper and lower extremity weakness with urinary incontinence concerning for new myelopathy with possible mets/cord compression (less likely)
#Recent Frequent Falls
#Urinary Incontinence associated with the weakness
- Monitor on telemetry
- MRI brain no acute abn's
- MRI cervical spine appreciated no acute abn's, chronic degenerative changes noted
- u/a unremarkable
- Monitor bladder scans for urinary retention
- PT eval appreciated SNF rehab
-Neurosurgery eval appreciated no surgical intervention indicated at this time
#Syncope on 08/20/24
- monitor Orthostatics
- Recent echo in June 2024 was unremarkable, ECHO 08/21 noted no significant change from prior study
- no new episodes syncope or significant arrhythmia noted, telemonitoring completed
#Nausea/Vomiting on 08/22/24 morning- since resolved
#Acute Pancreatitis (very high lipase+CT showed acute pancreatitis) -- likely secondary to gallstones, no alcohol intake
#Cholelithiasis
#Mild intrahepatic biliary ductal dilation on CT
#Mild Transaminitis
-AXR done on 08/22/24 with nonobstructive bowel gas pattern and moderate colonic stool burden
-CT of Abdomen/Pelvis with PO and IV contrast findings above with acute pancreatitis vs cholecystitis
- RUQ u/s: Gallbladder with stones and 'wall echo sign'. Negative sonographic Mackay's sign. Mildly enlarged common bile duct and findings suggesting some intrahepatic biliary tract dilatation.
-MRI/MRCP appreciated choledocholithiasis and likely pancreatitis vs cholecystitis (less likely)
-Lipase since trended down <1000, IVF completed, 08/26 trended back up with associate abd pain, IVF restarted, completed with resolution, diet advanced to clear liquid as per GI
-Unasyn as per ID
-Blood cultures NGTD
-GI consult appreciated ERCP was attempted 08/25 but unsuccessful, conservative mgmt recommended for now, repeat ERCP attempt planned next week.
-Surgery consult appreciated tentative plan for cholecystectomy this admission timing to be determined
-Tigan Compazine prn Nausea (QT not significantly prolonged recent EKGs 08/22)
-morphine prn mod severe pain
#Constipation
bowel regimen
suppository prn
#Cellulitis - new RLE cellulitis. Prior admission to with LLE cellulitis improved with ANCEF.
- Ancef changed to Unasyn on 08/23/24 given new cholecystitis
- elevate legs
- ID consult appreciated
- No DVT on lower extremity ultrasound
- Wound care
#Bilateral Lower Extremity Edema
-Suspected from low albumin; no DVT on lower extremity ultrasound
-Repeat ECHO noted no significant change as above
#Severe Spinal Canal Stenosis on L-Spine MRI
#Disc herniations at multiple levels of the spine
-Neurosurgery eval appreciated surgical intervention not indicated
-Continue physical therapy
#Large amount of edema in the right psoas muscle and in the iliacus muscles on L-Spine MRI
-suspect posttraumatic from fall
#Moderate diffuse interstitial disease in the lungs on T-Spine MRI
#Moderate-sized left pleural effusion with an adjacent large left lower lobe basilar airspace consolidation, on T-Spine MRI
#Small Right Pleural Effusion on T-Spine MRI
#Recent History of Malignant Pleural Effusions
-IR eval appreciated s/p Left thoracentesis 550 cc pleural studies noted likely recurrence malignant pleural effusion
#Chronic HFpEF
- Known diastolic CHF on lasix 40 and 60 alternating days, diuresis held for IVF given for pancreatitis, since resumed Lasix 40 mg PO daily (hold when NPO for procedures)
- Monitor on telemetry
- BNP unremarkable for age @ 855
- Daily weights
- I's and O's
#Hypomagnesemia
#Hypokalemia
monitor and replete as necessary
#Metastatic Ovarian Cancer
#Ovarian cancer status post hysterectomy and bilateral oophorectomy
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
#History of malignant pleural effusion
#Suspected anaphylactic reaction to Doxil 06/25/24
-follows with [facility], currently receiving chemotherapy
-On Gemzar (gemcitabine) undergoing treatment with Dr. Chin
-Oncology eval appreciated
#New Moderate Left Hydroureteronephrosis suggesting distal left ureteral obstruction on L-Spine MRI
#On L-Spine MRI: 1.8 cm mass in the upper pole of the left kidney. Diagnostic possibilities are (1) a complex cyst or (2) less likely renal cell carcinoma
#On CT A/P: Malrotation of the kidneys. Mild right hydronephrosis, likely related to mass effect on the proximal ureter from adjacent peripancreatic inflammatory
change
-Dr Thomason discussed with on-call urologist on 08/22/24, and they mentioned based on the L-Spine MRI findings, patient has bilateral parapelvic renal cysts which were errantly interpreted to be �hydro� on MRI; UA shows no blood; No significant
Kidney dysfunction noted.
-Per discussion, no need for urology consultation or urosurgical intervention.
#Hypertension
-Continue Amlodipine
#GERD
-Continue Pantoprazole
#Enlarged bilateral likely pathologic lymph nodes with suspicious lymph nodes seen on relative recent prior PET scan May 14, 2024 on ultrasound this hospitalization
#Small splenic high attenuation densities most likely representing old granulomatous disease on abdominal ultrasound
#Bilateral parapelvic renal cysts on abdominal ultrasound
DVT Prophylaxis: Lovenox subq
Code Status: Full code
Discussed with patient and patient's daughter Grace
I spent a total of 45 minutes with the patient or on the floor. More than 50% of this time involved counseling and coordination of care.
Anticipated Discharge: > 48 hours
Subjective/Interval History
-
Date of Service: August 28, 2024
no acute distress sitting up comfortably in chair. Tolerating diet, requesting advancement. Overall reports feeling well. denies significant pain at this time.
Objective Data
-
Labs:
Laboratory Results
08/28/24
05:34
WBC 18.2 H
Hgb 10.3 L
Hct 30.5 L
Plt Count 276 D
Sodium 134 L
Potassium 3.7
Chloride 100
Carbon Dioxide 24
BUN 14
Creatinine 0.5 L
Glucose 57 L
Calcium 7.4 L
Total Bilirubin 1.1
AST 64 H
ALT 52 H
Alkaline Phosphatase 551 H
Vital Signs:
Vital Signs
Temp Pulse Resp BP Pulse Ox
97.9 F 88 17 138/69 96
08/28/24 07:26 08/28/24 07:26 08/28/24 07:26 08/28/24 07:26 08/28/24 07:26
I&O
08/27/24 08/28/2425
06:59 06:59 06:59
Intake Total 720 / 720
Output Total 1150 / 1150 200 / 200
Balance -430 / -430 -200 / -200
[2024-08-28] MEDS: KLOR-CON 20 MEQ PO ×2 (09:33→21:25)
[2024-08-28] MEDS: PROTONIX 40 MG PO (09:33)
[2024-08-28] MEDS: NORVASC 10 MG PO (09:34)
[2024-08-28] MEDS: MIRALAX 17 GRAMS PO (09:35)
[2024-08-28] MEDS: LASIX 40 MG PO (09:35)
[2024-08-28] MEDS: SENOKOT-S 1 TABLET PO ×2 (09:35→21:25)
[2024-08-28] MEDS: HYDROPHOR 1 APPLIC TOPICAL (09:38)
--- NOTE | 2024-08-28 10:13 | PN.CDI ---
CDI
- -
CDI:
Physician Documentation Request
Admit Date: 08/20/24 20:31
Dear Doctor Mele,
08/24 Patient underwent left thoracentesis for pleural effusion. 550 cc clear yellow fluid drained.
Report of fluid states 'SUSPICIOUS scattered abnormal cells at least suspicious mitotic figures and reactive mesothelial cells'
Past medical history significant for primary peritoneal cancer, metastatic ovarian cancer.
Could you please further clarify the pleural effusion:
Malignant pleural effusion
pleural effusion not malignant
Other
Use of terms such as suspected, likely, concern for, or probable (associated with a specific diagnosis that is being evaluated, monitored, or treated as if it exists) are acceptable and can be coded in the inpatient setting, when documented at the
time of discharge.
Thank you,
Aracely Lam RN, BSN
CDI Specialist
tiger text
Please use your independent medical judgment in providing your response.
[2024-08-28 10:38] VITALS: BP 120/72; BP 128/63; PULSE 85; PULSE 91; O2SAT 92
--- NOTE | 2024-08-28 12:55 | W.PN.ID1 ---
Date of Service
Date of Service: August 28, 2024
Today's Communication
Continue Unasyn.
Assessment / Plan
# Choledocholithiasis
# Gallstone pancreatitis
# Leukocytosis -persists
-MRI abd with mildly dilated CBD and multiple filling defects.
-Lipase >4000 (pt asymptomatic)
- blood cultures x2 neg
- 08/24 failed attempt for ERCP due to edema
- Plan for repeat ERCP next week.
- Continue Unasyn for now.
# Acute RLE cellulitis
- resolving
- Vasc US: no DVT
- Elevate LE/Compression
- Continue Unasyn as above.
# Ovarian cancer/Peritoneal carcinomatosis with progression on chemo
# Bilateral malignant pleural effusion
- 08/24 s/p left thoracentesis 500 cc, cx neg to date, cytology suspicious for malignancy
# Constipation
- Management by hospitalist
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
Primary peritoneal carcinomatosis, R malignant pleural effusions, with progression, currently on chemo
Ovarian cancer status post FERNIE, BSO
Hypertension
Heart failure with preserved EF
Bilateral lower extremity edema
Bilateral total hip replacement
Right total knee replacement
Chief Complaint
-: Leukocytosis and Cellulitis
Subjective / Review of Systems
Doing fine. No complaints. No abd pain.
Vital Signs / Physical Exam
Vital Signs
Vital Signs
Temp Pulse Resp BP Pulse Ox
97.9 F 88 17 138/69 96
08/28/24 07:26 08/28/24 09:35 08/28/24 07:26 08/28/24 09:35 08/28/24 11:05
Physical Exam
Constitutional: No Acute Distress and Comfortable
Eyes: Negative Sclera Anicteric
Cardiovascular: Regular Rate and S1/S2
Pulmonary: Other (Decreased BS at bases)
Gastrointestinal: Soft, Non Tender, Distended (mild) and Normal Bowel Sounds
Extremities: Edema (BLE improved) and Erythema (RLE erythroderma resolving, receding)
Neurological: AO x 3
Lines: Port (RCW no erythema)
Objective Data
Lab Data
Lab Results
08/28/24 05:34
08/28/24 05:34
PT 16.8 Sec (11.4-14.6) H 08/25/24 08:13
INR 1.34 08/25/24 08:13
APTT 33.4 Sec (23.4-35.0) 08/25/24 08:13
Estimated Creat Clear 79 ml/min 08/28/24 05:34
Total Bilirubin 1.1 mg/dl (0.2-1.3) 08/28/24 05:34
AST 64 U/L (14-36) H 08/28/24 05:34
ALT 52 U/L (0-35) H 08/28/24 05:34
Alkaline Phosphatase 551 U/L (38-126) H 08/28/24 05:34
Amylase 3013 U/L (30-110) H* 08/22/24 20:11
Most recent labs reviewed.
Micro Results:
08/23/24 11:45 Blood Culture - Final
Blood/Venous No Growth - Final Report
08/23/24 10:32 Blood Culture - Final
Blood/Venous No Growth - Final Report
08/24/24 15:00 Body Fluid Culture - Final
Pleural Fluid No Growth After 72 Hours
Gram Stain - Final
08/20/24 20:07 MRSA Screen - Final
Nose No Methicillin Resistant Staphylococcus aureus isolated.
08/20/24 15:57 Influenza Types A & B (LOU) - Final
Nasal Swab Negative for Influenza A & B, NAAT
Negative results must be combined with clinical observations
and patient history.
Nucleic Acid Amplification test (NAAT)performed on the
[employer] ID NOW platform.
Imaging:
08/23/24 abdominal ultrasound: Common bile duct is mildly dilated with numerous filling defects consistent with choledocholithiasis. Findings of acute pancreatitis without evidence of Michael pancreatic collection. Edema throughout the right upper
quadrant. There is pericholecystic fluid which may be secondary to pancreatitis but cholecystitis cannot be excluded. Please see full dictation for additional detail.
08/20/24 ABD US: Gallbladder with stones and 'wall echo sign'. Negative sonographic Mackay's sign. Mildly enlarged common bile duct and findings suggesting some intrahepatic biliary tract dilatation. Consider MRI/MRCP for more complete evaluation.
--- NOTE | 2024-08-28 13:48 | W.PN.ONC2 ---
Today's Communication / Plan
-
Doing well.
No objection to D/C home from our standpoint if continues to tolerate diet.
Impression
Impression
Ovarian/primary peritoneal cancer, currently on palliative gemcitabine
Mechanical falls
Acute pancreatitis, lipase 4000
Acute hyperbilirubinemia -CB 8.8mm w numerous filling deficits c/w choledocholithiasis, ERCP 08/26 unsuccessful
Moderate bilateral hydronephrosis
RLE cellulitis
Left pleural effusion, s/p thora 08/24, PAX8 ICH stains suspicious for involvement of known ovarian ca
Plan
Plan
Choledocholithiasis, possible cholecytstitis/acute pancreatitis management per GI
She appears to be improving with conservative management, bili now normal.
Possible ERCP next week with Dr. Davenport (out this week)
Pt may resume gemcitabine, acute presentation unrelated
Subjective/Objective
Chief Complaint
Heme/Onc follow up of ovarian cancer
Gallstone pancreatitis and choledocholithiasis
Subjective
Tolerating clears, just advanced to solids. Pt asking what will be done about the gallstones.
Vital Signs:
Vital Signs
Temp Pulse Resp BP Pulse Ox
97.9 F 88 17 138/69 96
08/28/24 07:26 08/28/24 09:35 08/28/24 07:26 08/28/24 09:35 08/28/24 11:05
Lab Results:
Laboratory Data
WBC 18.2 10^3/uL (4.8-10.8) H 08/28/24 05:34
Hgb 10.3 g/dL (12.0-16.0) L 08/28/24 05:34
Plt Count 276 10^3/uL (130-400) D 08/28/24 05:34
PT 16.8 Sec (11.4-14.6) H 08/25/24 08:13
INR 1.34 08/25/24 08:13
APTT 33.4 Sec (23.4-35.0) 08/25/24 08:13
eGFR > 60.00 08/28/24 05:34
Physical Exam
HEENT: Moist Mucous Membranes; No Jaundice
Cardiology: Normal Sinus Rhythm, S1 and S2
Pulmonary: Clear; No Wheezes
GI: Soft; No Distended
Neuro: Non Focal
[2024-08-28 14:58] VITALS: BP 118/62
--- NOTE | 2024-08-28 16:34 | CM ---
PT OT evaluation indicate SNF.
PT assistance of 2.
On low residual diet
She requested Ama [facility], [facility] .
[facility] does not have a bed. [facility]rell Ama Lee said call day of dc for bed availability.
[facility] indicated check for bed day of discharge.
Will need auth .
PLAN To SNf after located and auth obtained
[2024-08-28] MEDS: LOVENOX 40 MG SC (17:03)
[2024-08-28] MEDS: FLUSH (NSS) 2 FLUSH IV (21:25)
[2024-08-28 23:00] VITALS: BP 119/93
[2024-08-29] MEDS: UNASYN IV ×4 (03:01→22:29)
[2024-08-29] MEDS: FLUSH (NSS) 2 FLUSH IV ×5 (03:02→22:42)
[2024-08-29 04:49] LABS: ALT (SGPT) 45 U/L (0-35); AST (SGOT) 55 U/L (14-36); Albumin 2.2 g/dl (3.5-5.0); Alkaline Phosphatase 476 U/L (38-126); Blood Urea Nitrogen 13 mg/dl (7-17); Calcium 7.6 mg/dl (8.4-10.2); Carbon Dioxide 24 mmol/L (22-30); Chloride 103 mmol/L (98-107); Estimated Creatinine Clearance 79 ml/min; Glucose 112 mg/dl (70-99); Magnesium 1.7 mg/dl (1.6-2.3); Potassium 3.8 mmol/L (3.5-5.1); Sodium 134 mmol/L (135-145); Total Bilirubin 1.1 mg/dl (0.2-1.3); eGFR > 60.00
[2024-08-29 04:53] LABS: Hematocrit 30.4 % (37.0-47.0); Hemoglobin 10.3 g/dL (12.0-16.0); Mean Corp Hgb Conc. 33.9 g/dL (33.0-37.0); Mean Corpuscular Hgb 30.7 pg (27.0-31.0); Mean Corpuscular Volume 90.5 fL (81.0-99.0); Mean Platelet Volume 10.3 fL (7.4-10.4); Platelet Count 344 10^3/uL (130-400); Red Blood Cell Count 3.36 10^6/uL (4.20-5.40); Red Cell Dist. Width 23.1 % (11.5-14.5); White Blood Cell Count 14.2 10^3/uL (4.8-10.8)
[2024-08-29 06:00] VITALS: BMI 35.0
--- NOTE | 2024-08-29 06:30 | W.PN.HOSP.TC ---
Today's Communication/Plan
-
tentative plan for ERCP Mon or Tu as per GI
cont abx as per ID
see a/p
Assessment / Plan
Assessment / Plan
Physical Exam
General: Not in acute distress
HEENT: Normocephalic, Moist mucous membranes, Atraumatic
Respiratory: Clear to Auscultation Bilaterally, stable respiratory status on room air
Cardiac: S1/S2 and Regular Rhythm
GI: Soft, Distended, mild tenderness, Bowel Sounds present
Musculoskeletal: No Cyanosis. No edema
Skin: Warm. Dry.
Neuro: AOx3 conversant coherent. Strength 5/5 in the bilateral upper extremities. Strength 3/5 LLE 4/5 RLE
Psych: Calm and Intact Judgment/Insight
Assessment/Plan
78-year-old female who has a past medical history significant for primary peritoneal carcinoma, metastatic ovarian cancer, chronic right malignant pleural effusions, recurrent lower extremity cellulitis, HFpEF, hypertension, GERD, history of recent
admission for anaphylaxis secondary to doxorubicin infusion (which was previously discontinued) presented for recurrent falls/evaluation of bilateral lower extremity weakness (patient said she had bilateral upper extremity weakness on August 18, 2024
as well -- now improved). Patient had a mechanical fall ~2 days prior to presentation (so on August 18, 2024) with a head strike (on cement floor on step down outside her residence) and was not on any blood thinners. She was evaluated in the ED, and
CT head was negative. She was discharged home. Patient then reports that on August 20, 2024, had significant weakness in all extremities with inability to control them that lasted approximately 30-45 minutes then resolved. Then she reported she was
sitting on futon attempting to get dressed and experienced the same weakness in all extremities and inability to control them, she then woke on floor in front of futon and does not recall how she got there. She reported passing out for a short
period of time, on 08/20/24. She also reported urinary incontinence over the prior few days. She reported weakness/inability to move her legs bilaterally as well as simultaneous weakness of the upper extremities bilaterally which resolved after
about 30 minutes one day prior. She denied any recollection of chest pain, palpitations, lightheadedness or dizziness. She denied any cough fevers or chills and she also denied any neck pain or back pain. She also denied numbness tingling or
incontinence of the bowel.
In the emergency department, she was afebrile with a temp of 98.4 oxygen saturation of 94% blood pressure of 150/70 with a pulse of 88. Respirate was 16. ECG showed normal sinus rhythm without any acute changes compared to prior. Troponin was
negative. BNP was unchanged at 800. CBC was unremarkable and unchanged compared to prior. Electrolytes BUN/creatinine were essentially in the normal range for her. Sodium 135. She had new elevations in AST to 157, ALT 279 and alk phos 180.
UA was unremarkable. DVT of the bilateral lower extremities was negative.
On exam she is generally well appearing with 3+ bilateral lower extremity swelling. There is erythema, edema, induration, tenderness and calor on the RLE. She has weakness in her bilateral lower extremity likely secondary to the swelling. Upper
ext strenght appears intact.'

#Weakness - Bilateral upper and lower extremity weakness with urinary incontinence concerning for new myelopathy with possible mets/cord compression (less likely)
#Recent Frequent Falls
#Urinary Incontinence associated with the weakness
- Monitor on telemetry
- MRI brain no acute abn's
- MRI cervical spine appreciated no acute abn's, chronic degenerative changes noted
- u/a unremarkable
- Monitor bladder scans for urinary retention
- PT eval appreciated SNF rehab
-Neurosurgery eval appreciated no surgical intervention indicated at this time
#Syncope on 08/20/24
- monitor Orthostatics
- Recent echo in June 2024 was unremarkable, ECHO 08/21 noted no significant change from prior study
- no new episodes syncope or significant arrhythmia noted, telemonitoring completed
#Nausea/Vomiting on 08/22/24 morning- since resolved
#Acute Pancreatitis (very high lipase+CT showed acute pancreatitis) -- likely secondary to gallstones, no alcohol intake
#Cholelithiasis
#Mild intrahepatic biliary ductal dilation on CT
#Mild Transaminitis
-AXR done on 08/22/24 with nonobstructive bowel gas pattern and moderate colonic stool burden
-CT of Abdomen/Pelvis with PO and IV contrast findings above with acute pancreatitis vs cholecystitis
- RUQ u/s: Gallbladder with stones and 'wall echo sign'. Negative sonographic Mackay's sign. Mildly enlarged common bile duct and findings suggesting some intrahepatic biliary tract dilatation.
-MRI/MRCP appreciated choledocholithiasis and likely pancreatitis vs cholecystitis (less likely)
-Lipase since trended down <1000, IVF completed, 08/26 trended back up with associate abd pain, IVF restarted, completed with resolution, diet advanced to clear liquid as per GI
-Unasyn as per ID
-Blood cultures NGTD
-GI consult appreciated ERCP was attempted 08/25 but unsuccessful, conservative mgmt recommended for now, repeat ERCP attempt planned next week.
-Surgery consult appreciated tentative plan for cholecystectomy this admission timing to be determined
-Tigan Compazine prn Nausea (QT not significantly prolonged recent EKGs 08/22)
-morphine prn mod severe pain
#Constipation
bowel regimen
suppository prn
#Cellulitis - new RLE cellulitis. Prior admission to with LLE cellulitis improved with ANCEF.
- Ancef changed to Unasyn on 08/23/24 given new cholecystitis
- elevate legs
- ID consult appreciated
- No DVT on lower extremity ultrasound
- Wound care
#Bilateral Lower Extremity Edema
-Suspected from low albumin; no DVT on lower extremity ultrasound
-Repeat ECHO noted no significant change as above
#Severe Spinal Canal Stenosis on L-Spine MRI
#Disc herniations at multiple levels of the spine
-Neurosurgery eval appreciated surgical intervention not indicated
-Continue physical therapy
#Large amount of edema in the right psoas muscle and in the iliacus muscles on L-Spine MRI
-suspect posttraumatic from fall
#Moderate diffuse interstitial disease in the lungs on T-Spine MRI
#Moderate-sized left pleural effusion with an adjacent large left lower lobe basilar airspace consolidation, on T-Spine MRI
#Small Right Pleural Effusion on T-Spine MRI
#Recent History of Malignant Pleural Effusions
-IR eval appreciated s/p Left thoracentesis 550 cc pleural studies noted likely recurrence malignant pleural effusion
#Chronic HFpEF
- Known diastolic CHF on lasix 40 and 60 alternating days, diuresis held for IVF given for pancreatitis, since resumed Lasix 40 mg PO daily (hold when NPO for procedures)
- Monitor on telemetry
- BNP unremarkable for age @ 89
- Daily weights
- I's and O's
#Hypomagnesemia
#Hypokalemia
monitor and replete as necessary
#Metastatic Ovarian Cancer
#Ovarian cancer status post hysterectomy and bilateral oophorectomy
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
#History of malignant pleural effusion
#Suspected anaphylactic reaction to Doxil 06/25/24
-follows with [place], currently receiving chemotherapy
-On Gemzar (gemcitabine) undergoing treatment with Dr. Chin
-Oncology eval appreciated
#New Moderate Left Hydroureteronephrosis suggesting distal left ureteral obstruction on L-Spine MRI
#On L-Spine MRI: 1.8 cm mass in the upper pole of the left kidney. Diagnostic possibilities are (1) a complex cyst or (2) less likely renal cell carcinoma
#On CT A/P: Malrotation of the kidneys. Mild right hydronephrosis, likely related to mass effect on the proximal ureter from adjacent peripancreatic inflammatory
change
-Dr Thomason discussed with on-call urologist on 08/22/24, and they mentioned based on the L-Spine MRI findings, patient has bilateral parapelvic renal cysts which were errantly interpreted to be �hydro� on MRI; UA shows no blood; No significant
Kidney dysfunction noted.
-Per discussion, no need for urology consultation or urosurgical intervention.
#Hypertension
-Continue Amlodipine
#GERD
-Continue Pantoprazole
#Enlarged bilateral likely pathologic lymph nodes with suspicious lymph nodes seen on relative recent prior PET scan May 14, 2024 on ultrasound this hospitalization
#Small splenic high attenuation densities most likely representing old granulomatous disease on abdominal ultrasound
#Bilateral parapelvic renal cysts on abdominal ultrasound
DVT Prophylaxis: Lovenox subq
Code Status: Full code
Discussed with patient and patient's daughter Grace
I spent a total of 45 minutes with the patient or on the floor. More than 50% of this time involved counseling and coordination of care.
Anticipated Discharge: > 48 hours
Subjective/Interval History
-
Date of Service: August 29, 2024
No acute distress. Frustrated with length of stay but otherwise feels well. Denies significant pain. Weakness significantly improved since admission.
Objective Data
-
Labs:
Laboratory Results
08/29/24
04:16
WBC 14.2 H
Hgb 10.3 L
Hct 30.4 L
Plt Count 344 D
Sodium 134 L
Potassium 3.8
Chloride 103
Carbon Dioxide 24
BUN 13
Creatinine 0.5 L
Glucose 112 H
Calcium 7.6 L
Total Bilirubin 1.1
AST 55 H
ALT 45 H
Alkaline Phosphatase 476 H
Vital Signs:
Vital Signs
Temp Pulse Resp BP Pulse Ox
97.8 F 78 14 119/93 93
08/28/24 23:00 08/28/24 23:00 08/28/24 23:00 08/28/24 23:00 08/28/24 23:00
I&O
08/27/24 08/28/24 08/29/24
06:59 06:59 06:59
Intake Total 720 / 720 750 / 750
Output Total 1150 / 1150 200 / 200
Balance -430 / -430 -200 / -200 750 / 750
[2024-08-29 07:29] VITALS: BP 116/60
[2024-08-29] MEDS: LASIX 40 MG PO (08:15)
[2024-08-29] MEDS: SENOKOT-S 1 TABLET PO ×2 (08:15→19:44)
[2024-08-29] MEDS: PROTONIX 40 MG PO (08:15)
[2024-08-29] MEDS: NORVASC 10 MG PO (08:15)
[2024-08-29] MEDS: KLOR-CON 20 MEQ PO ×2 (08:15→19:44)
[2024-08-29] MEDS: HYDROPHOR 1 APPLIC TOPICAL (08:16)
[2024-08-29] MEDS: MIRALAX 17 GRAMS PO (08:16)
--- NOTE | 2024-08-29 12:42 | W.PN.ID1 ---
Date of Service
Date of Service: August 29, 2024
Today's Communication
Continue antibiotics.
Assessment / Plan
# Choledocholithiasis
# Gallstone pancreatitis
# Leukocytosis -persists but improved.
-MRI abd with mildly dilated CBD and multiple filling defects.
-Lipase >4000 (pt asymptomatic)
- blood cultures x2 neg
- 08/24 failed attempt for ERCP due to edema
- Plan for repeat ERCP next week.
- Continue Unasyn for now.
# Acute RLE cellulitis
- resolving
- Vasc US: no DVT
- Elevate LE/Compression
- Continue Unasyn as above.
# Ovarian cancer/Peritoneal carcinomatosis with progression on chemo
# Bilateral malignant pleural effusion
- 08/24 s/p left thoracentesis 500 cc, cx neg to date, cytology suspicious for malignancy
# Constipation
- Management by hospitalist
# Conditions BELT SPLICER
Primary peritoneal carcinomatosis, R malignant pleural effusions, with progression, currently on chemo
Ovarian cancer status post FERNIE, BSO
Hypertension
Heart failure with preserved EF
Bilateral lower extremity edema
Bilateral total hip replacement
Right total knee replacement
Chief Complaint
-: Leukocytosis and Cellulitis
Subjective / Review of Systems
Review of Systems: No Fever and No Chills
Vital Signs / Physical Exam
Vital Signs
Vital Signs
Temp Pulse Resp BP Pulse Ox
98.0 F 82 18 116/60 95
08/29/24 07:29 08/29/24 07:29 08/29/24 07:29 08/29/24 07:29 08/29/24 07:29
Physical Exam
Constitutional: No Acute Distress and Comfortable
Eyes: Negative Sclera Anicteric
Cardiovascular: Regular Rate and S1/S2
Pulmonary: Non Labored
Gastrointestinal: Soft, Non Tender, Distended (mild) and Normal Bowel Sounds
Extremities: Edema (BLE improved) and Erythema (RLE erythroderma noted. No significant tenderness of the area.)
Neurological: AO x 3
Lines: Port (RCW no erythema)
Objective Data
Lab Data
Lab Results
08/29/24 04:16
08/29/24 04:16
PT 16.8 Sec (11.4-14.6) H 08/25/24 08:13
INR 1.34 08/25/24 08:13
APTT 33.4 Sec (23.4-35.0) 08/25/24 08:13
Estimated Creat Clear 79 ml/min 08/29/24 04:16
Total Bilirubin 1.1 mg/dl (0.2-1.3) 08/29/24 04:16
AST 55 U/L (14-36) H 08/29/24 04:16
ALT 45 U/L (0-35) H 08/29/24 04:16
Alkaline Phosphatase 476 U/L (38-126) H 08/29/24 04:16
Amylase 3013 U/L (30-110) H* 08/22/24 20:11
Most recent labs reviewed.
Micro Results:
08/23/24 11:45 Blood Culture - Final
Blood/Venous No Growth - Final Report
08/23/24 10:32 Blood Culture - Final
Blood/Venous No Growth - Final Report
08/24/24 15:00 Body Fluid Culture - Final
Pleural Fluid No Growth After 72 Hours
Gram Stain - Final
08/20/24 20:07 MRSA Screen - Final
Nose No Methicillin Resistant Staphylococcus aureus isolated.
08/20/24 15:57 Influenza Types A & B (LOU) - Final
Nasal Swab Negative for Influenza A & B, NAAT
Negative results must be combined with clinical observations
and patient history.
Nucleic Acid Amplification test (NAAT)performed on the
[employer] platform.
Imaging:
08/23/24 abdominal ultrasound: Common bile duct is mildly dilated with numerous filling defects consistent with choledocholithiasis. Findings of acute pancreatitis without evidence of Michael pancreatic collection. Edema throughout the right upper
quadrant. There is pericholecystic fluid which may be secondary to pancreatitis but cholecystitis cannot be excluded. Please see full dictation for additional detail.
08/20/24 ABD US: Gallbladder with stones and 'wall echo sign'. Negative sonographic Mackay's sign. Mildly enlarged common bile duct and findings suggesting some intrahepatic biliary tract dilatation. Consider MRI/MRCP for more complete evaluation.
[2024-08-29] MEDS: NEUTRA-PHOS POWDER PACKET 250 MG PO ×3 (14:00→22:29)
[2024-08-29 14:44] VITALS: BP 139/72
[2024-08-29] MEDS: LOVENOX 40 MG SC (17:09)
[2024-08-29] MEDS: TYLENOL 650 MG PO (17:35)
[2024-08-29] MEDS: MORPHINE SULFATE 2 MG IV (19:44)
[2024-08-29] MEDS: COMPAZINE 5 MG IV (22:26)
[2024-08-29] MEDS: FLUSH (NSS) 3 FLUSH IV (22:28)
[2024-08-29] MEDS: DILAUDID 0.25 MG IV (22:41)
[2024-08-29] MEDS: TORADOL 15 MG IV (22:42)
--- NOTE | 2024-08-29 22:56 | PTCARENOTE ---
Patient began c/o severe right flank/right back pain just prior to change of shift this evening. Received Tylenol PRN by dayshift RN with no relief. This RN provided patient with PRN dose of Morphine as ordered by MD -- patient still stating no
relief. Dose provided at 19:44pm, see MAR. At this time, patient is also c/o nausea. Provided patient with PRN dose Compazine -- see MAR. Notified VICKY Ponce -- one time stat dose of 0.25mg Dilaudid and 15mg IV Toradol ordered and provided
to patient, see MAR. Will monitor patient closely.
[2024-08-29 23:00] VITALS: BP 115/58
[2024-08-30] MEDS: FLUSH (NSS) 2 FLUSH IV ×3 (03:54→15:32)
[2024-08-30] MEDS: UNASYN IV ×4 (03:54→20:22)
[2024-08-30 04:40] LABS: Hematocrit 27.4 % (37.0-47.0); Hemoglobin 9.3 g/dL (12.0-16.0); Mean Corp Hgb Conc. 33.9 g/dL (33.0-37.0); Mean Corpuscular Hgb 31.3 pg (27.0-31.0); Mean Corpuscular Volume 92.3 fL (81.0-99.0); Mean Platelet Volume 9.6 fL (7.4-10.4); Platelet Count 307 10^3/uL (130-400); Red Blood Cell Count 2.97 10^6/uL (4.20-5.40); Red Cell Dist. Width 23.5 % (11.5-14.5); White Blood Cell Count 10.2 10^3/uL (4.8-10.8)
[2024-08-30 04:57] LABS: ALT (SGPT) 59 U/L (0-35); AST (SGOT) 121 U/L (14-36); Alkaline Phosphatase 868 U/L (38-126); Blood Urea Nitrogen 12 mg/dl (7-17); Calcium 7.5 mg/dl (8.4-10.2); Carbon Dioxide 25 mmol/L (22-30); Chloride 105 mmol/L (98-107); Estimated Creatinine Clearance 79 ml/min; Glucose 95 mg/dl (70-99); Magnesium 1.6 mg/dl (1.6-2.3); Phosphorus 2.7 mg/dl (2.5-4.5); Potassium 4.2 mmol/L (3.5-5.1); Sodium 134 mmol/L (135-145); Total Bilirubin 1.5 mg/dl (0.2-1.3); Total Protein 4.5 g/dl (6.3-8.2); eGFR > 60.00
[2024-08-30 06:00] VITALS: BMI 35.2
[2024-08-30 07:30] VITALS: BP 135/78
[2024-08-30] MEDS: PROTONIX 40 MG PO (07:39)
[2024-08-30] MEDS: NORVASC 10 MG PO (07:39)
[2024-08-30] MEDS: KLOR-CON 20 MEQ PO ×2 (07:39→20:22)
[2024-08-30] MEDS: SENOKOT-S 1 TABLET PO ×2 (07:39→20:22)
[2024-08-30] MEDS: LASIX 40 MG PO (07:40)
[2024-08-30] MEDS: HYDROPHOR 1 APPLIC TOPICAL (07:40)
[2024-08-30] MEDS: MIRALAX 17 GRAMS PO (07:41)
--- NOTE | 2024-08-30 07:52 | W.PN.HOSP.TC ---
Today's Communication/Plan
-
NPO after midnight for ERCP
hold Lasix while NPO
IVF gentle hydration while NPO
abx as per ID
Out of Bed to Chair
PT/OT
Urology eval
Assessment / Plan
Assessment / Plan
Physical Exam
General: Not in acute distress
HEENT: Normocephalic, Moist mucous membranes, Atraumatic
Respiratory: Clear to Auscultation Bilaterally, stable respiratory status on room air
Cardiac: S1/S2 and Regular Rhythm
GI: Soft, Distended, mild tenderness, Bowel Sounds present
Musculoskeletal: No Cyanosis
Skin: Warm. Dry.
Neuro: AOx3 conversant coherent. Strength 5/5 in the bilateral upper extremities. Strength 3/5 LLE 4/5 RLE
Psych: Calm and Intact Judgment/Insight
Assessment/Plan
78F ext pmhx including primary peritoneal carcinoma, metastatic ovarian cancer, chronic right malignant pleural effusions, recurrent lower extremity cellulitis, HFpEF, hypertension, GERD, recent admission for anaphylaxis secondary to doxorubicin
infusion, presented for evaluation recurrent falls, weakness, syncope, urge incontinence.
Found to have acute pancreatitis 2/2 choledocholithiasis and recurrence RLE cellulitis. Improved with bowel rest, IVF, and abx as per Infectious disease. Surgery consulted with plans for cholecystectomy pending ERCP as per GI. Unfortunately
initial ERCP attempt failed. 2nd attempt pending.
#Weakness - Bilateral upper and lower extremity weakness with urinary incontinence concerning for new myelopathy with possible mets/cord compression (less likely)
#Recent Frequent Falls
#Urinary Incontinence associated with the weakness
- Monitor on telemetry
- MRI brain no acute abn's
- MRI cervical spine appreciated no acute abn's, chronic degenerative changes noted
- u/a unremarkable
- Monitor bladder scans for urinary retention
- PT eval appreciated SNF rehab
-Neurosurgery eval appreciated no surgical intervention indicated at this time
#Syncope on 08/20/24
- monitor Orthostatics
- Recent echo in June 2024 was unremarkable, ECHO 08/21 noted no significant change from prior study
- no new episodes syncope or significant arrhythmia noted, telemonitoring completed
#Nausea/Vomiting on 08/22/24 morning- since resolved
#Acute Pancreatitis (very high lipase+CT showed acute pancreatitis) -- likely secondary to gallstones, no alcohol intake
#Cholelithiasis
#Mild intrahepatic biliary ductal dilation on CT
#Mild Transaminitis
-AXR done on 08/22/24 with nonobstructive bowel gas pattern and moderate colonic stool burden
-CT of Abdomen/Pelvis with PO and IV contrast findings above with acute pancreatitis vs cholecystitis
- RUQ u/s: Gallbladder with stones and 'wall echo sign'. Negative sonographic Mackay's sign. Mildly enlarged common bile duct and findings suggesting some intrahepatic biliary tract dilatation.
-MRI/MRCP appreciated choledocholithiasis and likely pancreatitis vs cholecystitis (less likely)
-Lipase since trended down <1000, IVF completed, 08/26 trended back up with associate abd pain, IVF restarted, completed with resolution, diet advanced to clear liquid as per GI
-Unasyn as per ID
-Blood cultures NGTD
-GI consult appreciated ERCP was attempted 08/25 but unsuccessful, conservative mgmt recommended for now, repeat ERCP planned for Saturday, npo after midnight- gentle IV hydration while npo, Lasix to hold while npo
-Surgery consult appreciated tentative plan for cholecystectomy this admission timing to be determined
-Tigan Compazine prn Nausea (QT not significantly prolonged recent EKGs 08/22)
-morphine prn mod severe pain
-tolerated low fat diet, NPO as above
#Constipation
bowel regimen
suppository prn
#Cellulitis - new RLE cellulitis. Prior admission to with LLE cellulitis improved with ANCEF.
- Ancef changed to Unasyn on 08/23/24 given new cholecystitis
- elevate legs
- ID consult appreciated
- No DVT on lower extremity ultrasound
- Wound care
#Bilateral Lower Extremity Edema
-Suspected from low albumin; no DVT on lower extremity ultrasound
-Repeat ECHO noted no significant change as above
#Severe Spinal Canal Stenosis on L-Spine MRI
#Disc herniations at multiple levels of the spine
-Neurosurgery eval appreciated surgical intervention not indicated
-Continue physical therapy
#Large amount of edema in the right psoas muscle and in the iliacus muscles on L-Spine MRI
-suspect posttraumatic from fall
#Moderate diffuse interstitial disease in the lungs on T-Spine MRI
#Moderate-sized left pleural effusion with an adjacent large left lower lobe basilar airspace consolidation, on T-Spine MRI
#Small Right Pleural Effusion on T-Spine MRI
#Recent History of Malignant Pleural Effusions
-IR eval appreciated s/p Left thoracentesis 550 cc pleural studies noted likely recurrence malignant pleural effusion
-weaned off oxygen supplementation, stable respiratory status on room air
#Chronic HFpEF
- Known diastolic CHF on lasix 40 and 60 alternating days, diuresis held for IVF given for pancreatitis, since resumed Lasix 40 mg PO daily (hold when NPO for procedures)
- Monitor on telemetry
- BNP unremarkable for age @ 89
- Daily weights
- I's and O's
#Hypomagnesemia
#Hypokalemia
monitor and replete as necessary
scheduled potassium started tapered to 20 MeQ daily w/ consistent improvement in K levels
#Metastatic Ovarian Cancer
#Ovarian cancer status post hysterectomy and bilateral oophorectomy
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
#History of malignant pleural effusion
#Suspected anaphylactic reaction to Doxil 06/25/24
-follows with [place], currently receiving chemotherapy
-On Gemzar (gemcitabine) palliative treatment with Dr. Chin
-Oncology eval appreciated
#New Moderate Left Hydroureteronephrosis suggesting distal left ureteral obstruction on L-Spine MRI
#On L-Spine MRI: 1.8 cm mass in the upper pole of the left kidney. Diagnostic possibilities are (1) a complex cyst or (2) less likely renal cell carcinoma
#On CT A/P: Malrotation of the kidneys. Mild right hydronephrosis, likely related to mass effect on the proximal ureter from adjacent peripancreatic inflammatory
change
#recent Abd MRI noted Moderate bilateral hydronephrosis
Urology eval appreciated
-Progression of her disease will eventually necessitate replacement of nephrostomy tubes - she wants to avoid this as long as possible. Outpt follow up recommended
-Consider intervention if R flank pain episodes persist after addressing gallbladder/gallstones
#Hypertension
-Continue Amlodipine
#GERD
-Continue Pantoprazole
PT/OT appreciated SNF rehab
DVT Prophylaxis: Lovenox subq
Code Status: Full code
Discussed with patient, patient's daughter Grace, and [id number] Judith
I spent a total of 45 minutes with the patient or on the floor. More than 50% of this time involved counseling and coordination of care.
Anticipated Discharge: > 48 hours
Subjective/Interval History
-
Date of Service: August 30, 2024
Episode right sided flank pain overnight requiring prn IV pain meds since resolved. Currently no acute distress sitting up comfortably in chair. Tolerating diet. Denies current paint. Daughter Grace and [id number] Judith present during
evaluation.
Objective Data
-
Labs:
Laboratory Results
08/30/24
04:15
WBC 10.2
Hgb 9.3 L
Hct 27.4 L
Plt Count 307
Sodium 134 L
Potassium 4.2
Chloride 105
Carbon Dioxide 25
BUN 12
Creatinine 0.5 L
Glucose 95
Calcium 7.5 L
Total Bilirubin 1.5 H
AST 121 H
ALT 59 H
Alkaline Phosphatase 868 H
Vital Signs:
Vital Signs
Temp Pulse Resp BP Pulse Ox
97.7 F 83 18 135/78 98
08/30/24 07:30 08/30/24 07:39 08/30/24 07:30 08/30/24 07:39 08/30/24 07:30
I&O
08/29/24 08/30/24 08/31/24
06:59 06:59 06:59
Intake Total 750 / 750 960 / 960
Balance 750 / 750 960 / 960
[2024-08-30] MEDS: NEUTRA-PHOS POWDER PACKET 250 MG PO ×4 (10:00→20:22)
--- NOTE | 2024-08-30 11:54 | CONS.URO ---
Consultation
-
Performing Provider: Brynnfer
Reason for Consultation: Hydronephrosis
Medical History
History of Present Illness
78F pt presented to 06/[address] findings suspicious for peritonela carcinoma
at time of ER visit in 2021- was in ARF with bilateral hydro- due to malign compression of ureters
Percutaneous nephrostomy tubes placed- prompt return of renal function to baseline
Completed chemo and had surgery with dr li including ureterolysis
had tube check JAN 2022- right nephrostomy was not in place- there was no hydro- access could not be re-established- on left side- antegrade normal- tube was capped- then nephrostomy removed
Follow up CT 07/2022- no sig hydro
Since then her cancer has recurred and she is currently on palliative gemcitabine
She is currently admitted for multiple issues including acute pancreatitis vs cholelithiasis
During admission she had imaging showing this as well as mild bilateral hydronephrosis
Urology was consulted 08/22, consult was deferred because the hydronephrosis was presumed to be parapelvic cysts
Urology consulted again 08/30 due to episodes of R flank/abdominal pain overnight
Review of CT scan with delayed films confirms hydronephrosis was present on recent imaging
Renal function normal
Patient has had urge incontinence for about the past month which is new
No issues voiding or emptying
Past Medical History
Past Medical History: Other (hypertension HFpEF GERD Ovarian cancer status post hysterectomy and bilateral oophorectomy carcinomatosis status post oral chemotherapy with recurrence history of malignant pleural effusion)
Past Surgical History: Gynocological
Social History
Tobacco: Non-smoker
Alcohol: Occasional
Family History
Family History: Reviewed & Not Pertinent
Allergies/Home Medications
Allergies
Allergy/AdvReac Type Severity Reaction Status Date / Time
adhesive Allergy Rash Verified 08/20/24 13:30
aprepitant [From Emend] Allergy Facial Verified 08/20/24 13:30
redness
and
shaking
all over
fosaprepitant [From Emend] Allergy Facial Verified 08/20/24 13:30
redness
and
shaking
all over
paclitaxel [From Taxol] Allergy Shaking Verified 08/20/24 13:30
all over
and facial
redness
Home Medications
�Medication �Instructions �Recorded �Confirmed �Type
amlodipine 10 mg tablet 10 mg PO DAILY Blood pressure 06/21/21 08/20/24 History
pantoprazole 40 mg tablet,delayed 40 mg PO DAILY Gastrointestinal 06/21/21 08/20/24 History
release issue
Prevagen 1 tab PO DAILY Supplement 06/23/21 08/20/24 History
multivitamin with folic acid 400 1 tab PO DAILY Supplement 06/23/21 08/20/24 History
mcg tablet (Tab-A-Crow)
furosemide 40 mg tablet 40 mg PO DAILY Fluid 06/16/24 08/20/24 History
Retention/Swelling
vit C 250 mg-vit E 90 mg-zinc 40 1 tab PO BID Supplement 06/25/24 08/20/24 History
mg-copper 1 [id number]
capsule (PreserVision AREDS-2)
acetaminophen 500 mg tablet 1,000 mg PO QIDPRN PRN mild pain 08/20/24 08/20/24 History
(Tylenol Extra Strength)
furosemide 20 mg tablet (Lasix) 20 mg PO Q48H 08/20/24 08/20/24 History
Physical Exam
Vital Signs
Vital Signs
Temp Pulse Resp BP Pulse Ox
97.7 F 83 18 135/78 98
08/30/24 07:30 08/30/24 07:39 08/30/24 07:30 08/30/24 07:39 08/30/24 07:30
Lab / Testing Results
Laboratory Results
08/30/24 04:15
08/30/24 04:15
Physical Exam
General: Well Developed, Well Nourished and No Apparent Distress
Respiratory: Clear and Non Labored Respirations
GI: Soft and Non Tender
Genito-urinary: No Costovertebral Tend
Neuro: AO x 3
Psych: Calm and Intact Judgement
Assessment / Plan
-
78F with peritoneal carcinomatosis, history of bilateral malignant ureteral obstruction s/p removal of nephrostomy tubes following treatment in 2021
Admitted with weakness and likely pancreatitis/cholecystitis
Bilateral hydronephrosis
- Likely early progression/recurrence of prior malignant ureteral obstruction which was last treated in 2021 with bilateral nephrostomy
- Currently bilateral hydronephrosis is mild and normal renal function
- Progression of her disease will eventually necessitate replacement of nephrostomy tubes - she wants to avoid this as long as possible
- Consider intervention if R flank pain episodes persist after addressing gallbladder
- Otherwise recommend outpatient follow up for monitoring
Urinary incontinence
- New onset urge incontinence likely due to progressive acute on chronic weakness which also will affect pelvic floor
- Urinalysis normal 08/20/24
- Would recommend against anticholinergics in setting of active GI issues. Can discuss treatment options outpatient
--- NOTE | 2024-08-30 13:10 | W.PN.UPDATE ---
Update Note
Progress Note Update
Brief GI Note:
Keep NPO at [place] with plans for tentative ERCP tomorrow, 08/31/2024, with Dr. Davenport. Ultimate timing TBD.
See previous progress note dated from 08/28 for additional details.
Discussed with primary medicine team.
[2024-08-30 16:00] VITALS: BP 128/73
[2024-08-30] MEDS: LOVENOX 40 MG SC (17:12)
[2024-08-30 23:47] VITALS: BP 130/70
[2024-08-31] MEDS: NSS 1000 IV (01:10)
[2024-08-31] MEDS: UNASYN IV ×4 (03:08→22:47)
[2024-08-31 07:30] VITALS: BP 144/85
--- NOTE | 2024-08-31 08:26 | W.PN.HOSP.TC ---
Today's Communication/Plan
-
Choledocholithiasis on ERCP
Appreciate GI
Assessment / Plan
Assessment / Plan
Physical Exam
General: Not in acute distress
HEENT: Normocephalic, Moist mucous membranes, Atraumatic
Respiratory: Clear to Auscultation Bilaterally, stable respiratory status on room air
Cardiac: S1/S2 and Regular Rhythm
GI: Soft, Distended, mild tenderness, Bowel Sounds present
Musculoskeletal: No Cyanosis
Skin: Warm. Dry.
Neuro: AOx3 conversant coherent. Strength 5/5 in the bilateral upper extremities. Strength 3/5 LLE 4/5 RLE
Psych: Calm and Intact Judgment/Insight
Assessment/Plan
78F ext pmhx including primary peritoneal carcinoma, metastatic ovarian cancer, chronic right malignant pleural effusions, recurrent lower extremity cellulitis, HFpEF, hypertension, GERD, recent admission for anaphylaxis secondary to doxorubicin
infusion, presented for evaluation recurrent falls, weakness, syncope, urge incontinence.
Found to have acute pancreatitis 2/2 choledocholithiasis and recurrence RLE cellulitis. Improved with bowel rest, IVF, and abx as per Infectious disease. Surgery consulted with plans for cholecystectomy pending ERCP as per GI. Unfortunately
initial ERCP attempt failed. 2nd attempt pending.
#Weakness - Bilateral upper and lower extremity weakness with urinary incontinence concerning for new myelopathy with possible mets/cord compression (less likely)
#Recent Frequent Falls
#Urinary Incontinence associated with the weakness
- Monitor on telemetry
- MRI brain no acute abn's
- MRI cervical spine appreciated no acute abn's, chronic degenerative changes noted
- u/a unremarkable
- Monitor bladder scans for urinary retention
- PT eval appreciated SNF rehab
-Neurosurgery eval appreciated no surgical intervention indicated at this time
#Syncope on 08/20/24
- monitor Orthostatics
- Recent echo in June 2024 was unremarkable, ECHO 08/21 noted no significant change from prior study
- no new episodes syncope or significant arrhythmia noted, telemonitoring completed
#Nausea/Vomiting on 08/22/24 morning- since resolved
#Acute Pancreatitis (very high lipase+CT showed acute pancreatitis) -- likely secondary to gallstones, no alcohol intake
#Cholelithiasis
#Mild intrahepatic biliary ductal dilation on CT
#Mild Transaminitis
-AXR done on 08/22/24 with nonobstructive bowel gas pattern and moderate colonic stool burden
-CT of Abdomen/Pelvis with PO and IV contrast findings above with acute pancreatitis vs cholecystitis
- RUQ u/s: Gallbladder with stones and 'wall echo sign'. Negative sonographic Mackay's sign. Mildly enlarged common bile duct and findings suggesting some intrahepatic biliary tract dilatation.
-MRI/MRCP appreciated choledocholithiasis and likely pancreatitis vs cholecystitis (less likely)
-Lipase since trended down <1000, IVF completed, 08/26 trended back up with associate abd pain, IVF restarted, completed with resolution, diet advanced to clear liquid as per GI
-Unasyn as per ID
-Blood cultures NGTD
-GI consult appreciated ERCP was attempted 08/25 but unsuccessful, conservative mgmt recommended for now, repeat ERCP planned for today - gentle IV hydration while npo, Lasix to hold while npo
-Surgery consult appreciated tentative plan for cholecystectomy this admission timing to be determined
-Tigan Compazine prn Nausea (QT not significantly prolonged recent EKGs 08/22)
-morphine prn mod severe pain
-tolerated low fat diet, NPO as above
#Constipation
bowel regimen
suppository prn
#Cellulitis - new RLE cellulitis. Prior admission to with LLE cellulitis improved with ANCEF.
- NOW RESOLVED
- Ancef changed to Unasyn on 08/23/24 given new cholecystitis
- elevate legs
- ID consult appreciated
- No DVT on lower extremity ultrasound
- Wound care
#Bilateral Lower Extremity Edema
-Suspected from low albumin; no DVT on lower extremity ultrasound
-Repeat ECHO noted no significant change as above
#Severe Spinal Canal Stenosis on L-Spine MRI
#Disc herniations at multiple levels of the spine
-Neurosurgery eval appreciated surgical intervention not indicated
-Continue physical therapy
#Large amount of edema in the right psoas muscle and in the iliacus muscles on L-Spine MRI
-suspect posttraumatic from fall
#Moderate diffuse interstitial disease in the lungs on T-Spine MRI
#Moderate-sized left pleural effusion with an adjacent large left lower lobe basilar airspace consolidation, on T-Spine MRI
#Small Right Pleural Effusion on T-Spine MRI
#Recent History of Malignant Pleural Effusions
-IR eval appreciated s/p Left thoracentesis 550 cc pleural studies noted likely recurrence malignant pleural effusion
-weaned off oxygen supplementation, stable respiratory status on room air
#Chronic HFpEF
- Known diastolic CHF on lasix 40 and 60 alternating days, diuresis held for IVF given for pancreatitis, since resumed Lasix 40 mg PO daily (hold when NPO for procedures)
- Monitor on telemetry
- BNP unremarkable for age @ 89
- Daily weights
- I's and O's
#Hypomagnesemia
#Hypokalemia
monitor and replete as necessary
scheduled potassium started tapered to 20 MeQ daily w/ consistent improvement in K levels
#Metastatic Ovarian Cancer
#Ovarian cancer status post hysterectomy and bilateral oophorectomy
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
#History of malignant pleural effusion
#Suspected anaphylactic reaction to Doxil 06/25/24
-follows with [place], currently receiving chemotherapy
-On Gemzar (gemcitabine) palliative treatment with Dr. Chin
-Oncology eval appreciated
#New Moderate Left Hydroureteronephrosis suggesting distal left ureteral obstruction on L-Spine MRI
#On L-Spine MRI: 1.8 cm mass in the upper pole of the left kidney. Diagnostic possibilities are (1) a complex cyst or (2) less likely renal cell carcinoma
#On CT A/P: Malrotation of the kidneys. Mild right hydronephrosis, likely related to mass effect on the proximal ureter from adjacent peripancreatic inflammatory
change
#recent Abd MRI noted Moderate bilateral hydronephrosis
Urology eval appreciated
-Progression of her disease will eventually necessitate replacement of nephrostomy tubes - she wants to avoid this as long as possible. Outpt follow up recommended
-Consider intervention if R flank pain episodes persist after addressing gallbladder/gallstones
#Hypertension
-Continue Amlodipine
#GERD
-Continue Pantoprazole
PT/OT appreciated SNF rehab
DVT Prophylaxis: Lovenox subq
Code Status: Full code
Anticipated Discharge: 24 - 48 hours
Subjective/Interval History
-
Date of Service: August 31, 2024
Patient was seen and examined. She denied any symptoms or complaints.
Objective Data
-
Labs:
Laboratory Results
08/31/24
07:42
WBC Pending
Hgb Pending
Hct Pending
Plt Count Pending
Sodium Pending
Potassium Pending
Chloride Pending
Carbon Dioxide Pending
BUN Pending
Creatinine Pending
Glucose Pending
Calcium Pending
Total Bilirubin Pending
AST Pending
ALT Pending
Alkaline Phosphatase Pending
Vital Signs:
Vital Signs
Temp Pulse Resp BP Pulse Ox
98.4 F 87 19 130/70 94
08/30/24 23:47 08/30/24 23:47 08/30/24 23:47 08/30/24 23:47 08/30/24 23:47
I&O
08/30/24 08/31/24 09/01/24
06:59 06:59 06:59
Intake Total 960 / 960 960 / 960
Balance 960 / 960 960 / 960
[2024-08-31 08:28] LABS: Hematocrit 31.8 % (37.0-47.0); Hemoglobin 10.4 g/dL (12.0-16.0); Mean Corp Hgb Conc. 32.7 g/dL (33.0-37.0); Mean Corpuscular Hgb 30.3 pg (27.0-31.0); Mean Corpuscular Volume 92.7 fL (81.0-99.0); Mean Platelet Volume 9.6 fL (7.4-10.4); Platelet Count 380 10^3/uL (130-400); Red Blood Cell Count 3.43 10^6/uL (4.20-5.40); White Blood Cell Count 8.9 10^3/uL (4.8-10.8)
[2024-08-31 08:51] LABS: ALT (SGPT) 53 U/L (0-35); AST (SGOT) 57 U/L (14-36); Albumin 2.3 g/dl (3.5-5.0); Alkaline Phosphatase 860 U/L (38-126); Blood Urea Nitrogen 7 mg/dl (7-17); Calcium 7.8 mg/dl (8.4-10.2); Carbon Dioxide 24 mmol/L (22-30); Chloride 102 mmol/L (98-107); Estimated Creatinine Clearance 80 ml/min; Glucose 73 mg/dl (70-99); Magnesium 1.4 mg/dl (1.6-2.3); Phosphorus 3.3 mg/dl (2.5-4.5); Potassium 4.3 mmol/L (3.5-5.1); Sodium 133 mmol/L (135-145); Total Bilirubin 0.9 mg/dl (0.2-1.3); eGFR > 60.00
[2024-08-31] MEDS: PROTONIX 40 MG PO (08:53)
[2024-08-31] MEDS: NORVASC 10 MG PO (08:53)
[2024-08-31] MEDS: SENOKOT-S PO ×3 (08:54→20:49)
[2024-08-31] MEDS: KLOR-CON PO (08:56)
[2024-08-31] MEDS: LASIX PO (08:59)
[2024-08-31] MEDS: MIRALAX PO (08:59)
[2024-08-31] MEDS: HYDROPHOR 1 APPLIC TOPICAL (09:10)
--- NOTE | 2024-08-31 11:00 | W.PN.ID1 ---
Date of Service
Date of Service: August 31, 2024
Today's Communication
Continue Unasyn through ERCP.
Assessment / Plan
# Choledocholithiasis
# Gallstone pancreatitis
# Leukocytosis -resolved
-MRI abd with mildly dilated CBD and multiple filling defects.
-Lipase >4000 (pt asymptomatic)
- blood cultures x2 neg
- 08/24 failed attempt for ERCP due to edema
- Plan for repeat ERCP this week.
- Continue Unasyn through procedure.
# Acute RLE cellulitis
- resolved
- Vasc US: no DVT
- Elevate LE/Compression
- Finished abx.
# Ovarian cancer/Peritoneal carcinomatosis with progression on chemo
# Bilateral malignant pleural effusion
- 08/24 s/p left thoracentesis 500 cc, cx neg , cytology suspicious for malignancy
# Constipation
- Resolved
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
Primary peritoneal carcinomatosis, R malignant pleural effusions, with progression, currently on chemo
Ovarian cancer status post FERNIE, BSO
Hypertension
Heart failure with preserved EF
Bilateral lower extremity edema
Bilateral total hip replacement
Right total knee replacement
Chief Complaint
-: Cellulitis
Subjective / Review of Systems
No complaints.
Vital Signs / Physical Exam
Vital Signs
Vital Signs
Temp Pulse Resp BP Pulse Ox
97.3 F 98 18 144/85 95
08/31/24 07:30 08/31/24 08:53 08/31/24 07:30 08/31/24 08:53 08/31/24 07:30
Physical Exam
Constitutional: No Acute Distress and Comfortable
Pulmonary: Other (Decreased BS at bases)
Gastrointestinal: Soft, Non Tender, Non Distended and Normal Bowel Sounds
Extremities: Edema (BLE improving) and Erythema (RLE resolved)
Neurological: AO x 3
Objective Data
Lab Data
Lab Results
08/31/24 07:42
08/31/24 07:42
PT 16.8 Sec (11.4-14.6) H 08/25/24 08:13
INR 1.34 08/25/24 08:13
APTT 33.4 Sec (23.4-35.0) 08/25/24 08:13
Estimated Creat Clear 80 ml/min 08/31/24 07:42
Total Bilirubin 0.9 mg/dl (0.2-1.3) 08/31/24 07:42
AST 57 U/L (14-36) H 08/31/24 07:42
ALT 53 U/L (0-35) H 08/31/24 07:42
Alkaline Phosphatase 860 U/L (38-126) H 08/31/24 07:42
Amylase 3013 U/L (30-110) H* 08/22/24 20:11
Most recent labs reviewed.
Micro Results:
08/23/24 11:45 Blood Culture - Final
Blood/Venous No Growth - Final Report
08/23/24 10:32 Blood Culture - Final
Blood/Venous No Growth - Final Report
08/24/24 15:00 Body Fluid Culture - Final
Pleural Fluid No Growth After 72 Hours
Gram Stain - Final
08/20/24 20:07 MRSA Screen - Final
Nose No Methicillin Resistant Staphylococcus aureus isolated.
08/20/24 15:57 Influenza Types A & B (LOU) - Final
Nasal Swab Negative for Influenza A & B, NAAT
Negative results must be combined with clinical observations
and patient history.
Nucleic Acid Amplification test (NAAT)performed on the
[email or web address] platform.
Imaging:
08/23/24 abdominal ultrasound: Common bile duct is mildly dilated with numerous filling defects consistent with choledocholithiasis. Findings of acute pancreatitis without evidence of Michael pancreatic collection. Edema throughout the right upper
quadrant. There is pericholecystic fluid which may be secondary to pancreatitis but cholecystitis cannot be excluded. Please see full dictation for additional detail.
08/20/24 ABD US: Gallbladder with stones and 'wall echo sign'. Negative sonographic Mackay's sign. Mildly enlarged common bile duct and findings suggesting some intrahepatic biliary tract dilatation. Consider MRI/MRCP for more complete evaluation.
[2024-08-31 11:13] VITALS: BMI 34.2
[2024-08-31 16:30] VITALS: BP 110/61; BP 144/85
[2024-08-31 16:32] VITALS: BP 110/61
--- NOTE | 2024-08-31 16:38 | CM ---
PT OT evaluation indicate SNF.
indicated not ready for SNF .
She requested [facility] .
[facility] does not have a bed.
[facility] said call day of dc for bed availability.
[facility] indicated check for bed day of discharge.
Will need auth .
PLAN To SNf after located and auth obtained
[2024-08-31 17:21] VITALS: BP 121/65
[2024-08-31] MEDS: LOVENOX 40 MG SC (17:28)
[2024-08-31] MEDS: MAGNESIUM SULFATE 50 IV (20:21)
[2024-08-31] MEDS: NSS IV (21:51)
[2024-08-31 23:00] VITALS: BP 115/63
[2024-09-01] MEDS: UNASYN IV ×2 (04:07→09:01)
--- NOTE | 2024-09-01 05:54 | W.PN.GI.CBS2 ---
Today's Communication / Plan
-
S/p ERCP with removal of stones and s/p plastic biliary stent within cystic duct. LFTs improving and tolerating diet. Okay to advance as tolerated to low-fat diet and close outpatient f/u with Dr. Davenport. See rest of care as outlined below. GI team
will sign-off, please call back with any questions or concerns.
Assessment / Plan
-
Ms. 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 She follows with Dr Chin and her last chemo was gemzar started few
months ago last infusion was Saturday prior to admission. GI consulted for acute pancreatitis 1st episode related to gallstone pancreatitis.
08/23/24- MR abdomen -
The common bile duct is mildly dilated measuring 8.8 mm with numerous filling defects consistent with choledocholithiasis.
Findings of acute pancreatitis without evidence of peripancreatic collection. There is edema throughout the right upper quadrant.
Cholelithiasis. There is pericholecystic fluid which may be secondary to the pancreatitis however cholecystitis cannot be excluded.
Moderate bilateral hydronephrosis, similar to prior.
Moderate bilateral pleural effusions with adjacent atelectasis, slightly increased from prior.
Moderate/large hiatal hernia.
Impression
#Acute pancreatitis with gallstone related with numerous filling defects on MRCP, edema and no collection on MRI
1st episode
Gemzar is only new med and not strongly linked to pancreatitis less likely adding to pancreatitis
No ETOH intake
TG, IGG4 pending
#Choledocholithiasis/Cholelithiasis
#Leukocytosis
#Elevated LFTs- Improving
#Stage 4 ovarian cancer
#Carcinomatosis
#Moderate b/l pleural effusions slight increase per MRI
#Constipation
#Moderate/large hiatal hernia
S/p ERCP 08/26 - unsuccessful ( edematous folds. Unable to identify major papilla )
S/p ERCP (choledocholithiasis, failed ERCP) 08/31: Choledocholithiasis was found managed with biliary sphincterotomy and balloon extraction, multiple filling defects in cyst duct and gallbladder, one plastic (7 Fr x 7 cm) plastic biliary stent was
placed into the cystic duct
Recommendations:
- Okay for low-fat diet as tolerated
- LFTs improving, continue to trend q daily
- Will need f/u with Dr. Davenport given plastic biliary stent within cystic duct, will arrange outpatient f/u prior to discharge
- Re-evaluate for possible cholecystectomy
- IV anti-emetics and pain control PRN
- Rest of care per primary team
Discussed with primary internal medicine team this AM. GI team will sign-off, please call back with any questions or concerns.
Subjective
Subjective
Date of Service: September 01, 2024
- S/p ERCP (choledocholithiasis, failed ERCP) 08/31: Choledocholithiasis was found managed with biliary sphincterotomy and balloon extraction, multiple filling defects in cyst duct and gallbladder, one plastic (7 Fr x 7 cm) plastic biliary stent was
placed into the cystic duct
- Pending repeat AM labs
- Otherwise, no acute events overnight
Feeling well, resting comfortably in bed without any abdominal pain or discomfort. No nausea or vomiting. Tolerated CLD overnight and hoping for more solid food. No other fevers or chills.
Objective
Data Reviewed
Laboratory Data:
Laboratory Results
PT 16.8 Sec (11.4-14.6) H 08/25/24 08:13
INR 1.34 08/25/24 08:13
APTT 33.4 Sec (23.4-35.0) 08/25/24 08:13
Phosphorus 3.3 mg/dl (2.5-4.5) 08/31/24 07:42
Magnesium 1.4 mg/dl (1.6-2.3) L 08/31/24 07:42
Total Bilirubin 0.9 mg/dl (0.2-1.3) 08/31/24 07:42
AST 57 U/L (14-36) H 08/31/24 07:42
ALT 53 U/L (0-35) H 08/31/24 07:42
Alkaline Phosphatase 860 U/L (38-126) H 08/31/24 07:42
Amylase 3013 U/L (30-110) H* 08/22/24 20:11
Lipase 361 U/L (23-300) H 08/27/24 03:49
Vital Signs and I&O:
Vital Signs
Temp Pulse Resp BP Pulse Ox
97.9 F 76 16 115/63 94
08/31/24 23:00 08/31/24 23:00 08/31/24 23:00 08/31/24 23:00 08/31/24 23:00
I&O
08/30/24 08/31/24 09/01/24
06:59 06:59 06:59
Intake Total 960 / 960 960 / 960
Balance 960 / 960 960 / 960
Physical Exam
Physical Exam
HEENT: Anicteric and Moist mucous membranes
Pulmonary: Other (Normal WOB on room air)
GI: Soft, Non Distended and Non Tender
Extremities: Warm
Neuro: Non Focal
[2024-09-01 06:00] VITALS: BMI 33.9
[2024-09-01 07:13] LABS: Hematocrit 31.1 % (37.0-47.0); Hemoglobin 10.3 g/dL (12.0-16.0); Mean Corp Hgb Conc. 33.1 g/dL (33.0-37.0); Mean Corpuscular Hgb 30.7 pg (27.0-31.0); Mean Corpuscular Volume 92.6 fL (81.0-99.0); Mean Platelet Volume 9.5 fL (7.4-10.4); Platelet Count 434 10^3/uL (130-400); Red Blood Cell Count 3.36 10^6/uL (4.20-5.40); Red Cell Dist. Width 24.1 % (11.5-14.5); White Blood Cell Count 8.2 10^3/uL (4.8-10.8)
--- NOTE | 2024-09-01 07:19 | W.PN.URO.CBU ---
Today's Communication / Plan
-
observe
Assessment / Plan
-
malig obstruction of ureters
recurrent bilateral hydro normal renal function
pt's clinically improved after gi procedure
reviewed options
hydro has recurred, but normal renal function at this time
ureteral stents are unlikely to provide sig relief of obstruction- would prob need replacement of percs
given nl renal function and no sx's- if okay with oncology- would prob defer at this time wiht close outpt monitoring
will follow closely- but no plans for intervention at this time
Diagnosis
-
Date of Service: September 01, 2024
-
Patient Diagnosis:
hx of malig obstruction of ureters
recurrent hydro
Subjective
-
pt today feels great after gi endo procedure yesterday
no nausea or pain
mild urgency
cr has been normal
Objective
-
Vital Signs
Temp Pulse Resp BP Pulse Ox
97.9 F 76 16 115/63 94
08/31/24 23:00 08/31/24 23:00 08/31/24 23:00 08/31/24 23:00 08/31/24 23:00
Intake and Output
08/31/24 09/01/24 09/02/24
06:59 06:59 06:59
Intake Total 960 / 960
Balance 960 / 960
Intake:
Oral fluids 960 / 960
Other:
Number of approximated SMALL 2
amounts of urine
Number of approximated MODERATE 3 5
amounts of urine
Number of approximated LARGE 1
amounts of urine
How many times incontinent 1 2
MODERATE amount urine
How many times incontinent 1 1
SATURATED amount urine
Laboratory Results
09/01/24 06:34
Review of Systems
-
Constitutional: Fatigue
Respiratory: No Symptoms
Cardiac: No Symptoms
Abdomen/GI: No Symptoms
: Frequency
Physical Exam
-
General - no acute distress
Abdomen - soft, non-tender
[2024-09-01 07:20] LABS: ALT (SGPT) 44 U/L (0-35); AST (SGOT) 35 U/L (14-36); Albumin 2.2 g/dl (3.5-5.0); Alkaline Phosphatase 635 U/L (38-126); Blood Urea Nitrogen 7 mg/dl (7-17); Calcium 7.8 mg/dl (8.4-10.2); Carbon Dioxide 23 mmol/L (22-30); Chloride 105 mmol/L (98-107); Estimated Creatinine Clearance 78 ml/min; Glucose 93 mg/dl (70-99); Magnesium 1.8 mg/dl (1.6-2.3); Phosphorus 3.4 mg/dl (2.5-4.5); Potassium 4.5 mmol/L (3.5-5.1); Sodium 134 mmol/L (135-145); Total Bilirubin 0.7 mg/dl (0.2-1.3); Total Protein 5.1 g/dl (6.3-8.2); eGFR > 60.00
[2024-09-01 07:21] VITALS: BP 109/61
[2024-09-01] MEDS: PROTONIX 40 MG PO (08:57)
[2024-09-01] MEDS: NORVASC PO ×2 (08:58→10:33)
[2024-09-01] MEDS: LASIX 40 MG PO (08:58)
[2024-09-01] MEDS: SENOKOT-S PO ×3 (08:58→21:27)
[2024-09-01] MEDS: KLOR-CON 20 MEQ PO (08:58)
[2024-09-01] MEDS: HYDROPHOR 1 APPLIC TOPICAL (09:00)
[2024-09-01] MEDS: MIRALAX PO (09:00)
--- NOTE | 2024-09-01 09:07 | W.PN.ONC2 ---
Today's Communication / Plan
-
.
Impression
Impression
Ovarian/primary peritoneal cancer, currently on palliative gemcitabine
Mechanical falls
Acute pancreatitis, lipase 4000
Acute hyperbilirubinemia -CB 8.8mm w numerous filling deficits c/w choledocholithiasis, ERCP 08/26 unsuccessful. Repeat ERCP with removal of stones and s/p plastic biliary stent within cystic duct 08/31
Moderate bilateral hydronephrosis
RLE cellulitis
Left pleural effusion, s/p thora 08/24, PAX8 ICH stains suspicious for involvement of known ovarian ca
Plan
Plan
Choledocholithiasis, possible cholecytstitis/acute pancreatitis management per GI
Pt may resume gemcitabine, acute presentation unrelated
Subjective/Objective
Subjective
no new complaints
feels good with good appetite
Vital Signs:
Vital Signs
Temp Pulse Resp BP Pulse Ox
97.4 F 80 16 109/61 97
09/01/24 07:21 09/01/24 07:21 09/01/24 07:21 09/01/24 07:21 09/01/24 07:21
Lab Results:
Laboratory Data
WBC 8.2 10^3/uL (4.8-10.8) 09/01/24 06:34
Hgb 10.3 g/dL (12.0-16.0) L 09/01/24 06:34
Plt Count 434 10^3/uL (130-400) H 09/01/24 06:34
PT 16.8 Sec (11.4-14.6) H 08/25/24 08:13
INR 1.34 08/25/24 08:13
APTT 33.4 Sec (23.4-35.0) 08/25/24 08:13
eGFR > 60.00 09/01/24 06:34
Physical Exam
HEENT: Moist Mucous Membranes; No Jaundice
Cardiology: Normal Sinus Rhythm, S1 and S2
Pulmonary: Clear; No Wheezes
GI: Soft; No Distended
Neuro: Non Focal
--- NOTE | 2024-09-01 09:30 | PTCARENOTE ---
Diet upgrade to low-fat by this RN per MD order.
--- NOTE | 2024-09-01 09:41 | W.PN.HOSP.TC ---
Today's Communication/Plan
-
Placement pending
Antibiotics completed
Doing much better
Tolerating low fat diet
No cholecystectomy at this time
Assessment / Plan
Assessment / Plan
Physical Exam
General: Not in acute distress
HEENT: Normocephalic, Moist mucous membranes, Atraumatic
Respiratory: Clear to Auscultation Bilaterally, stable respiratory status on room air
Cardiac: S1/S2 and Regular Rhythm
GI: Soft, Distended, mild tenderness, Bowel Sounds present
Musculoskeletal: No Cyanosis
Skin: Warm. Dry.
Neuro: AOx3 conversant coherent. Strength 5/5 in the bilateral upper extremities. Strength 3/5 LLE 4/5 RLE
Psych: Calm and Intact Judgment/Insight
Assessment/Plan
78F ext pmhx including primary peritoneal carcinoma, metastatic ovarian cancer, chronic right malignant pleural effusions, recurrent lower extremity cellulitis, HFpEF, hypertension, GERD, recent admission for anaphylaxis secondary to doxorubicin
infusion, presented for evaluation recurrent falls, weakness, syncope, urge incontinence.
Found to have acute pancreatitis 2/2 choledocholithiasis and recurrence RLE cellulitis. Improved with bowel rest, IVF, and abx as per Infectious disease. Surgery consulted with plans for cholecystectomy pending ERCP as per GI. Unfortunately
initial ERCP attempt failed. 2nd attempt pending.
#Weakness (Bilateral upper and lower extremity weakness with urinary incontinence concerning for new myelopathy with possible mets/cord compression (less likely)) -- likely Multifactorial with malignancy, gemcitabine use, pancreatitis,
cholelithiasis, choledocholithiasis,
#Recent Frequent Falls
#Urinary Incontinence associated with the weakness
- Monitor on telemetry
- MRI brain no acute abn's
- MRI cervical spine appreciated no acute abn's, chronic degenerative changes noted
- u/a unremarkable
- Monitor bladder scans for urinary retention
- PT eval appreciated SNF rehab
-Neurosurgery eval appreciated no surgical intervention indicated at this time
#Syncope on 08/20/24
- monitor Orthostatics
- Recent echo in June 2024 was unremarkable, ECHO 08/21 noted no significant change from prior study
- no new episodes syncope or significant arrhythmia noted, telemonitoring completed
#Nausea/Vomiting on 08/22/24 morning- since resolved
#Acute Pancreatitis (very high lipase+CT showed acute pancreatitis) -- likely secondary to gallstones, no alcohol intake
#Cholelithiasis
#Mild intrahepatic biliary ductal dilation on CT
#Mild Transaminitis
#Dilated biliary ducts on ERCP
#Small fragments of choledocholithiasis on ERCP -- removal accomplished by biliary sphincterotomy and balloon extraction on 08/31/24, along with sweeping of biliary tree performed
#Status post plastic stent was placed into the cystic duct during ERCP on 08/31/24
-AXR done on 08/22/24 with nonobstructive bowel gas pattern and moderate colonic stool burden
-CT of Abdomen/Pelvis with PO and IV contrast findings above with acute pancreatitis vs cholecystitis
-RUQ u/s: Gallbladder with stones and 'wall echo sign'. Negative sonographic Mackay's sign. Mildly enlarged common bile duct and findings suggesting some intrahepatic biliary tract dilatation.
-MRI/MRCP appreciated choledocholithiasis and likely pancreatitis vs cholecystitis (less likely)
-Lipase since trended down <1000, IVF completed, 08/26 trended back up with associate abd pain, IVF restarted, completed with resolution, diet advanced to clear liquid as per GI
-Unasyn course completed as per ID
-Blood cultures NGTD
-GI consult appreciated ERCP was attempted 08/25 but unsuccessful, conservative mgmt recommended for now, status post ERCP (on 08/31/24) with removal of stones and s/p plastic biliary stent within cystic duct
-No plans for cholecystectomy during this admission based on patients goals of care -- surgeon discussed this with patient
-tolerated low fat diet -- continue
-Will need outpatient follow-up with Dr. Davenport
#Constipation
bowel regimen
suppository prn
#Cellulitis - new RLE cellulitis. Prior admission to with LLE cellulitis improved with ANCEF.
- NOW RESOLVED
- Ancef changed to Unasyn on 08/23/24 given new cholecystitis -- and now Unasyn course has been completed
- elevate legs
- ID consult appreciated
- No DVT on lower extremity ultrasound
- Wound care
#Bilateral Lower Extremity Edema
-Suspected from low albumin; no DVT on lower extremity ultrasound
-Repeat ECHO noted no significant change as above
#Severe Spinal Canal Stenosis on L-Spine MRI
#Disc herniations at multiple levels of the spine
-Neurosurgery eval appreciated surgical intervention not indicated
-Continue physical therapy
#Large amount of edema in the right psoas muscle and in the iliacus muscles on L-Spine MRI
-suspect posttraumatic from fall
#Moderate diffuse interstitial disease in the lungs on T-Spine MRI
#Moderate-sized left pleural effusion with an adjacent large left lower lobe basilar airspace consolidation, on T-Spine MRI
#Small Right Pleural Effusion on T-Spine MRI
#Recent History of Malignant Pleural Effusions
-IR eval appreciated s/p Left thoracentesis 550 cc pleural studies noted likely recurrence malignant pleural effusion
-weaned off oxygen supplementation, stable respiratory status on room air
#Chronic HFpEF
- Known diastolic CHF on lasix 40 and 60 alternating days, diuresis held for IVF given for pancreatitis, since then resumed Lasix 40 mg PO daily
- Monitor on telemetry
- BNP unremarkable for age @ 89
- Daily weights
- I's and O's
#Hypomagnesemia
#Hypokalemia
monitor and replete as necessary
scheduled potassium started tapered to 20 MeQ daily w/ consistent improvement in K levels
#Metastatic Ovarian Cancer
#Ovarian cancer status post hysterectomy and bilateral oophorectomy
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
#History of malignant pleural effusion
#Suspected anaphylactic reaction to Doxil 06/25/24
-follows with [place], currently receiving chemotherapy
-On Gemzar (gemcitabine) palliative treatment with Dr. Chin -- patient can resume this as per oncology
-Oncology eval appreciated
#New Moderate Left Hydroureteronephrosis suggesting distal left ureteral obstruction on L-Spine MRI
#On L-Spine MRI: 1.8 cm mass in the upper pole of the left kidney. Diagnostic possibilities are (1) a complex cyst or (2) less likely renal cell carcinoma
#On CT A/P: Malrotation of the kidneys. Mild right hydronephrosis, likely related to mass effect on the proximal ureter from adjacent peripancreatic inflammatory
change
#recent Abd MRI noted Moderate bilateral hydronephrosis
Urology eval appreciated
-Progression of her disease will eventually necessitate replacement of nephrostomy tubes - she wants to avoid this as long as possible. Outpt follow up recommended
-Consider intervention if R flank pain episodes persist after addressing gallbladder/gallstones -- but patient doing okay, no intervention planned at this time
#Hypertension
-Continue Amlodipine
#GERD
-Continue Pantoprazole
PT/OT appreciated SNF rehab
DVT Prophylaxis: Lovenox subq
Code Status: Full code
Anticipated Discharge: 24 - 48 hours
Subjective/Interval History
-
Date of Service: September 01, 2024
Patient was seen and examined. She denied any nausea, vomiting, abdominal pain or any other symptoms or complaints.
Objective Data
-
Labs:
Laboratory Results
09/01/24
06:34
WBC 8.2
Hgb 10.3 L
Hct 31.1 L
Plt Count 434 H
Sodium 134 L
Potassium 4.5
Chloride 105
Carbon Dioxide 23
BUN 7
Creatinine 0.5 L
Glucose 93
Calcium 7.8 L
Total Bilirubin 0.7
AST 35
ALT 44 H
Alkaline Phosphatase 635 H
Vital Signs:
Vital Signs
Temp Pulse Resp BP Pulse Ox
97.4 F 80 16 109/61 97
09/01/24 07:21 09/01/24 08:58 09/01/24 07:21 09/01/24 08:58 09/01/24 07:21
I&O
08/31/24 09/01/24 09/02/24
06:59 06:59 06:59
Intake Total 960 / 960
Balance 960 / 960
--- NOTE | 2024-09-01 10:05 | PN.CDI ---
CDI
- -
CDI:
Physician Documentation Request
Admit Date: 08/20/24 20:31
Dear Doctor Shmuel,
Patient presented to the emergency room for generalized weakness. She reported and episode of fainting prior to arrival.
Patient has history of Ovarian/primary peritoneal cancer (per oncology note)
H&P included diagnoses of transaminitis, RLE cellulitis, HFpEF (attending noted this to be in mild exacerbation with elevated BNP and bilateral LE swelling). Attending update note 'Weakness - Bilateral upper and lower extremity weakness with
incontinence concerning for new myelopathy with possible mets/cord compression vs cellulitis'
Neurosurgery note on 08/22 states 'From a neurosurgical standpoint, it appears that lumbar spondylotic changes/stenosis are likely incidental in nature, chronic findings, and not the cause of the patient's immediate/acute onset of bilateral upper
extremity, and lower extremity weakness'
08/20 Abdominal US showed 'Mildly enlarged common bile duct and findings suggesting some intrahepatic biliary tract dilatation. Consider MRI/MRCP for more complete evaluation.'
08/22 Lipase > 4000
08/23 hospitalist progress note states 'Acute Pancreatitis (very high lipase+CT showed acute pancreatitis) -- suspected secondary to gallstone'
08/24 Patient underwent thoracentesis yielding 550 cc of clear yellow pleural fluid.
08/28 hospitalist progress note states 'likely recurrence of malignant effusion'
09/01 GI note states 'Acute pancreatitis with gallstone related with numerous filling defects on MRCP, edema...Choledocholithiasis/Cholelithiasis....08/31: Choledocholithiasis was found managed with biliary sphincterotomy and balloon extraction,
multiple filling defects in cyst duct and gallbladder, one plastic (7 Fr x 7 cm) plastic biliary stent was placed into the cystic duct'
After study, what is the etiology of the patient's presenting weakness.
Malignant pleural effusion
Gallstone pancreatitis
Acute on chronic HFpEF
Cellulitis
Multifactorial - please specify contributing diagnosis/diagnoses.
Other
Use of terms such as suspected, likely, concern for, or probable (associated with a specific diagnosis that is being evaluated, monitored, or treated as if it exists) are acceptable and can be coded in the inpatient setting, when documented at the
time of discharge.
Thank you,
Aracely Lam RN, BSN
CDI Specialist
tiger text
Please use your independent medical judgment in providing your response.
--- NOTE | 2024-09-01 10:40 | W.PN.GS2 ---
Today's Communication / Plan
-
-- No plans for cholecystectomy during this admission based on patients goals of care
-- Low fat diet
-- OK for DC from surgical perspective
-- Outpatient follow-up per patient and Oncologist
Assessment / Plan
-
This is an 78-year-old female with a history of ovarian cancer status post FERNIE/BSO, primary peritoneal carcinomatosis currently on chemotherapy who presents with gallstone pancreatitis confirmed on MRI imaging.
AVSS
Labs reviewed with normal WBC, stable anemia, thrombocytosis, down trending LFTs and ALPs
Lengthy discussion had with the patient regarding her options for management. Recovered well from episode of gallstone pancreatitis and choledocholithiasis s/p ERCP with sphincterotomy and stent placement. No clinical signs of cholecystitis either
previously or during this admission. Patency of her cystic duct is confirmed on her ERCP which demonstrates retrograde flow through her cystic duct and into her gallbladder. She does have multiple stones within her gallbladder. The natural
history and pathophysiology of biliary and stone disease was discussed. Anatomy was reviewed workup and management was reviewed. Options for management including cholecystectomy during this admission versus outpatient versus medical and expectant
management were considered and discussed. The pros and cons of all approaches was discussed. Specifically, we discussed risks of surgery including increased infectious complications, wound healing issues, potential injury to surrounding
structures, as well as the potential for the inability tor perform her operation pending the degree of her peritoneal disease. We also discussed the potential for future episodes of cholecystitis, choledocholithiasis, or gallstone pancreatitis.
Decision making is impacted by her cancer diagnosis and known peritoneal carcinomatosis. At this point in time, Mrs. Blue would like to hold on any surgical intervention. Offered outpatient follow-up if she changes her mind. Questions
answered. Primary team and Oncologist updated.
-- No plans for cholecystectomy during this admission based on patients goals of care
-- Low fat diet
-- OK for DC from surgical perspective
-- Outpatient follow-up per patient and Oncologist
Subjective Data
-
Date of Service: September 01, 2024
No pain or discomfort. No nausea or vomiting. Afebrile. Tolerate breakfast. Denies any prior attacks of RUQ or epigastric abdominal pain.
Objective Data
-
Intake and Output
08/31/24 09/01/24 09/02/24
06:59 06:59 06:59
Intake Total 960 / 960
Balance 960 / 960
Intake:
Oral fluids 960 / 960
Other:
Number of approximated SMALL 2
amounts of urine
Number of approximated MODERATE 3 5
amounts of urine
Number of approximated LARGE 1 1
amounts of urine
How many times incontinent 1 2
MODERATE amount urine
How many times incontinent 1 1 2
SATURATED amount urine
Vital Signs
Temp Pulse Resp BP Pulse Ox
97.4 F 86 16 107/52 97
09/01/24 07:21 09/01/24 10:33 09/01/24 07:21 09/01/24 10:33 09/01/24 07:21
Lab Results
09/01/24 06:34
09/01/24 06:34
Calcium 7.8 mg/dl (8.4-10.2) L 09/01/24 06:34
Phosphorus 3.4 mg/dl (2.5-4.5) 09/01/24 06:34
Magnesium 1.8 mg/dl (1.6-2.3) 09/01/24 06:34
Total Bilirubin 0.7 mg/dl (0.2-1.3) 09/01/24 06:34
Direct Bilirubin 1.6 mg/dl (0.0-0.4) H 08/23/24 08:58
AST 35 U/L (14-36) 09/01/24 06:34
ALT 44 U/L (0-35) H 09/01/24 06:34
Alkaline Phosphatase 635 U/L (38-126) H 09/01/24 06:34
Total Protein 5.1 g/dl (6.3-8.2) L 09/01/24 06:34
Albumin 2.2 g/dl (3.5-5.0) L 09/01/24 06:34
Physical Exam
-
Gen: NAD
Abd: soft, NT/ND, non-peritoneal, negative Mackay's sign
Patient has a bell catheter: No
Patient has a central line: No
--- NOTE | 2024-09-01 12:27 | W.PN.ID1 ---
Date of Service
Date of Service: September 01, 2024
Today's Communication
DC Unasyn.
ID will sign off.
Assessment / Plan
# Choledocholithiasis
# Gallstone pancreatitis
# Leukocytosis -resolved
-MRI abd with mildly dilated CBD and multiple filling defects.
- 08/31 s/p ERCP stent placement.
- DC further Unasyn
# Acute RLE cellulitis
- resolved
- Vasc US: no DVT
- Elevate LE/Compression
- Finished abx.
# Ovarian cancer/Peritoneal carcinomatosis with progression on chemo
# Bilateral malignant pleural effusion
- 08/24 s/p left thoracentesis 500 cc, cx neg , cytology suspicious for malignancy
# Constipation
- Resolved
# Conditions [employer]
Primary peritoneal carcinomatosis, R malignant pleural effusions, with progression, currently on chemo
Ovarian cancer status post FERNIE, BSO
Hypertension
Heart failure with preserved EF
Bilateral lower extremity edema
Bilateral total hip replacement
Right total knee replacement
Chief Complaint
-: Cellulitis
Subjective / Review of Systems
Feels well today.
Vital Signs / Physical Exam
Vital Signs
Vital Signs
Temp Pulse Resp BP Pulse Ox
97.4 F 86 16 107/52 97
09/01/24 07:21 09/01/24 10:33 09/01/24 07:21 09/01/24 10:33 09/01/24 07:21
Physical Exam
Constitutional: No Acute Distress
Pulmonary: Other (Decreased BS at bases)
Gastrointestinal: Soft, Non Tender, Non Distended and Normal Bowel Sounds
Extremities: Edema (BLE improving); Negative Erythema
Neurological: AO x 3
Objective Data
Lab Data
Lab Results
09/01/24 06:34
09/01/24 06:34
PT 16.8 Sec (11.4-14.6) H 08/25/24 08:13
INR 1.34 08/25/24 08:13
APTT 33.4 Sec (23.4-35.0) 08/25/24 08:13
Estimated Creat Clear 78 ml/min 09/01/24 06:34
Total Bilirubin 0.7 mg/dl (0.2-1.3) 09/01/24 06:34
AST 35 U/L (14-36) 09/01/24 06:34
ALT 44 U/L (0-35) H 09/01/24 06:34
Alkaline Phosphatase 635 U/L (38-126) H 09/01/24 06:34
Amylase 3013 U/L (30-110) H* 08/22/24 20:11
Most recent labs reviewed.
Micro Results:
08/23/24 11:45 Blood Culture - Final
Blood/Venous No Growth - Final Report
08/23/24 10:32 Blood Culture - Final
Blood/Venous No Growth - Final Report
08/24/24 15:00 Body Fluid Culture - Final
Pleural Fluid No Growth After 72 Hours
Gram Stain - Final
08/20/24 20:07 MRSA Screen - Final
Nose No Methicillin Resistant Staphylococcus aureus isolated.
08/20/24 15:57 Influenza Types A & B (LOU) - Final
Nasal Swab Negative for Influenza A & B, NAAT
Negative results must be combined with clinical observations
and patient history.
Nucleic Acid Amplification test (NAAT)performed on the
[employer] platform.
Imaging:
08/23/24 abdominal ultrasound: Common bile duct is mildly dilated with numerous filling defects consistent with choledocholithiasis. Findings of acute pancreatitis without evidence of Michael pancreatic collection. Edema throughout the right upper
quadrant. There is pericholecystic fluid which may be secondary to pancreatitis but cholecystitis cannot be excluded. Please see full dictation for additional detail.
08/20/24 ABD US: Gallbladder with stones and 'wall echo sign'. Negative sonographic Mackay's sign. Mildly enlarged common bile duct and findings suggesting some intrahepatic biliary tract dilatation. Consider MRI/MRCP for more complete evaluation.
[2024-09-01 15:21] VITALS: BP 105/65
--- NOTE | 2024-09-01 15:59 | W.PN.UPDATE ---
Update Note
Progress Note Update
s/p surgical follow up noted. Message sent to office to arrange 4 month follow up
--- NOTE | 2024-09-01 16:33 | CM ---
PT OT evaluation indicate SNF.
Spoke with pt and dgt Grace and they picked [facility] .
Sherrellyves Lee said bed availability tomorrow.
Will need auth .
Pt may need wc van Dgt notified on wc van cost.
PLAN To [facility] SNf after auth
[2024-09-01] MEDS: LOVENOX 40 MG SC (17:17)
[2024-09-01 23:00] VITALS: BP 99/44
--- NOTE | 2024-09-01 23:33 | PTCARENOTE ---
Oral care was not performed on patient because they stated that it was their preference to brush their teeth in the morning.
[2024-09-02 00:17] VITALS: BP 123/69
[2024-09-02 06:00] VITALS: BMI 33.9
[2024-09-02 06:45] LABS: Hematocrit 29.5 % (37.0-47.0); Hemoglobin 9.7 g/dL (12.0-16.0); Mean Corp Hgb Conc. 32.9 g/dL (33.0-37.0); Mean Corpuscular Hgb 30.9 pg (27.0-31.0); Mean Corpuscular Volume 93.9 fL (81.0-99.0); Mean Platelet Volume 9.5 fL (7.4-10.4); Platelet Count 394 10^3/uL (130-400); Red Blood Cell Count 3.14 10^6/uL (4.20-5.40); Red Cell Dist. Width 24.5 % (11.5-14.5); White Blood Cell Count 7.3 10^3/uL (4.8-10.8)
[2024-09-02 06:55] LABS: ALT (SGPT) 34 U/L (0-35); AST (SGOT) 27 U/L (14-36); Albumin 2.3 g/dl (3.5-5.0); Alkaline Phosphatase 496 U/L (38-126); Blood Urea Nitrogen 14 mg/dl (7-17); Calcium 8.2 mg/dl (8.4-10.2); Carbon Dioxide 24 mmol/L (22-30); Chloride 105 mmol/L (98-107); Estimated Creatinine Clearance 78 ml/min; Glucose 89 mg/dl (70-99); Magnesium 1.6 mg/dl (1.6-2.3); Potassium 4.1 mmol/L (3.5-5.1); Sodium 135 mmol/L (135-145); Total Bilirubin 0.6 mg/dl (0.2-1.3); Total Protein 5.1 g/dl (6.3-8.2); eGFR > 60.00
[2024-09-02 07:05] VITALS: BP 142/80
--- NOTE | 2024-09-02 07:32 | W.PN.ONC2 ---
Today's Communication / Plan
-
As mentioned above in the plan, consult hospice.
End-of-life goals of care conversation lasting 30 minutes.
Impression
Impression
Ovarian/primary peritoneal cancer, currently on palliative gemcitabine
Mechanical falls
Acute pancreatitis, lipase 4000
Acute hyperbilirubinemia -CB 8.8mm w numerous filling deficits c/w choledocholithiasis, ERCP 08/26 unsuccessful. Repeat ERCP with removal of stones and s/p plastic biliary stent within cystic duct 08/31
Moderate bilateral hydronephrosis
RLE cellulitis
Left pleural effusion, s/p thora 08/24, PAX8 ICH stains suspicious for involvement of known ovarian ca
Plan
Plan
Patient with multiple hospitalizations over the past few months mostly related to underlying incurable malignancy.
She has been optimized medically.
I took the opportunity to have a goals of care conversation with her this morning lasting close to 30 minutes about how her quality life will likely continue to deteriorate in light of her being on salvage single agent chemotherapy.
Discussed other options such as palliative care alone with home hospice and she seems very interested in moving that direction.
She does not wish aggressive therapy such as surgery and she understands that chemotherapy potentially make cause more potential complications than benefit.
She wants to learn more regarding hospice care and is thinking she may transition to home hospice postdischarge.
She is otherwise stable for discharge home today.
Subjective/Objective
Chief Complaint
ACS Heme Onc
Subjective
Patient is feeling improved but still tired. She had conversations with surgery for bilateral hydronephrosis as well as with general surgery. At this point, both she and the surgeons are holding off on any plans for upcoming surgery.
Vital Signs:
Vital Signs
Temp Pulse Resp BP Pulse Ox
98.2 F 74 14 123/69 94
09/01/24 23:00 09/02/24 00:17 09/01/24 23:00 09/02/24 00:17 09/01/24 23:00
Lab Results:
Laboratory Data
WBC 7.3 10^3/uL (4.8-10.8) 09/02/24 06:12
Hgb 9.7 g/dL (12.0-16.0) L 09/02/24 06:12
Plt Count 394 10^3/uL (130-400) 09/02/24 06:12
PT 16.8 Sec (11.4-14.6) H 08/25/24 08:13
INR 1.34 08/25/24 08:13
APTT 33.4 Sec (23.4-35.0) 08/25/24 08:13
eGFR > 60.00 09/02/24 06:12
Physical Exam
HEENT: No Jaundice
Cardiology: S1 and S2
Pulmonary: Clear
GI: Soft
Orders
Orders
Orders From Last 24 Hours
09/02/24 07:30
Case Management Consult ONCE
[2024-09-02] MEDS: LASIX 40 MG PO (07:52)
[2024-09-02] MEDS: PROTONIX 40 MG PO (07:52)
[2024-09-02] MEDS: SENOKOT-S 1 TABLET PO (07:52)
[2024-09-02] MEDS: NORVASC 10 MG PO (07:52)
[2024-09-02] MEDS: KLOR-CON 20 MEQ PO (07:53)
[2024-09-02] MEDS: MIRALAX 17 GRAMS PO (07:53)
[2024-09-02] MEDS: HYDROPHOR 1 APPLIC TOPICAL (07:54)
--- NOTE | 2024-09-02 08:28 | W.PN.URO.CBU ---
Today's Communication / Plan
-
pt should call to make outpt f/u with dr tobin after discharge
Assessment / Plan
-
malig obstruction of ureters
recurrent bilateral hydro normal renal function
pt's clinically improved after gi procedure
reviewed with dr muniz yesterday
no acute need for gu intervention
depending on goals of care- will follow as outpt and make rec's going forward
Diagnosis
-
Date of Service: September 02, 2024
-
Patient Diagnosis:
hx of malig obstruction of ureters
recurrent hydro
Subjective
-
pt feels good
cr stable
Objective
-
Vital Signs
Temp Pulse Resp BP Pulse Ox
98.0 F 83 18 142/80 98
09/02/24 07:05 09/02/24 07:05 09/02/24 07:05 09/02/24 07:05 09/02/24 07:05
Intake and Output
09/01/24 09/02/24 09/03/24
06:59 06:59 06:59
Intake Total 600 / 600 720 / 720
Balance 600 / 600 720 / 720
Intake:
Oral fluids 600 / 600 720 / 720
Other:
Number of approximated MODERATE 5
amounts of urine
Number of approximated LARGE 3 2
amounts of urine
How many times incontinent 1
SMALL amount urine
How many times incontinent 2 1
MODERATE amount urine
How many times incontinent 1 2
SATURATED amount urine
Laboratory Results
09/02/24 06:12
09/02/24 06:12
Physical Exam
-
General -no acute distress
[2024-09-02 11:58] VITALS: BP 117/54; PULSE 100; PULSE 83; O2SAT 96
[2024-09-02 13:35] VITALS: BP 114/69; PULSE 80; O2SAT 96
[2024-09-02 15:05] VITALS: BP 114/68
--- NOTE | 2024-09-02 16:31 | CM ---
Requested PT OT evaluation for auth for SNF.
Spoke with pt and dgt Grace and they picked [facility] .
[facility]rell Ama [facility] said bed availability today.
Called [facility] [phone] spoke with Sarahi Poe pending ref # [id number] . Ref call # [id number] . Clinical faxed to [phone].
Pt may need wc van Dgt notified on wc van cost and given phone number to pay for wc van.
[facility]
report [phone]
fax [phone]
PLAN To [facility] SN[facility] after auth
[2024-09-02] MEDS: LOVENOX 40 MG SC (17:15)
--- NOTE | 2024-09-02 17:15 | W.PN.HOSP.TC ---
Today's Communication/Plan
-
Patient would like to go to SNF, although open to hospice as discussed with Dr. Chin
SNF placement pending
Assessment / Plan
Assessment / Plan
Physical Exam
General: Not in acute distress
HEENT: Normocephalic, Moist mucous membranes, Atraumatic
Respiratory: Clear to Auscultation Bilaterally, stable respiratory status on room air
Cardiac: S1/S2 and Regular Rhythm
GI: Soft, Distended, mild tenderness, Bowel Sounds present
Musculoskeletal: No Cyanosis
Skin: Warm. Dry.
Neuro: AOx3 conversant coherent. Strength 5/5 in the bilateral upper extremities. Strength 3/5 LLE 4/5 RLE
Psych: Calm and Intact Judgment/Insight
Assessment/Plan
78F ext pmhx including primary peritoneal carcinoma, metastatic ovarian cancer, chronic right malignant pleural effusions, recurrent lower extremity cellulitis, HFpEF, hypertension, GERD, recent admission for anaphylaxis secondary to doxorubicin
infusion, presented for evaluation recurrent falls, weakness, syncope, urge incontinence.
Found to have acute pancreatitis 2/2 choledocholithiasis and recurrence RLE cellulitis. Improved with bowel rest, IVF, and abx as per Infectious disease. Surgery consulted with plans for cholecystectomy pending ERCP as per GI. Unfortunately
initial ERCP attempt failed. 2nd attempt pending.
#Weakness (Bilateral upper and lower extremity weakness with urinary incontinence concerning for new myelopathy with possible mets/cord compression (less likely)) -- likely Multifactorial with malignancy, gemcitabine use, pancreatitis,
cholelithiasis, choledocholithiasis,
#Recent Frequent Falls
#Urinary Incontinence associated with the weakness
- Monitor on telemetry
- MRI brain no acute abn's
- MRI cervical spine appreciated no acute abn's, chronic degenerative changes noted
- u/a unremarkable
- Monitor bladder scans for urinary retention
- PT eval appreciated SNF rehab
- Neurosurgery eval appreciated no surgical intervention indicated at this time
#Syncope on 08/20/24
- monitor Orthostatics
- Recent echo in June 2024 was unremarkable, ECHO 08/21 noted no significant change from prior study
- no new episodes syncope or significant arrhythmia noted, telemonitoring completed
#Nausea/Vomiting on 08/22/24 morning- since resolved
#Acute Pancreatitis (very high lipase+CT showed acute pancreatitis) -- likely secondary to gallstones, no alcohol intake
#Cholelithiasis
#Mild intrahepatic biliary ductal dilation on CT
#Mild Transaminitis
#Dilated biliary ducts on ERCP
#Small fragments of choledocholithiasis on ERCP -- removal accomplished by biliary sphincterotomy and balloon extraction on 08/31/24, along with sweeping of biliary tree performed
#Status post plastic stent was placed into the cystic duct during ERCP on 08/31/24
-AXR done on 08/22/24 with nonobstructive bowel gas pattern and moderate colonic stool burden
-CT of Abdomen/Pelvis with PO and IV contrast findings above with acute pancreatitis vs cholecystitis
-RUQ u/s: Gallbladder with stones and 'wall echo sign'. Negative sonographic Mackay's sign. Mildly enlarged common bile duct and findings suggesting some intrahepatic biliary tract dilatation.
-MRI/MRCP appreciated choledocholithiasis and likely pancreatitis vs cholecystitis (less likely)
-Lipase since trended down <1000, IVF completed, 08/26 trended back up with associate abd pain, IVF restarted, completed with resolution, diet advanced to clear liquid as per GI
-Unasyn course completed as per ID
-Blood cultures NGTD
-GI consult appreciated ERCP was attempted 08/25 but unsuccessful, conservative mgmt recommended for now, status post ERCP (on 08/31/24) with removal of stones and s/p plastic biliary stent within cystic duct
-No plans for cholecystectomy during this admission based on patients goals of care -- surgeon discussed this with patient
-tolerated low fat diet -- continue
-Will need outpatient follow-up with Dr. Davenport
#Constipation
bowel regimen
suppository prn
#Cellulitis - new RLE cellulitis. Prior admission to with LLE cellulitis improved with ANCEF.
- NOW RESOLVED
- Ancef changed to Unasyn on 08/23/24 given new cholecystitis -- and now Unasyn course has been completed
- elevate legs
- ID consult appreciated
- No DVT on lower extremity ultrasound
- Wound care
#Bilateral Lower Extremity Edema
-Suspected from low albumin; no DVT on lower extremity ultrasound
-Repeat ECHO noted no significant change as above
#Severe Spinal Canal Stenosis on L-Spine MRI
#Disc herniations at multiple levels of the spine
-Neurosurgery eval appreciated surgical intervention not indicated
-Continue physical therapy
#Large amount of edema in the right psoas muscle and in the iliacus muscles on L-Spine MRI
-suspect posttraumatic from fall
#Moderate diffuse interstitial disease in the lungs on T-Spine MRI
#Moderate-sized left pleural effusion with an adjacent large left lower lobe basilar airspace consolidation, on T-Spine MRI
#Small Right Pleural Effusion on T-Spine MRI
#Recent History of Malignant Pleural Effusions
-IR eval appreciated s/p Left thoracentesis 550 cc pleural studies noted likely recurrence malignant pleural effusion
-weaned off oxygen supplementation, stable respiratory status on room air
#Chronic HFpEF
- Known diastolic CHF on lasix 40 and 60 alternating days, diuresis held for IVF given for pancreatitis, since then resumed Lasix 40 mg PO daily
- Monitor on telemetry
- BNP unremarkable for age @ 89
- Daily weights
- I's and O's
#Hypomagnesemia
#Hypokalemia
monitor and replete as necessary
scheduled potassium started tapered to 20 MeQ daily w/ consistent improvement in K levels
#Metastatic Ovarian Cancer
#Ovarian cancer status post hysterectomy and bilateral oophorectomy
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
#History of malignant pleural effusion
#Suspected anaphylactic reaction to Doxil 06/25/24
-follows with [place], currently receiving chemotherapy
-On Gemzar (gemcitabine) palliative treatment with Dr. Chin -- patient can resume this as per oncology
-Oncology eval appreciated
-Dr. Chin spoke with patient about hospice on 09/02/24, but patient interested in going to SNF
#New Moderate Left Hydroureteronephrosis suggesting distal left ureteral obstruction on L-Spine MRI
#On L-Spine MRI: 1.8 cm mass in the upper pole of the left kidney. Diagnostic possibilities are (1) a complex cyst or (2) less likely renal cell carcinoma
#On CT A/P: Malrotation of the kidneys. Mild right hydronephrosis, likely related to mass effect on the proximal ureter from adjacent peripancreatic inflammatory
change
#recent Abd MRI noted Moderate bilateral hydronephrosis
Urology eval appreciated
-Progression of her disease will eventually necessitate replacement of nephrostomy tubes - she wants to avoid this as long as possible. Outpt follow up recommended
-Consider intervention if R flank pain episodes persist after addressing gallbladder/gallstones -- but patient doing okay, no intervention planned at this time
-Follow-up with Dr. Newell after discharge
#Hypertension
-Continue Amlodipine
#GERD
-Continue Pantoprazole
PT/OT appreciated SNF rehab
DVT Prophylaxis: Lovenox subq
Code Status: Full code
Anticipated Discharge: 24 - 48 hours
Subjective/Interval History
-
Date of Service: September 02, 2024
Patient was seen and examined. She denied any symptoms or complaints. She is tolerating her diet well.
Objective Data
-
Labs:
Laboratory Results
09/02/24
06:12
WBC 7.3
Hgb 9.7 L
Hct 29.5 L
Plt Count 394
Sodium 135
Potassium 4.1
Chloride 105
Carbon Dioxide 24
BUN 14
Creatinine 0.6
Glucose 89
Calcium 8.2 L
Total Bilirubin 0.6
AST 27
ALT 34
Alkaline Phosphatase 496 H
Vital Signs:
Vital Signs
Temp Pulse Resp BP Pulse Ox
98.3 F 79 18 114/68 96
09/02/24 15:05 09/02/24 15:05 09/02/24 15:05 09/02/24 15:05 09/02/24 15:05
I&O
09/01/24 09/02/24 09/03/24
06:59 06:59 06:59
Intake Total 600 / 600 720 / 720
Balance 600 / 600 720 / 720
[2024-09-02] MEDS: SENOKOT-S PO (20:24)
[2024-09-02 23:21] VITALS: BP 116/60
--- NOTE | 2024-09-03 05:34 | DOWNTIME ---
There was a [employer] Downtime on 09/03/2024 from 0200 to 09/04/2023 at 0318 . Downtime documentation of patient's care, including medication administrations, has been reconciled in the electronic record per guidelines. Refer to the
patient's paper chart under the miscellaneous tab to see printed paper medication records and downtime forms.
[2024-09-03 06:00] VITALS: BMI 33.0
[2024-09-03 07:00] VITALS: BP 147/91
[2024-09-03 07:17] LABS: Hematocrit 31.4 % (37.0-47.0); Hemoglobin 10.4 g/dL (12.0-16.0); Mean Corp Hgb Conc. 33.1 g/dL (33.0-37.0); Mean Corpuscular Volume 93.5 fL (81.0-99.0); Mean Platelet Volume 9.9 fL (7.4-10.4); Platelet Count 417 10^3/uL (130-400); Red Blood Cell Count 3.36 10^6/uL (4.20-5.40); Red Cell Dist. Width 24.5 % (11.5-14.5)
[2024-09-03 07:19] LABS: ALT (SGPT) 30 U/L (0-35); AST (SGOT) 26 U/L (14-36); Albumin 2.5 g/dl (3.5-5.0); Alkaline Phosphatase 439 U/L (38-126); Blood Urea Nitrogen 13 mg/dl (7-17); Calcium 8.4 mg/dl (8.4-10.2); Carbon Dioxide 26 mmol/L (22-30); Chloride 104 mmol/L (98-107); Estimated Creatinine Clearance 77 ml/min; Glucose 82 mg/dl (70-99); Magnesium 1.5 mg/dl (1.6-2.3); Potassium 4.4 mmol/L (3.5-5.1); Sodium 135 mmol/L (135-145); Total Bilirubin 0.6 mg/dl (0.2-1.3); Total Protein 5.5 g/dl (6.3-8.2); eGFR > 60.00
[2024-09-03 08:01] VITALS: BP 147/91
[2024-09-03] MEDS: LASIX 40 MG PO (08:19)
[2024-09-03] MEDS: MIRALAX 17 GRAMS PO (08:19)
[2024-09-03] MEDS: PROTONIX 40 MG PO (08:19)
[2024-09-03] MEDS: SENOKOT-S 1 TABLET PO (08:19)
[2024-09-03] MEDS: NORVASC 10 MG PO (08:19)
[2024-09-03] MEDS: KLOR-CON 20 MEQ PO (08:19)
[2024-09-03] MEDS: HYDROPHOR 1 APPLIC TOPICAL (08:25)
--- NOTE | 2024-09-03 09:48 | CM ---
MD indicated pt ready for dc to SNF.
Spoke with pt and dgt Grace she agrees with dc to [facility]. Dgt given acute care number to pay for [facility].
Sherrell Ama Lee said bed availability today.
Spoke with Maci at [facility] [phone] she approved 5 days skilled days from 09/03/24 to 09/08/24 Auth # [id number] [facility] faxed to [phone].Information given to Sherrell Lee.
[facility]
report [phone]
fax [phone]
PLAN To [facility] SN[facility]
[2024-09-03] MEDS: MAGNESIUM SULFATE 50 IV (10:46)
--- NOTE | 2024-09-03 12:31 | W.PN.HOSP.TC ---
Today's Communication/Plan
-
Discharge today
Assessment / Plan
Assessment / Plan
Physical Exam
General: Not in acute distress
HEENT: Normocephalic, Moist mucous membranes, Atraumatic
Respiratory: Clear to Auscultation Bilaterally, stable respiratory status on room air
Cardiac: S1/S2 and Regular Rhythm
GI: Soft, Distended, mild tenderness, Bowel Sounds present
Musculoskeletal: No Cyanosis
Skin: Warm. Dry.
Neuro: AOx3 conversant coherent. Strength 5/5 in the bilateral upper extremities. Strength 4/5 LLE 4/5 RLE
Psych: Calm and Intact Judgment/Insight
Assessment/Plan
78 y/o female ext pmhx including primary peritoneal carcinoma, metastatic ovarian cancer, chronic right malignant pleural effusions, recurrent lower extremity cellulitis, HFpEF, hypertension, GERD, recent admission for anaphylaxis secondary to
doxorubicin infusion, presented for evaluation recurrent falls, weakness, syncope, urge incontinence.
Found to have acute pancreatitis 2/2 choledocholithiasis and recurrence RLE cellulitis. Improved with bowel rest, IVF, and abx as per Infectious disease. Surgery consulted with plans for cholecystectomy pending ERCP as per GI. Unfortunately
initial ERCP attempt failed. 2nd attempt pending.
#Weakness (Bilateral upper and lower extremity weakness with urinary incontinence concerning for new myelopathy with possible mets/cord compression (less likely)) -- likely Multifactorial with malignancy, gemcitabine use, pancreatitis,
cholelithiasis, choledocholithiasis,
#Recent Frequent Falls
#Urinary Incontinence associated with the weakness
- MRI brain no acute abn's
- MRI cervical spine appreciated no acute abn's, chronic degenerative changes noted
- u/a unremarkable
- Monitor bladder scans for urinary retention
- PT eval appreciated SNF rehab
- Neurosurgery eval appreciated no surgical intervention indicated at this time
#Syncope on 08/20/24
- monitor Orthostatics
- Recent echo in June 2024 was unremarkable, ECHO 08/21 noted no significant change from prior study
- no new episodes syncope or significant arrhythmia noted, telemonitoring completed
#Nausea/Vomiting on 08/22/24 morning- since resolved
#Acute Pancreatitis (very high lipase+CT showed acute pancreatitis) -- likely secondary to gallstones, no alcohol intake
#Cholelithiasis
#Mild intrahepatic biliary ductal dilation on CT
#Mild Transaminitis
#Dilated biliary ducts on ERCP
#Small fragments of choledocholithiasis on ERCP -- removal accomplished by biliary sphincterotomy and balloon extraction on 08/31/24, along with sweeping of biliary tree performed
#Status post plastic stent was placed into the cystic duct during ERCP on 08/31/24
-AXR done on 08/22/24 with nonobstructive bowel gas pattern and moderate colonic stool burden
-CT of Abdomen/Pelvis with PO and IV contrast findings above with acute pancreatitis vs cholecystitis
-RUQ u/s: Gallbladder with stones and 'wall echo sign'. Negative sonographic Mackay's sign. Mildly enlarged common bile duct and findings suggesting some intrahepatic biliary tract dilatation.
-MRI/MRCP appreciated choledocholithiasis and likely pancreatitis vs cholecystitis (less likely)
-Lipase since trended down <1000, IVF completed, 08/26 trended back up with associate abd pain, IVF restarted, completed with resolution, diet advanced to clear liquid as per GI
-Unasyn course completed as per ID
-Blood cultures NGTD
-GI consult appreciated ERCP was attempted 08/25 but unsuccessful, conservative mgmt recommended for now, status post ERCP (on 08/31/24) with removal of stones and s/p plastic biliary stent within cystic duct
-No plans for cholecystectomy during this admission based on patients goals of care -- surgeon discussed this with patient
-tolerated low fat diet -- continue
-Will need outpatient follow-up with Dr. Davenport
#Constipation
bowel regimen
suppository prn
#Cellulitis - new RLE cellulitis
#History of LLE Cellulitis
- Prior admission to with LLE cellulitis improved with ANCEF.
- NOW RESOLVED
- Ancef changed to Unasyn on 08/23/24 given new cholecystitis -- and now Unasyn course has been completed
- elevate legs
- ID consult appreciated
- No DVT on lower extremity ultrasound
- Wound care
#Bilateral Lower Extremity Edema
-Suspected from low albumin; no DVT on lower extremity ultrasound
-Repeat ECHO noted no significant change as above
#Severe Spinal Canal Stenosis on L-Spine MRI
#Disc herniations at multiple levels of the spine
-Neurosurgery eval appreciated surgical intervention not indicated
-Continue physical therapy
#Large amount of edema in the right psoas muscle and in the iliacus muscles on L-Spine MRI
-suspect posttraumatic from fall
#Moderate diffuse interstitial disease in the lungs on T-Spine MRI
#Moderate-sized left pleural effusion with an adjacent large left lower lobe basilar airspace consolidation, on T-Spine MRI
#Small Right Pleural Effusion on T-Spine MRI
#Recent History of Malignant Pleural Effusions
-IR eval appreciated s/p Left thoracentesis 550 cc pleural studies noted likely recurrence malignant pleural effusion
-weaned off oxygen supplementation, stable respiratory status on room air
#Chronic HFpEF
- Known diastolic CHF on lasix 40 and 60 alternating days, diuresis held for IVF given for pancreatitis, since then resumed Lasix 40 mg PO daily
- Monitor on telemetry
- BNP unremarkable for age @ 89
- Daily weights
- I's and O's
#Hypomagnesemia
#Hypokalemia
monitor and replete as necessary
scheduled potassium started tapered to 20 MeQ daily w/ consistent improvement in K levels
#Metastatic Ovarian Cancer
#Ovarian cancer status post hysterectomy and bilateral oophorectomy
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
#History of malignant pleural effusion
#Suspected anaphylactic reaction to Doxil 06/25/24
-follows with [place], currently receiving chemotherapy
-On Gemzar (gemcitabine) palliative treatment with Dr. Chin -- patient can resume this as per oncology
-Oncology eval appreciated
-Dr. Chin spoke with patient about hospice on 09/02/24, but patient interested in going to SNF and will be discharged to SNF today
#New Moderate Left Hydroureteronephrosis suggesting distal left ureteral obstruction on L-Spine MRI
#On L-Spine MRI: 1.8 cm mass in the upper pole of the left kidney. Diagnostic possibilities are (1) a complex cyst or (2) less likely renal cell carcinoma
#On CT A/P: Malrotation of the kidneys. Mild right hydronephrosis, likely related to mass effect on the proximal ureter from adjacent peripancreatic inflammatory
change
#Recent Abdomen MRI noted Moderate bilateral hydronephrosis
#Malignant Obstruction of Ureters
#Recurrent bilateral hydronephrosis
-Urology evaluation appreciated
-Progression of her disease will eventually necessitate replacement of nephrostomy tubes - she wants to avoid this as long as possible. Outpt follow up recommended
-Consider intervention if R flank pain episodes persist after addressing gallbladder/gallstones -- but patient doing okay, no intervention planned at this time
-Follow-up with Dr. Newell after discharge
#Hypertension
-Continue Amlodipine
#GERD
-Continue Pantoprazole
PT/OT appreciated SNF rehab
DVT Prophylaxis: Lovenox subq
Code Status: Full code
More than 30 minutes spent in discharge including
Final examination of the patient
Summarizing hospital stay
Instructions for continuing care to all relevant caregivers
Preparation of discharge records, prescriptions, and referral forms
Total time spent (in minutes): 37
Anticipated Discharge: Today
Subjective/Interval History
-
Date of Service: September 03, 2024
Patient was seen and examined. She denied any new symptoms or complaints.
Objective Data
-
Labs:
Laboratory Results
09/03/24
06:22
WBC 8.0
Hgb 10.4 L
Hct 31.4 L
Plt Count 417 H
Sodium 135
Potassium 4.4
Chloride 104
Carbon Dioxide 26
BUN 13
Creatinine 0.6
Glucose 82
Calcium 8.4
Total Bilirubin 0.6
AST 26
ALT 30
Alkaline Phosphatase 439 H
Vital Signs:
Vital Signs
Temp Pulse Resp BP Pulse Ox
97.4 F 89 17 147/91 97
09/03/24 07:00 09/03/24 07:00 09/03/24 07:00 09/03/24 07:00 09/03/24 08:15
I&O
09/02/24 09/03/24 09/04/24
06:59 06:59 06:59
Intake Total 600 / 600 1979
Balance 600 / 600 1979
[2024-09-03 13:06] VITALS: BP 118/62
== END 2024-09-03 14:07 | DRG 444 ==
LOC: 3 WEST ACU 20:31
PROVIDERS: Internal Medicine; Internal Medicine Gastroenterology; Nurse Practitioner Acute Care; Nurse Practitioner Family; Physician Assistant; Radiology Diagnostic Radiology; ADMITTING PHYSICIAN Internal Medicine; ATTENDING PHYSICIAN Hospitalist; CONSULT PHYSICIAN Internal Medicine Gastroenterology; CONSULT PHYSICIAN Internal Medicine Hematology & Oncology; CONSULT PHYSICIAN Surgery; CONSULT PHYSICIAN Urology; EMERGENCY PHYSICIAN Emergency Medicine; OTHER PHYSICIAN Internal Medicine Infectious Disease; OTHER PHYSICIAN Neurological Surgery
PROC: 0W9B3ZZ Drainage of Left Pleural Cavity, Percutaneous Approach (ICD-10-PCS; 2024-08-24)
PROC: 0FJB8ZZ Inspection of Hepatobiliary Duct, Via Natural or Artificial Opening Endoscopic (ICD-10-PCS; 2024-08-25)
PROC: BF131ZZ Fluoroscopy of Gallbladder and Bile Ducts using Low Osmolar Contrast (ICD-10-PCS; 2024-08-31)
PROC: 0FC98ZZ Extirpation of Matter from Common Bile Duct, Via Natural or Artificial Opening Endoscopic (ICD-10-PCS; 2024-08-31)
PROC: 0F788DZ Dilation of Cystic Duct with Intraluminal Device, Via Natural or Artificial Opening Endoscopic (ICD-10-PCS; 2024-08-31)
DX: K80.62 Calculus of gallbladder and bile duct with acute cholecystitis without obstruction (principal); K85.10 Biliary acute pancreatitis without necrosis or infection; C56.9 Malignant neoplasm of unspecified ovary; L03.115 Cellulitis of right lower limb; I50.32 Chronic diastolic (congestive) heart failure; C78.6 Secondary malignant neoplasm of retroperitoneum and peritoneum; J91.0 Malignant pleural effusion; C77.8 Secondary and unspecified malignant neoplasm of lymph nodes of multiple regions; N13.30 Unspecified hydronephrosis; J98.11 Atelectasis; R53.1 Weakness; I11.0 Hypertensive heart disease with heart failure; E78.5 Hyperlipidemia, unspecified; R32 Unspecified urinary incontinence; R74.01 Elevation of levels of liver transaminase levels; R74.8 Abnormal levels of other serum enzymes; R29.6 Repeated falls; K21.9 Gastro-esophageal reflux disease without esophagitis; M47.816 Spondylosis without myelopathy or radiculopathy, lumbar region; K44.9 Diaphragmatic hernia without obstruction or gangrene; K42.9 Umbilical hernia without obstruction or gangrene; M48.061 Spinal stenosis, lumbar region without neurogenic claudication; E80.6 Other disorders of bilirubin metabolism; R11.2 Nausea with vomiting, unspecified; E83.42 Hypomagnesemia; K59.00 Constipation, unspecified; E87.6 Hypokalemia; Z53.9 Procedure and treatment not carried out, unspecified reason; Z96.643 Presence of artificial hip joint, bilateral; Z96.651 Presence of right artificial knee joint; Q63.2 Ectopic kidney; Z88.8 Allergy status to other drugs, medicaments and biological substances; Z91.048 Other nonmedicinal substance allergy status; Z11.52 Encounter for screening for COVID-19; Z92.21 Personal history of antineoplastic chemotherapy; Z90.710 Acquired absence of both cervix and uterus; Z75.1 Person awaiting admission to adequate facility elsewhere; Z90.722 Acquired absence of ovaries, bilateral
CPT/HCPCS: 88305; 93308; 32555; 70450; 70553; 71045; 72146; 72148; 72156; 74019; 74177; 74183; 74330; 76000; 76700; 80048; 80053; 81003; 82040; 82150; 82247; 82248; 82607; 82728; 82746; 82784; 82945; 83540; 83615; 83690; 83735; 83880; 83986; 84100; 84132; 84157; 84450; 84460; 84478; 84484; 85025; 85027; 85610; 85730; 86008; 87015; 87040; 87070; 87205; 87502; 87811; 88112; 88342; 89051; 93005; 93321; 93325; 93970; 96361; 96374; 97116; 97167; 97530; 97535; 99285; A9575; C1769; C2617; J2997; Q9967

== ENCOUNTER → 2024-09-04 10:45 | Outpatient (REF) | payer OTHER, MEDICARE, BC, SELFPAY ==
[2024-09-04 11:41] LABS: % Basophils 1.3 % (0-2); % Eosinophils 1.4 % (0-6); % Immature Granulocytes 4.4 % (0-0.5); % Lymphocytes 9.8 % (20.5-51.1); % Monocytes 15.8 % (1.7-9.3); % Neutrophils 67.3 % (42.2-75.2); Absolute Basophils 0.1 10^3/uL (0-0.2); Absolute Eosinophils 0.1 10^3/uL (0-0.7); Absolute Immature Granulocytes 0.4 10^3/uL (0-0.05); Absolute Monocytes 1.5 10^3/uL (0.1-0.6); Absolute Neutrophils 6.5 10^3/uL (1.4-6.5); Hemoglobin 11.7 g/dL (12.0-16.0); Mean Corp Hgb Conc. 32.5 g/dL (33.0-37.0); Mean Corpuscular Hgb 30.9 pg (27.0-31.0); Mean Platelet Volume 10.9 fL (7.4-10.4); Nucleated Red Blood Cells % 0 %; Platelet Count 451 10^3/uL (130-400); Red Blood Cell Count 3.79 10^6/uL (4.20-5.40); Red Cell Dist. Width 25.1 % (11.5-14.5); White Blood Cell Count 9.7 10^3/uL (4.8-10.8)
== END ==
LOC: OLABP 10:45
PROVIDERS: ATTENDING PHYSICIAN Family Medicine
DX: I62.9 Nontraumatic intracranial hemorrhage, unspecified (principal); W19.XXXA Unspecified fall, initial encounter; K85.90 Acute pancreatitis without necrosis or infection, unspecified; C78.6 Secondary malignant neoplasm of retroperitoneum and peritoneum; I20.0 Unstable angina; N13.2 Hydronephrosis with renal and ureteral calculous obstruction; I50.33 Acute on chronic diastolic (congestive) heart failure; M48.061 Spinal stenosis, lumbar region without neurogenic claudication; M47.816 Spondylosis without myelopathy or radiculopathy, lumbar region; L03.115 Cellulitis of right lower limb; R59.0 Localized enlarged lymph nodes; J91.0 Malignant pleural effusion; I11.0 Hypertensive heart disease with heart failure; C56.9 Malignant neoplasm of unspecified ovary
CPT/HCPCS: 36415; 85025

== ENCOUNTER → 2024-09-07 09:48 | Outpatient (REF) | payer OTHER, MEDICARE, BC, SELFPAY ==
[2024-09-07 11:57] LABS: ALT (SGPT) 19 U/L (0-35); AST (SGOT) 18 U/L (14-36); Albumin 2.7 g/dl (3.5-5.0); Alkaline Phosphatase 319 U/L (38-126); Blood Urea Nitrogen 18 mg/dl (7-17); Calcium 8.4 mg/dl (8.4-10.2); Carbon Dioxide 27 mmol/L (22-30); Chloride 102 mmol/L (98-107); Glucose 105 mg/dl (70-99); Magnesium 1.6 mg/dl (1.6-2.3); Potassium 3.7 mmol/L (3.5-5.1); Sodium 137 mmol/L (135-145); Total Bilirubin 0.7 mg/dl (0.2-1.3); Total Protein 5.6 g/dl (6.3-8.2); eGFR > 60.00
== END ==
LOC: OLABP 09:48
PROVIDERS: ATTENDING PHYSICIAN Family Medicine
DX: K85.90 Acute pancreatitis without necrosis or infection, unspecified (principal); W19.XXXA Unspecified fall, initial encounter; C56.9 Malignant neoplasm of unspecified ovary; I10 Essential (primary) hypertension; I50.33 Acute on chronic diastolic (congestive) heart failure; M48.061 Spinal stenosis, lumbar region without neurogenic claudication; M47.816 Spondylosis without myelopathy or radiculopathy, lumbar region; L03.115 Cellulitis of right lower limb; R59.0 Localized enlarged lymph nodes; J91.0 Malignant pleural effusion; I11.0 Hypertensive heart disease with heart failure
CPT/HCPCS: 36415; 80053; 83735

== ENCOUNTER → 2024-09-11 11:36 | Outpatient (REF) | payer OTHER, MEDICARE, BC, SELFPAY ==
[2024-09-11 13:02] LABS: ALT (SGPT) 14 U/L (0-35); AST (SGOT) 18 U/L (14-36); Albumin 2.9 g/dl (3.5-5.0); Alkaline Phosphatase 248 U/L (38-126); Blood Urea Nitrogen 17 mg/dl (7-17); Calcium 8.5 mg/dl (8.4-10.2); Carbon Dioxide 27 mmol/L (22-30); Chloride 102 mmol/L (98-107); Glucose 98 mg/dl (70-99); Potassium 3.7 mmol/L (3.5-5.1); Sodium 138 mmol/L (135-145); Total Bilirubin 0.6 mg/dl (0.2-1.3); Total Protein 5.8 g/dl (6.3-8.2); eGFR > 60.00
== END ==
LOC: OLABP 11:36
PROVIDERS: ATTENDING PHYSICIAN Family Medicine
DX: K85.90 Acute pancreatitis without necrosis or infection, unspecified (principal); C56.9 Malignant neoplasm of unspecified ovary; I10 Essential (primary) hypertension; N13.2 Hydronephrosis with renal and ureteral calculous obstruction; I50.33 Acute on chronic diastolic (congestive) heart failure; M47.816 Spondylosis without myelopathy or radiculopathy, lumbar region; L03.115 Cellulitis of right lower limb; R59.0 Localized enlarged lymph nodes; J91.0 Malignant pleural effusion; I11.0 Hypertensive heart disease with heart failure
CPT/HCPCS: 36415; 80053

== ENCOUNTER 2024-09-22 09:45 | Emergency (ER) | payer MEDICARE, BC, SELFPAY ==
[2024-09-22 09:47] VITALS: BP 114/64
[2024-09-22 10:21] LABS: ALT (SGPT) 21 U/L (0-35); AST (SGOT) 45 U/L (14-36); Albumin 2.7 g/dl (3.5-5.0); Alkaline Phosphatase 165 U/L (38-126); Blood Urea Nitrogen 33 mg/dl (7-17); Calcium 8.4 mg/dl (8.4-10.2); Carbon Dioxide 27 mmol/L (22-30); Chloride 101 mmol/L (98-107); Creatine Phosphokinase 295 U/L (30-135); Glucose 118 mg/dl (70-99); Potassium 3.8 mmol/L (3.5-5.1); Sodium 133 mmol/L (135-145); Total Bilirubin 1.3 mg/dl (0.2-1.3); Total Protein 5.8 g/dl (6.3-8.2); eGFR 56.95
[2024-09-22 10:27] LABS: Hematocrit 30.5 % (37.0-47.0); Mean Corp Hgb Conc. 32.8 g/dL (33.0-37.0); Mean Corpuscular Volume 94.4 fL (81.0-99.0); Mean Platelet Volume 8.7 fL (7.4-10.4); Platelet Count 169 10^3/uL (130-400); Red Blood Cell Count 3.23 10^6/uL (4.20-5.40); Red Cell Dist. Width 21.2 % (11.5-14.5); White Blood Cell Count 12.1 10^3/uL (4.8-10.8)
--- NOTE | 2024-09-22 11:15 | ED.GENMED ---
History of Present Illness
General
Chief Complaint: Head Injury
Source: patient
Exam Limitations: none
Time Seen by Provider: 09/22/24 11:12
History of Present Illness
History of Present Illness:
See MDM
Past History
Past History
ED Past Medical History: Cancer (Ovarian), Renal failure and Other ('Heart murmur')
ED Past Surgical History: Orthopedic and Urological (Bilateral nephrostomy tubes)
Social History
Tobacco: Non-smoker
Alcohol: Occasional
Drug: None
Personal: Other
Living: alone
Employment: Other
Family History
Family History: Other
Phy Exam
Physical Exam
Physical Exam:
See MDM
Course
Orders/Labs/Results
Orders:
Orders
09/22/24 10:00
CPK [Creatine Phosphokinase] Urgent
Complete Blood Count/With Diff Urgent
Comprehensive Metabolic Panel Urgent
09/22/24 11:15
CT Head W/o Iv Contrast Urgent
Comment:
Reason For Exam: fall, head injury
Abnormal Lab Results
09/22/24
10:00
WBC 12.1 H 10^3/uL
(4.8-10.8)
RBC 3.23 L 10^6/uL
(4.20-5.40)
Hgb 10.0 L g/dL
(12.0-16.0)
Hct 30.5 L %
(37.0-47.0)
MCHC 32.8 L g/dL
(33.0-37.0)
RDW 21.2 H %
(11.5-14.5)
Abs Immat Gran (auto) 0.1 H 10^3/uL
(0-0.05)
Absolute Neuts (auto) 11.3 H 10^3/uL
(1.4-6.5)
Absolute Lymphs (auto) 0.5 L 10^3/uL
(1.2-3.4)
Neutrophils % 93.9 H %
(42.2-75.2)
Lymphocytes % 4.1 L %
(20.5-51.1)
Monocytes % 1.4 L %
(1.7-9.3)
Sodium 133 L mmol/L
(135-145)
BUN 33 H mg/dl
(7-17)
Glucose 118 H mg/dl
(70-99)
AST 45 H U/L
(14-36)
Alkaline Phosphatase 165 H U/L
(38-126)
Creatine Kinase 295 H U/L
(30-135)
Total Protein 5.8 L g/dl
(6.3-8.2)
Albumin 2.7 L g/dl
(3.5-5.0)
09/22/24 10:00
09/22/24 10:00
Vital Signs
Initial and Last Documented VS:
Initial Vital Signs
Pulse Resp BP Pulse Ox
91 18 114/64 97
09/22/24 09:47 09/22/24 09:47 09/22/24 09:47 09/22/24 09:47
Last Documented Vital Signs
Pulse Resp BP Pulse Ox
88 17 96/58 95
09/22/24 11:40 09/22/24 11:40 09/22/24 11:40 09/22/24 11:40
MDM/Problems Addressed
Differential Diagnosis Includes:
HPI and MDM Narrative:
78-year-old female presenting for evaluation of head injury and fall. Patient states she fell out of bed last night. She does acknowledge that she hit her head. Patient states she was on the floor for few hours. Blood work was done prior to my
arrival. She has only a slight elevation of CPK but there is no DANIEL noted. On my exam, she is well-appearing nontoxic. Patient states she feels at her normal self. Given age and head injury, will obtain CT head. No extremity abnormality noted.
No hip tenderness. No neck tenderness.
Physical exam
General: Well appearing and non-toxic. Lying in bed comfortably.
HEENT: protecting airway. No traumatic scalp injury noted
Neck: Nontender, supple
CV: No evidence of cyanosis. Regular rate and rhythm
Resp: No accessory muscle use
Abd: Non-distended
Extremities: No deformities. No hip tenderness
Neuro: alert
Psych: Normal affect
Skin: Intact
Problems Addressed including Acute and Chronic Conditions affecting care:
1. Head injury
Acuity: acute
Prognosis: stable
Details: Given age and complaint, will obtain CT head
Updates
CT head negative. Patient states she feels comfortable going home
Differential Diagnosis (but not limited to): Contusion, fracture
Testing considered: Urinalysis but she denies urinary symptoms
Drug therapy (if applicable): OTC meds, please see d/c instruction regarding Rx drugs
Amount and/or Complexity of Data Reviewed
Clinical info obtained from: Patient
External data reviewed: N/A
Labs I independently reviewed (but not limited to): Mild CPK elevation
Radiology: The CT scan was personally and independently reviewed. In addition, official CT report reviewed.
Pulse Ox: not hypoxic
EKG independently reviewed: N/A
Par[employer] Craftsman: N/A
Critical Care: N/A
Risk of Complication:
Social Determinants of health: Good social support
Discussed with other providers: N/A
Escalation of Care includes Admit/Obs: After being observed in the Emergency Department, pt stable for discharge.
Occasional wrong word or 'sound a like' substitutions may have occurred due to the inherent limitations of voice recognition software. Read the chart carefully and recognize, using context, where substitutions have occurred.
*Critical Care Note
Total Time (30-74mins, 75-104mins- exclusive of procedures): Not Applicable
ED Attending Note
-
Portions of this chart may have been created with voice recognition software.� Occasional wrong word or��sound alike� substitutions may have occurred due to the inherent limitations of voice recognition software.
Discharge Plan
Departure
Patient Disposition: Home (Routine Discharge)
Date of Disposition: 09/22/24
Time of Disposition: 13:03
Patient with high blood pressure during this ER visit?: No
Discharge Problem:
Head injury
Instructions: Head Injury in Adults (DC)
Prescriptions:
No Action
amlodipine 10 MG tablet
10 mg PO DAILY
pantoprazole 40 MG tablet,delayed release (DR/EC)
40 mg PO DAILY
multivitamin with folic acid [Tab-A-Crow] 1 TABLET tablet
1 tab PO DAILY
Prevagen tablet
1 tab PO DAILY
furosemide 40 mg tablet
40 mg PO DAILY
PreserVision AREDS-2 250-90-40-1 mg Capsule
1 tab PO BID
furosemide [Lasix] 20 mg Tablet
20 mg PO Q48H
potassium chloride 20 mEq Packet
20 meq PO DAILY 7 Days Qty: 30 0RF
polyethylene glycol 3350 17 gram Powder In Packet
17 g PO DAILY Qty: 30 0RF
sennosides-docusate sodium 8.6-50 mg Tablet
1 tab PO BID Qty: 60 0RF
Referrals:
Ridge Castaneda MD, Resident [Family Provider] -
Activity Restrictions/Additional Instructions:
Please return for any worsening symptoms.
You may return at any time if you have further concerns.
Please follow up with your doctor at the first available appointment, preferably this week.
Thank you for choosing [facility].
Interventions
Interventions:
*Risk Screen - Suicide Last Done: 09/22/24 09:47
*General Assessment Last Done: 09/22/24 09:47
*Neglect/Abuse Screening Last Done: 09/22/24 09:47
*ED COVID-19 Vaccine History Last Done: 09/22/24 09:47
ED- Neurological Assessment Last Done: 09/22/24 11:40
ED-Skin Assessment Last Done: 09/22/24 11:40
Discharge Date and Time
Print Language: SYRIAN
[2024-09-22 11:40] VITALS: BP 96/58
[2024-09-22 12:43] LABS: % Basophils 0.2 % (0-2); % Immature Granulocytes 0.4 % (0-0.5); % Lymphocytes 4.1 % (20.5-51.1); % Monocytes 1.4 % (1.7-9.3); % Neutrophils 93.9 % (42.2-75.2); Absolute Immature Granulocytes 0.1 10^3/uL (0-0.05); Absolute Lymphocytes 0.5 10^3/uL (1.2-3.4); Absolute Monocytes 0.2 10^3/uL (0.1-0.6); Absolute Neutrophils 11.3 10^3/uL (1.4-6.5); Nucleated Red Blood Cells % 0 %
== END 2024-09-22 13:50 | disposition home or self-care (01) ==
LOC: EMR 09:45
PROVIDERS: EMERGENCY PHYSICIAN Student in an Organized Health Care Education/Training Program; FAMILY PHYSICIAN Student in an Organized Health Care Education/Training Program
DX: S09.90XA Unspecified injury of head, initial encounter (principal); W06.XXXA Fall from bed, initial encounter; Z85.43 Personal history of malignant neoplasm of ovary
CPT/HCPCS: 99284; 70450; 80053; 82550; 85025

== ENCOUNTER 2024-10-09 18:56 | Inpatient (IN) | payer BC, SELFPAY ==
[2024-10-09] VITALS (28 sets, daily range): BP systolic 84–145; BP diastolic 39–85; PULSE 2–96; BMI 33.8; BMI 35.0; BMI 35.5
[2024-10-09] MEDS: NITROGLYCERIN PREMIX 250 IV (14:34)
[2024-10-09] MEDS: LASIX 60 MG IV (14:35)
[2024-10-09] MEDS: VENTOLIN NEBULES 2.5 MG INH (14:35)
--- NOTE | 2024-10-09 14:40 | EDRN ---
respiratory currently at the pts bedside placing the pt on Bipap
--- NOTE | 2024-10-09 14:41 | ED.GENMED ---
History of Present Illness
General
Chief Complaint: Breathing Problem
Source: patient
Exam Limitations: none
Time Seen by Provider: 10/09/24 14:24
Nursing documentation reviewed up to this point in time: agreed with
History of Present Illness
History of Present Illness:
Patient with history of ovarian cancer, presents to ED secondary to sudden onset of shortness of breath, after she returned home from receiving scheduled outpatient chemotherapy infusion. Patient denies having had any similar prior to and shortly
after completing the session. Denies previous history of similar symptoms with infusion. Denies fever or chills. Patient does report coughing, states that is not any more than usual. Denies fever. Denies nausea or vomiting. Denies diarrhea.
Denies recent weight gain. Denies recent change in medications or diet. Denies recent travel. Denies back pain.
Past History
Past History
ED Past Medical History: Cancer (Ovarian), Renal failure and Other ('Heart murmur')
ED Past Surgical History: Orthopedic and Urological (Bilateral nephrostomy tubes)
Social History
Tobacco: Non-smoker
Alcohol: Occasional
Drug: None
Personal: Other
Living: alone
Employment: Other
Family History
Family History: Other
Review of Systems
Review of Systems
Allergies reviewed?: Yes
All Other Systems: ROS reviewed and negative except as documented in HPI and ROS
Constitutional: Reports no symptoms; Denies fever or chills
Respiratory: Reports cough and trouble breathing
Cardiac: Reports no symptoms
ABD/GI: Reports no symptoms; Denies abdominal pain, nausea, vomiting or diarrhea
Musculoskeletal: Reports no symptoms
Skin: Reports no symptoms
Neurological: Reports no symptoms
Phy Exam
Physical Exam
Physical Exam:
Physical Exam
General: moderate respiratory distress, acutely ill. afebrile. tachycardic
Head: nc/at. eomi
Neck: supple. no meningeal signs.
Heart: tachycardic. no murmur
Lungs: moderate respiratory distress. crackles bilaterally
Abdomen: normal bowel sounds. not tender.
Neuro: alert and oriented x 3. no focal neurological deficits
Skin: no rash
Psychiatric: well kept. interactive and cooperative
Extremities: LE b/l edema, pitting. no calf tenderness.
Scores
Heart Failure Risk
Heart Failure Risk Score: Yes
History of Stroke or TIA: No
History of intubation for respiratory distress: No
Heart rate on ED arrival >/= 110: No
SaO2 <90% on arrival on room air: Yes
HR >/=110 during 3min walk test (or too ill to perform test): No
ECG has acute ischemic changes: No
Urea >/=12mmol/L (BUN 33.6mg/dL): No
Serum CO2>/=35mmol/L: No
Troponin I or T elevated to OR Level (0.4mg/dL): No
NT-proBNP >/=5,000ng/L (5,000pg/ml): No
HF Risk Score: 1
Admission Status: MEDIUM RISK 5.1% Consider observation or discharge to home with homecare & f/u visit to PCP/Utilization Supervisor, or SNF for treatment
Course
Orders/Labs/Results
Orders:
Orders
10/09/24 14:24
Electrocardiogram (*1) Urgent
Reason for Study: Shortness of Breath
10/09/24 14:25
EKG- Treatment ONCE
10/09/24 14:30
Complete Blood Count/With Diff Urgent
Comprehensive Metabolic Panel Urgent
NT-proBNP Urgent
Troponin I Urgent
Furosemide [Lasix] 60 mg IV NOW STA
CR Chest Portable - 1 View Urgent
Comment:
Reason For Exam: sob
Reason Study Needs to be Portable: Patient Unstable
10/09/24 14:31
Albuterol Nebs [Ventolin Nebules] 2.5 mg INH R NOW STA
Nitroglycerin 100 mg/250 ml [Nitroglycerin Premix] 100 mg in 250 ml IV NOW
Initial dose in mcg/min, then titrate:: 20
Titrate to keep:: SBP < 160 mmHg
Titrate by mcg/min:: 5 mcg/min, may increase by 10 mcg/min if dose > 20 mcg/min
Frequency of titrations (minutes):: every 3-5 minutes
Maximum dose in mcg/min:: 200
Begin to taper infusion when:: Remained at goal for 2hrs
Taper by mcg/min:: 5 mcg/min
Frequency of taper (minutes) if patient maintains goal:: 30
Taper to off?: Yes
If infusion off & no longer maintaining goal:: Contact Provider
10/09/24 14:50
Bipap [RESP] Urgent
Patient to use own unit?: No
Inspiratory Pressure (cm H2O): 12
Expiratory Pressure (cm H2O): 5
10/09/24 15:35
D-Dimer Urgent
10/09/24 16:00
CT Chest PE Study Urgent
Comment:
Reason For Exam: sob/hypoxia
10/09/24 18:27
Admit/Transfer Patient As Directed
Co-Sign Provider:
Level of Care: Inpatient admission
Assign to:: IMU- Intermediate Care
Physician / Group: Ellyn
Diagnosis: Acute resp failure, CHF
Reason for Hospitalization: IV lasix, oxygen
Expected length of stay greater than two midnights?: Yes
ELOS- Estimated Length of Stay in days: 3
I certify the patient meets the requirements for IP care: Yes
10/09/24 18:28
PRN Pain Medication Management As Directed
May give lesser potent ordered pain med per pt: Yes
preference::
Protocol:: Medication orders for pain may be administered in a
manner that supports deferring to patient preference
when the pt is:
- Requesting an ordered lesser potent pain medication.
Least to most potent pain medications are defined
as: acetaminophen < NSAID < tramadol < opioids
(morphine, oxycodone, hydromorphone).
- Requesting a lesser dose of the same medication IF
ORDERED.
- Requesting a less intrusive route of administration
if both routes are prescribed by the provider (PO <
IV).
10/09/24 18:30
Code Status As Directed
Resuscitation Status: Do not resuscitate
Reached after discussion with pt or family/Healthcare POA: Yes
DNR Bracelet Application ONCE
Abnormal Lab Results
10/09/24 10/09/24
14:30 15:35
WBC 1.9 L* 10^3/uL
(4.8-10.8)
RBC 2.97 L 10^6/uL
(4.20-5.40)
Hgb 9.7 L g/dL
(12.0-16.0)
Hct 30.0 L %
(37.0-47.0)
MCV 101.0 H fL
(81.0-99.0)
MCH 32.7 H pg
(27.0-31.0)
MCHC 32.3 L g/dL
(33.0-37.0)
RDW 23.4 H %
(11.5-14.5)
Absolute Lymphs (auto) 0.1 L 10^3/uL
(1.2-3.4)
Immature Gran % 1.6 H %
(0-0.5)
Neutrophils % 86.5 H %
(42.2-75.2)
Lymphocytes % 5.2 L %
(20.5-51.1)
D-Dimer 3.74 H ug/mlFEU
(0.00-0.50)
Glucose 175 H mg/dl
(70-99)
Calcium 8.0 L mg/dl
(8.4-10.2)
AST 44 H U/L
(14-36)
Alkaline Phosphatase 132 H U/L
(38-126)
Total Protein 6.1 L g/dl
(6.3-8.2)
Albumin 3.0 L g/dl
(3.5-5.0)
10/09/24 14:30
10/09/24 14:30
Vital Signs
Initial and Last Documented VS:
Initial Vital Signs
BP
141/73
10/09/24 14:24
Last Documented Vital Signs
Temp Pulse Resp BP Pulse Ox
99.8 F 106 28 105/42 93
10/09/24 14:43 10/09/24 19:15 10/09/24 19:15 10/09/24 19:15 10/09/24 18:30
MDM/Problems Addressed
MDM/Problems Addressed:
Patient's presenting symptoms likely secondary to underlying CHF exacerbation versus acute reaction to recent chemotherapy infusion. Patient started on BiPAP immediately along with Lasix and nitroglycerin infusion, with gradual improvement.
D-dimer noted. CT PE study negative for acute PE or other acute abnormal findings.
Patient will be admitted for further evaluation and treatment.
Critical care statement: A total of 40 minutes of critical care time was provided for this patient. This includes management of unstable vital signs, evaluation of the patient at bedside, reviewing the patient's pertinent medical records, review of
old EKGs and review of pertinent medical records. This time with separate from time utilized to perform the aforementioned documented procedures
*EKG
Interpreted by ED Provider?: Yes
EKG Intrepretation Date: 10/09/24
Heart Rate: 138
Rate: tachycardiac
Rhythm: sinus
Tatamy: normal axis
*Critical Care Note
Total Time (30-74mins, 75-104mins- exclusive of procedures): 40 min
ED Attending Note
-
Portions of this chart may have been created with voice recognition software.� Occasional wrong word or��sound alike� substitutions may have occurred due to the inherent limitations of voice recognition software.
Discharge Plan
Departure
Patient Disposition: Admit
Date of Disposition: 10/09/24
Time of Disposition: 18:00
Admit to: Telemetry
Presentation/result/management discussed w/ accepting MD/DO: Hospitalist
Discharge Problem:
Hypoxia
Interventions
Interventions:
*Risk Screen - Suicide Last Done: 10/09/24 14:43
*General Assessment Last Done: 10/09/24 14:43
*Neglect/Abuse Screening Last Done: 10/09/24 14:43
*ED- Fall Risk Assessment Last Done: 10/09/24 14:43
*ED COVID-19 Vaccine History Last Done: 10/09/24 14:43
ED- Cardiac Assessment Last Done: 10/09/24 14:43
ED- Pulmonary Assessment Last Done: 10/09/24 14:43
[2024-10-09 14:45] LABS: Hemoglobin 9.7 g/dL (12.0-16.0); Mean Corp Hgb Conc. 32.3 g/dL (33.0-37.0); Mean Corpuscular Hgb 32.7 pg (27.0-31.0); Mean Platelet Volume 9.8 fL (7.4-10.4); Platelet Count 192 10^3/uL (130-400); Red Blood Cell Count 2.97 10^6/uL (4.20-5.40); Red Cell Dist. Width 23.4 % (11.5-14.5); White Blood Cell Count 1.9 10^3/uL (4.8-10.8)
[2024-10-09 14:57] LABS: % Basophils 0.5 % (0-2); % Immature Granulocytes 1.6 % (0-0.5); % Lymphocytes 5.2 % (20.5-51.1); % Monocytes 5.2 % (1.7-9.3); % Neutrophils 86.5 % (42.2-75.2); Absolute Lymphocytes 0.1 10^3/uL (1.2-3.4); Absolute Monocytes 0.1 10^3/uL (0.1-0.6); Absolute Neutrophils 1.7 10^3/uL (1.4-6.5); Anisocytosis 2+; Hypochromasia 2+; Normal RBC Morphology No; Nucleated Red Blood Cells % 0 %
[2024-10-09 15:01] LABS: ALT (SGPT) 28 U/L (0-35); AST (SGOT) 44 U/L (14-36); Alkaline Phosphatase 132 U/L (38-126); Blood Urea Nitrogen 16 mg/dl (7-17); Carbon Dioxide 26 mmol/L (22-30); Chloride 101 mmol/L (98-107); Estimated Creatinine Clearance 67 ml/min; Glucose 175 mg/dl (70-99); Potassium 3.8 mmol/L (3.5-5.1); Sodium 136 mmol/L (135-145); Total Bilirubin 0.5 mg/dl (0.2-1.3); Total Protein 6.1 g/dl (6.3-8.2); eGFR > 60.00
[2024-10-09 15:07] LABS: NT-proBNP 599 pg/ml; Troponin I < 0.012 ng/ml
[2024-10-09 15:58] LABS: D-Dimer 3.74 ug/mlFEU (0.00-0.50)
--- NOTE | 2024-10-09 18:36 | HPS.HSE ---
Family Physician
-
Family Physician: INTERVIEWE UNKNOWN - PT NOT
Chief Complaint
-
Shortness of breath
History of Present Illness
78-year-old female on palliative chemotherapy for primary peritoneal cancer/ovarian cancer, just received another round of chemotherapy this morning, now presents to the emergency room with complaints of dyspnea on exertion.
This morning when she woke up she was feeling mildly nauseous but did not vomit. She made to her chemotherapy appointment and completed therapy. Then went home but subsequently developed progressive shortness of breath.
Denies history of congestive heart failure. 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 Is not on home oxygen.
Denies any changes in her body weight.
Medical History
Past Medical History
Past Medical History: Reports Other
Additional Past Medical History:
Primary peritoneal carcinoma/ovarian cancer
Chronic anemia
Recent pancreatitis
Lower extremity venous stasis dermatitis
Spinal stenosis
Chronic heart failure preserved EF
Essential hypertension
GERD
Malignant pleural effusions
Past Surgical History: Reports Other
Additional Past Surgical History:
Total abdominal hysterectomy, bilateral salpingo-oophorectomy
Bilateral hip replacement
Right total knee replacement
Cataract surgery
Social History
Tobacco: Non-smoker
Alcohol: Occasional
Drug: None
Personal: Single
Living: Alone
Family History
Family History: Not pertinent
Allergies / Home Medications
Allergies reflects when Allergies were last updated in [employer]am[employer].
Home Medications with original date entered in [employer]tamethod
Allergy/Medication List:
Allergies
Allergy/AdvReac Type Severity Reaction Status Date / Time
adhesive Allergy Rash Verified 09/22/24 09:53
aprepitant (From Emend) Allergy Facial Verified 09/22/24 09:53
redness
and
shaking
all over
fosaprepitant (From Emend) Allergy Facial Verified 09/22/24 09:53
redness
and
shaking
all over
paclitaxel (From Taxol) Allergy Shaking Verified 09/22/24 09:53
all over
and facial
redness
Home Medications
amlodipine 10 mg tablet 10 mg PO DAILY Blood pressure 06/21/21
pantoprazole 40 mg tablet,delayed release 40 mg PO DAILY Gastrointestinal issue 06/21/21
Prevagen 1 tab PO DAILY Supplement 06/23/21
multivitamin with folic acid 400 mcg tablet (Tab-A-Crow) 1 tab PO DAILY Supplement 06/23/21
furosemide 40 mg tablet 40 mg PO BID Fluid Retention/Swelling 06/16/24
vit C 250 mg-vit E 90 mg-zinc 40 mg-copper 1 li-[id number]-gbmrvo capsule (PreserVision AREDS-2) 1 tab PO BID Supplement 06/25/24
Review of Systems
-
History Source: Patient
A 12 point ROS was completed and negative except as noted: Yes
Respiratory: Reports Trouble Breathing
Cardiac: Denies Chest Pain
Physical Exam
Vital Signs
Vital Signs
Temp Pulse Resp BP Pulse Ox
99.8 F 114 27 121/50 93
10/09/24 14:43 10/09/24 18:00 10/09/24 18:00 10/09/24 18:00 10/09/24 18:30
Physical Exam
General: Well Developed, Well Nourished and Respiratory Distress (Mild)
HEENT: NormoCephalic, Anicteric and Moist mucous membranes
Respiratory: Clear
Cardiac: S1/S2, Regular Rhythm and Tachycardia
Breast: Deferred by me
GI: Soft, Non Tender and Non Distended
Genito-urinary: Deferred by me
Musculoskeletal: No Clubbing, No Cyanosis, Edema, Left Lower Extremity and Edema, Right Lower Extremity
Skin: Warm, Dry and Other (Bilateral lower extremity pretibial wounds, bilateral lower extremity erythema)
Neuro: AO x 3
Hematologic/Lymphatic: No Lymphadenopathy
Psych: Calm
Laboratory Results
-
10/09/24 14:30
10/09/24 14:30
Laboratory Results
Total Bilirubin 0.5 mg/dl (0.2-1.3) 10/09/24 14:30
AST 44 U/L (14-36) H 10/09/24 14:30
ALT 28 U/L (0-35) 10/09/24 14:30
Alkaline Phosphatase 132 U/L (38-126) H 10/09/24 14:30
Troponin I < 0.012 ng/ml 10/09/24 14:30
Impression/Plan
-
Acute hypoxic respiratory failure -suspect due to acute pulmonary edema due to acute on chronic heart failure. Pulmonary embolism ruled out with CT chest.
Admit to IMU. Continue IV Lasix. Required BiPAP in the emergency room, now transitioned to nasal cannula oxygen.
Acute on chronic heart failure with preserved EF -continue IV Lasix. Last echocardiogram was August 21, LVEF 55 to 60%, normal RV size and function.
At home she takes furosemide 40 mg twice daily. No appreciable change in her body weight compared to last hospitalization in August.
Leukopenia -suspect related to chemotherapy. WBC count 1.9. ANC 1.7.
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 Prognosis remains poor. Dr. Chin is her oncologist, he mentioned hospice during her last hospitalization last month but patient is not interested.
Oncology consulted.
Chronic anemia -likely multifactorial etiology including malignancy and chemotherapy. Monitor for now.
Bilateral lower extremity venous stasis dermatitis -compression therapy if she can tolerate.
Bilateral lower extremity wounds -likely related to venous stasis dermatitis. Consult wound care.
Obesity due to excess calories
DNR -confirmed with patient.
[2024-10-10] VITALS (22 sets, daily range): BP systolic 84–113; BP diastolic 38–59; PULSE 88; O2SAT 94; BMI 35.5
--- NOTE | 2024-10-10 04:54 | PTCARENOTE ---
Received pt from ED via stretcher. Pt on 4L NC on arrival; able to wean down to 2 L with pulse ox remaining at 95%. Lungs are diminished at the bases with fine crackles on the RLL. Wound care provided to b/l LE; wound care consulted. Foam
applied to sacral area for protection. Nitro gtt turned off on arrival to floor. SBP in low 100s with MAPs in the 50s/60s. Notified RUG SCRATCHER. BP remains stable. Pt offers no complaints at this time.
[2024-10-10 05:50] LABS: % Basophils 0.7 % (0-2); % Eosinophils 2.5 % (0-6); % Immature Granulocytes 0.4 % (0-0.5); % Lymphocytes 7.6 % (20.5-51.1); % Neutrophils 80.8 % (42.2-75.2); Absolute Eosinophils 0.1 10^3/uL (0-0.7); Absolute Lymphocytes 0.2 10^3/uL (1.2-3.4); Absolute Monocytes 0.2 10^3/uL (0.1-0.6); Absolute Neutrophils 2.2 10^3/uL (1.4-6.5); Hematocrit 23.2 % (37.0-47.0); Hemoglobin 7.6 g/dL (12.0-16.0); Mean Corp Hgb Conc. 32.8 g/dL (33.0-37.0); Mean Corpuscular Hgb 31.8 pg (27.0-31.0); Mean Corpuscular Volume 97.1 fL (81.0-99.0); Mean Platelet Volume 9.9 fL (7.4-10.4); Nucleated Red Blood Cells % 0 %; Platelet Count 135 10^3/uL (130-400); Red Blood Cell Count 2.39 10^6/uL (4.20-5.40); Red Cell Dist. Width 23.3 % (11.5-14.5); White Blood Cell Count 2.8 10^3/uL (4.8-10.8)
[2024-10-10 06:08] LABS: ALT (SGPT) 30 U/L (0-35); AST (SGOT) 54 U/L (14-36); Albumin 2.1 g/dl (3.5-5.0); Alkaline Phosphatase 101 U/L (38-126); Blood Urea Nitrogen 16 mg/dl (7-17); Carbon Dioxide 28 mmol/L (22-30); Chloride 103 mmol/L (98-107); Estimated Creatinine Clearance 80 ml/min; Glucose 88 mg/dl (70-99); Potassium 3.1 mmol/L (3.5-5.1); Sodium 134 mmol/L (135-145); Total Bilirubin 0.5 mg/dl (0.2-1.3); Total Protein 4.6 g/dl (6.3-8.2); eGFR > 60.00
--- NOTE | 2024-10-10 07:34 | W.PN.HOSP.TC ---
Today's Communication/Plan
-
Transfuse
Replete potassium
Cardiology consult
Oncology consult
Compression therapy
PT/OT
Hold Lasix for hypotension
Assessment / Plan
Assessment / Plan
Gen-AAOx3, NAD
HEENT-NC, AT, anicteric, clear oral mm
Neck-supple
CV-reg, no M, +S1/S2
Lungs-clear B/L
Abd-soft, NT, ND
Ext-bilateral lower extremity edema, erythema
Musculoskeletal-no cyanosis, clubbing
Skin-warm and dry, bilateral lower extremity venous wounds with dressing
Neuro-grossly non-focal
Psych-calm, cooperative
Acute hypoxic respiratory failure -suspect due to acute pulmonary edema due to acute on chronic heart failure. Pulmonary embolism ruled out with CT chest. Required BiPAP in the emergency room, now transitioned to nasal cannula oxygen. Currently on
2 L nasal cannula.
Acute on chronic heart failure with preserved EF -she is on Lasix 40 mg twice daily at home, states she has been compliant. Last echocardiogram was August 21, LVEF 55 to 60%, normal RV size and function.
No appreciable change in her body weight compared to last hospitalization in August.
Received Lasix 60 mg IV on admission yesterday, now on hold for hypotension.
She does not have a turkey picker. Will consult cardiology. Recheck echocardiogram.
Hypokalemia -will replete. Check magnesium. She is not on potassium supplements at home.
Leukopenia -suspect related to chemotherapy. WBC count improved overnight, 2.8. No longer neutropenic.
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 Prognosis remains poor. Dr. Chin is her oncologist, he mentioned hospice during her last hospitalization last month but patient is not interested.
Oncology consulted.
Albumin of 2.1 with suspected malnutrition, third spacing. Overall prognosis is poor.
Acute on chronic anemia -likely multifactorial etiology including malignancy and chemotherapy. Baseline hemoglobin appears to be around 10. Hemoglobin 7.6 this morning. No evidence of bleeding or hemolysis.
Will transfuse 1 unit of blood given presentation with respiratory failure and heart failure. Hopefully resume Lasix today if blood pressure allows.
Hyponatremia -134. Monitor closely on diuretics.
Bilateral lower extremity venous stasis dermatitis -compression therapy with Albert wraps ordered. At home she uses compression stockings.
Bilateral lower extremity wounds -likely related to venous stasis dermatitis. Consult wound care.
Obesity due to excess calories
DNR -confirmed with patient.
Anticipated Discharge: > 48 hours
Subjective/Interval History
-
Date of Service: October 10, 2024
Patient seen and examined. Denies shortness of breath. No complaints.
Objective Data
-
Labs:
Laboratory Results
10/10/24
05:21
WBC 2.8 L
Hgb 7.6 L D
Hct 23.2 L
Plt Count 135 D
Sodium 134 L
Potassium 3.1 L
Chloride 103
Carbon Dioxide 28
BUN 16
Creatinine 0.6
Glucose 88
Calcium 7.0 L
Total Bilirubin 0.5
AST 54 H
ALT 30
Alkaline Phosphatase 101
Vital Signs:
Vital Signs
Temp Pulse Resp BP Pulse Ox
97.9 F 78 18 93/43 98
10/10/24 04:37 10/10/24 06:05 10/10/24 06:05 10/10/24 06:05 10/10/24 06:05
I&O
10/09/24 10/10/24 10/11/24
06:59 06:59 06:59
Output Total 500 / 500
Balance -500 / -500
Review of Systems
-
History Source: Patient
All other systems: Reviewed and negative
[2024-10-10 07:57] LABS: Magnesium 1.2 mg/dl (1.6-2.3)
[2024-10-10] MEDS: KCL 270 MEQ IV (08:28)
[2024-10-10] MEDS: PROTONIX 40 MG PO (08:29)
[2024-10-10] MEDS: KCL ELIXIR 40 MEQ PO (08:29)
--- NOTE | 2024-10-10 10:15 | CON.CAR ---
Addendum entered and electronically signed by Susan Javier MD 10/10/24 14:37:
I saw and examined the patient.
The Brim Cutter's note was reviewed and I agree with the note.
Comment:
Difficult situation. Patient appears to have worsening status related to metastatic primary peritoneal carcinoma. Likely is volume overloaded with prior weight being 191 pounds in August and now 200 pounds with significant lower extremity edema
that is multifactorial. Blood pressure has been marginal. Edema in addition to volume overload is likely related to hypoalbuminemia and metastatic disease with lymphedema. She has cellulitis versus venous stasis dermatitis. She continues to
struggle. In addition she is anemic and currently receiving blood. Her exam consistent with volume overload/anasarca. We discussed at length that there is not an easy fix. I explained that shortness of breath is from fluid, cancer, large hiatal
hernia, deconditioning and cancer status.
- Agree with transfusion of blood which may make her feel a bit better
- Agree with diuretic as noted and continue to follow on IV Lasix. Much of her fluid appears extravascular so we will need to be cautious.
- We have ordered magnesium repletion and potassium is being repleted. Follow.
- Given hypoalbuminemia continue to work on nutrition as able.
- Compression if tolerated
- EKG with sinus tachycardia and no indication of acute coronary syndrome. Last echocardiogram last month noted and we will repeat on Saturday.
-Support with oxygen.
-Continue ongoing discussions regarding palliative care/hospice which appears appropriate at this time. Defer to oncology and primary service.
Original Note:
Consultation
Consultation Request
Date/Time Consultation Requested: 10/10/2024 at 0731
Date/Time Consultation Performed: 10/10/2024 at 0947
Requesting Provider: Dr. Ragland
Performing Provider: Dr. Susan Javier
Reason for Consultation: Acute HF
Medical History
-
History of Present Illness:
Patient came to [facility] yesterday with increased SOB and was admitted with acute HF and anemia, cardiology is consulted. Patient had previously been seen by cardiology as a one-time visit for cardiac clearance back in 2020 and since then was found
to have metastatic primary peritoneal carcinoma. We saw the patient again during an admission 06/25/24 in the setting of syncope as a reaction to Doxil chemotherapy that was being given at the time. Patient says that since then the Doxil was
stopped and she is now on gemcitabine year and this is all being managed by Dr. Chin. Patient says that the SOB started yesterday and was worse throughout the day so she came to the ER. She denies any orthopnea or bloating leading up to this
admission. She says she has fairly chronic LE edema and noticed increasing erythema, but overall the bulk of edema did not seem worse to her. On CXR in the ER there was evidence of a small left pleural effusion, but she has had worse effusions in
the past that were considered malignant. Also her proBNP was 599 compared to a proBNP of 855 back on 08/20/2024. Outpatient dose of Lasix 40 mg PO BID was changed to Lasix 40 mg IV BID, but she does not feel much improvement since admission. She
also remains hypoxic on 4 L NC.
PMH:
Metastatic primary peritoneal carcinoma
Poor prognosis per oncology
Possible LLE cellulitis vs venous stasis dermatitis
Past Medical History
Past Surgical History: Gynecological (FERNIE-BSO) and Orthopedic
Social History
Tobacco: Non-Smoker
Alcohol: Occasional (less than once a month)
Drug: None
Personal:
Living: Alone
Family History
Family History: Other (CKD)
Allergies / Home Medications
Allergy/AdvReac Type Severity Reaction Status Date / Time
adhesive Allergy Rash from Verified 10/09/24 21:34
bandaids
aprepitant (From Emend) Allergy Facial Verified 09/22/24 09:53
redness
and
shaking
all over
fosaprepitant (From Emend) Allergy Facial Verified 09/22/24 09:53
redness
and
shaking
all over
paclitaxel (From Taxol) Allergy Shaking Verified 09/22/24 09:53
all over
and facial
redness
�Medication �Instructions �Recorded �Confirmed �Type
amlodipine 10 mg tablet 10 mg PO DAILY Blood pressure 06/21/21 10/09/24 History
pantoprazole 40 mg tablet,delayed 40 mg PO DAILY Gastrointestinal 06/21/21 10/09/24 History
release issue
Prevagen 1 tab PO DAILY Supplement 06/23/21 10/09/24 History
multivitamin with folic acid 400 1 tab PO DAILY Supplement 06/23/21 10/09/24 History
mcg tablet (Tab-A-Crow)
furosemide 40 mg tablet 40 mg PO BID Fluid 06/16/24 10/09/24 History
Retention/Swelling
vit C 250 mg-vit E 90 mg-zinc 40 1 tab PO BID Supplement 06/25/24 10/09/24 History
mg-copper 1 [id number]
capsule (PreserVision AREDS-2)
Review of Systems
-
History Source: Patient
All other systems: Negative unless noted
Physical Exam
Vital Signs
Temp Pulse Resp BP Pulse Ox
97.6 F 89 22 93/55 96
10/10/24 07:51 10/10/24 08:00 10/10/24 08:00 10/10/24 08:00 10/10/24 07:30
GEN: NAD. AAOx3
HEENT: EOMI, MMM
LUNGS: RA. Clear anterolaterally without wheeze
CV: 4 L NC. Reg, S1/S2, no murmur
ABD: soft, BS+, NT/ND
EXT: +2 B/L LE edema. B/L LE erythema with B/L wounds dressing C/D/I
NEURO: Gross non-focal
SKIN: No rash
Lab Results
10/10/24:21
10/10/24 05:21
Troponin I < 0.012 ng/ml 10/09/24 14:30
[id number] Pept 599 pg/ml 10/09/24 14:30
Impression / Plan
-
PCP: Dr. Lo
Card: Dr. Duke, last seen as a pre-op clearance 2020
Impression:
Admitted with SOB and CHF 10/09/24
Recent admission for generalized weakness and cellulitis 08/20/24 until 09/03/2024
Recent admission for syncope likely an anaphylactic reaction to Doxil 06/25/2024 until 06/27/2024
Acute hypoxic respiratory failure
Acute HFpEF
Small left pleural effusion by CXR 10/09/2024
h/o malignant pleural effusions
Leukopenia
Anemia
Metastatic primary peritoneal carcinoma
Poor prognosis per oncology
Possible LLE cellulitis vs venous stasis dermatitis
ECHO 06/25/24: EF 55 to 60%, trace MR, mild TR, PAP 37 mmHg, pericardial fat pad and trace effusion noted, no significant change compared to prior from 06/12/2024
Echo 08/21/2024: EF 55 to 60%, normal RV size and function, aortic sclerosis without stenosis, mild to moderate TR with PAP 40 to 45 mmHg
Plan:
-Patient came to [facility] ER yesterday with increased SOB and was admitted with acute HF and anemia, cardiology is consulted. Patient had previously been seen by cardiology as a one-time visit for cardiac clearance back in 2020 and since then was
found to have metastatic primary peritoneal carcinoma. We saw the patient again during an admission 06/25/24 in the setting of syncope as a reaction to Doxil chemotherapy that was being given at the time. Patient says that since then the Doxil was
stopped and she is now on gemcitabine year and this is all being managed by Dr. Chin. Patient says that the SOB started yesterday and was worse throughout the day so she came to the ER. She denies any orthopnea or bloating leading up to this
admission. She says she has fairly chronic LE edema and noticed increasing erythema, but overall the bulk of edema did not seem worse to her. On CXR in the ER there was evidence of a small left pleural effusion, but she has had worse effusions in
the past that were considered malignant. Also her proBNP was 599 compared to a proBNP of 855 back on 08/20/2024. Outpatient dose of Lasix 40 mg PO BID was changed to Lasix 40 mg IV BID, but she does not feel much improvement since admission. She
also remains hypoxic on 4 L NC.
-ECG reviewed by me 10/10/2024 is sinus tachycardia EKG
-Patient was admitted with acute hypoxic respiratory failure and there is felt to be some component of acute HFpEF. Patient was initially diuresed with Lasix IV, but this is now on hold due to hypotension and she has also had not much of a
symptomatic improvement. Patient remains hypoxic on 4 L NC.
-Patient with preserved EF by echo 06/25/2024 and again on the most recent echo from 08/21/2024. I do not see significant valve disease that would explain her ongoing SOB.
-Repeat echo ordered
-GDMT limited by hypotension
-Hgb is 7.6 on 10/10/2024 and patient was ordered 1 unit PRBCs that is pending
-Patient has metastatic primary peritoneal carcinoma and is receiving palliative gemcitabine. The most recent documentation I can find from oncology is from her admission last month and at that time oncology felt that her last few hospitalizations
were due to underlying incurable malignancy and discussions about palliative care or hospice were held, but the patient ultimately decided not to proceed.
[2024-10-10] MEDS: MAGNESIUM OXIDE 500 MG PO (12:48)
[2024-10-10] MEDS: MAGNESIUM SULFATE 102 GRAMS IV (13:43)
--- NOTE | 2024-10-10 14:12 | PTCARENOTE ---
1 unit PRBC completed. K rider completed, Mag rider infusing currently. Knee high crista compressions applied - pt requested right removed after few hours -uncomfortable. RSC port accessed +blood return. INT removed for leakage. Dyspneic at rest
and any exertion, remains on 2L NC 96%- more symptomatic on RAIR. Urine output fair- will get oob to chair when IVs completed.
--- NOTE | 2024-10-10 16:26 | CON.ONC ---
Consultation
-
Date Consultation Performed: 10/10/24
Requesting Provider: Dr. Ragland
Performing Provider: Trev Jamil MD
Reason for Consultation: h/o peritoneal cancer
Impression
Impression
SOB - multifactorial - h/o CHF, LE edema - volume overload, malignancy, anemia
primary peritoneal carcinoma
anemia
hypokalemia
Plan
Plan
1. SOB - multifactorial -
-CT chest w/o acute findings - no PE
-cardiology following - w/ plans for diuresis
2.Anemia - hemoglobin slightly lower than baseline outpt value - 10-11g/dl
-likely multifactorial - anemia of chronic illness/ malignancy - recent cytotoxic chemotherapy
-check iron studies, B12/ folic acid levels, retic count
3. Primary peritoneal carcinoma
-f/u as outpt for continued management
Will continue to follow with you.
Patient History
History of Present Illness
78y/o female seen in oncology consultation today regarding h/o peritoneal cancer.
The patient is a patient of Dr. Chin and currently is being treated w/ gemcitabine, last on 10/09.
She presented to the [place] ER on the evening of 10/09, after her treatment w/ dyspnea on exertion. Chest CT revealed no acute disease in the chest, no PE.
CBC demonstrated leukopenia w/ total WBC 1900 and ANC 1700. Hemoglobin was 9.7g/dl and platelet count was normal.
Due to concern for some component of fluid overload w/ bilateral LE edema, diruresis has been initiated.
Clinically, she is feeling slightly better this am. No fevers or chills. No chest pain. She remains moderately short of breath. No abdominal pain.
Past-Medical/Surgical History
PMH:
primary peritoneal carcinoma
chronic anemia
pancreatitis
Lower extremity venous stasis dermatitis
Spinal stenosis
Chronic heart failure preserved EF
Essential hypertension
GERD
Malignant pleural effusions
PSH:
Total abdominal hysterectomy, bilateral salpingo-oophorectomy
Bilateral hip replacement
Right total knee replacement
Cataract surgery
Social History
Tobacco: Non-smoker
Alcohol: Occasional
Family History
Family History: Not pertinent
Allergies:
emend
paclitaxel
Patient Medication
�Medication �Instructions �Recorded �Confirmed �Last Taken �Type
amlodipine 10 mg tablet 10 mg PO DAILY Blood pressure 06/21/21 10/09/24 08/19/24 History
pantoprazole 40 mg tablet,delayed 40 mg PO DAILY Gastrointestinal 06/21/21 10/09/24 08/19/24 History
release issue
Prevagen 1 tab PO DAILY Supplement 06/23/21 10/09/24 08/19/24 History
multivitamin with folic acid 400 1 tab PO DAILY Supplement 06/23/21 10/09/24 08/19/24 History
mcg tablet (Tab-A-Crow)
furosemide 40 mg tablet 40 mg PO BID Fluid 06/16/24 10/09/24 2 Days Ago History
Retention/Swelling ~08/18/24
vit C 250 mg-vit E 90 mg-zinc 40 1 tab PO BID Supplement 06/25/24 10/09/24 08/19/24 History
mg-copper 1 [id number]
capsule (PreserVision AREDS-2)
Active Medications
Generic Name Dose Route Start Last Admin
Trade Name Freq PRN Reason Stop Dose Admin
Acetaminophen 650 mg 10/09/24 21:33
Acetaminophen 325 Mg Tablet PO 11/06/24 21:32
Q6HPRN PRN
mild pain/ fever>100.5F
Enoxaparin Sodium 40 mg 10/10/24 18:00
Enoxaparin Sodium 40 Mg/0.4 Ml Syringe SC 11/07/24 17:59
QPM MOHAN
Furosemide 40 mg 10/10/24 08:00
Furosemide 40 Mg (10 Mg/Ml) 4 Ml Vial IV 11/07/24 07:59
On Hold: 10/10/24 08:00 BID AT 0800,1600 MOHAN
Magnesium Oxide 500 mg 10/11/24 08:00
Magnesium Oxide 500 Mg Tablet PO 11/08/24 07:59
DAILY MOHAN
Pantoprazole Sodium 40 mg 10/10/24 08:00 10/10/24 08:29
Pantoprazole 40 Mg Delayed Release Tablet PO 11/07/24 07:59 40 mg
DAILY MOHAN Administration
Potassium Chloride 40 meq 10/11/24 08:00
Potassium Chloride 10% Oral Solution (40 Meq/30 Ml) Cup PO 11/08/24 07:59
DAILY MOHAN
Sodium Chloride 0 flush 10/09/24 22:00
Sodium Chloride 0.9% (Flush) Syringe IV 11/06/24 21:59
PER PROTOCOL MOHAN
Review of Systems
-
A ROS was obtained w/ pertinent findings as per HPI.
Physical Exam
-
General: No Apparent Distress
HEENT: Negative Jaundice
Pulmonary: Clear
GI: Soft
Extremities: Edema
Neurology: Non Focal
Labs
Lab Results
WBC 2.8 10^3/uL (4.8-10.8) L 10/10/24 05:21
RBC 2.39 10^6/uL (4.20-5.40) L 10/10/24 05:21
Hgb 7.6 g/dL (12.0-16.0) L D 10/10/24 05:21
Hct 23.2 % (37.0-47.0) L 10/10/24 05:21
MCV 97.1 fL (81.0-99.0) 10/10/24 05:21
MCH 31.8 pg (27.0-31.0) H 10/10/24 05:21
MCHC 32.8 g/dL (33.0-37.0) L 10/10/24 05:21
RDW 23.3 % (11.5-14.5) H 10/10/24 05:21
Plt Count 135 10^3/uL (130-400) D 10/10/24 05:21
MPV 9.9 fL (7.4-10.4) 10/10/24 05:21
Abs Immat Gran (auto) 0.0 10^3/uL (0-0.05) 10/10/24 05:21
Absolute Neuts (auto) 2.2 10^3/uL (1.4-6.5) 10/10/24 05:21
Absolute Lymphs (auto) 0.2 10^3/uL (1.2-3.4) L 10/10/24 05:21
Absolute Monos (auto) 0.2 10^3/uL (0.1-0.6) 10/10/24 05:21
Absolute Eos (auto) 0.1 10^3/uL (0-0.7) 10/10/24 05:21
Absolute Basos (auto) 0.0 10^3/uL (0-0.2) 10/10/24 05:21
Immature Gran % 0.4 % (0-0.5) 10/10/24 05:21
Neutrophils % 80.8 % (42.2-75.2) H 10/10/24 05:21
Lymphocytes % 7.6 % (20.5-51.1) L 10/10/24 05:21
Monocytes % 8.0 % (1.7-9.3) 10/10/24 05:21
Eosinophils % 2.5 % (0-6) 10/10/24 05:21
Basophils % 0.7 % (0-2) 10/10/24 05:21
Creatinine 0.6 mg/dL (0.6-1.0) 10/10/24 05:21
Vital Signs
Vital Signs
Temp Pulse Resp BP Pulse Ox
98.3 F 85 14 95/45 96
10/10/24 15:30 10/10/24 14:00 10/10/24 14:00 10/10/24 14:00 10/10/24 14:00
[2024-10-10 18:00] LABS: Reticulocyte Count 3.4 % (0.4-2.8)
[2024-10-10] MEDS: LOVENOX 40 MG SC (18:12)
[2024-10-10] MEDS: TYLENOL 650 MG PO (18:13)
[2024-10-10 18:35] LABS: Iron 72 ug/dl (37-170)
[2024-10-10 18:44] LABS: Percent Saturation 38 % (20-50); Total Iron Binding Capacity 189 ug/dl (265-497)
[2024-10-10 19:40] LABS: Folate 8.6 ng/ml (2.76-20); Vitamin B12 711 pg/ml (239-931)
[2024-10-11] VITALS (14 sets, daily range): BP systolic 108–130; BP diastolic 47–80; BMI 36.3
--- NOTE | 2024-10-11 02:41 | PTCARENOTE ---
Received pt at change of shift. B/L crackles throughout lungs; dyspneic at rest with labored respirations. Pt attempted to trial O2 off and desatted to mid 80s and appears SOB. Discussed the importance of wearing the 2L NC to maintain a higher
pulse ox; pulse ox 93% on 2L. Pt offers no complaints at this time.
[2024-10-11 04:50] LABS: % Basophils 0.7 % (0-2); % Eosinophils 2.6 % (0-6); % Immature Granulocytes 0.7 % (0-0.5); % Lymphocytes 3.3 % (20.5-51.1); % Monocytes 2.9 % (1.7-9.3); % Neutrophils 89.8 % (42.2-75.2); Absolute Eosinophils 0.1 10^3/uL (0-0.7); Absolute Lymphocytes 0.1 10^3/uL (1.2-3.4); Absolute Monocytes 0.1 10^3/uL (0.1-0.6); Absolute Neutrophils 2.8 10^3/uL (1.4-6.5); Hematocrit 28.4 % (37.0-47.0); Hemoglobin 9.4 g/dL (12.0-16.0); Mean Corp Hgb Conc. 33.1 g/dL (33.0-37.0); Mean Corpuscular Hgb 32.2 pg (27.0-31.0); Mean Corpuscular Volume 97.3 fL (81.0-99.0); Mean Platelet Volume 10.2 fL (7.4-10.4); Nucleated Red Blood Cells % 0 %; Platelet Count 179 10^3/uL (130-400); Red Blood Cell Count 2.92 10^6/uL (4.20-5.40); White Blood Cell Count 3.1 10^3/uL (4.8-10.8)
[2024-10-11 05:05] LABS: ALT (SGPT) 36 U/L (0-35); AST (SGOT) 64 U/L (14-36); Albumin 2.4 g/dl (3.5-5.0); Alkaline Phosphatase 115 U/L (38-126); Blood Urea Nitrogen 20 mg/dl (7-17); Calcium 7.7 mg/dl (8.4-10.2); Carbon Dioxide 29 mmol/L (22-30); Chloride 103 mmol/L (98-107); Estimated Creatinine Clearance 81 ml/min; Glucose 111 mg/dl (70-99); Magnesium 1.5 mg/dl (1.6-2.3); Potassium 4.2 mmol/L (3.5-5.1); Sodium 135 mmol/L (135-145); Total Bilirubin 0.8 mg/dl (0.2-1.3); Total Protein 5.3 g/dl (6.3-8.2); eGFR > 60.00
[2024-10-11] MEDS: MAGNESIUM SULFATE 50 IV (05:43)
[2024-10-11] MEDS: LASIX 40 MG IV ×3 (08:51→17:01)
--- NOTE | 2024-10-11 08:57 | W.PN.HOSP.TC ---
Today's Communication/Plan
-
Resume IV Lasix
Assessment / Plan
Assessment / Plan
Gen-AAOx3, NAD
HEENT-NC, AT, anicteric, clear oral mm
Neck-supple
CV-reg, no M, +S1/S2
Lungs-clear B/L
Abd-soft, NT, ND
Ext-bilateral lower extremity edema, erythema
Musculoskeletal-no cyanosis, clubbing
Skin-warm and dry, bilateral lower extremity venous wounds with dressing
Neuro-grossly non-focal
Psych-calm, cooperative
Acute hypoxic respiratory failure -suspect multifactorial and due to acute pulmonary edema due to acute on chronic heart failure, malignancy, anemia. Pulmonary embolism ruled out with CT chest. Required BiPAP in the emergency room, now transitioned
to nasal cannula oxygen. More short of breath this morning, oxygen turned up from 2 to 4 L nasal cannula, pulse ox 94%. She is visibly tachypneic. Suspect ongoing pulmonary edema.
Acute on chronic heart failure with preserved EF -she is on Lasix 40 mg twice daily at home, states she has been compliant. Last echocardiogram was August 21, LVEF 55 to 60%, normal RV size and function.
Weight is up 3 kg since admission, Lasix held yesterday for hypotension. Will resume Lasix this morning.
Echo ordered.
Hypokalemia -improved.
Hypomagnesemia -continue repletion.
Leukopenia -suspect related to chemotherapy. WBC count now recovering.
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 Prognosis remains poor. Dr. Chin is her oncologist, he mentioned hospice during her last hospitalization last month but patient is not interested.
Oncology consulted.
Albumin of 2.1 with suspected malnutrition, third spacing. Overall prognosis is poor.
Acute on chronic anemia -likely multifactorial etiology including malignancy and chemotherapy. Baseline hemoglobin appears to be around 10. Hemoglobin improved to 9.4 today, transfused 1 unit of blood yesterday.
Hyponatremia -135. Monitor closely on diuretics.
Bilateral lower extremity venous stasis dermatitis -compression therapy with Albert wraps ordered. At home she uses compression stockings.
Bilateral lower extremity wounds -likely related to venous stasis dermatitis. Consult wound care.
Obesity due to excess calories
DNR -confirmed with patient.
PT/OT -SNF recommended.
Anticipated Discharge: > 48 hours
Subjective/Interval History
-
Date of Service: October 11, 2024
Patient seen and examined. Complaining of shortness of breath this morning.
Objective Data
-
Labs:
Laboratory Results
10/11/24
04:03
WBC 3.1 L
Hgb 9.4 L D
Hct 28.4 L
Plt Count 179 D
Sodium 135
Potassium 4.2 D
Chloride 103
Carbon Dioxide 29
BUN 20 H
Creatinine 0.6
Glucose 111 H
Calcium 7.7 L
Total Bilirubin 0.8
AST 64 H
ALT 36 H
Alkaline Phosphatase 115
Vital Signs:
Vital Signs
Temp Pulse Resp BP Pulse Ox
98.4 F 102 30 113/57 92
10/11/24 06:32 10/11/24 08:51 10/11/24 06:00 10/11/24 08:51 10/11/24 06:00
I&O
10/10/24 10/11/24 10/12/24
06:59 06:59 06:59
Intake Total 1650 / 1650
Output Total 500 / 500 400 / 400
Balance -500 / -500 1250 / 1250
Review of Systems
-
History Source: Patient
All other systems: Reviewed and negative
--- NOTE | 2024-10-11 09:27 | PTCARENOTE ---
pt tachypneic to 34 rpm. pox 92% on 2 L nasal canula. lung sounds with rales left middle lobe; scattered rhonchi throughout posterior. oxygen increased to 4L; pox 96% but remains tachypneic. B/p 112/53; systolic 100-[address] cruz
notified. lasix 40 mg given stat at 0902 and BID dosing resumed. O2 titrated up to 6 liters for comfort for now and will continue to monitor
[2024-10-11] MEDS: PROTONIX 40 MG PO (11:05)
[2024-10-11] MEDS: KCL ELIXIR 40 MEQ PO (11:05)
[2024-10-11] MEDS: MAGNESIUM OXIDE 500 MG PO (11:05)
--- NOTE | 2024-10-11 12:29 | PTCARENOTE ---
additional 40 mg lasix given IV at 1100. B/p now 117/58. urine output 750 ml since dose given. Resp 25 pm, less labored, feeling subjectively slightly better. pox 99% on 6 liters O2. Weaned O2 to 4L. continuing to monitor
--- NOTE | 2024-10-11 13:31 | W.PN.CARDCBS ---
Today's Communication / Plan
-
Continue with diuresis I have given an additional 40 mg of IV Lasix in addition to the 40 mg given earlier urgently and the 40 mg planned for later today.
Continue supportive care
Impression / Plan
-
PCP: Dr. Lo
Card: Dr. Duke, last seen as a pre-op clearance 2020
Impression:
Admitted with SOB and CHF with previously preserved ejection fraction 10/09/24-continues to struggle with hypoxemia and respiratory insufficiency
Acute hypoxic respiratory failure
Acute HFpEF
Recent admission for generalized weakness and cellulitis 08/20/24 until 09/03/2024
Recent admission for syncope likely an anaphylactic reaction to Doxil 06/25/2024 until 06/27/2024
Small left pleural effusion by CXR 10/09/2024
h/o malignant pleural effusions
Leukopenia
Anemia
Metastatic primary peritoneal carcinoma
Poor prognosis per oncology
Possible LLE cellulitis vs venous stasis dermatitis
ECHO 06/25/24: EF 55 to 60%, trace MR, mild TR, PAP 37 mmHg, pericardial fat pad and trace effusion noted, no significant change compared to prior from 06/12/2024
Echo 08/21/2024: EF 55 to 60%, normal RV size and function, aortic sclerosis without stenosis, mild to moderate TR with PAP 40 to 45 mmHg
Plan:
Patient presented with volume overload, hypoalbuminemia, hypoxemic respiratory failure with acute HF and anemia. Continues to be a complex and difficult situation with advanced peritoneal carcinomatosis.
-She continues to struggle and weight continues to be elevated at least 10 pounds since last known dry weight. Lasix was held yesterday. She was given 40 IV Lasix urgently today and I have given her another 40 IV Lasix when seen given not clearly
responding.
-Repeat echo ordered
-EKG with sinus rhythm/sinus tachycardia no indication of acute coronary syndrome. Initial troponin negative.
-Chest x-ray with small effusions only
-Continue support with oxygen
-Blood pressure has been marginal. Continue to follow.
-Edema in addition to volume overload is likely related to hypoalbuminemia and metastatic disease with lymphedema.
-She has cellulitis versus venous stasis dermatitis. Defer to primary service
-She has received blood for anemia.
-Patient has metastatic primary peritoneal carcinoma and is receiving palliative gemcitabine. The most recent documentation I can find from oncology is from her admission last month and at that time oncology felt that her last few hospitalizations
were due to underlying incurable malignancy and discussions about palliative care or hospice were held, but the patient ultimately decided not to proceed. She is DNR CODE STATUS. Continue ongoing discussions with oncology.
Poor overall prognosis
Patient had previously been seen by cardiology as a one-time visit for cardiac clearance back in 2020 and since then was found to have metastatic primary peritoneal carcinoma. We saw the patient again during an admission 06/25/24 in the setting of
syncope as a reaction to Doxil chemotherapy that was being given at the time. Patient says that since then the Doxil was stopped and she is now on gemcitabine year and this is managed by Dr. Chin. Patient says that the SOB started to worsen day
before admission and was worse throughout the day so she came to the ER. She says she has fairly chronic LE edema and noticed increasing erythema, but overall the bulk of edema did not seem worse to her. On CXR in the ER there was evidence of a
small left pleural effusion, but she has had worse effusions in the past that were considered malignant. Also her proBNP was 599 compared to a proBNP of 855 back on 08/20/2024. Outpatient dose of Lasix 40 mg PO BID was changed to Lasix 40 mg IV
BID, but she does not feel much improvement since admission. She also remains hypoxic on 4 L NC.
Progress Note - [employer]
Subjective
Date of Service: October 11, 2024
She is short of breath. She denies chest pain and palpitations
Objective
Labs:
10/11/24 04:03
10/11/24 04:03
Labs
Hgb 9.4 g/dL (12.0-16.0) L D 10/11/24 04:03
Hct 28.4 % (37.0-47.0) L 10/11/24 04:03
Plt Count 179 10^3/uL (130-400) D 10/11/24 04:03
Sodium 135 mmol/L (135-145) 10/11/24 04:03
Potassium 4.2 mmol/L (3.5-5.1) D 10/11/24 04:03
BUN 20 mg/dl (7-17) H 10/11/24 04:03
Creatinine 0.6 mg/dL (0.6-1.0) 10/11/24 04:03
Glucose 111 mg/dl (70-99) H 10/11/24 04:03
Troponins
10/09/24
14:30
Troponin I < 0.012
Vital Signs and I&O:
Vital Signs
Temp Pulse Resp BP Pulse Ox
97.4 F 87 20 110/59 97
10/11/24 11:38 10/11/24 11:04 10/11/24 11:03 10/11/24 11:04 10/11/24 11:03
Vital Signs
Temp Pulse Resp BP Pulse Ox
97.4 F 87 20 110/59 97
10/11/24 11:38 10/11/24 11:04 10/11/24 11:03 10/11/24 11:04 10/11/24 11:03
Intake & Output
10/09/24 10/10/24 10/11/24 10/12/24
06:59 06:59 06:59 06:59
Intake Total 1650 / 1650 480 / 480
Output Total 500 / 500 400 / 400 750 / 750
Balance -500 / -500 1250 / 1250 -270 / -270
Physical Exam
Physical Exam
General: Ill-appearing woman dyspneic
Heart: Tachycardic but regular
Lungs: Coarse breath sounds anteriorly
Extremities: +3 edema with erythema
[2024-10-11] MEDS: MYCOSTATIN CREAM 1 APPLIC TOPICAL ×2 (17:02→20:11)
[2024-10-11] MEDS: LOVENOX 40 MG SC (17:02)
--- NOTE | 2024-10-11 17:11 | PTCARENOTE ---
pt no longer tachypneic; pox 98% on 4L oxygen. >1000 ml urine output during this shift prior to 1600 scheduled dose of lasix. resp 20-27 and non-labored. b/p low 100's systolic range. continuing to monitor
--- NOTE | 2024-10-11 21:30 | PTCARENOTE ---
Report received from previous shift RN 184. Pt in bed, AAO3, generalized weakness noted. Pt denies pain, however, when RN touches pt's legs or repositioning pt she moans out slightly and grimaces. Lung sounds w crackles R base, decreased throughout
b/l, +SANCHEZ and at rest, + tachypneic, shallow respirations. Telemetry rhythm reveals SR, HR 90's, + murmur, edema noted in b/l lower extremities, legs warm and red. Albert wraps on during the day, off HS. HyperBS, abdomen obese, + hiatal hernia, pt
reports poor appetite, ordered regular diet. Purewick incontinence device in place, pt voiding yellow urine. R SQ port accessed, capped. Skin as documented. Safe environment maintained, call garvin within reach. Will monitor closely.
--- NOTE | 2024-10-11 23:50 | PTCARENOTE ---
~2346 Pt had short burst of tachycardia, HR 150's. Pt was asleep during this episode, wakened easily to verbal stimuli. Denies complaints. HR returned to 80-90's bpm. Will monitor closely.
[2024-10-12] VITALS (14 sets, daily range): BP systolic 93–122; BP diastolic 44–63; O2SAT 88; BMI 35.3
[2024-10-12] MEDS: FLUSH (NSS) 2 FLUSH IV ×2 (04:05→04:36)
[2024-10-12 05:08] LABS: % Basophils 0.6 % (0-2); % Eosinophils 2.8 % (0-6); % Immature Granulocytes 0.6 % (0-0.5); % Lymphocytes 4.5 % (20.5-51.1); % Monocytes 1.4 % (1.7-9.3); % Neutrophils 90.1 % (42.2-75.2); Absolute Eosinophils 0.1 10^3/uL (0-0.7); Absolute Lymphocytes 0.2 10^3/uL (1.2-3.4); Absolute Monocytes 0.1 10^3/uL (0.1-0.6); Absolute Neutrophils 3.2 10^3/uL (1.4-6.5); Hematocrit 26.8 % (37.0-47.0); Hemoglobin 8.9 g/dL (12.0-16.0); Mean Corp Hgb Conc. 33.2 g/dL (33.0-37.0); Mean Corpuscular Hgb 32.4 pg (27.0-31.0); Mean Corpuscular Volume 97.5 fL (81.0-99.0); Mean Platelet Volume 9.7 fL (7.4-10.4); Nucleated Red Blood Cells % 0 %; Platelet Count 187 10^3/uL (130-400); Red Blood Cell Count 2.75 10^6/uL (4.20-5.40); Red Cell Dist. Width 22.3 % (11.5-14.5); White Blood Cell Count 3.5 10^3/uL (4.8-10.8)
[2024-10-12 05:42] LABS: ALT (SGPT) 51 U/L (0-35); AST (SGOT) 110 U/L (14-36); Albumin 2.3 g/dl (3.5-5.0); Alkaline Phosphatase 114 U/L (38-126); Blood Urea Nitrogen 17 mg/dl (7-17); Calcium 7.6 mg/dl (8.4-10.2); Carbon Dioxide 32 mmol/L (22-30); Chloride 100 mmol/L (98-107); Estimated Creatinine Clearance 80 ml/min; Glucose 90 mg/dl (70-99); Magnesium 1.6 mg/dl (1.6-2.3); Sodium 133 mmol/L (135-145); Total Bilirubin 0.8 mg/dl (0.2-1.3); eGFR > 60.00
[2024-10-12] MEDS: MAGNESIUM SULFATE 50 IV (06:38)
[2024-10-12] MEDS: FLUSH (NSS) 1 FLUSH IV (06:38)
[2024-10-12] MEDS: MYCOSTATIN CREAM 1 APPLIC TOPICAL ×2 (08:39→20:05)
[2024-10-12] MEDS: KCL ELIXIR 40 MEQ PO (08:39)
[2024-10-12] MEDS: MAGNESIUM OXIDE 500 MG PO (08:39)
[2024-10-12] MEDS: PROTONIX 40 MG PO (08:39)
[2024-10-12] MEDS: LASIX 40 MG IV ×2 (08:39→17:00)
--- NOTE | 2024-10-12 08:39 | VNURNOTE ---
Chart reviewed. Patient is current with [facility] nursing, PT. Will continue to follow hospital course and DC plans.
--- NOTE | 2024-10-12 08:53 | W.PN.CARDCBS ---
Addendum entered and electronically signed by Susan Javier MD 10/12/24 10:56:
I saw and examined the patient.
The Hand Therapist's note was reviewed and I agree with the note.
Comment: Exam with patient still with dyspnea when speaking. +2 lower extremity edema although improved compared to prior. Bilateral crackles. Heart with distant heart sounds and regular rate and rhythm.
Edema with increased volume (heart failure with preserved ejection fraction) which is multifactorial in the setting of end-stage metastatic primary peritoneal carcinoma. Contribution from hypoalbuminemia and and lymphedema also noted. Discussed
with patient and family at the bedside. Her weight is down 6 pounds overnight.
-Continue current dose of IV Lasix and continue to assess. Give extra dosing if needed.
-Follow labs and replete electrolytes.
-Blood pressure is on the low side and if needed could consider midodrine if becomes symptomatic.
-She was given blood and hemoglobin stable.
Overall prognosis poor.
Original Note:
Today's Communication / Plan
-
Cont Lasix 40 mg IV BID
Oxygen requirements and edema improving with diuresis
Impression / Plan
-
PCP: Dr. Lo
Card: Dr. Duke, last seen as a pre-op clearance 2020
Impression:
Admitted with SOB and CHF with previously preserved ejection fraction 10/09/24-continues to struggle with hypoxemia and respiratory insufficiency
Acute hypoxic respiratory failure
Acute HFpEF
Recent admission for generalized weakness and cellulitis 08/20/24 until 09/03/2024
Recent admission for syncope likely an anaphylactic reaction to Doxil 06/25/2024 until 06/27/2024
Small left pleural effusion by CXR 10/09/2024
h/o malignant pleural effusions
Leukopenia
Anemia
Metastatic primary peritoneal carcinoma
Poor prognosis per oncology
Possible LLE cellulitis vs venous stasis dermatitis
ECHO 06/25/24: EF 55 to 60%, trace MR, mild TR, PAP 37 mmHg, pericardial fat pad and trace effusion noted, no significant change compared to prior from 06/12/2024
Echo 08/21/2024: EF 55 to 60%, normal RV size and function, aortic sclerosis without stenosis, mild to moderate TR with PAP 40 to 45 mmHg
Echo 10/12/2024: Study pending
Plan:
-Weight is down 5 lbs overnight with bed scale weights, patient cannot stand on scale. Previous dry weight from 09/03/24 was 186 lbs and patient weighs 199 lbs on 10/12/24.
-Cont Lasix 40 mg IV BID. Patient was given Lasix IV in the ER on admission, and dosing then held due to hypotension. Patient was taking Lasix 40 mg PO BID prior to admission. BP stable at 102/44
-Oxygen requirements are improving with diuresis, initially required 4 L NC and now improved to 2 L NC as of 10/12/2024 VS reviewed by me
-GDMT limited by symptomatic hypotension
-Echo ordered for 10/12/2024 and study is pending, echo ordered by me
-ECG was sinus tachycardia on admission, repeat ECG now with improved HR control, ordered by me 10/12/2024
-Edema in addition to volume overload is likely related to hypoalbuminemia and metastatic disease with lymphedema. Overall LE edema has improved with daily wrapping being performed by nursing
-She has cellulitis versus venous stasis dermatitis. Defer to primary service
-Patient was given 1 unit PRBCs 10/10/2024 and Hgb overall stable at 8.9, Hgb prior to PRBCs was 7.6
-Patient has metastatic primary peritoneal carcinoma and is receiving palliative gemcitabine. The most recent documentation I can find from oncology is from her admission last month and at that time oncology felt that her last few hospitalizations
were due to underlying incurable malignancy and discussions about palliative care or hospice were held, but the patient ultimately decided not to proceed. She is DNR CODE STATUS. Continue ongoing discussions with oncology.
-Poor overall prognosis
Patient had previously been seen by cardiology as a one-time visit for cardiac clearance back in 2020 and since then was found to have metastatic primary peritoneal carcinoma. We saw the patient again during an admission 06/25/24 in the setting of
syncope as a reaction to Doxil chemotherapy that was being given at the time. Patient says that since then the Doxil was stopped and she is now on gemcitabine year and this is managed by Dr. Chin. Patient says that the SOB started to worsen day
before admission and was worse throughout the day so she came to the ER. She says she has fairly chronic LE edema and noticed increasing erythema, but overall the bulk of edema did not seem worse to her. On CXR in the ER there was evidence of a
small left pleural effusion, but she has had worse effusions in the past that were considered malignant. Also her proBNP was 599 compared to a proBNP of 855 back on 08/20/2024. Outpatient dose of Lasix 40 mg PO BID was changed to Lasix 40 mg IV
BID, but she does not feel much improvement since admission. She also remains hypoxic on 4 L NC.
Progress Note - Maternity Floor Supervisor
Subjective
Date of Service: October 12, 2024
She thinks LE edema is better, she is asking to sit in the chair today and trying to be OOB more
Objective
Labs:
10/12/24 04:36
10/12/24 04:36
Labs
Hgb 8.9 g/dL (12.0-16.0) L 10/12/24 04:36
Hct 26.8 % (37.0-47.0) L 10/12/24 04:36
Plt Count 187 10^3/uL (130-400) 10/12/24 04:36
Sodium 133 mmol/L (135-145) L 10/12/24 04:36
Potassium 4.0 mmol/L (3.5-5.1) 10/12/24 04:36
BUN 17 mg/dl (7-17) 10/12/24 04:36
Creatinine 0.5 mg/dL (0.6-1.0) L 10/12/24 04:36
Glucose 90 mg/dl (70-99) 10/12/24 04:36
Troponins
10/09/24
14:30
Troponin I < 0.012
Vital Signs and I&O:
Vital Signs
Temp Pulse Resp BP Pulse Ox
98.4 F 84 25 102/44 95
10/12/24 07:00 10/12/24 04:00 10/12/24 04:00 10/12/24 04:00 10/12/24 04:00
Vital Signs
Temp Pulse Resp BP Pulse Ox
98.4 F 84 25 102/44 95
10/12/24 07:00 10/12/24 04:00 10/12/24 04:00 10/12/24 04:00 10/12/24 04:00
Intake & Output
10/10/24 10/11/24 10/12/24 10/13/24
06:59 06:59 06:59 06:59
Intake Total 1650 / 1650 960 / 960
Output Total 500 / 500 400 / 400 2650 / 2650
Balance -500 / -500 1250 / 1250 -1690 / -1690
Physical Exam
Physical Exam
GEN: NAD. AAOx3
HEENT: EOMI, MMM
LUNGS: 2 L NC. No wheeze
CV: SR on tele
ABD: ND
EXT: +1-2 B/L LE edema and erythema. Nursing wrapping with TEZ wrap during PE
NEURO: Gross non-focal
SKIN: No rash
--- NOTE | 2024-10-12 09:38 | W.PN.HOSP.TC ---
Today's Communication/Plan
-
Stable for tele
Assessment / Plan
Assessment / Plan
Acute hypoxic respiratory failure -suspect multifactorial and due to acute pulmonary edema due to acute on chronic heart failure, malignancy, anemia. Pulmonary embolism ruled out with CT chest. Required BiPAP in the emergency room, now transitioned
to nasal cannula oxygen. Currently requiring 2 L of oxygen, wean as tolerated. She does not wear oxygen at home.
Acute on chronic heart failure with preserved EF -she is on Lasix 40 mg twice daily at home, states she has been compliant. Last echocardiogram was August 21, LVEF 55 to 60%, normal RV size and function.
Continue IV Lasix as blood pressure allows, trend creatinine, trend daily weights
Hypokalemia -resolved, replete as needed
Hypomagnesemia -resolved, replete as needed
Leukopenia -suspect related to chemotherapy. WBC count now recovering.
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 Prognosis remains poor. Dr. Chin is her oncologist, he mentioned hospice during her last hospitalization last month but patient is not interested.
Oncology consulted. Albumin of 2.1 with suspected malnutrition, third spacing. Overall prognosis is poor.
Acute on chronic anemia -likely multifactorial etiology including malignancy and chemotherapy. Baseline hemoglobin appears to be around 10. Hemoglobin dipped down to 7.6. Status post 1 unit packed red blood cells 10/10/2024. Continue to trend,
transfuse as needed
Hyponatremia - monitor
Bilateral lower extremity venous stasis dermatitis -compression therapy with Albert wraps ordered. At home she uses compression stockings.
Bilateral lower extremity wounds -likely related to venous stasis dermatitis. Continue wound care
Obesity due to excess calories -affects all aspects of care
DNR -confirmed with patient.
PT/OT -SNF recommended.
Total time spent to see the patient on the floor, examine the patient, review data and lab results, discuss treatment plan with patient, nursing staff around 36 minutes.
Physical exam
Gen-Obese, AAOx3, NAD
HEENT-NC, AT, anicteric, clear oral mm
Neck-supple
CV-reg, no M, +S1/S2
Lungs-clear B/L
Abd-soft, NT, ND
Ext-bilateral lower extremity edema, erythema
Musculoskeletal-no cyanosis, clubbing
Skin-warm and dry, bilateral lower extremity venous wounds with dressing
Neuro-grossly non-focal
Psych-calm, cooperative
Anticipated Discharge: > 48 hours
Subjective/Interval History
-
Date of Service: October 12, 2024
Objective Data
-
Labs:
Laboratory Results
10/12/24
04:36
WBC 3.5 L
Hgb 8.9 L
Hct 26.8 L
Plt Count 187
Sodium 133 L
Potassium 4.0
Chloride 100
Carbon Dioxide 32 H
BUN 17
Creatinine 0.5 L
Glucose 90
Calcium 7.6 L
Total Bilirubin 0.8
AST 110 H
ALT 51 H
Alkaline Phosphatase 114
Vital Signs:
Vital Signs
Temp Pulse Resp BP Pulse Ox
98.4 F 84 25 102/44 95
10/12/24 07:00 10/12/24 04:00 10/12/24 04:00 10/12/24 04:00 10/12/24 04:00
I&O
10/11/24 10/12/24 10/13/24
06:59 06:59 06:59
Intake Total 1650 / 1650 960 / 960
Output Total 400 / 400 2650 / 2650
Balance 1250 / 1250 -1690 / -1690
--- NOTE | 2024-10-12 12:03 | WOUNDNOTE ---
R MEDIAL LOWER LEG
--- NOTE | 2024-10-12 12:05 | WOUNDNOTE ---
[facility] RN note: Patient admitted with hypoxia and heart failure.
See H&P for complete history.
PMH: Ovarian cancer (current) CHF, nephrostomy tubes, arthritis, bilateral hip and knee replacement, venous ulcers.
Wound Location and type/assessment: Patient known to service, last seen 08/21/24. Now admitted with healed right LE venous ulcer. Legs less dry and red but still flaky, + pedal pulses, heels blanchable red. Patient states legs are less swollen
compared to admission. Patient using knee high Albert wraps for compression currently, +pedal pulses. Patient can turn with minimal assistance. Sacral silicone foam in use, peeled back to assess, mild MASD in gluteal cleft, blanchable red. MASD/Fungal
rash healing under breasts with use of fungal cream already on order.
Appetite: Patient states her appetite is good.
Pressure redistribution devices in place: [facility] air bed, turning schedule, pillow under calves.
Plan: Applied Vaseline to dry skin on legs and feet. Adhesive foams applied to heels to protect and re applied Albert wraps knee high. Will order mineral oil to start tomorrow. Will confirm orders with hospitalist and update nurse.
Updated care plan and will follow as needed.
Note to case management of equipment requested for discharge: None.
--- NOTE | 2024-10-12 13:10 | W.PN.ONC2 ---
Today's Communication / Plan
-
Supportive care, from Heme/Onc standpoint.
Goals of care discussions to continue as outpt with Dr. Chin.
Impression
Impression
SOB - multifactorial - h/o CHF, LE edema - volume overload, malignancy, anemia
primary peritoneal carcinoma
anemia
hypokalemia
Plan
Plan
1. SOB - multifactorial -
- CT chest w/o acute findings - no PE
- - personally reviewed CT images showing small L effusion and negligible R effusion with diffuse ground-glass appearance
- cardiology following - SOB improving with diuresis
2.Anemia - hemoglobin slightly lower than baseline outpt value - 10-11g/dl
- likely multifactorial - anemia of chronic illness/ malignancy - recent cytotoxic chemotherapy
- No evidence of B12, folate or iron deficiency
3. Primary peritoneal carcinoma
-f/u as outpt for continued management
Subjective/Objective
Chief Complaint
Heme/Onc follow up of primary peritoneal cancer
Subjective
Shortness of breath improving with diuresis. Denies pain.
Vital Signs:
Vital Signs
Temp Pulse Resp BP Pulse Ox
97.6 F 87 21 97/57 95
10/12/24 11:00 10/12/24 10:00 10/12/24 10:00 10/12/24 10:00 10/12/24 10:48
Lab Results:
Laboratory Data
WBC 3.5 10^3/uL (4.8-10.8) L 10/12/24 04:36
Hgb 8.9 g/dL (12.0-16.0) L 10/12/24 04:36
Plt Count 187 10^3/uL (130-400) 10/12/24 04:36
eGFR > 60.00 10/12/24 04:36
Physical Exam
HEENT: Moist Mucous Membranes; No Jaundice
Cardiology: Normal Sinus Rhythm, S1 and S2
Pulmonary: Clear; No Wheezes
GI: Soft and Normal Bowel Sounds
Extremities: No C/C/E
Neuro: Non Focal
Review of Systems
Review of Systems
Constitutional: Reports Fatigue; Denies Fever
Head: Denies Sore Throat or Hearing Loss
Respiratory: Reports Dyspnea; Denies Cough
Cardiovascular: Denies Chest Pain or Palpitations
Gastrointestinal: Denies Nausea/Vomiting or Diarrhea
Genitourinary: Denies Hematuria
Skin: Denies Rash or Pruritis
Neurological: Denies Headache or Numbness
Hem/Lymphatic: Reports Easy Bruising; Denies Night Sweats or Swollen Glands
--- NOTE | 2024-10-12 15:38 | PTCARENOTE ---
pt downgraded to tele level of care. no change in room assignment at this time.
--- NOTE | 2024-10-12 17:25 | CM ---
Patient with Hx peritoneal cancer on chemo with Dx Acute hypoxic respiratory failure, pulmonary edema, heart failure. O2 2L. Receiving IV Lasix. Seen by wound care nurse. PT; assist of 2, recommend HH vs SNF, OT; assist of 2, recommend skilled
rehab.
Met with patient who resides alone in a 1 story house with 2 outside steps.
The patient was independent in ADLs and ambulation using her RW.
Patient says her daughter lives nearby and assists her.
DME - RW, bath bench, raised toilet seat, borrows daughter's w/c as needed
Current with [facility]
Prior [facility]P - [facility] Dr Chaves
Pharmacy - [facility]
Patient says she plans on going home at discharge with resumption of [facility] and her daughter agrees with this plan.
Plan home with resumption of [facility].
[2024-10-12] MEDS: LOVENOX 40 MG SC (17:36)
[2024-10-13] VITALS (12 sets, daily range): BP systolic 110–137; BP diastolic 49–90
[2024-10-13 04:57] LABS: Hematocrit 26.4 % (37.0-47.0); Hemoglobin 8.6 g/dL (12.0-16.0); Mean Corp Hgb Conc. 32.6 g/dL (33.0-37.0); Mean Corpuscular Volume 98.1 fL (81.0-99.0); Mean Platelet Volume 9.1 fL (7.4-10.4); Platelet Count 169 10^3/uL (130-400); Red Blood Cell Count 2.69 10^6/uL (4.20-5.40); White Blood Cell Count 1.4 10^3/uL (4.8-10.8)
--- NOTE | 2024-10-13 05:06 | PTCARENOTE ---
Pt remains awake, alert, oriented. Denies complaints at this time, resting comfortably in bed. R subcutaneous port remains intact, accessed. Critical WBC this morning relayed to covering provider per protocol. Call garvin within reach.
[2024-10-13 07:06] LABS: Blood Urea Nitrogen 18 mg/dl (7-17); Calcium 7.8 mg/dl (8.4-10.2); Carbon Dioxide 31 mmol/L (22-30); Chloride 97 mmol/L (98-107); Estimated Creatinine Clearance 80 ml/min; Glucose 99 mg/dl (70-99); Magnesium 1.7 mg/dl (1.6-2.3); Potassium 4.1 mmol/L (3.5-5.1); Sodium 131 mmol/L (135-145); eGFR > 60.00
[2024-10-13] MEDS: HYDROPHOR 1 APPLIC TOPICAL (08:38)
[2024-10-13] MEDS: MAGNESIUM OXIDE 500 MG PO (08:39)
[2024-10-13] MEDS: PROTONIX 40 MG PO (08:39)
[2024-10-13] MEDS: KCL ELIXIR 40 MEQ PO (08:39)
[2024-10-13] MEDS: LASIX 40 MG IV (08:39)
[2024-10-13] MEDS: MYCOSTATIN CREAM 1 APPLIC TOPICAL ×2 (08:40→20:05)
[2024-10-13] MEDS: FLUSH (NSS) 2 FLUSH IV ×2 (08:42→15:52)
--- NOTE | 2024-10-13 10:05 | W.PN.HOSP.TC ---
Today's Communication/Plan
-
see bold
Assessment / Plan
Assessment / Plan
Acute hypoxic respiratory failure -suspect multifactorial and due to acute pulmonary edema due to acute on chronic heart failure, malignancy, anemia. Pulmonary embolism ruled out with CT chest. Required BiPAP in the emergency room, now transitioned
to nasal cannula oxygen. Currently requiring 1 L of oxygen, wean as tolerated. She does not wear oxygen at home.
Acute on chronic heart failure with preserved EF -she is on Lasix 40 mg twice daily at home, states she has been compliant. Last echocardiogram was August 21, LVEF 55 to 60%, normal RV size and function.
Increase IV Lasix to 60 mg IV twice daily, trend creatinine, trend daily weights
Hypokalemia -resolved, replete as needed
Hypomagnesemia -resolved, replete as needed
Leukopenia -suspect related to chemotherapy. WBC count now recovering.
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 Prognosis remains poor. Dr. Chin is her oncologist, he mentioned hospice during her last hospitalization last month but patient is not interested.
Oncology consulted. Albumin of 2.1 with suspected malnutrition, third spacing. Overall prognosis is poor.
Acute on chronic anemia -likely multifactorial etiology including malignancy and chemotherapy. Baseline hemoglobin appears to be around 10. Hemoglobin dipped down to 7.6. Status post 1 unit packed red blood cells 10/10/2024. Continue to trend,
transfuse as needed
Hyponatremia - fluid restrict, monitor
Bilateral lower extremity venous stasis dermatitis -compression therapy with Albert wraps ordered. At home she uses compression stockings.
Bilateral lower extremity wounds -likely related to venous stasis dermatitis. Continue wound care
Obesity due to excess calories -affects all aspects of care
DNR -confirmed with patient.
PT/OT -SNF recommended.
Total time spent to see the patient on the floor, examine the patient, review data and lab results, discuss treatment plan with patient, nursing staff around 39 minutes.
Physical exam
Gen-Obese, AAOx3, NAD
HEENT-NC, AT, anicteric, clear oral mm
Neck-supple
CV-reg, no M, +S1/S2
Lungs-
Diminished breath sounds at the bases with bibasilar crackles
Abd-soft, NT, ND
Ext-bilateral lower extremity edema, erythema
Musculoskeletal-no cyanosis, clubbing
Bilateral lower extremity edema noted
Skin-warm and dry, bilateral lower extremity venous wounds with dressing
Neuro-grossly non-focal
Psych-calm, cooperative
Anticipated Discharge: 24 - 48 hours
Subjective/Interval History
-
Date of Service: October 12, 2024
Reports breathing continues to improve. Denies chest pain, denies abdominal pain. No fever, no vomiting.
Objective Data
-
Labs:
Laboratory Results
10/12/24
04:36
WBC 3.5 L
Hgb 8.9 L
Hct 26.8 L
Plt Count 187
Sodium 133 L
Potassium 4.0
Chloride 100
Carbon Dioxide 32 H
BUN 17
Creatinine 0.5 L
Glucose 90
Calcium 7.6 L
Total Bilirubin 0.8
AST 110 H
ALT 51 H
Alkaline Phosphatase 114
Vital Signs:
Vital Signs
Temp Pulse Resp BP Pulse Ox
98.8 F 87 21 97/57 95
10/12/24 15:00 10/12/24 10:00 10/12/24 10:00 10/12/24 10:00 10/12/24 10:48
I&O
10/11/24 10/12/24 10/13/24
06:59 06:59 06:59
Intake Total 1650 / 1650 960 / 960 720 / 720
Output Total 400 / 400 2650 / 2650 750 / 750
Balance 1250 / 1250 -1690 / -1690 -30 / -30
--- NOTE | 2024-10-13 10:21 | W.PN.CARDCBS ---
Today's Communication / Plan
-
Echo is overall stable. Would continue Lasix 40 mg IV twice daily and diurese as much as possible.
Creatinine is normal. Likely another 24 hours of diuresis then will consider discharge planning.
Blood pressure is stable but borderline low.
Long-term prognosis remains very poor.
Impression / Plan
-
PCP: Dr. Lo
Card: Dr. Duke, last seen as a pre-op clearance 2020
Impression:
Admitted with SOB and CHF with previously preserved ejection fraction 10/09/24-continues to struggle with hypoxemia and respiratory insufficiency
Acute hypoxic respiratory failure
Acute HFpEF
Recent admission for generalized weakness and cellulitis 08/20/24 until 09/03/2024
Recent admission for syncope likely an anaphylactic reaction to Doxil 06/25/2024 until 06/27/2024
Small left pleural effusion by CXR 10/09/2024
h/o malignant pleural effusions
Leukopenia
Anemia
Metastatic primary peritoneal carcinoma
Poor prognosis per oncology
Possible LLE cellulitis vs venous stasis dermatitis
ECHO 06/25/24: EF 55 to 60%, trace MR, mild TR, PAP 37 mmHg, pericardial fat pad and trace effusion noted, no significant change compared to prior from 06/12/2024
Echo 08/21/2024: EF 55 to 60%, normal RV size and function, aortic sclerosis without stenosis, mild to moderate TR with PAP 40 to 45 mmHg
Echo 10/12/2024: EF 55 to 60%, mild MR, mild aortic stenosis mean gradient of 14, mild to moderate TR with PA pressure of 50
Plan:
-Slowly improving. Will repeat weight today. Creatinine overall stable. Will continue IV Lasix for another 24 hours then consider discharge planning
-GDMT limited by symptomatic hypotension
-Echo is overall stable.
-ECG was sinus tachycardia on admission, repeat ECG now with improved HR control, ordered by wa 10/12/2024
-Edema in addition to volume overload is likely related to hypoalbuminemia and metastatic disease with lymphedema. Overall LE edema has improved with daily wrapping being performed by nursing
-She has cellulitis versus venous stasis dermatitis. Defer to primary service
-Patient was given 1 unit PRBCs 10/10/2024 and Hgb overall stable at 8.6.
-Patient has metastatic primary peritoneal carcinoma and is receiving palliative gemcitabine. The most recent documentation I can find from oncology is from her admission last month and at that time oncology felt that her last few hospitalizations
were due to underlying incurable malignancy and discussions about palliative care or hospice were held, but the patient ultimately decided not to proceed. She is DNR CODE STATUS. Continue ongoing discussions with oncology.
-Poor overall prognosis
Patient had previously been seen by cardiology as a one-time visit for cardiac clearance back in 2020 and since then was found to have metastatic primary peritoneal carcinoma. We saw the patient again during an admission 06/25/24 in the setting of
syncope as a reaction to Doxil chemotherapy that was being given at the time. Patient says that since then the Doxil was stopped and she is now on gemcitabine year and this is managed by Dr. Chin. Patient says that the SOB started to worsen day
before admission and was worse throughout the day so she came to the ER. She says she has fairly chronic LE edema and noticed increasing erythema, but overall the bulk of edema did not seem worse to her. On CXR in the ER there was evidence of a
small left pleural effusion, but she has had worse effusions in the past that were considered malignant. Also her proBNP was 599 compared to a proBNP of 855 back on 08/20/2024. Outpatient dose of Lasix 40 mg PO BID was changed to Lasix 40 mg IV
BID, but she does not feel much improvement since admission. She also remains hypoxic on 4 L NC.
Progress Note - State Appellate Clerk
Subjective
Date of Service: October 13, 2024
She is diuresing better. Abdomen less distended and edema slightly improved.
Objective
Labs:
10/13/24 04:33
10/13/24 04:33
Labs
Hgb 8.6 g/dL (12.0-16.0) L 10/13/24 04:33
Hct 26.4 % (37.0-47.0) L 10/13/24 04:33
Plt Count 169 10^3/uL (130-400) 10/13/24 04:33
Sodium 131 mmol/L (135-145) L 10/13/24 04:33
Potassium 4.1 mmol/L (3.5-5.1) 10/13/24 04:33
BUN 18 mg/dl (7-17) H 10/13/24 04:33
Creatinine 0.5 mg/dL (0.6-1.0) L 10/13/24 04:33
Glucose 99 mg/dl (70-99) 10/13/24 04:33
Vital Signs and I&O:
Vital Signs
Temp Pulse Resp BP Pulse Ox
97.5 F 90 30 112/61 95
10/13/24 07:22 10/13/24 08:00 10/13/24 08:00 10/13/24 08:00 10/13/24 09:14
Vital Signs
Temp Pulse Resp BP Pulse Ox
97.5 F 90 30 112/61 95
10/13/24 07:22 10/13/24 08:00 10/13/24 08:00 10/13/24 08:00 10/13/24 09:14
Intake & Output
10/11/24 10/12/24 10/13/24 10/14/24
06:59 06:59 06:59 06:59
Intake Total 1650 / 1650 960 / 960 720 / 720
Output Total 400 / 400 2650 / 2650 1300 / 1300
Balance 1250 / 1250 -1690 / -1690 -580 / -580
Physical Exam
Physical Exam
GEN: No distress, awake, Ox3
HEENT: supple, anicteric, mmm
LUNGS: dec BS at bases
CV: Reg, S1/S2, 1/6 syst LSB, no murmur
ABD: soft, BS+, distended
EXT: +1 edema
NEURO: Gross non-focal
SKIN: No rash
--- NOTE | 2024-10-13 10:55 | W.PN.ONC2 ---
Today's Communication / Plan
-
.
Impression
Impression
SOB - multifactorial - h/o CHF, LE edema - volume overload, malignancy, anemia
primary peritoneal carcinoma
anemia
hypokalemia
Plan
Plan
1. SOB - multifactorial -
- CT chest w/o acute findings - no PE
- CT images showing small L effusion and negligible R effusion with diffuse ground-glass appearance
- cardiology following - SOB improving with diuresis
2.Anemia - hemoglobin slightly lower than baseline outpt value - 10-11g/dl
- likely multifactorial - anemia of chronic illness/ malignancy - recent cytotoxic chemotherapy
- No evidence of B12, folate or iron deficiency
3. Primary peritoneal carcinoma
-f/u as outpt for continued management
Subjective/Objective
Subjective
afebrile, no hypotension, 1LNC.
SOB improved with diuresis
denies pain
Vital Signs:
Vital Signs
Temp Pulse Resp BP Pulse Ox
97.5 F 90 30 112/61 95
10/13/24 07:22 10/13/24 08:00 10/13/24 08:00 10/13/24 08:00 10/13/24 09:14
Lab Results:
Laboratory Data
WBC 1.4 10^3/uL (4.8-10.8) L* 10/13/24 04:33
Hgb 8.6 g/dL (12.0-16.0) L 10/13/24 04:33
Plt Count 169 10^3/uL (130-400) 10/13/24 04:33
eGFR > 60.00 10/13/24 04:33
Physical Exam
HEENT: Moist Mucous Membranes; No Jaundice
Cardiology: Normal Sinus Rhythm, S1 and S2
Pulmonary: Clear; No Wheezes
GI: Soft and Normal Bowel Sounds
Extremities: b/l LE wrapped in TEZ
Neuro: Non Focal
Integ sacral wound with dressing
--- NOTE | 2024-10-13 14:50 | PTCARENOTE ---
Received pt from IMU via stretcher. Pt pulled over to bed with assist x4. Purewick and desk monitor placed. SANCHEZ. No complaints of pain. AAOx3. Assessed and oriented to room. Call garvin placed within close reach.
--- NOTE | 2024-10-13 14:51 | PTCARENOTE ---
Transferred to [facility] via monitored stretcher.
[2024-10-13] MEDS: LASIX 60 MG IV (15:50)
[2024-10-13] MEDS: LOVENOX 40 MG SC (18:03)
[2024-10-14] VITALS (8 sets, daily range): BP systolic 104–127; BP diastolic 51–66; PULSE 85; O2SAT 92–93; BMI 33.3
[2024-10-14 04:08] LABS: Hematocrit 26.7 % (37.0-47.0); Hemoglobin 8.7 g/dL (12.0-16.0); Mean Corp Hgb Conc. 32.6 g/dL (33.0-37.0); Mean Corpuscular Hgb 31.9 pg (27.0-31.0); Mean Corpuscular Volume 97.8 fL (81.0-99.0); Mean Platelet Volume 9.2 fL (7.4-10.4); Platelet Count 144 10^3/uL (130-400); Red Blood Cell Count 2.73 10^6/uL (4.20-5.40); Red Cell Dist. Width 21.5 % (11.5-14.5); White Blood Cell Count 1.3 10^3/uL (4.8-10.8)
[2024-10-14 04:34] LABS: Blood Urea Nitrogen 18 mg/dl (7-17); Calcium 7.8 mg/dl (8.4-10.2); Carbon Dioxide 32 mmol/L (22-30); Chloride 97 mmol/L (98-107); Estimated Creatinine Clearance 80 ml/min; Glucose 109 mg/dl (70-99); Magnesium 1.6 mg/dl (1.6-2.3); Potassium 3.8 mmol/L (3.5-5.1); Sodium 132 mmol/L (135-145); eGFR > 60.00
--- NOTE | 2024-10-14 08:04 | W.PN.ONC2 ---
Today's Communication / Plan
-
Slowly improving. Repeat chest x-ray. Will give 1 dose of Granix for neutropenia. Diuresis as per cardiology with anticipated discharge today or tomorrow.
Patient does not wish to transition to comfort care at this point and wishes to continue ongoing palliative gemcitabine based chemotherapy.
Outpatient oncology follow-up.
Impression
Impression
SOB - multifactorial - HFpEF, LE edema - volume overload, malignancy, anemia
primary peritoneal carcinoma
anemia
Neutropenia
Plan
Plan
Patient with multifactorial dyspnea improving with diuresis consistent with a component of CHF. No evidence of pulmonary embolism. Very small pleural effusions by imaging.
Suspect significant component related to her advanced primary peritoneal carcinoma but patient has agreed to DNR but wishes to continue is not interested in transitioning to hospice care.
Neutropenia related to outpatient gemcitabine chemotherapy. Will give 1 dose of G-CSF while inpatient.
Will repeat chest x-ray as I hear decreased breath sounds on physical examination today.
f/u as outpt for continued management
Subjective/Objective
Chief Complaint
ACS hematology oncology follow-up
Subjective
Patient remains weak but says she is doing better and her dyspnea is improving
Vital Signs:
Vital Signs
Temp Pulse Resp BP Pulse Ox
97.8 F 76 17 114/57 97
10/14/24 07:49 10/14/24 07:49 10/14/24 07:49 10/14/24 07:49 10/14/24 07:49
Lab Results:
Laboratory Data
WBC 1.3 10^3/uL (4.8-10.8) L* 10/14/24 03:56
Hgb 8.7 g/dL (12.0-16.0) L 10/14/24 03:56
Plt Count 144 10^3/uL (130-400) 10/14/24 03:56
eGFR > 60.00 10/14/24 03:56
Physical Exam
HEENT: No Jaundice
Cardiology: S1 and S2
Pulmonary: Other (Decreased breath sounds at right base)
GI: Soft and Normal Bowel Sounds
Extremities: No C/C/E
[2024-10-14] MEDS: PROTONIX 40 MG PO (08:22)
[2024-10-14] MEDS: LASIX 60 MG IV ×2 (08:22→16:17)
[2024-10-14] MEDS: KCL ELIXIR 40 MEQ PO (08:22)
[2024-10-14] MEDS: MAGNESIUM OXIDE 500 MG PO (08:22)
[2024-10-14] MEDS: MYCOSTATIN CREAM 1 APPLIC TOPICAL ×2 (08:23→20:52)
[2024-10-14] MEDS: GRANIX 480 MCG SC (08:46)
[2024-10-14] MEDS: HYDROPHOR 1 APPLIC TOPICAL (08:47)
--- NOTE | 2024-10-14 09:50 | W.PN.HOSP.TC ---
Addendum entered and electronically signed by Leandro Pandya MD 10/14/24 14:39:
Noted, oncology ordering Granix for neutropenia today.
Original Note:
Today's Communication/Plan
-
see bold
Assessment / Plan
Assessment / Plan
Acute hypoxic respiratory failure -suspect multifactorial and due to acute pulmonary edema due to acute on chronic heart failure, malignancy, anemia. Pulmonary embolism ruled out with CT chest. Required BiPAP in the emergency room, now transitioned
to nasal cannula oxygen. Was on room air at rest, placed back on 2L of oxygen after working with PT as she needs oxygen with exertion, wean as tolerated. She does not wear oxygen at home.
Acute on chronic heart failure with preserved EF -she is on Lasix 40 mg twice daily at home, states she has been compliant. Last echocardiogram was August 21, LVEF 55 to 60%, normal RV size and function.
Continue increased dose of Lasix 60 mg IV twice daily, trend creatinine, trend daily weights
Hypokalemia -resolved, replete as needed
Hypomagnesemia -resolved, replete as needed
Leukopenia -suspect related to chemotherapy. WBC count now recovering.
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 Prognosis remains poor. Dr. Chin is her oncologist, he mentioned hospice during her last hospitalization last month but patient is not interested.
Oncology consulted. Albumin of 2.1 with suspected malnutrition, third spacing. Overall prognosis is poor.
Acute on chronic anemia -likely multifactorial etiology including malignancy and chemotherapy. Baseline hemoglobin appears to be around 10. Hemoglobin dipped down to 7.6. Status post 1 unit packed red blood cells 10/10/2024. Continue to trend,
transfuse as needed
Hyponatremia - fluid restrict, monitor
Bilateral lower extremity venous stasis dermatitis -compression therapy with Albert wraps ordered. At home she uses compression stockings.
Bilateral lower extremity wounds -likely related to venous stasis dermatitis. Continue wound care
Obesity due to excess calories -affects all aspects of care
DNR -confirmed with patient.
PT/OT -home PT vs, SNF, pt wishes to go home w/ home PT
Total time spent to see the patient on the floor, examine the patient, review data and lab results, discuss treatment plan with patient, nursing staff around 38 minutes.
Physical exam
Gen-Obese, AAOx3, NAD
HEENT-NC, AT, anicteric, clear oral mm
Neck-supple
CV-reg, no M, +S1/S2
Lungs-
Diminished breath sounds at the bases with bibasilar crackles
Abd-soft, NT, ND
Ext-bilateral lower extremity edema, erythema
Musculoskeletal-no cyanosis, clubbing
Bilateral lower extremity edema noted
Skin-warm and dry, bilateral lower extremity venous wounds with dressing
Neuro-grossly non-focal
Psych-calm, cooperative
Anticipated Discharge: 24 - 48 hours
Subjective/Interval History
-
Date of Service: October 14, 2024
Objective Data
-
Labs:
Laboratory Results
10/14/24
03:56
WBC 1.3 L*
Hgb 8.7 L
Hct 26.7 L
Plt Count 144
Sodium 132 L
Potassium 3.8
Chloride 97 L
Carbon Dioxide 32 H
BUN 18 H
Creatinine 0.6
Glucose 109 H
Calcium 7.8 L
Vital Signs:
Vital Signs
Temp Pulse Resp BP Pulse Ox
97.8 F 76 17 114/57 97
10/14/24 07:49 10/14/24 07:49 10/14/24 07:49 10/14/24 07:49 10/14/24 07:49
I&O
10/13/24 10/14/24 10/15/24
06:59 06:59 06:59
Intake Total 720 / 720 480 / 480
Output Total 1300 / 1300 1600 / 1600 350 / 350
Balance -580 / -580 -1600 / -1600 130 / 130
--- NOTE | 2024-10-14 16:54 | W.PN.CARDCBS ---
Addendum entered and electronically signed by Giles Regan MD 10/14/24 17:12:
I saw and examined the patient.
The Exercise Manager's note was reviewed and I agree with the note.
Comment: Briefly, 78-year-old woman past medical history of heart failure with preserved ejection fraction and peritoneal carcinoma who presented in acute decompensated heart failure
Still appears mildly volume overloaded on exam and weight is up several pounds although this may be an accurate
Agree with continuing IV Lasix at 60 mg twice daily
Follow renal function which has been stable
Ideally would have daily standing weights
Rest per Rianna Eaton
Original Note:
Today's Communication / Plan
-
Check pro-BNP in AM
Impression / Plan
-
PCP: Dr. Lo
Card: Dr. Duke, last seen as a pre-op clearance 2020
Impression:
Admitted with SOB and CHF with previously preserved ejection fraction 10/09/24-continues to struggle with hypoxemia and respiratory insufficiency
Acute hypoxic respiratory failure
Acute HFpEF
Recent admission for generalized weakness and cellulitis 08/20/24 until 09/03/2024
Recent admission for syncope likely an anaphylactic reaction to Doxil 06/25/2024 until 06/27/2024
Small left pleural effusion by CXR 10/09/2024
h/o malignant pleural effusions
Leukopenia
Anemia
Metastatic primary peritoneal carcinoma
Poor prognosis per oncology
Possible LLE cellulitis vs venous stasis dermatitis
ECHO 06/25/24: EF 55 to 60%, trace MR, mild TR, PAP 37 mmHg, pericardial fat pad and trace effusion noted, no significant change compared to prior from 06/12/2024
Echo 08/21/2024: EF 55 to 60%, normal RV size and function, aortic sclerosis without stenosis, mild to moderate TR with PAP 40 to 45 mmHg
Echo 10/12/2024: EF 55 to 60%, mild MR, mild aortic stenosis mean gradient of 14, mild to moderate TR with PA pressure of 50
Plan:
-Recorded weight down to 187 lbs on 10/14/2024 compared to 199 lbs on 10/13/2024, she is being weighed with a bed scale she is unable to use standing scale and I doubt the weights are accurate. Previous dry weight was 186 lbs at last discharge 09/03/2024
-Cre stable at 0.6 on 10/14/2024. Continue with Lasix 60 mg IV BID for now. Patient was taking Lasix 40 mg PO BID prior to admission.
-Check proBNP in a.m., ordered by me
-EF preserved by echo 10/12/2024
-GDMT limited by hypotension
-Hgb as low as 7.6 on 10/10/2024 and patient was given 1 unit PRBCs, Hgb stable at 8.7 on 10/14/2024
-Patient has metastatic primary peritoneal carcinoma and is receiving palliative gemcitabine.
Patient had previously been seen by cardiology as a one-time visit for cardiac clearance back in 2020 and since then was found to have metastatic primary peritoneal carcinoma. We saw the patient again during an admission 06/25/24 in the setting of
syncope as a reaction to Doxil chemotherapy that was being given at the time. Patient says that since then the Doxil was stopped and she is now on gemcitabine year and this is managed by Dr. Chin. Patient says that the SOB started to worsen day
before admission and was worse throughout the day so she came to the ER. She says she has fairly chronic LE edema and noticed increasing erythema, but overall the bulk of edema did not seem worse to her. On CXR in the ER there was evidence of a
small left pleural effusion, but she has had worse effusions in the past that were considered malignant. Also her proBNP was 599 compared to a proBNP of 855 back on 08/20/2024. Outpatient dose of Lasix 40 mg PO BID was changed to Lasix 40 mg IV
BID, but she does not feel much improvement since admission. She also remains hypoxic on 4 L NC.
Progress Note - Analytical Sciences Director
Subjective
Date of Service: October 14, 2024
Less SOB
Objective
Labs:
10/14/24 03:56
10/14/24 03:56
Labs
Hgb 8.7 g/dL (12.0-16.0) L 10/14/24 03:56
Hct 26.7 % (37.0-47.0) L 10/14/24 03:56
Plt Count 144 10^3/uL (130-400) 10/14/24 03:56
Sodium 132 mmol/L (135-145) L 10/14/24 03:56
Potassium 3.8 mmol/L (3.5-5.1) 10/14/24 03:56
BUN 18 mg/dl (7-17) H 10/14/24 03:56
Creatinine 0.6 mg/dL (0.6-1.0) 10/14/24 03:56
Glucose 109 mg/dl (70-99) H 10/14/24 03:56
Vital Signs and I&O:
Vital Signs
Temp Pulse Resp BP Pulse Ox
97.6 F 87 17 127/64 97
10/14/24 15:13 10/14/24 15:13 10/14/24 15:13 10/14/24 15:13 10/14/24 15:13
Vital Signs
Temp Pulse Resp BP Pulse Ox
97.6 F 87 17 127/64 97
10/14/24 15:13 10/14/24 15:13 10/14/24 15:13 10/14/24 15:13 10/14/24 15:13
Intake & Output
10/12/24 10/13/24 10/14/24 10/15/24
06:59 06:59 06:59 06:59
Intake Total 960 / 960 720 / 720 480 / 480
Output Total 2650 / 2650 1300 / 1300 1600 / 1600 350 / 350
Balance -1690 / -1690 -580 / -580 -1600 / -1600 130 / 130
Physical Exam
Physical Exam
GEN: NAD. AAOx3
LUNGS: RA.
CV: SR on tele
[2024-10-14] MEDS: LOVENOX 40 MG SC (17:49)
[2024-10-15] VITALS (7 sets, daily range): BP systolic 109–133; BP diastolic 55–70; PULSE 99; O2SAT 92; BMI 32.9
[2024-10-15 05:04] LABS: Hematocrit 28.4 % (37.0-47.0); Hemoglobin 9.3 g/dL (12.0-16.0); Mean Corp Hgb Conc. 32.7 g/dL (33.0-37.0); Mean Corpuscular Hgb 31.8 pg (27.0-31.0); Mean Corpuscular Volume 97.3 fL (81.0-99.0); Mean Platelet Volume 9.5 fL (7.4-10.4); Platelet Count 144 10^3/uL (130-400); Red Blood Cell Count 2.92 10^6/uL (4.20-5.40); Red Cell Dist. Width 21.5 % (11.5-14.5); White Blood Cell Count 13.3 10^3/uL (4.8-10.8)
[2024-10-15 05:34] LABS: Blood Urea Nitrogen 18 mg/dl (7-17); Calcium 8.1 mg/dl (8.4-10.2); Carbon Dioxide 32 mmol/L (22-30); Chloride 97 mmol/L (98-107); Estimated Creatinine Clearance 77 ml/min; Glucose 83 mg/dl (70-99); Magnesium 1.5 mg/dl (1.6-2.3); Potassium 3.8 mmol/L (3.5-5.1); Sodium 133 mmol/L (135-145); eGFR > 60.00
[2024-10-15 05:40] LABS: NT-proBNP 967 pg/ml
[2024-10-15] MEDS: MYCOSTATIN CREAM 1 APPLIC TOPICAL ×2 (08:25→20:19)
[2024-10-15] MEDS: KCL ELIXIR 40 MEQ PO (08:25)
[2024-10-15] MEDS: MAGNESIUM OXIDE 500 MG PO (08:25)
[2024-10-15] MEDS: PROTONIX 40 MG PO (08:26)
[2024-10-15] MEDS: LASIX 60 MG IV ×2 (08:26→15:47)
[2024-10-15] MEDS: HYDROPHOR 1 APPLIC TOPICAL (08:36)
--- NOTE | 2024-10-15 09:39 | W.PN.HOSP.TC ---
Today's Communication/Plan
-
Continue IV diuresis
Assessment / Plan
Assessment / Plan
Acute hypoxic respiratory failure -suspect multifactorial and due to acute pulmonary edema due to acute on chronic heart failure, malignancy, anemia. Pulmonary embolism ruled out with CT chest. Required BiPAP in the emergency room, now transitioned
to nasal cannula oxygen. Was on room air at rest, placed back on 2L of oxygen after working with PT as she needs oxygen with exertion, wean as tolerated. She does not wear oxygen at home.
Acute on chronic heart failure with preserved EF -she is on Lasix 40 mg twice daily at home, states she has been compliant. Last echocardiogram was August 21, LVEF 55 to 60%, normal RV size and function.
Continue increased dose of Lasix 60 mg IV twice daily, trend creatinine, trend daily weights
Hypokalemia -resolved, replete as needed
Hypomagnesemia -resolved, replete as needed
Leukopenia -suspect related to chemotherapy. Oncology following, status post Granix 10/14
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 Prognosis remains poor. Dr. Chin is her oncologist, he mentioned hospice during her last hospitalization last month but patient is not interested.
Oncology consulted. Albumin of 2.1 with suspected malnutrition, third spacing. Overall prognosis is poor.
Acute on chronic anemia -likely multifactorial etiology including malignancy and chemotherapy. Baseline hemoglobin appears to be around 10. Hemoglobin dipped down to 7.6. Status post 1 unit packed red blood cells 10/10/2024. Continue to trend,
transfuse as needed
Hyponatremia - fluid restrict, monitor
Bilateral lower extremity venous stasis dermatitis -compression therapy with Albert wraps ordered. At home she uses compression stockings.
Bilateral lower extremity wounds -likely related to venous stasis dermatitis. Continue wound care
Obesity due to excess calories -affects all aspects of care
DNR -confirmed with patient.
PT/OT -home PT vs, SNF, pt wishes to go home w/ home PT
Total time spent to see the patient on the floor, examine the patient, review data and lab results, discuss treatment plan with patient, nursing staff around 36 minutes.
Physical exam
Gen-Obese, AAOx3, NAD
HEENT-NC, AT, anicteric, clear oral mm
Neck-supple
CV-reg, no M, +S1/S2
Lungs-
Diminished breath sounds at the bases with bibasilar crackles
Abd-soft, NT, ND
Ext-bilateral lower extremity edema, erythema
Musculoskeletal-no cyanosis, clubbing
Bilateral lower extremity edema noted
Skin-warm and dry, bilateral lower extremity venous wounds with dressing
Neuro-grossly non-focal
Psych-calm, cooperative
Anticipated Discharge: 24 - 48 hours
Subjective/Interval History
-
Date of Service: October 14, 2024
Patient reports her breathing is improved, she continues to be mildly short of breath. No nausea, no vomiting. No fever. No chest pain.
Objective Data
-
Labs:
Laboratory Results
10/14/24
03:56
WBC 1.3 L*
Hgb 8.7 L
Hct 26.7 L
Plt Count 144
Sodium 132 L
Potassium 3.8
Chloride 97 L
Carbon Dioxide 32 H
BUN 18 H
Creatinine 0.6
Glucose 109 H
Calcium 7.8 L
Vital Signs:
Vital Signs
Temp Pulse Resp BP Pulse Ox
98 F 88 17 110/66 96
10/14/24 11:16 10/14/24 11:16 10/14/24 11:16 10/14/24 11:16 10/14/24 11:16
I&O
10/13/24 10/14/24 10/15/24
06:59 06:59 06:59
Intake Total 720 / 720 480 / 480
Output Total 1300 / 1300 1600 / 1600 350 / 350
Balance -580 / -580 -1600 / -1600 130 / 130
[2024-10-15] MEDS: MAGNESIUM SULFATE 100 IV (10:14)
--- NOTE | 2024-10-15 11:11 | W.PN.ONC2 ---
Today's Communication / Plan
-
OP follow up will be arranged upon discharge
Impression
Impression
SOB - multifactorial - HFpEF, LE edema - volume overload, malignancy, anemia
primary peritoneal carcinoma
anemia
Neutropenia
Plan
Plan
Patient with multifactorial dyspnea improving with diuresis consistent with a component of CHF. No evidence of pulmonary embolism. Very small pleural effusions by imaging.
Goals remain restorative and is not interested in transitioning to hospice care at this time
chemotherapy induced Neutropenia resolved with GCSF
f/u as outpt for continued management
Subjective/Objective
Subjective
no new complaints
Vital Signs:
Vital Signs
Temp Pulse Resp BP Pulse Ox
97.9 F 85 17 110/57 96
10/15/24 11:02 10/15/24 11:02 10/15/24 11:02 10/15/24 11:02 10/15/24 11:02
Lab Results:
Laboratory Data
WBC 13.3 10^3/uL (4.8-10.8) H 10/15/24 04:52
Hgb 9.3 g/dL (12.0-16.0) L 10/15/24 04:52
Plt Count 144 10^3/uL (130-400) 10/15/24 04:52
eGFR > 60.00 10/15/24 04:52
Physical Exam
HEENT: Moist Mucous Membranes; No Jaundice
Cardiology: Normal Sinus Rhythm
Pulmonary: Clear
GI: Soft
Extremities: Pulses Present and Edema (b/l LE TEZ wraps, trace ankle edema improved)
--- NOTE | 2024-10-15 11:57 | W.PN.CARDCBS ---
Addendum entered and electronically signed by Howard Lozano MD 10/15/24 18:16:
I saw and examined the patient.
The Manager Of Warehouse's note was reviewed and I agree with the note.
Comment:
GEN: No distress, awake, Ox3
HEENT: supple, anicteric, mmm
LUNGS: CTA, no wheezes/rales
CV: Reg, S1/S2, 1/6 syst LSB, S3+
ABD: soft, BS+, + disteneded
EXT: trace edema
NEURO: Gross non-focal
SKIN: No rash
Plan:
Slowly improving. Will continue diuresis with IV Lasix 60 mg twice daily. Blood pressure overall stable. Weight is overall down to 185.
Long-term prognosis is very poor.
Original Note:
Today's Communication / Plan
-
Feels breathing is improving, still on O2
Continue diuresis with IV lasix 60 mg BID
BP stable.
Impression / Plan
-
PCP: Dr. Lo
Card: Dr. Duke, last seen as a pre-op clearance 2020
Impression:
Admitted with SOB and CHF with previously preserved ejection fraction 10/09/24-continues to struggle with hypoxemia and respiratory insufficiency
Acute hypoxic respiratory failure
Acute HFpEF
Recent admission for generalized weakness and cellulitis 08/20/24 until 09/03/2024
Recent admission for syncope likely an anaphylactic reaction to Doxil 06/25/2024 until 06/27/2024
Small left pleural effusion by CXR 10/09/2024
h/o malignant pleural effusions
Leukopenia
Anemia
Metastatic primary peritoneal carcinoma
Poor prognosis per oncology
Possible LLE cellulitis vs venous stasis dermatitis
ECHO 06/25/2024: EF 55 to 60%, trace MR, mild TR, PAP 37 mmHg, pericardial fat pad and trace effusion noted, no significant change compared to prior from 06/12/2024
Echo 08/21/2024: EF 55 to 60%, normal RV size and function, aortic sclerosis without stenosis, mild to moderate TR with PAP 40 to 45 mmHg
Echo 10/12/2024: EF 55 to 60%, mild MR, mild aortic stenosis mean gradient of 14, mild to moderate TR with PA pressure of 50
Plan:
-Presented with SOB. Admitted with acute heart failure exacerbation.
-Diuresing with IV lasix 60mg BID. Weight down another 2lbs overnight, down to 185 lbs on 10/15.
-Creat stable at 0.6.
-Interestingly, proBNP is higher than previous, now up to 967 compared to 599 on 10/09.
-Will continue diuresis for now.
-Breathing is improving by report, remains on 2L NC. Wean as able.
-Echo 10/12 showed preserved EF with mild MR and mild as noted above.
-Medical therapy has been limited by hypotension. BP stable.
-Known anemia, however hgb has been stable following 1 unit of PRBCs given 10/10.
-Patient has metastatic primary peritoneal carcinoma and is receiving palliative gemcitabine.
-Will arrange cardiology follow up.
Patient had previously been seen by cardiology as a one-time visit for cardiac clearance back in 2020 and since then was found to have metastatic primary peritoneal carcinoma. We saw the patient again during an admission 06/25/24 in the setting of
syncope as a reaction to Doxil chemotherapy that was being given at the time. Patient says that since then the Doxil was stopped and she is now on gemcitabine year and this is managed by Dr. Chin. Patient says that the SOB started to worsen day
before admission and was worse throughout the day so she came to the ER. She says she has fairly chronic LE edema and noticed increasing erythema, but overall the bulk of edema did not seem worse to her. On CXR in the ER there was evidence of a
small left pleural effusion, but she has had worse effusions in the past that were considered malignant. Also her proBNP was 599 compared to a proBNP of 855 back on 08/20/2024. Outpatient dose of Lasix 40 mg PO BID was changed to Lasix 40 mg IV
BID, but she does not feel much improvement since admission. She also remains hypoxic on 4 L NC.
Progress Note - Moisture Conditioner Operator
Subjective
Date of Service: October 15, 2024
Breathing and edema are improving. Still on 2L NC.
Objective
Labs:
10/15/24 04:52
10/15/24 04:52
Labs
Hgb 9.3 g/dL (12.0-16.0) L 10/15/24 04:52
Hct 28.4 % (37.0-47.0) L 10/15/24 04:52
Plt Count 144 10^3/uL (130-400) 10/15/24 04:52
Sodium 133 mmol/L (135-145) L 10/15/24 04:52
Potassium 3.8 mmol/L (3.5-5.1) 10/15/24 04:52
BUN 18 mg/dl (7-17) H 10/15/24 04:52
Creatinine 0.6 mg/dL (0.6-1.0) 10/15/24 04:52
Glucose 83 mg/dl (70-99) 10/15/24 04:52
Vital Signs and I&O:
Vital Signs
Temp Pulse Resp BP Pulse Ox
97.9 F 85 17 110/57 96
10/15/24 11:02 10/15/24 11:02 10/15/24 11:02 10/15/24 11:02 10/15/24 11:02
Vital Signs
Temp Pulse Resp BP Pulse Ox
97.9 F 85 17 110/57 96
10/15/24 11:02 10/15/24 11:02 10/15/24 11:02 10/15/24 11:02 10/15/24 11:02
Intake & Output
10/13/24 10/14/24 10/15/24 10/16/24
06:59 06:59 06:59 06:59
Intake Total 720 / 720 1200 / 1200 100 / 100
Output Total 1300 / 1300 1600 / 1600 1050 / 1050
Balance -580 / -580 -1600 / -1600 150 / 150 100 / 100
Physical Exam
Physical Exam
GEN: No distress, awake, alert, oriented x3
HEENT: supple, anicteric, mmm
LUNGS: CTA b/l, no wheezes/rales
CV: Reg, S1/S2, no murmur
EXT: No clubbing, cyanosis, or edema
NEURO: Non-focal
SKIN: Warm, dry, no rash
[2024-10-15] MEDS: LOVENOX 40 MG SC (17:54)
[2024-10-16] VITALS (7 sets, daily range): BP systolic 91–131; BP diastolic 48–81; PULSE 92–100; O2SAT 91–97; BMI 31.2
--- NOTE | 2024-10-16 08:49 | W.PN.HOSP.TC ---
Today's Communication/Plan
-
Increase Lasix to 80 mg IV twice daily
Cardiology started Aldactone 12.5 mg daily
Assessment / Plan
Assessment / Plan
Acute hypoxic respiratory failure -suspect multifactorial and due to acute pulmonary edema due to acute on chronic heart failure, malignancy, anemia. Pulmonary embolism ruled out with CT chest. Required BiPAP in the emergency room, now transitioned
to nasal cannula oxygen. Was on room air at rest, placed back on 2L of oxygen after working with PT as she needs oxygen with exertion, wean as tolerated. She does not wear oxygen at home.
Acute on chronic heart failure with preserved EF -she is on Lasix 40 mg twice daily at home, states she has been compliant. Last echocardiogram was August 21, LVEF 55 to 60%, normal RV size and function.
Increase Lasix to 80 mg IV twice daily, trend creatinine, trend daily weights. Cardiology added Aldactone 12.5 mg daily on 10/16.
Hypokalemia -resolved, replete as needed
Hypomagnesemia -resolved, replete as needed
Leukopenia -suspect related to chemotherapy. Oncology following, status post Granix 10/14
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 Prognosis remains poor. Dr. Chin is her oncologist, he mentioned hospice during her last hospitalization last month but patient is not interested.
Oncology consulted. Albumin of 2.1 with suspected malnutrition, third spacing. Overall prognosis is poor. Informed daughter that patient's prognosis is poor, and that hospice is recommended.
Acute on chronic anemia -likely multifactorial etiology including malignancy and chemotherapy. Baseline hemoglobin appears to be around 10. Hemoglobin dipped down to 7.6. Status post 1 unit packed red blood cells 10/10/2024. Continue to trend,
transfuse as needed
Hyponatremia - fluid restrict, monitor
Bilateral lower extremity venous stasis dermatitis -compression therapy with Albert wraps ordered. At home she uses compression stockings.
Bilateral lower extremity wounds -likely related to venous stasis dermatitis. Continue wound care
Obesity due to excess calories -affects all aspects of care
DNR -confirmed with patient.
PT/OT -home PT vs, SNF, pt wishes to go home w/ home PT
Total time spent to see the patient on the floor, examine the patient, review data and lab results, discuss treatment plan with patient, nursing staff around 51 minutes.
Physical exam
Gen-Obese, AAOx3, NAD
HEENT-NC, AT, anicteric, clear oral mm
Neck-supple
CV-reg, no M, +S1/S2
Lungs-
Diminished breath sounds at the bases with bibasilar crackles
Abd-soft, NT, ND
Ext-bilateral lower extremity edema, erythema
Musculoskeletal-no cyanosis, clubbing
Bilateral lower extremity edema noted
Skin-warm and dry, bilateral lower extremity venous wounds with dressing
Neuro-grossly non-focal
Psych-calm, cooperative
Anticipated Discharge: 24 - 48 hours
Subjective/Interval History
-
Date of Service: October 16, 2024
Patient reports her shortness of breath has resolved, but she is visibly labored with her breathing. She wants to go home today. Denies chest pain, denies palpitations. No fever, no vomiting.
Objective Data
-
Vital Signs:
Vital Signs
Temp Pulse Resp BP Pulse Ox
98.0 F 83 16 109/60 96
10/16/24 07:27 10/16/24 07:27 10/16/24 07:27 10/16/24 07:27 10/16/24 07:27
I&O
10/15/24 10/16/24 10/17/24
06:59 06:59 06:59
Intake Total 1200 / 1200 100 / 100
Output Total 1050 / 1050 300 / 300
Balance 150 / 150 -200 / -200
[2024-10-16] MEDS: MAGNESIUM OXIDE 500 MG PO (09:30)
[2024-10-16] MEDS: PROTONIX 40 MG PO (09:30)
[2024-10-16] MEDS: KCL ELIXIR 40 MEQ PO (09:30)
[2024-10-16] MEDS: LASIX 60 MG IV (09:30)
[2024-10-16] MEDS: MYCOSTATIN CREAM 1 APPLIC TOPICAL ×2 (09:31→20:08)
[2024-10-16] MEDS: HYDROPHOR 1 APPLIC TOPICAL (09:33)
[2024-10-16 10:27] LABS: Hematocrit 33.3 % (37.0-47.0); Hemoglobin 10.6 g/dL (12.0-16.0); Mean Corp Hgb Conc. 31.8 g/dL (33.0-37.0); Mean Corpuscular Hgb 31.8 pg (27.0-31.0); Mean Platelet Volume 9.4 fL (7.4-10.4); Platelet Count 146 10^3/uL (130-400); Red Blood Cell Count 3.33 10^6/uL (4.20-5.40); Red Cell Dist. Width 22.4 % (11.5-14.5); White Blood Cell Count 22.6 10^3/uL (4.8-10.8)
[2024-10-16 10:51] LABS: Blood Urea Nitrogen 19 mg/dl (7-17); Calcium 8.5 mg/dl (8.4-10.2); Carbon Dioxide 32 mmol/L (22-30); Chloride 96 mmol/L (98-107); Estimated Creatinine Clearance 64 ml/min; Glucose 133 mg/dl (70-99); Potassium 4.6 mmol/L (3.5-5.1); Sodium 132 mmol/L (135-145); eGFR > 60.00
--- NOTE | 2024-10-16 11:24 | W.PN.ONC2 ---
Today's Communication / Plan
-
Discharge planning
Impression
Impression
SOB - multifactorial - HFpEF, LE edema - volume overload, malignancy, anemia
primary peritoneal carcinoma
anemia
Neutropenia -resolved
Plan
Plan
Patient with multifactorial dyspnea improving with diuresis consistent with a component of CHF. No evidence of pulmonary embolism.
Goals remain restorative and is not interested in transitioning to hospice care at this time
f/u as outpt for continued management
Subjective/Objective
Subjective
no new complaints
Vital Signs:
Vital Signs
Temp Pulse Resp BP Pulse Ox
98.1 F 94 18 131/66 92
10/16/24 10:56 10/16/24 10:56 10/16/24 10:56 10/16/24 10:56 10/16/24 10:56
Lab Results:
Laboratory Data
WBC 22.6 10^3/uL (4.8-10.8) H 10/16/24 10:16
Hgb 10.6 g/dL (12.0-16.0) L 10/16/24 10:16
Plt Count 146 10^3/uL (130-400) 10/16/24 10:16
eGFR > 60.00 10/16/24 10:16
Physical Exam
HEENT: Moist Mucous Membranes; No Jaundice
Cardiology: Normal Sinus Rhythm
Pulmonary: Other (diminished)
GI: Soft
Extremities: Pulses Present and Other (b/l venous stasis dermatitis); No Edema
Neuro: Non Focal
[2024-10-16] MEDS: ALDACTONE 12.5 MG PO (12:54)
--- NOTE | 2024-10-16 16:14 | W.PN.CARDCBS ---
Addendum entered and electronically signed by Franklin Adams MD 10/16/24 19:10:
78-year-old woman with metastatic primary peritoneal carcinoma admitted with acute HFpEF on October 09.
PMH: Metastatic primary peritoneal carcinoma, possible left lower extremity cellulitis/dermatitis, history of anaphylaxis to Doxil, malignant pleural effusions, mild aortic stenosis
Current medications: Enoxaparin 40 mg daily, potassium 40 meq daily, magnesium oxide 500 mg daily, furosemide 60 mg IV twice daily
Outpatient medications: Furosemide 40 mg twice daily amlodipine 10 mg daily, pantoprazole, steroids, Prevagen
Rest of history as below
109/60, pulse 83, sats 96%, weight is 79.9 kg, was 92.8 kg on admission, Somewhat tachypneic, pleasant, frail,still on O2, JVD approximately 8, diminished breath sounds in bases, soft systolic murmur, base and apex, trace to 1+ edema
Chest x-ray 10/14/2024 bilateral infiltrates, effusions, cardiomegaly
Hemoglobin 10.6, white count 22.6, potassium 4.6, BUN/creatinine 19 and 0.7, yesterday hemoglobin was 9.3, potassium was 3.8, creatinine was 0.6, BUN was 18, sodium 133, proBNP was 967, not decreased since admission
Impression:
See below: Agree with findings, assessments and recommendations as per Sylvia Pantoja
Plan:
She is improved, and has lost roughly 13 kg since admission but still has some volume overload. Will continue IV furosemide at least until tomorrow, recheck chest x-ray in a.m.
Will add spironolactone even though long-term prognosis is poor. Typically SGLT2 antagonist could be considered but given oncologic status we will hold off for now.
Okay to begin discharge planning.
Original Note:
Today's Communication / Plan
-
Ongoing IV diuresis with IV Lasix
Aldactone 12.5 mg daily added today
BMP in a.m.
Chest x-ray in a.m.
Wean oxygen as tolerated
Impression / Plan
-
PCP: Dr. Lo
Card: Dr. Duke, last seen as a pre-op clearance 2020
Impression:
Admitted with SOB and CHF with previously preserved ejection fraction 10/09/24
Acute hypoxic respiratory failure
Acute HFpEF
Recent admission for generalized weakness and cellulitis 08/20/24 until 09/03/2024
Recent admission for syncope likely an anaphylactic reaction to Doxil 06/25/2024 until 06/27/2024
Small left pleural effusion by CXR 10/09/2024
h/o malignant pleural effusions
Leukopenia
Anemia
Metastatic primary peritoneal carcinoma
Poor prognosis per oncology
Possible LLE cellulitis vs venous stasis dermatitis
ECHO 06/25/2024: EF 55 to 60%, trace MR, mild TR, PAP 37 mmHg, pericardial fat pad and trace effusion noted, no significant change compared to prior from 06/12/2024
Echo 08/21/2024: EF 55 to 60%, normal RV size and function, aortic sclerosis without stenosis, mild to moderate TR with PAP 40 to 45 mmHg
Echo 10/12/2024: EF 55 to 60%, mild MR, mild aortic stenosis mean gradient of 14, mild to moderate TR with PA pressure of 50
Plan:
-Presented with SOB. Admitted with acute heart failure exacerbation and acute hypoxic respiratory insufficiency
-Ongoing diuresing with IV lasix 80mg BID. Weight down to 176 lbs on 10/16. Still appears to be volume overloaded continue diuresis
-ProBNP 10/15 is higher than previous, now up to 967 compared to 599 on 10/09.
-Would repeat chest x-ray in a.m.
-Creat stable at 0.7.
-GDMT has been limited by hypotension. Hypotension seems to be improved. Aldactone 12.5 mg added 10/16/2024
-Breathing is improving by report, remains on 2L NC. Wean as able.
-Echo 10/12 showed preserved EF with mild MR and mild as noted above.
-Known anemia, however hgb has been stable following 1 unit of PRBCs given 10/10. Hemoglobin continues to improve currently 10.6 10/16/2024
-Patient has metastatic primary peritoneal carcinoma and is receiving palliative gemcitabine. Oncology following
Patient had previously been seen by cardiology as a one-time visit for cardiac clearance back in 2020 and since then was found to have metastatic primary peritoneal carcinoma. We saw the patient again during an admission 06/25/24 in the setting of
syncope as a reaction to Doxil chemotherapy that was being given at the time. Patient says that since then the Doxil was stopped and she is now on gemcitabine year and this is managed by Dr. Chin. Patient says that the SOB started to worsen day
before admission and was worse throughout the day so she came to the ER. She says she has fairly chronic LE edema and noticed increasing erythema, but overall the bulk of edema did not seem worse to her. On CXR in the ER there was evidence of a
small left pleural effusion, but she has had worse effusions in the past that were considered malignant. Also her proBNP was 599 compared to a proBNP of 855 back on 08/20/2024. Outpatient dose of Lasix 40 mg PO BID was changed to Lasix 40 mg IV
BID, but she does not feel much improvement since admission. She also remains hypoxic on 4 L NC.
Progress Note - Jelly Filter Tender
Subjective
Date of Service: October 16, 2024
Patient seen and examined. Patient resting comfortably in bed still requiring 2 L of oxygen.
Objective
Labs:
10/16/24 10:16
10/16/24 10:16
Labs
Hgb 10.6 g/dL (12.0-16.0) L 10/16/24 10:16
Hct 33.3 % (37.0-47.0) L 10/16/24 10:16
Plt Count 146 10^3/uL (130-400) 10/16/24 10:16
Sodium 132 mmol/L (135-145) L 10/16/24 10:16
Potassium 4.6 mmol/L (3.5-5.1) 10/16/24 10:16
BUN 19 mg/dl (7-17) H 10/16/24 10:16
Creatinine 0.7 mg/dL (0.6-1.0) 10/16/24 10:16
Glucose 133 mg/dl (70-99) H 10/16/24 10:16
Vital Signs and I&O:
Vital Signs
Temp Pulse Resp BP Pulse Ox
99.5 F 103 16 116/81 91
10/16/24 15:23 10/16/24 15:23 10/16/24 15:23 10/16/24 15:23 10/16/24 15:23
Vital Signs
Temp Pulse Resp BP Pulse Ox
99.5 F 103 16 116/81 91
10/16/24 15:23 10/16/24 15:23 10/16/24 15:23 10/16/24 15:23 10/16/24 15:23
Intake & Output
10/14/24 10/15/24 10/16/24 10/17/24
06:59 06:59 06:59 06:59
Intake Total 1200 / 1200 100 / 100
Output Total 1600 / 1600 1050 / 1050 300 / 300
Balance -1600 / -1600 150 / 150 -200 / -200
Physical Exam
Physical Exam
GEN: No distress, awake, alert, oriented x3, elderly and chronically ill-appearing
HEENT: supple, anicteric, mmm
LUNGS: Decreased breath sounds at bases left greater than right, no wheezes/rales; wearing 2 L oxygen via nasal cannula
CV: Reg, S1/S2, no murmur
EXT: No clubbing, cyanosis, or edema
NEURO: Poor historian otherwise nonfocal
SKIN: Warm, dry, no rash
[2024-10-16] MEDS: LASIX 80 MG IV (16:40)
--- NOTE | 2024-10-16 17:25 | CM ---
Cardiology involved
Medicine adjustment.
PLAn Home with [facility]
[2024-10-16] MEDS: LOVENOX 40 MG SC (18:36)
[2024-10-17 05:09] LABS: Mean Corp Hgb Conc. 33.3 g/dL (33.0-37.0); Mean Corpuscular Hgb 32.2 pg (27.0-31.0); Mean Corpuscular Volume 96.5 fL (81.0-99.0); Mean Platelet Volume 9.3 fL (7.4-10.4); Platelet Count 137 10^3/uL (130-400); Red Blood Cell Count 3.42 10^6/uL (4.20-5.40); Red Cell Dist. Width 22.2 % (11.5-14.5); White Blood Cell Count 18.5 10^3/uL (4.8-10.8)
[2024-10-17 05:41] LABS: Blood Urea Nitrogen 21 mg/dl (7-17); Calcium 8.3 mg/dl (8.4-10.2); Carbon Dioxide 32 mmol/L (22-30); Chloride 97 mmol/L (98-107); Estimated Creatinine Clearance 64 ml/min; Glucose 99 mg/dl (70-99); Magnesium 1.8 mg/dl (1.6-2.3); Phosphorus 3.4 mg/dl (2.5-4.5); Potassium 3.6 mmol/L (3.5-5.1); Sodium 133 mmol/L (135-145); eGFR > 60.00
[2024-10-17 07:08] VITALS: BP 149/73
--- NOTE | 2024-10-17 07:39 | W.PN.HOSP.TC ---
Today's Communication/Plan
-
Asked case management to set patient up for short-term rehab
Discharge to short-term rehab when bed available
Assessment / Plan
Assessment / Plan
Acute hypoxic respiratory failure -suspect multifactorial and due to acute pulmonary edema due to acute on chronic heart failure, malignancy, anemia. Pulmonary embolism ruled out with CT chest. Required BiPAP in the emergency room, now transitioned
to nasal cannula oxygen. Was on room air at rest, placed back on 2L of oxygen after working with PT as she needs oxygen with exertion, wean as tolerated. She does not wear oxygen at home.
Acute on chronic heart failure with preserved EF -she is on Lasix 40 mg twice daily at home, states she has been compliant. Last echocardiogram was August 21, LVEF 55 to 60%, normal RV size and function.
Increased Lasix to 80 mg IV twice daily, trend creatinine, trend daily weights. Cardiology added Aldactone 12.5 mg daily on 10/16.
Hypokalemia -resolved, replete as needed
Hypomagnesemia -resolved, replete as needed
Leukopenia -suspect related to chemotherapy. Oncology following, status post Granix 10/14
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 Prognosis remains poor. Dr. Chin is her oncologist, he mentioned hospice during her last hospitalization last month but patient is not interested.
Oncology consulted. Albumin of 2.1 with suspected malnutrition, third spacing. Overall prognosis is poor. Informed daughter that patient's prognosis is poor, and that hospice is recommended.
Acute on chronic anemia -likely multifactorial etiology including malignancy and chemotherapy. Baseline hemoglobin appears to be around 10. Hemoglobin dipped down to 7.6. Status post 1 unit packed red blood cells 10/10/2024. Continue to trend,
transfuse as needed
Hyponatremia - fluid restrict, monitor
Bilateral lower extremity venous stasis dermatitis -compression therapy with Albert wraps ordered. At home she uses compression stockings.
Bilateral lower extremity wounds -likely related to venous stasis dermatitis. Continue wound care
Obesity due to excess calories -affects all aspects of care
DNR -confirmed with patient.
PT/OT -home PT vs, SNF, patient now agreeable to rehab
Updated daughter on phone 10/17
Total time spent to see the patient on the floor, examine the patient, review data and lab results, discuss treatment plan with patient, nursing staff around 50 minutes.
Physical exam
Gen-Obese, appears chronically ill, AAOx3, NAD
HEENT-NC, AT, anicteric, clear oral mm
Neck-supple
CV-reg, no M, +S1/S2
Lungs-Diminished breath sounds at the bases with bibasilar crackles
Abd-soft, NT, ND
Ext-bilateral lower extremity edema, much improved
Venous stasis noted
Musculoskeletal-no cyanosis, clubbing
Skin-warm and dry, bilateral lower extremity venous wounds with dressing
Hyperpigmentation of lower extremities reflective of chronic venous stasis
Neuro-grossly non-focal
Psych-calm, cooperative
Anticipated Discharge: 24 - 48 hours
Subjective/Interval History
-
Date of Service: October 17, 2024
Patient reports her breathing continues to improve. She is now agreeable to short-term rehab. No chest pain, no fever, no vomiting.
Objective Data
-
Labs:
Laboratory Results
10/17/24
04:50
WBC 18.5 H
Hgb 11.0 L
Hct 33.0 L
Plt Count 137
Sodium 133 L
Potassium 3.6
Chloride 97 L
Carbon Dioxide 32 H
BUN 21 H
Creatinine 0.7
Glucose 99
Calcium 8.3 L
Vital Signs:
Vital Signs
Temp Pulse Resp BP Pulse Ox
98.1 F 90 17 149/73 95
10/17/24 07:08 10/17/24 07:08 10/17/24 07:08 10/17/24 07:08 10/17/24 07:08
I&O
10/16/24 10/17/24 10/18/24
06:59 06:59 06:59
Intake Total 100 / 100 210 / 210
Output Total 300 / 300 2099 / 2099
Balance -200 / -200 -1890 / -1890
[2024-10-17] MEDS: LASIX 80 MG IV ×2 (08:27→17:25)
[2024-10-17] MEDS: KCL ELIXIR 40 MEQ PO (08:27)
[2024-10-17] MEDS: MAGNESIUM OXIDE 500 MG PO (08:27)
[2024-10-17] MEDS: PROTONIX 40 MG PO (08:27)
[2024-10-17] MEDS: HYDROPHOR 1 APPLIC TOPICAL (08:28)
[2024-10-17] MEDS: MYCOSTATIN CREAM 1 APPLIC TOPICAL ×2 (08:29→21:03)
[2024-10-17] MEDS: ALDACTONE 12.5 MG PO (08:40)
--- NOTE | 2024-10-17 10:12 | W.PN.CARDCBS ---
Today's Communication / Plan
-
Change furosemide to 80 mg orally twice daily.
Continue to hold amlodipine
See below for recommendations
We will sign off, please call if questions
Impression / Plan
-
PCP: Dr. Lo
Card: Dr. Duke, last seen as a pre-op clearance 2020
Impression:
Admitted with SOB and CHF with previously preserved ejection fraction 10/09/24
Acute hypoxic respiratory failure
Acute HFpEF
Recent admission for generalized weakness and cellulitis 08/20/24 until 09/03/2024
Recent admission for syncope likely an anaphylactic reaction to Doxil 06/25/2024 until 06/27/2024
Small left pleural effusion by CXR 10/09/2024
h/o malignant pleural effusions
Leukopenia
Anemia
Metastatic primary peritoneal carcinoma
Poor prognosis per oncology
Possible LLE cellulitis vs venous stasis dermatitis
ECHO 06/25/2024: EF 55 to 60%, trace MR, mild TR, PAP 37 mmHg, pericardial fat pad and trace effusion noted, no significant change compared to prior from 06/12/2024
Echo 08/21/2024: EF 55 to 60%, normal RV size and function, aortic sclerosis without stenosis, mild to moderate TR with PAP 40 to 45 mmHg
Echo 10/12/2024: EF 55 to 60%, mild MR, mild aortic stenosis mean gradient of 14, mild to moderate TR with PA pressure of 50
Plan:
From a heart failure standpoint, she is improved. Would transition to oral furosemide, 80 mg twice daily, may need to de-escalate if evidence of severe azotemia.
Chest x-ray is pending
She is now on spironolactone as well.
Avoid SGLT2 antagonist.
Okay for discharge planning. Patient reports that she will be going to rehab and hopes to get home thereafter. We will arrange for cardiology follow-up.
Recommended cardiac medications at discharge:
Furosemide 80 mg twice daily
Spironolactone 12.5 mg daily
Potassium 40 mEq daily
Hold outpatient amlodipine, restart if hypertension develops
Please arrange for BMP in 1 week.
We will arrange for cardiac follow-up
We will sign off, please call if questions
Patient had previously been seen by cardiology as a one-time visit for cardiac clearance back in 2020 and since then was found to have metastatic primary peritoneal carcinoma. We saw the patient again during an admission 06/25/24 in the setting of
syncope as a reaction to Doxil chemotherapy that was being given at the time. Patient says that since then the Doxil was stopped and she is now on gemcitabine year and this is managed by Dr. Chin. Patient says that the SOB started to worsen day
before admission and was worse throughout the day so she came to the ER. She says she has fairly chronic LE edema and noticed increasing erythema, but overall the bulk of edema did not seem worse to her. On CXR in the ER there was evidence of a
small left pleural effusion, but she has had worse effusions in the past that were considered malignant. Also her proBNP was 599 compared to a proBNP of 855 back on 08/20/2024. Outpatient dose of Lasix 40 mg PO BID was changed to Lasix 40 mg IV
BID, but she does not feel much improvement since admission. She also remains hypoxic on 4 L NC.
Progress Note - Freelance Makeup Artist
Subjective
Date of Service: October 17, 2024:
78-year-old woman with metastatic primary peritoneal carcinoma admitted with acute HFpEF on October 09.
PMH: Metastatic primary peritoneal carcinoma, possible left lower extremity cellulitis/dermatitis, history of anaphylaxis to Doxil, malignant pleural effusions, mild aortic stenosis
Current medications: Enoxaparin 40 mg daily, pantoprazole, potassium 40 meq daily, magnesium oxide 500 mg daily, furosemide 80 mg IV twice daily, spironolactone 12.5 daily
Outpatient medications: Furosemide 40 mg twice daily amlodipine 10 mg daily, pantoprazole, steroids, Prevagen
149/73, pulse 90, resp rate 17, afebrile, saturations 95%, intake and output -1.9 L, weight is 79.9 kg, if accurate down 4.3 kg still somewhat tachypneic, but she seems more comfortable, no distress, head neck exam with some temporal wasting, lungs
are clear JVD is okay, intermittent extrasystoles, telemetry has been discontinued, irregular rate and rhythm, soft systolic murmur apex and also at base, legs are wrapped, no significant edema
Hemoglobin is 11, had been 7.6, BUN/creatinine are 21 and 0.7, potassium is 3.6, chest x-ray is pending
Echo: EF 55-60%, mild mitral regurgitation, mild aortic stenosis
Objective
Labs:
10/17/24 04:50
10/17/24 04:50
Labs
Hgb 11.0 g/dL (12.0-16.0) L 10/17/24 04:50
Hct 33.0 % (37.0-47.0) L 10/17/24 04:50
Plt Count 137 10^3/uL (130-400) 10/17/24 04:50
Sodium 133 mmol/L (135-145) L 10/17/24 04:50
Potassium 3.6 mmol/L (3.5-5.1) 10/17/24 04:50
BUN 21 mg/dl (7-17) H 10/17/24 04:50
Creatinine 0.7 mg/dL (0.6-1.0) 10/17/24 04:50
Glucose 99 mg/dl (70-99) 10/17/24 04:50
Vital Signs and I&O:
Vital Signs
Temp Pulse Resp BP Pulse Ox
36.7 C 90 17 149/73 95
10/17/24 07:08 10/17/24 07:08 10/17/24 07:08 10/17/24 07:08 10/17/24 07:08
Vital Signs
Temp Pulse Resp BP Pulse Ox
36.7 C 90 17 149/73 95
10/17/24 07:08 10/17/24 07:08 10/17/24 07:08 10/17/24 07:08 10/17/24 07:08
Intake & Output
10/15/24 10/16/24 10/17/24 10/18/24
07:59 07:59 07:59 07:59
Intake Total 720 / 720 100 / 100 210 / 210
Output Total 700 / 700 300 / 300 2100 / 2100
Balance 20 / 20 -200 / -200 -1890 / -1890
Physical Exam
Physical Exam
See above
[2024-10-17 15:29] VITALS: BP 131/63
[2024-10-17] MEDS: LOVENOX 40 MG SC (17:21)
[2024-10-17 23:00] VITALS: BP 115/67
[2024-10-18 04:57] VITALS: BMI 29.9
[2024-10-18 05:51] LABS: Hematocrit 34.3 % (37.0-47.0); Hemoglobin 11.3 g/dL (12.0-16.0); Mean Corp Hgb Conc. 32.9 g/dL (33.0-37.0); Mean Corpuscular Hgb 32.1 pg (27.0-31.0); Mean Corpuscular Volume 97.4 fL (81.0-99.0); Mean Platelet Volume 9.7 fL (7.4-10.4); Platelet Count 137 10^3/uL (130-400); Red Blood Cell Count 3.52 10^6/uL (4.20-5.40); Red Cell Dist. Width 22.7 % (11.5-14.5); White Blood Cell Count 10.7 10^3/uL (4.8-10.8)
[2024-10-18 06:02] LABS: Blood Urea Nitrogen 24 mg/dl (7-17); Calcium 8.4 mg/dl (8.4-10.2); Carbon Dioxide 33 mmol/L (22-30); Chloride 95 mmol/L (98-107); Estimated Creatinine Clearance 63 ml/min; Glucose 103 mg/dl (70-99); Potassium 3.9 mmol/L (3.5-5.1); Sodium 133 mmol/L (135-145); eGFR > 60.00
[2024-10-18 07:15] VITALS: BP 125/73
--- NOTE | 2024-10-18 07:51 | W.PN.HOSP.TC ---
Today's Communication/Plan
-
Discharge to short-term rehab when bed available
Assessment / Plan
Assessment / Plan
Acute hypoxic respiratory failure -suspect multifactorial and due to acute pulmonary edema due to acute on chronic heart failure, malignancy, anemia. Pulmonary embolism ruled out with CT chest. Required BiPAP in the emergency room, now transitioned
to nasal cannula oxygen. Currently on 1 L of oxygen, wean as tolerated. She does not wear oxygen at home. Discharge to short-term rehab when bed available
Acute on chronic heart failure with preserved EF -she is on Lasix 40 mg twice daily at home, states she has been compliant. Last echocardiogram was August 21, LVEF 55 to 60%, normal RV size and function.
Increased Lasix to 80 mg IV twice daily, trend creatinine, trend daily weights. Cardiology added Aldactone 12.5 mg daily on 10/16.
Hypokalemia -resolved, replete as needed
Hypomagnesemia -resolved, replete as needed
Leukopenia -suspect related to chemotherapy. Oncology following, status post Granix 10/14
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 Prognosis remains poor. Dr. Chin is her oncologist, he mentioned hospice during her last hospitalization last month but patient is not interested.
Oncology consulted. Albumin of 2.1 with suspected malnutrition, third spacing. Overall prognosis is poor. Informed daughter that patient's prognosis is poor, and that hospice is recommended.
Acute on chronic anemia -likely multifactorial etiology including malignancy and chemotherapy. Baseline hemoglobin appears to be around 10. Hemoglobin dipped down to 7.6. Status post 1 unit packed red blood cells 10/10/2024. Continue to trend,
transfuse as needed
Hyponatremia - fluid restrict, monitor
Bilateral lower extremity venous stasis dermatitis -compression therapy with Albert wraps ordered. At home she uses compression stockings.
Bilateral lower extremity wounds -likely related to venous stasis dermatitis. Continue wound care
Obesity due to excess calories -affects all aspects of care
DNR -confirmed with patient.
PT/OT -home PT vs, SNF, patient now agreeable to rehab
Updated daughter on phone 10/17
Total time spent to see the patient on the floor, examine the patient, review data and lab results, discuss treatment plan with patient, nursing staff around 40 minutes.
Physical exam
Gen-Obese, appears chronically ill, AAOx3, NAD
HEENT-NC, AT, anicteric, clear oral mm
Neck-supple
CV-reg, no M, +S1/S2
Lungs-Diminished breath sounds at the bases with bibasilar crackles
Abd-soft, NT, ND
Ext-bilateral lower extremity edema, much improved
Venous stasis noted
Musculoskeletal-no cyanosis, clubbing
Skin-warm and dry, bilateral lower extremity venous wounds with dressing
Hyperpigmentation of lower extremities reflective of chronic venous stasis
Neuro-grossly non-focal
Psych-calm, cooperative
Anticipated Discharge: Within 24 hours
Subjective/Interval History
-
Date of Service: October 18, 2024
Patient reports improvement of breathing. Denies chest pain, nausea, vomiting. No fever.
Objective Data
-
Labs:
Laboratory Results
10/18/24
05:23
WBC 10.7
Hgb 11.3 L
Hct 34.3 L
Plt Count 137
Sodium 133 L
Potassium 3.9
Chloride 95 L
Carbon Dioxide 33 H
BUN 24 H
Creatinine 0.7
Glucose 103 H
Calcium 8.4
Vital Signs:
Vital Signs
Temp Pulse Resp BP Pulse Ox
97.4 F 83 16 125/73 94
10/18/24 07:15 10/18/24 07:15 10/18/24 07:15 10/18/24 07:15 10/18/24 07:15
I&O
10/17/24 10/18/24 10/19/24
06:59 06:59 06:59
Intake Total 210 / 210 270 / 270
Output Total 2099 / 2099 1590 / 1590 400 / 400
Balance -1890 / -1890 -1320 / -1320 -400 / -400
[2024-10-18] MEDS: PROTONIX 40 MG PO (07:53)
[2024-10-18] MEDS: MAGNESIUM OXIDE 500 MG PO (07:53)
[2024-10-18] MEDS: KCL ELIXIR 40 MEQ PO (07:53)
[2024-10-18] MEDS: ALDACTONE 12.5 MG PO (07:53)
[2024-10-18] MEDS: HYDROPHOR 1 APPLIC TOPICAL (07:54)
[2024-10-18] MEDS: LASIX 80 MG IV ×2 (07:54→17:05)
[2024-10-18] MEDS: MYCOSTATIN CREAM 1 APPLIC TOPICAL ×2 (07:55→20:56)
--- NOTE | 2024-10-18 11:37 | CM ---
Pt is ready for discharge; has been unwilling to consider SNF, however today she is agreeable. [facility] is her preference. Referrals sent via [facility] to [facility], [facility] and [facility].
Plan: CM following to coordinate transfer to SNF once pt accepted and insurance authorization is obtained.
[2024-10-18 15:00] VITALS: BP 130/74
[2024-10-18] MEDS: LOVENOX 40 MG SC (17:04)
[2024-10-18 23:00] VITALS: BP 124/81
[2024-10-19] VITALS (7 sets, daily range): BP systolic 69–132; BP diastolic 46–83; PULSE 87–98; O2SAT 97; BMI 29.4
[2024-10-19 06:21] LABS: Hematocrit 36.8 % (37.0-47.0); Hemoglobin 11.9 g/dL (12.0-16.0); Mean Corp Hgb Conc. 32.3 g/dL (33.0-37.0); Mean Corpuscular Hgb 31.6 pg (27.0-31.0); Mean Corpuscular Volume 97.9 fL (81.0-99.0); Platelet Count 149 10^3/uL (130-400); Red Blood Cell Count 3.76 10^6/uL (4.20-5.40); Red Cell Dist. Width 22.9 % (11.5-14.5); White Blood Cell Count 8.3 10^3/uL (4.8-10.8)
[2024-10-19 07:03] LABS: Blood Urea Nitrogen 30 mg/dl (7-17); Calcium 8.4 mg/dl (8.4-10.2); Carbon Dioxide 33 mmol/L (22-30); Chloride 94 mmol/L (98-107); Estimated Creatinine Clearance 48 ml/min; Glucose 100 mg/dl (70-99); Potassium 3.9 mmol/L (3.5-5.1); Sodium 130 mmol/L (135-145); eGFR > 60.00
[2024-10-19] MEDS: ALDACTONE 12.5 MG PO (07:55)
[2024-10-19] MEDS: MAGNESIUM OXIDE 500 MG PO (07:55)
[2024-10-19] MEDS: PROTONIX 40 MG PO (07:55)
[2024-10-19] MEDS: LASIX 80 MG IV ×2 (07:56→15:10)
[2024-10-19] MEDS: KCL ELIXIR 40 MEQ PO (07:57)
[2024-10-19] MEDS: HYDROPHOR 1 APPLIC TOPICAL (08:12)
[2024-10-19] MEDS: MYCOSTATIN CREAM 1 APPLIC TOPICAL ×2 (08:13→20:20)
--- NOTE | 2024-10-19 10:01 | W.PN.HOSP.TC ---
Today's Communication/Plan
-
Awaiting placement for short-term rehab
Assessment / Plan
Assessment / Plan
Acute hypoxic respiratory failure -suspect multifactorial and due to acute pulmonary edema due to acute on chronic heart failure, malignancy, anemia. Pulmonary embolism ruled out with CT chest. Required BiPAP in the emergency room, now transitioned
to nasal cannula oxygen. Currently on 1 L of oxygen, wean as tolerated. She does not wear oxygen at home. Discharge to short-term rehab when bed available
Acute on chronic heart failure with preserved EF -she is on Lasix 40 mg twice daily at home, states she has been compliant. Last echocardiogram was August 21, LVEF 55 to 60%, normal RV size and function.
Currently on Lasix to 80 mg IV twice daily, trend creatinine, trend daily weights. Cardiology added Aldactone 12.5 mg daily on 10/16. Will change to her home regimen of Lasix 40 mg p.o. twice a day starting 10/20
Hypokalemia -resolved, replete as needed
Hypomagnesemia -resolved, replete as needed
Leukopenia -suspect related to chemotherapy. Oncology following, status post Granix 10/14
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 Prognosis remains poor. Dr. Chin is her oncologist, he mentioned hospice during her last hospitalization last month but patient is not interested.
Oncology consulted. Albumin of 2.1 with suspected malnutrition, third spacing. Overall prognosis is poor. Informed daughter that patient's prognosis is poor, and that hospice is recommended.
Acute on chronic anemia -likely multifactorial etiology including malignancy and chemotherapy. Baseline hemoglobin appears to be around 10. Hemoglobin dipped down to 7.6. Status post 1 unit packed red blood cells 10/10/2024. Continue to trend,
transfuse as needed
Hyponatremia - fluid restrict, monitor
Bilateral lower extremity venous stasis dermatitis -compression therapy with Albert wraps ordered. At home she uses compression stockings.
Bilateral lower extremity wounds -likely related to venous stasis dermatitis. Continue wound care
Obesity due to excess calories -affects all aspects of care
DNR -confirmed with patient.
PT/OT -home PT vs, SNF, patient now agreeable to rehab
Updated daughter on phone 10/17
Total time spent to see the patient on the floor, examine the patient, review data and lab results, discuss treatment plan with patient, nursing staff around 41 minutes.
Physical exam
Gen-Obese, appears chronically ill, AAOx3, NAD
HEENT-NC, AT, anicteric, clear oral mm
Neck-supple
CV-reg, no M, +S1/S2
Lungs-Diminished breath sounds at the bases with bibasilar crackles
Abd-soft, NT, ND, +umbilical hernia
Ext-bilateral lower extremity edema, much improved
Venous stasis noted
Musculoskeletal-no cyanosis, clubbing
Skin-warm and dry, bilateral lower extremity venous wounds with dressing
Hyperpigmentation of lower extremities reflective of chronic venous stasis
Neuro-grossly non-focal
Psych-calm, cooperative
Anticipated Discharge: Within 24 hours
Subjective/Interval History
-
Date of Service: October 19, 2024
Patient reports shortness of breath resolved. No chest pain, no fever, no vomiting.
Objective Data
-
Labs:
Laboratory Results
10/19/24
06:04
WBC 8.3
Hgb 11.9 L
Hct 36.8 L
Plt Count 149
Sodium 130 L
Potassium 3.9
Chloride 94 L
Carbon Dioxide 33 H
BUN 30 H
Creatinine 0.9
Glucose 100 H
Calcium 8.4
Vital Signs:
Vital Signs
Temp Pulse Resp BP Pulse Ox
97.8 F 80 24 113/66 94
10/19/24 07:30 10/19/24 07:30 10/19/24 07:30 10/19/24 07:55 10/19/24 08:55
I&O
10/18/24 10/19/24 10/20/24
06:59 06:59 06:59
Intake Total 270 / 270 960 / 960
Output Total 1590 / 1590 1625 / 1625
Balance -1320 / -1320 -665 / -665
--- NOTE | 2024-10-19 10:47 | W.HF.CON ---
Heart Failure
- LV Function
Left ventricular function study result: LV Ejection fraction >/= 50%
Ejection Fraction Percentage: 55-60
- ARNI
Patient already on ARNI: No
Heart Failure ARNI Not Indicated: LV Ejection Fraction >/= 40%
- ACEI/ARB
Patient already on ACEI/ARB: No
Heart Failure ACEI/ARB Not Indicated: LV Ejection Fraction > 40%
- Beta Nuria
Patient already on Evidence Based Beta Nuria: No
Heart Failure Evidence Based Beta Nuria Not Indicated: LV Ejection Fraction > 40%
- Mineralocorticord Receptor Antagonist
Patient already on MRA: Yes
- SGLT-2 Inhibitor
Patient already on SGLT-2 Inhibitor: No
Heart Failure SGLT-2 Inhibitor Contraindication: Patient Refusal
- NYHA CHF Classification
NYHA CHF Classification Level: Class III - Symptoms w/ min exertion, interferes w/ nml daily activity
- ACC/AHA Stage
ACC/AHA Stage: Stage C: Symptomatic Heart Failure
--- NOTE | 2024-10-19 14:46 | W.PN.UPDATE ---
Update Note
Progress Note Update
Discharge diagnosis:
Acute hypoxic respiratory failure
Acute on chronic heart failure with a preserved ejection fraction
Primary peritoneal carcinoma on salvage chemotherapy
Hypokalemia
Hypomagnesemia
Hyponatremia
Leukopenia
Acute on chronic anemia
Chronic bilateral lower extremity venous stasis dermatitis
Chronic bilateral lower extremity wounds
Consults: Cardiology, oncology
Chest CTA:
No acute disease of the chest. No evidence of pulmonary embolus.
Small left and tiny right pleural effusion. Stable on the left from today's chest x-ray. Right pleural effusion much improved from recent CT of the abdomen and pelvis.
Large hiatal hernia. Stable
Findings consistent with prior benign granulomatous disease. Stable
Hospital course:
78-year-old female with a past medical history of primary peritoneal carcinoma on salvage chemotherapy, chronic venous stasis dermatitis, chronic lower extremity edema, malignant pleural effusion, and CHF who was admitted for acute hypoxic
respiratory failure secondary to CHF exacerbation. Patient required BiPAP in the emergency room. She was seen in conjunction with cardiology, and diuresed with IV Lasix. She was successfully weaned to 1 L of oxygen. Her shortness of breath is
multifactorial. Cardiology recommends she be discharged on Lasix 80 mg p.o. twice a day, increased from 40 mg twice a day. Cardiology also added Aldactone 12.5 mg daily.
Patient had acute on chronic anemia. She was transfused 1 unit of packed red blood cells. Her hemoglobin responded appropriately, and trended up during her hospitalization.
Patient was seen in conjunction with oncology. Her primary oncologist had recommended hospice, but she was not ready. Her poor prognosis was relayed to both her and her daughter.
Patient's medical conditions have been optimized. She will be discharged to short-term rehab, and needs to follow-up with her oncologist in 1-2 weeks.
Disposition: Short-term rehab
Discharge planning: Required
--- NOTE | 2024-10-19 17:08 | CM ---
Maintained on oxygen 1 liter Pox 97%.
PT OT needed for auth for SNF.
SNF referral read SNF wanted to kow if an chemo treatment would happen during SNF Stay.DR Pandya said no chemo during SNF.
[facility] or [facility] .
Confirm which SNF.Will need auth
PLAN to SNF after auth
[2024-10-19] MEDS: LOVENOX 40 MG SC (17:10)
[2024-10-20 05:48] LABS: Hemoglobin 11.8 g/dL (12.0-16.0); Mean Corp Hgb Conc. 32.8 g/dL (33.0-37.0); Mean Corpuscular Volume 97.6 fL (81.0-99.0); Platelet Count 184 10^3/uL (130-400); Red Blood Cell Count 3.69 10^6/uL (4.20-5.40); Red Cell Dist. Width 22.5 % (11.5-14.5); White Blood Cell Count 7.4 10^3/uL (4.8-10.8)
[2024-10-20 06:00] VITALS: BMI 29.2
[2024-10-20 06:07] LABS: Blood Urea Nitrogen 34 mg/dl (7-17); Calcium 8.7 mg/dl (8.4-10.2); Carbon Dioxide 34 mmol/L (22-30); Chloride 93 mmol/L (98-107); Estimated Creatinine Clearance 48 ml/min; Glucose 92 mg/dl (70-99); Potassium 3.8 mmol/L (3.5-5.1); Sodium 132 mmol/L (135-145); eGFR > 60.00
[2024-10-20 08:05] VITALS: BP 115/67
[2024-10-20] MEDS: LASIX 80 MG PO ×2 (08:58→16:19)
--- NOTE | 2024-10-20 08:58 | W.PN.HOSP.TC ---
Today's Communication/Plan
-
repeat orthostats
possible DC later today
Assessment / Plan
Assessment / Plan
Acute hypoxic respiratory failure -suspect multifactorial and due to acute pulmonary edema due to acute on chronic heart failure, malignancy, anemia. Pulmonary embolism ruled out with CT chest. Required BiPAP in the emergency room, now transitioned
to nasal cannula oxygen. Currently on 1 L of oxygen, wean as tolerated. She does not wear oxygen at home. Discharge to short-term rehab when bed available
Acute on chronic heart failure with preserved EF -she is on Lasix 40 mg twice daily at home, states she has been compliant. Last echocardiogram was August 21, LVEF 55 to 60%, normal RV size and function.
s/p IV lasix, addition of Aldactone
orthostatic afternoon of 10/19; afternoon IV lasix held
continue oral lasix now
*repeat orthostats ths evneing
Hypokalemia -resolved, replete as needed
Hypomagnesemia -resolved, replete as needed
Leukopenia -suspect related to chemotherapy. Oncology following, status post Granix 10/14
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 Prognosis remains poor. Dr. Chin is her oncologist, he mentioned hospice during her last hospitalization last month but patient is not interested.
Oncology consulted. Albumin of 2.1 with suspected malnutrition, third spacing. Overall prognosis is poor. Informed daughter that patient's prognosis is poor, and that hospice is recommended.
Acute on chronic anemia -likely multifactorial etiology including malignancy and chemotherapy. Baseline hemoglobin appears to be around 10. Hemoglobin dipped down to 7.6. Status post 1 unit packed red blood cells 10/10/2024. Continue to trend,
transfuse as needed
Hyponatremia - fluid restrict, monitor
Bilateral lower extremity venous stasis dermatitis -compression therapy with Albert wraps ordered. At home she uses compression stockings.
Bilateral lower extremity wounds -likely related to venous stasis dermatitis. Continue wound care
Obesity due to excess calories -affects all aspects of care
DNR -confirmed with patient.
PT/OT -home PT vs, SNF, patient now agreeable to rehab
Updated daughter on phone 10/17
Total time spent to see the patient on the floor, examine the patient, review data and lab results, discuss treatment plan with patient, nursing staff around 41 minutes.
Physical exam
Gen-Obese, appears chronically ill, AAOx3, NAD
HEENT-NC, AT, anicteric, clear oral mm
Neck-supple
CV-reg, no M, +S1/S2
Lungs-Diminished breath sounds at the bases with bibasilar crackles
Abd-soft, NT, ND, +umbilical hernia
Ext-bilateral lower extremity edema, much improved
Venous stasis noted
Musculoskeletal-no cyanosis, clubbing
Skin-warm and dry, bilateral lower extremity venous wounds with dressing
Hyperpigmentation of lower extremities reflective of chronic venous stasis
Neuro-grossly non-focal
Psych-calm, cooperative
Anticipated Discharge: Within 24 hours
Subjective/Interval History
-
Date of Service: October 20, 2024
feeling better today, but has not gotten out of bed yet
Objective Data
-
Labs:
Laboratory Results
10/20/24
04:54
WBC 7.4
Hgb 11.8 L
Hct 36.0 L
Plt Count 184 D
Sodium 132 L
Potassium 3.8
Chloride 93 L
Carbon Dioxide 34 H
BUN 34 H
Creatinine 0.9
Glucose 92
Calcium 8.7
Vital Signs:
Vital Signs
Temp Pulse Resp BP Pulse Ox
98.3 F 83 18 115/67 90
10/20/24 08:05 10/20/24 08:05 10/20/24 08:05 10/20/24 08:05 10/20/24 08:05
I&O
10/19/24 10/20/24 10/21/24
06:59 06:59 06:59
Intake Total 960 / 960 1080 / 1080
Output Total 1625 / 1625 1000 / 1000
Balance -665 / -665 80 / 80
Review of Systems
-
History Source: Patient
All other systems: Reviewed and negative
Physical Exam
-
General: Other (frail appearing, mildly tachypneic )
HEENT: PERRLA
Respiratory: Decreased Breath Sounds
Cardiac: Regular Rhythm and S1/S2
GI: Soft and Nontender
Musculoskeletal: Other (venous stasis discoloration )
Skin: Warm and Dry
Neuro: AO x 3
Psych: Calm
Data Reviewed
-
Diagnostic Radiology: Report Reviewed by me
Labs: Labs Reviewed by me
[2024-10-20] MEDS: MAGNESIUM OXIDE 500 MG PO (09:04)
[2024-10-20] MEDS: KCL ELIXIR 40 MEQ PO (09:04)
[2024-10-20] MEDS: PROTONIX 40 MG PO (09:04)
[2024-10-20] MEDS: ALDACTONE 12.5 MG PO (09:06)
[2024-10-20] MEDS: MYCOSTATIN CREAM 1 APPLIC TOPICAL ×2 (09:08→20:10)
[2024-10-20] MEDS: HYDROPHOR 1 APPLIC TOPICAL (09:08)
[2024-10-20 09:43] VITALS: BP 109/71; BP 119/57; BP 121/76; PULSE 105; PULSE 107; PULSE 95
[2024-10-20 10:57] VITALS: BMI 29.2
--- NOTE | 2024-10-20 10:59 | W.DS.TRANS ---
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
-
Discharge Instructions:
Sleep Apnea Risk Intermediate
Discharge Diagnosis/Procedures Congestive heart failure, hypoxic respiratory
failure, primary peritoneal cancer, anemia
Diet Low Sodium,Restrict fluids to 48 oz
Activity As tolerated
Blood Work BMP on Saturday10/23/24; Saturday10/30/24
Instructions: *DCA Heart Failure Instructions
Stand-Alone Forms:
Changes to Home Medications: Yes
Discharge Medications:
DC Medications w/original date entered in [employer]
pantoprazole 40 mg tablet,delayed release 40 mg PO DAILY Gastrointestinal issue 06/21/21
Prevagen 1 tab PO DAILY Supplement 06/23/21
multivitamin with folic acid 400 mcg tablet (Tab-A-Crow) 1 tab PO DAILY Supplement 06/23/21
vit C 250 mg-vit E 90 mg-zinc 40 mg-copper 1 uw-obfafo-kybisv capsule (PreserVision AREDS-2) 1 tab PO BID Supplement 06/25/24
acetaminophen 325 mg tablet 650 mg (2 x 325 mg) PO Q6HPRN PRN mild pain/ fever>100.5F #0 tabs 10/19/24
furosemide 40 mg tablet 80 mg (2 x 40 mg) PO BID@0800,1600 Fluid Retention/Swelling #0 tabs 10/19/24
magnesium oxide 500 mg PO DAILY #0 tabs 10/19/24
nystatin 100,000 unit/gram topical cream 1 applic topical BID 14 days #0 grams 10/19/24
potassium chloride 20 mEq/15 mL oral liquid 20 meq (15 mL) PO DAILY 30 days #450 mL 10/19/24
spironolactone 25 mg tablet 12.5 mg (1/2 x 25 mg) PO DAILY #60 tabs 10/19/24
white petrolatum 42 % topical ointment (Hydrophor) 1 applic topical DAILY #0 grams 10/19/24
furosemide 80 mg tablet 80 mg PO BID@0800,1600 #60 tabs 10/20/24
Home Medication Changes
Your Lasix dose is increased from 40mg twice a day to 80mg twice a day
You are also started on Spironolactone
You are started on Potassium and Magnesium supplementation; your labs will be checked on Saturday
Pending Results: No
--- NOTE | 2024-10-20 13:40 | W.PN.UPDATE ---
Update Note
Progress Note Update
d/c planning underway
Patient has f/u visit with Dr. Chin on 10/26/24 at 1:00p.
Oncology will sign off, please call with questions
[2024-10-20 15:00] VITALS: BP 115/67
--- NOTE | 2024-10-20 15:26 | CM ---
Maintained on oxygen 1 liter Pox 97%.
PT OT needed for auth for SNF.
Pt and dgt requested [facility] requested [facility] .
Spoke with JABIER at [facility] [phone] ext [phone] Spoke with Rickie who will be providing auth.
Called [facility] at [phone] spoke with GERI clinical given call reference # [id number] Case # [id number] clinical faxed to [phone]..
Pt on oxygen will nee ambulance.
[facility]
report [phone]
fax [phone]
PLAN [facility] after auth obtained
[2024-10-20 16:04] VITALS: BP 111/66; BP 118/62; BP 84/53; PULSE 102; PULSE 87; PULSE 93; O2SAT 94
[2024-10-20] MEDS: LOVENOX 40 MG SC (18:19)
--- NOTE | 2024-10-20 21:14 | PTCARENOTE ---
Oral care was not performed on patient because they stated that it was their preference to brush their teeth in the morning.
[2024-10-20 23:00] VITALS: BP 115/73
[2024-10-21 06:00] VITALS: BMI 29.6
[2024-10-21 07:00] VITALS: BP 115/67
[2024-10-21] MEDS: LASIX 80 MG PO (08:07)
[2024-10-21] MEDS: ALDACTONE 12.5 MG PO (08:07)
[2024-10-21] MEDS: MAGNESIUM OXIDE 500 MG PO (08:07)
[2024-10-21] MEDS: PROTONIX 40 MG PO (08:07)
[2024-10-21] MEDS: KCL ELIXIR 40 MEQ PO (08:07)
[2024-10-21] MEDS: HYDROPHOR 1 APPLIC TOPICAL (08:08)
[2024-10-21] MEDS: MYCOSTATIN CREAM 1 APPLIC TOPICAL (08:08)
[2024-10-21 08:53] LABS: Blood Urea Nitrogen 32 mg/dl (7-17); Calcium 8.8 mg/dl (8.4-10.2); Carbon Dioxide 31 mmol/L (22-30); Chloride 94 mmol/L (98-107); Estimated Creatinine Clearance 49 ml/min; Glucose 141 mg/dl (70-99); Potassium 3.9 mmol/L (3.5-5.1); Sodium 130 mmol/L (135-145); eGFR > 60.00
--- NOTE | 2024-10-21 09:37 | W.DS.TRANS ---
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
-
Discharge Instructions:
Sleep Apnea Risk Intermediate
Discharge Diagnosis/Procedures Congestive heart failure, hypoxic respiratory
failure, primary peritoneal cancer, anemia
Diet Low Sodium,Restrict fluids to 48 oz
Activity As tolerated
Blood Work BMP on Saturday10/26/24
Other Services PT,OT
Instructions: *DCA Heart Failure Instructions
Stand-Alone Forms:
Changes to Home Medications: Yes
Discharge Medications:
DC Medications w/original date entered in [employer]
pantoprazole 40 mg tablet,delayed release 40 mg PO DAILY Gastrointestinal issue 06/21/21
Prevagen 1 tab PO DAILY Supplement 06/23/21
multivitamin with folic acid 400 mcg tablet (Tab-A-Crow) 1 tab PO DAILY Supplement 06/23/21
vit C 250 mg-vit E 90 mg-zinc 40 mg-copper 1 nc-uwckwv-ycdusn capsule (PreserVision AREDS-2) 1 tab PO BID Supplement 06/25/24
acetaminophen 325 mg tablet 650 mg (2 x 325 mg) PO Q6HPRN PRN mild pain/ fever>100.5F #0 tabs 10/19/24
furosemide 40 mg tablet 80 mg (2 x 40 mg) PO BID@0800,1600 Fluid Retention/Swelling #0 tabs 10/19/24
magnesium oxide 500 mg PO DAILY #0 tabs 10/19/24
nystatin 100,000 unit/gram topical cream 1 applic topical BID 14 days #0 grams 10/19/24
potassium chloride 20 mEq/15 mL oral liquid 20 meq (15 mL) PO DAILY 30 days #450 mL 10/19/24
spironolactone 25 mg tablet 12.5 mg (1/2 x 25 mg) PO DAILY #60 tabs 10/19/24
white petrolatum 42 % topical ointment (Hydrophor) 1 applic topical DAILY #0 grams 10/19/24
furosemide 80 mg tablet 80 mg PO BID@0800,1600 #60 tabs 10/20/24
Home Medication Changes
Your Lasix dose is increased from 40mg twice a day to 80mg twice a day
You are also started on Spironolactone
Stop amlodipine
You are started on Potassium and Magnesium supplementation; your labs will be checked on Saturday
Pending Results: No
--- NOTE | 2024-10-21 10:02 | CM ---
Addendum entered by Imelda Garcia RN 10/21/24 10:38:
Maci Green called auth received for 5 days 10/21/24 to 10/25/24 Case # [id number] NRD call Maci [phone] fax [phone]. Ambulance set up . Sherrell Lee notified of above auth information.
Original Note:
MD entered order for discharge.
Maintained on oxygen 2 liter Pox 96% which is new oxygen.
Spoke with Rickie Green [phone] today She said all clinical received and will be meeting with medical writer for auth determination .
[facility] Case # [id number] clinical faxed to [phone].
Pt on oxygen will need ambulance. Medical nec form completed.
[facility]
report [phone]
fax [phone]
PLAN [facility] after auth obtained
[2024-10-21 11:07] VITALS: BP 113/70
--- NOTE | 2024-10-21 12:09 | W.DCSUMMARY ---
Discharge Summary
Discharge Data
Date of Admission: 10/09/24
Date of Discharge: 10/21/24
-
Pending Results: No
Hospital Course
Discharge diagnosis:
Acute hypoxic respiratory failure
Acute on chronic heart failure with a preserved ejection fraction
Primary peritoneal carcinoma on salvage chemotherapy
Hypokalemia
Hypomagnesemia
Hyponatremia
Leukopenia
Acute on chronic anemia
Chronic bilateral lower extremity venous stasis dermatitis
Chronic bilateral lower extremity wounds
Consults: Cardiology, oncology
Chest CTA:
No acute disease of the chest. No evidence of pulmonary embolus.
Small left and tiny right pleural effusion. Stable on the left from today's chest x-ray. Right pleural effusion much improved from recent CT of the abdomen and pelvis.
Large hiatal hernia. Stable
Findings consistent with prior benign granulomatous disease. Stable
Hospital course:
78-year-old female with a past medical history of primary peritoneal carcinoma on salvage chemotherapy, chronic venous stasis dermatitis, chronic lower extremity edema, malignant pleural effusion, and CHF who was admitted for acute hypoxic
respiratory failure secondary to CHF exacerbation. Patient required BiPAP in the emergency room. She was seen in conjunction with cardiology, and diuresed with IV Lasix. She was successfully weaned to 1 L of oxygen. Her shortness of breath is
multifactorial. Cardiology recommends she be discharged on Lasix 80 mg p.o. twice a day, increased from 40 mg twice a day. Cardiology also added Aldactone 12.5 mg daily. She will get repeat labs in one week.
Patient had acute on chronic anemia. She was transfused 1 unit of packed red blood cells. Her hemoglobin responded appropriately, and trended up during her hospitalization.
Patient was seen in conjunction with oncology. Her primary oncologist had recommended hospice, but she was not ready. Her poor prognosis was relayed to both her and her daughter.
Patient's medical conditions have been optimized. She will be discharged to short-term rehab, and needs to follow-up with her oncologist in 1-2 weeks.
Disposition: Short-term rehab
Time spent on discharge 35 minutes.
Discharge Plan
-
Patient Disposition: Skilled Nursing/SNF
Discharge Diagnosis/Procedures: Congestive heart failure, hypoxic respiratory failure, primary peritoneal cancer, anemia
Condition: Serious
Diet: Low Sodium and Restrict fluids to 48 oz
Activity: As tolerated
Blood Work: BMP on Saturday10/26/24
Other Services: PT and OT
Activity Restrictions/Additional Instructions:
Please use compressive crista wraps to your lower extremities for 12 hours while awake.
May remove at bedtime for comfort.
Cardiology recommends increasing your furosemide to 80 mg twice a day.
Follow-up with your PCP 1 week after you leave rehab, and your oncologist in 1-2 weeks.
Wound Care Instructions
Legs: After washing with soap and water, mineral oil (Aquaphor) daily then crista wraps knee high, can remove at bedtime
leg elevation when sitting
Note to [facility] (if receiving home care through [facility]):
Initiate the [facility] Diuretic Protocol
Instructions: *DCA Heart Failure Instructions
Referrals:
Sabiha Marquez PA-C [Specified Professional Personl, Cardiology] - 11/05/24 8:20 am
Referral Note: You have cardiology follow-up with Sabiha sure you are on November 05 at 8:20 AM in [address] [place] which is located behind [facility]. If you are unable to make this appointment please call [phone] to schedule
UNKNOWN - PT NOT,INTERVIEWE [Family Provider]
Tyson Chin MD [Active, Hematology / Oncology] - 10/26/24 1:00 pm
Additional Discharge Medication Instructions: Your Lasix dose is increased from 40mg twice a day to 80mg twice a day
You are also started on Spironolactone
Stop amlodipine
You are started on Potassium and Magnesium supplementation; your labs will be checked on Saturday
Prescriptions:
New
acetaminophen 325 mg Tablet
650 mg PO Q6HPRN PRN (Reason: mild pain/ fever>100.5F) Qty: 0 0RF
spironolactone 25 mg Tablet
12.5 mg PO DAILY Qty: 60 0RF
potassium chloride 20 mEq/15 mL Liquid
20 meq PO DAILY 30 Days Qty: 450 0RF
nystatin 100,000 unit/gram Cream
1 applic topical BID 14 Days Qty: 0 0RF
magnesium oxide 500 mg magnesium Tablet
500 mg PO DAILY Qty: 0 0RF
white petrolatum [Hydrophor] 42 % Ointment
1 applic topical DAILY Qty: 0 0RF
furosemide 80 mg Tablet
80 mg PO BID@0800,1600 Qty: 60 0RF
Continued
pantoprazole 40 MG tablet,delayed release (DR/EC)
40 mg PO DAILY
multivitamin with folic acid [Tab-A-Crow] 1 TABLET tablet
1 tab PO DAILY
Prevagen tablet
1 tab PO DAILY
PreserVision AREDS-2 250-90-40-1 mg Capsule
1 tab PO BID
Changed
furosemide 40 mg tablet
80 mg PO BID@0800,1600 Qty: 0 0RF
Rx Instructions:
dose increase 10/06/24 due to leg swelling until 10/12/24
Discontinued
amlodipine 10 MG tablet
10 mg PO DAILY
Discharge Orders:
Discharge Patient (As Directed); Ordered 10/21/24
Ordered By: Vandana Cortez
Discharge Date and Time
Print Language: PERSIAN
== END 2024-10-21 13:15 | DRG 291 ==
LOC: 3 WEST ACU 18:56
PROVIDERS: Family Medicine; ADMITTING PHYSICIAN Hospitalist; ATTENDING PHYSICIAN Student in an Organized Health Care Education/Training Program; CONSULT PHYSICIAN Internal Medicine Cardiovascular Disease; EMERGENCY PHYSICIAN Emergency Medicine; OTHER PHYSICIAN Internal Medicine Hematology & Oncology
PROC: 5A09357 Assistance with Respiratory Ventilation, Less than 24 Consecutive Hours, Continuous Positive Airway Pressure (ICD-10-PCS; 2024-10-09)
PROC: 30233N1 Transfusion of Nonautologous Red Blood Cells into Peripheral Vein, Percutaneous Approach (ICD-10-PCS; 2024-10-10)
DX: I13.0 Hypertensive heart and chronic kidney disease with heart failure and stage 1 through stage 4 chronic kidney disease, or unspecified chronic kidney disease (principal); I50.33 Acute on chronic diastolic (congestive) heart failure; J96.01 Acute respiratory failure with hypoxia; J91.0 Malignant pleural effusion; C48.2 Malignant neoplasm of peritoneum, unspecified; E87.1 Hypo-osmolality and hyponatremia; E66.09 Other obesity due to excess calories; I87.2 Venous insufficiency (chronic) (peripheral); N18.9 Chronic kidney disease, unspecified; D63.8 Anemia in other chronic diseases classified elsewhere; K21.9 Gastro-esophageal reflux disease without esophagitis; E88.09 Other disorders of plasma-protein metabolism, not elsewhere classified; E83.42 Hypomagnesemia; I89.0 Lymphedema, not elsewhere classified; I70.0 Atherosclerosis of aorta; K44.9 Diaphragmatic hernia without obstruction or gangrene; I95.9 Hypotension, unspecified; D70.1 Agranulocytosis secondary to cancer chemotherapy; T45.1X5A Adverse effect of antineoplastic and immunosuppressive drugs, initial encounter; Y92.9 Unspecified place or not applicable; E87.6 Hypokalemia; Z66 Do not resuscitate; Z96.643 Presence of artificial hip joint, bilateral; Z96.651 Presence of right artificial knee joint; Z90.722 Acquired absence of ovaries, bilateral; Z92.21 Personal history of antineoplastic chemotherapy; Z90.710 Acquired absence of both cervix and uterus; Z88.8 Allergy status to other drugs, medicaments and biological substances; Z91.048 Other nonmedicinal substance allergy status; Z85.43 Personal history of malignant neoplasm of ovary; Z68.29 Body mass index [BMI] 29.0-29.9, adult; Z87.892 Personal history of anaphylaxis
CPT/HCPCS: 93308; 71045; 71046; 71275; 80048; 80053; 82607; 82728; 82746; 83540; 83550; 83735; 83880; 84100; 84484; 85025; 85027; 85045; 85379; 86850; 86900; 86901; 86920; 87070; 93005; 93321; 93325; 94640; 94660; 96365; 96366; 96375; 97110; 97116; 97162; 97167; 97530; 97535; 99291; J1447; P9016; Q9967

== ENCOUNTER → 2024-10-26 10:08 | Outpatient (REF) | payer OTHER, BC, SELFPAY ==
[2024-10-26 13:38] LABS: Blood Urea Nitrogen 31 mg/dl (7-17); Calcium 8.5 mg/dl (8.4-10.2); Carbon Dioxide 30 mmol/L (22-30); Chloride 96 mmol/L (98-107); Glucose 82 mg/dl (70-99); Potassium 3.4 mmol/L (3.5-5.1); Sodium 132 mmol/L (135-145); eGFR > 60.00
[2024-10-26 13:49] LABS: Hematocrit 34.5 % (37.0-47.0); Hemoglobin 11.1 g/dL (12.0-16.0); Mean Corp Hgb Conc. 32.2 g/dL (33.0-37.0); Mean Corpuscular Hgb 32.1 pg (27.0-31.0); Mean Corpuscular Volume 99.7 fL (81.0-99.0); Platelet Count 353 10^3/uL (130-400); Red Blood Cell Count 3.46 10^6/uL (4.20-5.40); Red Cell Dist. Width 22.1 % (11.5-14.5)
[2024-10-26 15:24] LABS: Absolute Neutrophils -Man Diff 4.7 10^3/uL (1.4-6.5); Band Neutrophils 2 % (0-3); Eosinophils 3 % (0-6); Lymphocytes 11 % (20-51); Metamyelocytes 2 % (-); Monocytes 16 % (2-9); Segmented Neutrophils 66 % (42-75)
[2024-10-26 15:25] LABS: Anisocytosis 2+; Normal RBC Morphology No; Platelets Checked Yes; Total Cells Counted 100
== END ==
LOC: OLABP 10:08
PROVIDERS: ATTENDING PHYSICIAN Family Medicine
DX: I50.33 Acute on chronic diastolic (congestive) heart failure (principal); J96.01 Acute respiratory failure with hypoxia; R09.02 Hypoxemia; I10 Essential (primary) hypertension; E87.1 Hypo-osmolality and hyponatremia; J81.0 Acute pulmonary edema; E83.42 Hypomagnesemia; D72.819 Decreased white blood cell count, unspecified; I87.2 Venous insufficiency (chronic) (peripheral); C48.2 Malignant neoplasm of peritoneum, unspecified
CPT/HCPCS: 36415; 80048; 85025

== ENCOUNTER 2024-12-21 13:04 | Inpatient (IN) | payer OTHER, SELFPAY ==
[2024-12-20 23:26] VITALS: BP 100/69
[2024-12-20 23:41] VITALS: BP 100/69
[2024-12-21] VITALS (39 sets, daily range): BP systolic 78–109; BP diastolic 55–77; PULSE 85; O2SAT 96; BMI 27.9
[2024-12-21 00:42] LABS: APTT 27.8 Sec (23.4-35.0); INR 1.13; PT 14.8 Sec (11.4-14.6)
[2024-12-21 00:53] LABS: Hematocrit 48.4 % (37.0-47.0); Hemoglobin 16.4 g/dL (12.0-16.0); Mean Corp Hgb Conc. 33.9 g/dL (33.0-37.0); Mean Corpuscular Volume 89.6 fL (81.0-99.0); Platelet Count 264 10^3/uL (130-400); Red Cell Dist. Width 19.7 % (11.5-14.5)
[2024-12-21 01:49] LABS: Nucleated Red Blood Cells % 0 %
--- NOTE | 2024-12-21 02:03 | ED.GENMED ---
History of Present Illness
<Michael Aragon DO - Last Filed: 12/21/24 02:53>
General
Chief Complaint: Vomiting Blood
Source: patient
Time Seen by Provider: 12/21/24 01:09
History of Present Illness
History of Present Illness:
Note:
CHIEF COMPLAINT(S)
Shortness of breath, tachypnea, and increased oxygen requirement.
HISTORY OF PRESENT ILLNESS
The patient is an 79-year-old female with a history of congestive heart failure (CHF) who was found to be short of breath at her facility. Initially, an increase in oxygen requirement from 2 to 4 liters was noted, with her oxygen saturation staying
in the low 90s most of the time. She was intended to receive a chest X-ray before her condition declined. On arrival, she has not experienced nausea or pain and reports no feelings of being out of breath.
Upon examination, she presented with a minor elevation in heart rate and temperature measured at 100.2�F rectally. Skin changes were noted in her lower extremities, and a reducible midline hernia was identified without any accompanying abdominal
pain on palpation. A port is present on the right chest wall, which appears normal with no signs of infection.
PAST MEDICAL AND SURIGICAL HISTORY
The patient has a history of congestive heart failure. She also has a port and a reducible midline hernia.
PHYSICAL EXAM
- General: Alert, no acute distress.
- Skin: Chronic skin changes noted in the lower extremities.
- Head: Normocephalic, atraumatic.
- Neck: Supple, trachea midline.
- Eye, Ears, Nose, Mouth, and Throat: Oral mucosa moist.
- Cardiovascular: Normal peripheral perfusion, no edema.
- Respiratory: Respirations are non-labored despite increased oxygen supplementation.
- Gastrointestinal: Abdominal exam reveals a reducible midline hernia, no tenderness upon palpation. Rectal exam is negative, with brown stool observed.
- Back: Normal range of motion, normal alignment.
- Musculoskeletal: Normal range of motion, normal strength.
- Neurological: Alert and oriented to person, place, time, and situation. No focal neurological deficit observed.
- Psychiatric: Cooperative, appropriate mood and affect.
PLAN
- Review chest X-ray results for further assessment of respiratory status and consider evaluation for pneumonia.
- Obtain urine cultures and blood work to assess for potential infection.
- Monitor oxygen saturation and adjust oxygen therapy as needed.
DIFFERENTIAL DIAGNOSIS
The Differential Diagnosis includes, in no particular order and is not limited to:
1. Congestive heart failure exacerbation.
2. Pneumonia.
3. Pulmonary embolism.
4. Acute respiratory distress syndrome.
5. Chronic obstructive pulmonary disease exacerbation.
6. Urinary tract infection.
7. Sepsis.
8. Anemia.
9. Asthma exacerbation.
10. Pleural effusion.
CARE-UPDATE
12/21/24 - 02:03
Reviewed patients past medical history and current treatment status. Noted patients history of heart failure with preserved ejection fraction and current treatment for peritoneal carcinoma with salvage chemotherapy. Discharge records indicated the
patient was prescribed LASIX, 80 mg, administered twice daily.
Disposition:
SUMMARY OF ENCOUNTER
The patient is an 79-year-old female with a history of peritoneal carcinoma who presented to the emergency department with what was initially interpreted as hematemesis. Upon re-evaluation, the patient began to vomit, although no blood was noted in
the vomitus. She has a fever with a temperature of 100.2�F and is hypoxic, suggesting potential volume overload. There is a suspicion of pneumonia. A CT imaging of the chest and abdomen is anticipated. Broad-spectrum antibiotics are considered for
treatment pending further evaluation by imaging.
ASSESSMENT
The patient presents with vomiting, fever, hypoxia, and suspicion for pneumonia or volume overload. Other considerations include gastrointestinal conditions given the recent vomiting without blood and infection.
PLAN
- Obtain CT imaging of the chest and abdomen to assess for pneumonia or any other thoracic or abdominal pathology.
- Initiate broad-spectrum antibiotics as a precaution against possible pneumonia or systemic infection.
- Continue monitoring oxygen saturation and providing supplemental oxygen as needed.
- Consider further evaluation by imaging to confirm any additional etiologies for the current symptoms.
MEDICAL DECISION MAKING
-Complexity of Data Reviewed: Chronic conditions affecting care include peritoneal carcinoma and a history of potential pleural space concerns suggesting volume overload. Differential diagnosis includes pneumonia, gastrointestinal bleeding, urinary
tract infection, and sepsis.
-Data:
Category 1
CT imaging of the chest and abdomen is anticipated to assess for pneumonia or other concerns. Lab work and imaging to further evaluate the patients presenting symptoms were considered.
Category 2
My independent interpretation of the patients presenting symptoms, fever, vomiting without blood, and hypoxia.
-Risk:
Consideration of Admission/Observation: Escalation of care including admission/observation was considered given the complexity and risk of the patients presenting complaint, exam findings, and underlying comorbidities. However, pending initial
diagnostics and therapeutic response, the decision of admission will be revisited.
DIAGNOSIS
- Pneumonia, Unspecified Organism, J18.9
- Volume Overload, E87.70
- Peritoneal Carcinoma, C48.2
Past History
<Michael Aragon, DO - Last Filed: 12/21/24 02:53>
Past History
ED Past Medical History: Cancer (Ovarian), Renal failure and Other ('Heart murmur')
ED Past Surgical History: Orthopedic and Urological (Bilateral nephrostomy tubes)
Social History
Tobacco: Non-smoker
Alcohol: Occasional
Drug: None
Personal: Other
Living: alone
Employment: Other
Family History
Family History: Other
Phy Exam
<Michael Aragon, DO - Last Filed: 12/21/24 02:53>
Physical Exam
Physical Exam:
.
Course
<Michael Aragon DO - Last Filed: 12/21/24 02:53>
Orders/Labs/Results
Orders:
Orders
12/20/24 23:51
Cardiac Monitoring- Treatment ONCE
IV Insert/Care/Rem.- Treatment PRN
12/20/24 23:52
EKG- Treatment ONCE
O2 Therapy [RESP] Urgent
Titrate/Wean O2 to maintain O2 sat greater than (%): 93
Special Instructions: MAINTAIN CONTINOUS O2 SATS > OR = 93%
Pulse Ox/spot Check [RESP] Urgent
Quantity: 1
Special Instructions: ON ROOM AIR
12/20/24 23:57
Type+Screen Urgent
Complete Blood Count/With Diff Urgent
PTT Urgent
Prothrombin Time Urgent
12/21/24
Electrocardiogram (*1) Urgent
Reason for Study: Abdominal Pain
Comment: DONE
12/21/24 01:43
CR Chest Portable - 1 View Urgent
Comment:
Reason For Exam: sob
Reason Study Needs to be Portable: Patient Unstable
12/21/24 01:56
Comprehensive Metabolic Panel Urgent
Comment: REDRAW
12/21/24 02:15
Ondansetron Injectable [Zofran] 4 mg .ROUTE .STK-MED ONE
12/21/24 02:16
Ondansetron Injectable [Zofran] 4 mg IV NOW STA
12/21/24 02:20
Cefepime HCl [Maxipime] 2,000 mg IV NOW STA
12/21/24 02:22
Piperacillin/Tazo 3.375 Gram [Zosyn] 3.375 gram in 50 ml IV NOW
12/21/24 02:23
Lactic Acid Q4H
Comment: CANCEL 2nd LACTIC ACID IF 1st LACTIC ACID IS LESS THAN 2
Blood Culture Q30M
HOA Source: Blood/Venous
Specimen Description:
Blood Culture Q30M
HOA Source: Blood/Venous
Specimen Description:
12/21/24 02:38
CT Chest/abd/pel Wo Iv Cont Urgent
Comment:
Reason For Exam: sob, vomiting, h/o peritoneal carcinoma
12/21/24 02:48
Pantoprazole [Protonix IV] 80 mg IV NOW STA
12/21/24 02:52
0.9% Sodium Chloride 250 ml [Nss] 250 ml IV BOLUS
12/21/24 03:51
Vancomycin [Vancocin] 2,000 mg 0.9% Sodium Chloride 500 ml [Nss] 500 ml IV NOW
12/21/24 04:52
Urinalysis Reflex To Culture Urgent
Date Specimen was Collected: 12/21/24
Time Specimen was Collected: 03:34
Urine Microscopic Reflex Cult Urgent
Urine Culture Urgent
HOA Source: U
Specimen Description:
Date Specimen was Collected: 12/21/24
Time Specimen was Collected: 03:34
12/21/24 06:00
Case Management Consult ONCE
Case Management Consult: Hospice
Hospice: Evaluation and treat
12/21/24 06:15
Lactic Acid Q4H
Comment: CANCEL 2nd LACTIC ACID IF 1st LACTIC ACID IS LESS THAN 2
12/21/24 11:05
Occupational Therapy Consult [Ot Eval And Treat] Urgent
PT Consult [Pt Eval And Treat] Urgent
Activity Level: Ambulate
Abnormal Lab Results
12/20/24 12/21/24 12/21/24
23:57 01:56 02:23
WBC 21.7 H 10^3/uL
(4.8-10.8)
Hgb 16.4 H g/dL
(12.0-16.0)
Hct 48.4 H %
(37.0-47.0)
RDW 19.7 H %
(11.5-14.5)
Abs Immat Gran (auto) 0.2 H 10^3/uL
(0-0.05)
Absolute Neuts (auto) 20.6 H 10^3/uL
(1.4-6.5)
Absolute Lymphs (auto) 0.2 L 10^3/uL
(1.2-3.4)
Immature Gran % 0.8 H %
(0-0.5)
Neutrophils % 95.0 H %
(42.2-75.2)
Lymphocytes % 0.8 L %
(20.5-51.1)
PT 14.8 H Sec
(11.4-14.6)
Sodium 122 L mmol/L
(135-145)
Chloride 86 L mmol/L
(98-107)
BUN 73 H mg/dl
(7-17)
Creatinine 1.9 H mg/dL
(0.6-1.0)
Glucose 123 H mg/dl
(70-99)
Lactic Acid 2.4 H mmol/L
(0.7-2.0)
Calcium 8.2 L mg/dl
(8.4-10.2)
Alkaline Phosphatase 154 H U/L
(38-126)
Albumin 3.2 L g/dl
(3.5-5.0)
Ur Occult Blood Reflex
Urine Bilirubin
Leukocyte Esterase Rfl
Urine RBC
Urine WBC (Reflex)
Urine Bacteria (Reflex)
Urine Albumin (Reflex)
12/21/24
04:52
WBC
Hgb
Hct
RDW
Abs Immat Gran (auto)
Absolute Neuts (auto)
Absolute Lymphs (auto)
Immature Gran %
Neutrophils %
Lymphocytes %
PT
Sodium
Chloride
BUN
Creatinine
Glucose
Lactic Acid
Calcium
Alkaline Phosphatase
Albumin
Ur Occult Blood Reflex 4+ A
(Negative)
Urine Bilirubin 1+ A
(Negative)
Leukocyte Esterase Rfl 3+ A
(Negative)
Urine RBC >100 A /HPF
(0-2)
Urine WBC (Reflex) >100 A /HPF
(0-5)
Urine Bacteria (Reflex) Many A
(Negative)
Urine Albumin (Reflex) 3+ A
(Neg - Trace)
12/20/24 23:57
12/21/24 01:56
Vital Signs
Initial and Last Documented VS:
Initial Vital Signs
Pulse Ox
93
12/20/24 23:25
Last Documented Vital Signs
Temp Pulse Resp BP Pulse Ox
97.6 F 83 20 99/75 95
12/20/24 23:41 12/21/24 11:15 12/21/24 11:15 12/21/24 11:00 12/21/24 11:15
<Fernando Doe, DO - Last Filed: 12/21/24 06:02>
Orders/Labs/Results
Orders:
Orders
12/20/24 23:51
Cardiac Monitoring- Treatment ONCE
IV Insert/Care/Rem.- Treatment PRN
12/20/24 23:52
EKG- Treatment ONCE
O2 Therapy [RESP] Urgent
Titrate/Wean O2 to maintain O2 sat greater than (%): 93
Special Instructions: MAINTAIN CONTINOUS O2 SATS > OR = 93%
Pulse Ox/spot Check [RESP] Urgent
Quantity: 1
Special Instructions: ON ROOM AIR
12/20/24 23:57
Type+Screen Urgent
Complete Blood Count/With Diff Urgent
PTT Urgent
Prothrombin Time Urgent
12/21/24
Electrocardiogram (*1) Urgent
Reason for Study: Abdominal Pain
Comment: DONE
12/21/24 01:43
CR Chest Portable - 1 View Urgent
Comment:
Reason For Exam: sob
Reason Study Needs to be Portable: Patient Unstable
12/21/24 01:56
Comprehensive Metabolic Panel Urgent
Comment: REDRAW
12/21/24 02:15
Ondansetron Injectable [Zofran] 4 mg .ROUTE .STK-MED ONE
12/21/24 02:16
Ondansetron Injectable [Zofran] 4 mg IV NOW STA
12/21/24 02:20
Cefepime HCl [Maxipime] 2,000 mg IV NOW STA
12/21/24 02:22
Piperacillin/Tazo 3.375 Gram [Zosyn] 3.375 gram in 50 ml IV NOW
12/21/24 02:23
Lactic Acid Q4H
Comment: CANCEL 2nd LACTIC ACID IF 1st LACTIC ACID IS LESS THAN 2
Blood Culture Q30M
HOA Source: Blood/Venous
Specimen Description:
Blood Culture Q30M
HOA Source: Blood/Venous
Specimen Description:
12/21/24 02:38
CT Chest/abd/pel Wo Iv Cont Urgent
Comment:
Reason For Exam: sob, vomiting, h/o peritoneal carcinoma
12/21/24 02:48
Pantoprazole [Protonix IV] 80 mg IV NOW STA
12/21/24 02:52
0.9% Sodium Chloride 250 ml [Nss] 250 ml IV BOLUS
12/21/24 03:51
Vancomycin [Vancocin] 2,000 mg 0.9% Sodium Chloride 500 ml [Nss] 500 ml IV NOW
12/21/24 04:52
Urinalysis Reflex To Culture Urgent
Date Specimen was Collected: 12/21/24
Time Specimen was Collected: 03:34
Urine Microscopic Reflex Cult Urgent
Urine Culture Urgent
HOA Source: U
Specimen Description:
Date Specimen was Collected: 12/21/24
Time Specimen was Collected: 03:34
12/21/24 06:00
Case Management Consult ONCE
Case Management Consult: Hospice
Hospice: Evaluation and treat
12/21/24 06:15
Lactic Acid Q4H
Comment: CANCEL 2nd LACTIC ACID IF 1st LACTIC ACID IS LESS THAN 2
12/21/24 11:05
Occupational Therapy Consult [Ot Eval And Treat] Urgent
PT Consult [Pt Eval And Treat] Urgent
Activity Level: Ambulate
Abnormal Lab Results
12/20/24 12/21/24 12/21/24
23:57 01:56 02:23
WBC 21.7 H 10^3/uL
(4.8-10.8)
Hgb 16.4 H g/dL
(12.0-16.0)
Hct 48.4 H %
(37.0-47.0)
RDW 19.7 H %
(11.5-14.5)
Abs Immat Gran (auto) 0.2 H 10^3/uL
(0-0.05)
Absolute Neuts (auto) 20.6 H 10^3/uL
(1.4-6.5)
Absolute Lymphs (auto) 0.2 L 10^3/uL
(1.2-3.4)
Immature Gran % 0.8 H %
(0-0.5)
Neutrophils % 95.0 H %
(42.2-75.2)
Lymphocytes % 0.8 L %
(20.5-51.1)
PT 14.8 H Sec
(11.4-14.6)
Sodium 122 L mmol/L
(135-145)
Chloride 86 L mmol/L
(98-107)
BUN 73 H mg/dl
(7-17)
Creatinine 1.9 H mg/dL
(0.6-1.0)
Glucose 123 H mg/dl
(70-99)
Lactic Acid 2.4 H mmol/L
(0.7-2.0)
Calcium 8.2 L mg/dl
(8.4-10.2)
Alkaline Phosphatase 154 H U/L
(38-126)
Albumin 3.2 L g/dl
(3.5-5.0)
Ur Occult Blood Reflex
Urine Bilirubin
Leukocyte Esterase Rfl
Urine RBC
Urine WBC (Reflex)
Urine Bacteria (Reflex)
Urine Albumin (Reflex)
12/21/24
04:52
WBC
Hgb
Hct
RDW
Abs Immat Gran (auto)
Absolute Neuts (auto)
Absolute Lymphs (auto)
Immature Gran %
Neutrophils %
Lymphocytes %
PT
Sodium
Chloride
BUN
Creatinine
Glucose
Lactic Acid
Calcium
Alkaline Phosphatase
Albumin
Ur Occult Blood Reflex 4+ A
(Negative)
Urine Bilirubin 1+ A
(Negative)
Leukocyte Esterase Rfl 3+ A
(Negative)
Urine RBC >100 A /HPF
(0-2)
Urine WBC (Reflex) >100 A /HPF
(0-5)
Urine Bacteria (Reflex) Many A
(Negative)
Urine Albumin (Reflex) 3+ A
(Neg - Trace)
12/20/24 23:57
12/21/24 01:56
Vital Signs
Initial and Last Documented VS:
Initial Vital Signs
Pulse Ox
93
12/20/24 23:25
Last Documented Vital Signs
Temp Pulse Resp BP Pulse Ox
97.6 F 83 20 99/75 95
12/20/24 23:41 12/21/24 11:15 12/21/24 11:15 12/21/24 11:00 12/21/24 11:15
<Andrews De Los Santos PA-C - Last Filed: 12/21/24 11:19>
Orders/Labs/Results
Orders:
Orders
12/20/24 23:51
Cardiac Monitoring- Treatment ONCE
IV Insert/Care/Rem.- Treatment PRN
12/20/24 23:52
EKG- Treatment ONCE
O2 Therapy [RESP] Urgent
Titrate/Wean O2 to maintain O2 sat greater than (%): 93
Special Instructions: MAINTAIN CONTINOUS O2 SATS > OR = 93%
Pulse Ox/spot Check [RESP] Urgent
Quantity: 1
Special Instructions: ON ROOM AIR
12/20/24 23:57
Type+Screen Urgent
Complete Blood Count/With Diff Urgent
PTT Urgent
Prothrombin Time Urgent
12/21/24
Electrocardiogram (*1) Urgent
Reason for Study: Abdominal Pain
Comment: DONE
12/21/24 01:43
CR Chest Portable - 1 View Urgent
Comment:
Reason For Exam: sob
Reason Study Needs to be Portable: Patient Unstable
12/21/24 01:56
Comprehensive Metabolic Panel Urgent
Comment: REDRAW
12/21/24 02:15
Ondansetron Injectable [Zofran] 4 mg .ROUTE .STK-MED ONE
12/21/24 02:16
Ondansetron Injectable [Zofran] 4 mg IV NOW STA
12/21/24 02:20
Cefepime HCl [Maxipime] 2,000 mg IV NOW STA
12/21/24 02:22
Piperacillin/Tazo 3.375 Gram [Zosyn] 3.375 gram in 50 ml IV NOW
12/21/24 02:23
Lactic Acid Q4H
Comment: CANCEL 2nd LACTIC ACID IF 1st LACTIC ACID IS LESS THAN 2
Blood Culture Q30M
HOA Source: Blood/Venous
Specimen Description:
Blood Culture Q30M
HOA Source: Blood/Venous
Specimen Description:
12/21/24 02:38
CT Chest/abd/pel Wo Iv Cont Urgent
Comment:
Reason For Exam: sob, vomiting, h/o peritoneal carcinoma
12/21/24 02:48
Pantoprazole [Protonix IV] 80 mg IV NOW STA
12/21/24 02:52
0.9% Sodium Chloride 250 ml [Nss] 250 ml IV BOLUS
12/21/24 03:51
Vancomycin [Vancocin] 2,000 mg 0.9% Sodium Chloride 500 ml [Nss] 500 ml IV NOW
12/21/24 04:52
Urinalysis Reflex To Culture Urgent
Date Specimen was Collected: 12/21/24
Time Specimen was Collected: 03:34
Urine Microscopic Reflex Cult Urgent
Urine Culture Urgent
HOA Source: U
Specimen Description:
Date Specimen was Collected: 12/21/24
Time Specimen was Collected: 03:34
12/21/24 06:00
Case Management Consult ONCE
Case Management Consult: Hospice
Hospice: Evaluation and treat
12/21/24 06:15
Lactic Acid Q4H
Comment: CANCEL 2nd LACTIC ACID IF 1st LACTIC ACID IS LESS THAN 2
12/21/24 11:05
Occupational Therapy Consult [Ot Eval And Treat] Urgent
PT Consult [Pt Eval And Treat] Urgent
Activity Level: Ambulate
Abnormal Lab Results
12/20/24 12/21/24 12/21/24
23:57 01:56 02:23
WBC 21.7 H 10^3/uL
(4.8-10.8)
Hgb 16.4 H g/dL
(12.0-16.0)
Hct 48.4 H %
(37.0-47.0)
RDW 19.7 H %
(11.5-14.5)
Abs Immat Gran (auto) 0.2 H 10^3/uL
(0-0.05)
Absolute Neuts (auto) 20.6 H 10^3/uL
(1.4-6.5)
Absolute Lymphs (auto) 0.2 L 10^3/uL
(1.2-3.4)
Immature Gran % 0.8 H %
(0-0.5)
Neutrophils % 95.0 H %
(42.2-75.2)
Lymphocytes % 0.8 L %
(20.5-51.1)
PT 14.8 H Sec
(11.4-14.6)
Sodium 122 L mmol/L
(135-145)
Chloride 86 L mmol/L
(98-107)
BUN 73 H mg/dl
(7-17)
Creatinine 1.9 H mg/dL
(0.6-1.0)
Glucose 123 H mg/dl
(70-99)
Lactic Acid 2.4 H mmol/L
(0.7-2.0)
Calcium 8.2 L mg/dl
(8.4-10.2)
Alkaline Phosphatase 154 H U/L
(38-126)
Albumin 3.2 L g/dl
(3.5-5.0)
Ur Occult Blood Reflex
Urine Bilirubin
Leukocyte Esterase Rfl
Urine RBC
Urine WBC (Reflex)
Urine Bacteria (Reflex)
Urine Albumin (Reflex)
12/21/24
04:52
WBC
Hgb
Hct
RDW
Abs Immat Gran (auto)
Absolute Neuts (auto)
Absolute Lymphs (auto)
Immature Gran %
Neutrophils %
Lymphocytes %
PT
Sodium
Chloride
BUN
Creatinine
Glucose
Lactic Acid
Calcium
Alkaline Phosphatase
Albumin
Ur Occult Blood Reflex 4+ A
(Negative)
Urine Bilirubin 1+ A
(Negative)
Leukocyte Esterase Rfl 3+ A
(Negative)
Urine RBC >100 A /HPF
(0-2)
Urine WBC (Reflex) >100 A /HPF
(0-5)
Urine Bacteria (Reflex) Many A
(Negative)
Urine Albumin (Reflex) 3+ A
(Neg - Trace)
12/20/24 23:57
12/21/24 01:56
Vital Signs
Initial and Last Documented VS:
Initial Vital Signs
Pulse Ox
93
12/20/24 23:25
Last Documented Vital Signs
Temp Pulse Resp BP Pulse Ox
97.6 F 83 20 99/75 95
12/20/24 23:41 12/21/24 11:15 12/21/24 11:15 12/21/24 11:00 12/21/24 11:15
<Michael Aragon DO - Last Filed: 12/21/24 02:53>
*Pulse Oximetry
SaO2: 94
Nasal Cannula flow liters per minute: 4
Patient hypoxic: yes
*EKG
Interpreted by ED Provider?: Yes
Interpretation: abnormal
Rate: tachycardiac
Rhythm: sinus
[place]: normal axis
Ischemia: non-specific ST changes
*Gambling Box Person Interpretation
Rate: tachycardiac
Interpretation: abnormal
Rhythm: sinus
*Critical Care Note
Total Time (30-74mins, 75-104mins- exclusive of procedures): 35 minutes
<Andrews De Los Santos PA-C - Last Filed: 12/21/24 11:19>
Patient Management
Discussion with other providers: Hospitalist, Stranding Supervisor and Other
Escalation/DeEscalation of care consider admission/obs:
Patient seen by case management and hospice staff. Due to patient's insurance she is unable to currently go to inpatient facility is unable to afford. Family not able to take patient home at this time. Given her significant lab abnormalities and
her current symptomatology we will plan to admit for continued care and evaluation with disposition planning. At this time if to be discharged home.
<DO Toi Jensen Last Filed: 12/21/24 02:53>
Update Note
Update Note:
To be hyponatremic. Question of this is related to volume overload. Await chest/abdomen/pelvis CT in light of vomiting and low-grade temperature
0240 blood pressure will not tolerate diuresis
Patient has been on high-dose diuretics as outpatient.
0253 relative hypotension and patient vomiting. Will give gentle IV fluids monitor closely. Patient states she has been considering hospice
<Fernando Doe DO - Last Filed: 12/21/24 06:02>
Update Note
Update Note:
To be hyponatremic. Question of this is related to volume overload. Await chest/abdomen/pelvis CT in light of vomiting and low-grade temperature
0240 blood pressure will not tolerate diuresis
Patient has been on high-dose diuretics as outpatient.
0253 relative hypotension and patient vomiting. Will give gentle IV fluids monitor closely. Patient states she has been considering hospice
Overnight ER attending
Update, signout pending CAT scan report patient with peritoneal carcinomatosis presented with vomiting, CAT scan report noted labs noted patient reevaluated she looks ill
She is arousable, reviewed her clinical course she tells me that Dr. Chin states there is no further oncologic treatments, I asked her if she would want to consider hospice she states that she would, I also placed a call to her next of kin listed
in the computer her daughter left a message to call me back in the meantime I will cancel her admission, ask case management to talk to her about hospice as I think this would be the most humane treatment course at this time unclear if she could go
home on hospice or need to be admitted for inpatient hospice
ED Attending Note
<Michael Aragon DO - Last Filed: 12/21/24 02:53>
-
Portions of this chart may have been created with voice recognition software.� Occasional wrong word or��sound alike� substitutions may have occurred due to the inherent limitations of voice recognition software.
Discharge Plan
Departure
Patient Disposition: Admit
Date of Disposition: 12/21/24
Time of Disposition: 11:05
Presentation/result/management discussed w/ accepting MD/: Hospitalist
Discharge Problem:
Hypoxia, Vomiting, Acute hyponatremia, Acute kidney injury, Metastatic cancer
Prescriptions:
No Action
pantoprazole 40 MG tablet,delayed release (DR/EC)
40 mg PO DAILY
multivitamin with folic acid [Tab-A-Crow] 1 TABLET tablet
1 tab PO DAILY
Prevagen tablet
1 tab PO DAILY
PreserVision AREDS-2 250-90-40-1 mg Capsule
1 tab PO BID
acetaminophen 325 mg Tablet
650 mg PO Q6HPRN PRN (Reason: mild pain/ fever>100.5F) Qty: 0 0RF
spironolactone 25 mg Tablet
12.5 mg PO DAILY Qty: 60 0RF
potassium chloride 20 mEq/15 mL Liquid
20 meq PO DAILY 30 Days Qty: 450 0RF
nystatin 100,000 unit/gram Cream
1 applic topical BID 14 Days Qty: 0 0RF
magnesium oxide 500 mg magnesium Tablet
500 mg PO DAILY Qty: 0 0RF
white petrolatum [Hydrophor] 42 % Ointment
1 applic topical DAILY Qty: 0 0RF
furosemide 40 mg tablet
80 mg PO BID@0800,1600 Qty: 0 0RF
Rx Instructions:
dose increase 10/06/24 due to leg swelling until 10/12/24
furosemide 80 mg Tablet
80 mg PO BID@0800,1600 Qty: 60 0RF
Referrals:
Flory Mckinnon DO [Family Provider, General]
Interventions
Interventions:
*Risk Screen - Suicide Last Done: 12/20/24 23:41
*General Assessment Last Done: 12/20/24 23:41
*Neglect/Abuse Screening Last Done: 12/20/24 23:41
*ED- Fall Risk Assessment Last Done: 12/20/24 23:41
*ED COVID-19 Vaccine History Last Done: 12/20/24 23:41
GK-Xjserf-Zwfutvjnjy Assessment Last Done: 12/21/24 02:47
ED- Cardiac Assessment Last Done: 12/20/24 23:45
ED- Pulmonary Assessment Last Done: 12/20/24 23:45
Discharge Date and Time
Print Language: OMANI
[2024-12-21] MEDS: ZOFRAN 4 MG IV ×2 (02:16→18:18)
[2024-12-21 02:36] LABS: ALT (SGPT) < 10 U/L (0-35); AST (SGOT) 28 U/L (14-36); Albumin 3.2 g/dl (3.5-5.0); Alkaline Phosphatase 154 U/L (38-126); Blood Urea Nitrogen 73 mg/dl (7-17); Calcium 8.2 mg/dl (8.4-10.2); Carbon Dioxide 24 mmol/L (22-30); Chloride 86 mmol/L (98-107); Estimated Creatinine Clearance 23 ml/min; Glucose 123 mg/dl (70-99); Potassium 5.1 mmol/L (3.5-5.1); Sodium 122 mmol/L (135-145); Total Protein 6.3 g/dl (6.3-8.2); eGFR 26.20
[2024-12-21] MEDS: NSS 250 IV (03:06)
[2024-12-21] MEDS: PROTONIX IV 80 MG IV (03:07)
[2024-12-21] MEDS: ZOSYN 50 IV (03:13)
[2024-12-21] MEDS: VANCOCIN 540 MG IV (04:53)
[2024-12-21 05:22] LABS: Urine Character Slightly Cloudy (Clear)
[2024-12-21 05:52] LABS: Urine Squamous Cell >30 /LPF (Few)
[2024-12-21 05:53] LABS: Urine Red Blood Cell >100 /HPF (0-2); Urine White Cell >100 /HPF (0-5)
--- NOTE | 2024-12-21 06:55 | EDRN ---
communication with [facility]. Due to change in plan of care, focus on hospice, we will not be drawing the second lactate.
--- NOTE | 2024-12-21 08:23 | EDRN ---
Family arrived to visit pt at 8:15 this am. This RN just TT'd case management about plan for pt. Ruslan COLBY took over for Dr. Doe this am and this RN spoke to him that pt requested hospice, family was notified and consult was placed for case
management.
--- NOTE | 2024-12-21 08:41 | EDRN ---
Pt requested orange juice and Ruslan COLBY said she could have some and it was administered at this time. Pt's son and daughter in law in room w/ pt.
--- NOTE | 2024-12-21 09:28 | EDRN ---
Grace from case management is off and Paulette nurse case management is now in room w/ pt.
--- NOTE | 2024-12-21 09:57 | CM ---
Addendum entered by Paulette Perez 12/21/24 11:47:
instrument designer Consult completed; patient is being admitted
Original Note:
Case Management Consult completed. Hospice Consult ordered. Referral sent to Hospice; ignition expert instrument designer notified via [place] [employer]; she will meet with patient and adult children in the ED this morning.
Met with patient and her son at the bedside in the ED
Patient came to the ED from [facility]; she has been in rehab at the facility for the past month. Per Sherrell @ [facility], the daughter did NOT HOLD SNF BED.
Prior to last hospital admission, patient lived alone in a one floor home; one step up to kitchen; Ramp installed to enter the front door. Bathroom has tub with shower; she utilized a bath bench to get in/out of the tub. Patient reported that when
she was home she was independent w/ personal care and ADLs; ambulated w/ rolling walker; no other DME reported
Patient is agreeable to Hospice Care; has concerns about the cost
--- NOTE | 2024-12-21 10:07 | EDRN ---
Pt's daughter is enroute to be here. Pt lost bed at [facility] due to now Hospice status.
--- NOTE | 2024-12-21 11:09 | HPS.HSE ---
Family Physician
-
Family Physician: Flory Mckinnon, DO
Chief Complaint
-
shortness of breath
History of Present Illness
79F primary peritoneal Ca on salvage chemo HFpEF venous stasis dermatitis sent by SNF for evaluation SOB. Initially on increase oxygen requirement from 2 to 4 liters was noted, with her oxygen saturation staying in the low 90s most of the time. She
was planned for chest X-ray before her condition further declined prompting referral to ED. Oxygen requirement further increased to 6L. Patient also had nausea vomiting during ED evaluation, nonbloody, responded well to anti-emetics. Labs were
significant for Leukocytosis, severe hyponatremia, and DANIEL. CT abd/pelvis suspicious for findings lymphangitic carcinomatosis lungs, enlarged Lt axillary lymph nodes suspicious for metastasis, mod upper abd ascites with LUQ peritoneal
carcinomatosis, b/l hydronephrosis, and possible SBO vs ileus also noted. Poor prognosis, end stage disease metastatic primary peritoneal cancer, following goals of care discussion, patient AOx3 at capacity to make her own medical decisions, pt
requested to pursue comfort care hospice. Patient's daughter SCOTT Edwards and son Fernando in agreement with patient's decisions.
Medical History
Past Medical History
Past Medical History: Reports Other (as above)
Past Surgical History: Reports Other (as above)
Social History
Tobacco: Non-smoker
Alcohol: Occasional
Drug: None
Personal:
Living: Intermediate
Family History
Family History: Not pertinent (reviewed)
Allergies / Home Medications
Allergies reflects when Allergies were last updated in [facility].
Home Medications with original date entered in [facility]
Allergy/Medication List:
Allergies
Allergy/AdvReac Type Severity Reaction Status Date / Time
adhesive Allergy Rash from Verified 10/09/24 21:34
bandaids
aprepitant (From Emend) Allergy Facial Verified 09/22/24 09:53
redness
and
shaking
all over
fosaprepitant (From Emend) Allergy Facial Verified 09/22/24 09:53
redness
and
shaking
all over
paclitaxel (From Taxol) Allergy Shaking Verified 09/22/24 09:53
all over
and facial
redness
Home Medications
pantoprazole 40 mg tablet,delayed release 40 mg PO DAILY Gastrointestinal issue 06/21/21
Prevagen 1 tab PO DAILY Supplement 06/23/21
multivitamin with folic acid 400 mcg tablet (Tab-A-Crow) 1 tab PO DAILY Supplement 06/23/21
vit C 250 mg-vit E 90 mg-zinc 40 mg-copper 1 ue-mwvyci-dvrrep capsule (PreserVision AREDS-2) 1 tab PO BID Supplement 06/25/24
acetaminophen 325 mg tablet 650 mg (2 x 325 mg) PO Q6HPRN PRN mild pain/ fever>100.5F #0 tabs 10/19/24
magnesium oxide 500 mg PO DAILY #0 tabs 10/19/24
spironolactone 25 mg tablet 12.5 mg (1/2 x 25 mg) PO DAILY #60 tabs 10/19/24
furosemide 80 mg tablet 80 mg PO BID@0800,1600 #60 tabs 10/20/24
ipratropium 0.5 mg-albuterol 3 mg (2.5 mg base)/3 mL nebulization soln 3 ml inhalation R Q6HPRN PRN sob 12/21/24
metoclopramide HCl 5 mg tablet (Reglan) 5 mg PO Q6HPRN PRN nasuea 12/21/24
metoclopramide HCl 5 mg tablet (Reglan) 7.5 mg PO AC 12/21/24
midodrine 2.5 mg tablet 2.5 mg PO DAILYPRN PRN hypotension 12/21/24
scopolamine base 1 mg over 3 days transdermal patch 1 patch transdermal Q3D@2200 12/21/24
simethicone 125 mg chewable tablet (Gas-X Extra Strength) 125 mg PO Q6HPRN PRN gas pains 12/21/24
Review of Systems
-
A 12 point ROS was completed and negative except as noted: Yes
Constitutional: Reports Other (as below)
Physical Exam
Vital Signs
Vital Signs
Temp Pulse Resp BP Pulse Ox
97.6 F 83 19 101/76 98
12/20/24 23:41 12/21/24 09:15 12/21/24 09:15 12/21/24 09:00 12/21/24 09:15
Physical Exam
General: Other (as below)
Laboratory Results
-
12/20/24 23:57
12/21/24 01:56
Laboratory Results
PT 14.8 Sec (11.4-14.6) H 12/20/24 23:57
INR 1.13 12/20/24 23:57
APTT 27.8 Sec (23.4-35.0) 12/20/24 23:57
Lactic Acid 2.4 mmol/L (0.7-2.0) H 12/21/24 02:23
Total Bilirubin 1.0 mg/dl (0.2-1.3) 12/21/24 01:56
AST 28 U/L (14-36) 12/21/24 01:56
ALT < 10 U/L (0-35) 12/21/24 01:56
Alkaline Phosphatase 154 U/L (38-126) H 12/21/24 01:56
Impression/Plan
-
ROS
General: Denies fever chills night sweats unexpected weight loss
Neuro: Denies seizure shaking loss of consciousness dizziness vertigo
Psych: denies depression hallucinations confusion manic episodes
Endocrine: Denies polyuria polydipsia polyphagia heat/cold intolerance
HEENT: Denies blindness visual disturbances epistaxis
Pulmonary: reports sob dyspnea on exertion
Cardiovascular: denies chest pain palpitations leg swelling
Hematology: denies signs symptoms of anemia easy bruising/bleeding
Gastrointestinal: Reports nausea vomiting non-bloody denies diarrhea constipation hematemesis hematochezia melena
Genito-Urinary: denies retention incontinence dysuria
Musculoskeletal: denies joint pain weakness
Dermatology: denies rash laceration bruising
Physical Exam
General: no acute distress, appears comfortable at this time
HEENT: Throat clear. PERRLA Normocephalic atraumatic
NECK: Supple. No JVD Carotid Bruits
RESPIRATORY: Lungs clear to auscultation. No crackles wheezes stridor
CVS: S1, S2 normal. RRR. No murmur, rub or gallop. right chest port present
ABDOMEN: Soft, non-tender. Decreased bowel sounds
EXTREMITIES: No peripheral cyanosis, +1 pitting edema LE's b/l
PATHOLOGIST ASSISTANT: AOx3 conversant coherent
IMPRESSION:
79F primary peritoneal Ca on salvage chemo HFpEF venous stasis dermatitis sent by SNF for evaluation SOB. Initially on increase oxygen requirement from 2 to 4 liters was noted, with her oxygen saturation staying in the low 90s most of the time. She
was planned for chest X-ray before her condition further declined prompting referral to ED. Oxygen requirement further increased to 6L. Patient also had nausea vomiting during ED evaluation, nonbloody, responded well to anti-emetics. Labs were
significant for Leukocytosis, severe hyponatremia, and DANIEL. CT abd/pelvis suspicious for findings lymphangitic carcinomatosis lungs, enlarged Lt axillary lymph nodes suspicious for metastasis, mod upper abd ascites with LUQ peritoneal
carcinomatosis, b/l hydronephrosis, and possible SBO vs ileus also noted. Poor prognosis, end stage disease metastatic primary peritoneal cancer, following goals of care discussion, patient AOx3 at capacity to make her own medical decisions, pt
requested to pursue comfort care hospice. Patient's daughter SCOTT Edwards and son Fernando in agreement with patient's decisions.
PLAN:
#Metastatic Primary Peritoneal Ca
#Acute Hypoxic Respiratory Failure
#Leukocytosis unclear etiology
#DANIEL
#Severe Hyponatremia
# Acute on Chronic HFpEF
Med surg admit
Poor prognosis, end stage disease metastatic primary peritoneal cancer
Comfort care
Regular diet
dilaudid prn with transition to gtt as necessary
prn antiemetic anxiety
Hospice Eval appreciated
Possible transition to inpt hospice tomorrow if qualifies
DNR
Discussed with patient, patient's son Fernando, and patient's daughter SCOTT Edwards
I spent a total of 77 minutes with the patient or on the floor. More than 50% of this time involved counseling and coordination of care.
--- NOTE | 2024-12-21 11:16 | EDRN ---
Pt wants hospice. Family undecided. Pt to be admitted for evaluation PT, OT etc. to decide her discharge plan. Ruslan COLBY is aware. Ruslan COLBY just in room w/ pt and family post veterinary technician instructor visit who spoke w/ Ruslan COLBY post her visit.
--- NOTE | 2024-12-21 11:25 | HOSPNOTE ---
Met with patient and family and they are undecided about hospice vs seeking treatment. The family feels the patient can not go home with hospice since there is no one really to care for patient. Patient and family can not afford hospice at a SNF
since room and board is not covered. The plan is to admit on [facility] which I requested evaluate tomorrow for inpatient hospice continue with labs and then meet with family tomorrow and make some decisions. More information to follow.
--- NOTE | 2024-12-21 11:32 | EDRN ---
PT/OT w/ pt at this time.
--- NOTE | 2024-12-21 17:55 | EDRN ---
raheel ordered for pt at this time.
--- NOTE | 2024-12-21 18:05 | EDRN ---
Pt just vomited into vomit bag. Pt states she did not and does not feel any nausea but just suddently had to vomit.
--- NOTE | 2024-12-21 18:22 | EDRN ---
Pt administered zofran at this time for vomiting episode. Son and daughter in law just returned to visit pt. Pt adjusted and repositioned in bed.
--- NOTE | 2024-12-21 18:29 | EDRN ---
Pt requested water and cup brought to her. Pt stated stomach feeling better.
--- NOTE | 2024-12-21 18:31 | EDRN ---
Supper tray delivered by dietary to pt's room.
[2024-12-22 01:36] VITALS: BMI 27.9
[2024-12-22 02:51] VITALS: BP 118/82
[2024-12-22 03:08] VITALS: BMI 27.7
--- NOTE | 2024-12-22 06:20 | PTCARENOTE ---
Rec'd patient via stretcher. pt is AAOX3, but alittle forgetful. once settled in bed pt stated she had no c/o pain, sob, or nausea at times. pt stated they would like an update by the hospice nurse/pillowcase cleaner or plan.
pt oriented to room w/ call garvin in reach.
checked on patient throughout the night. no c/o pain, sob, or nausea.
--- NOTE | 2024-12-22 06:58 | W.PN.HOSP.TC ---
Today's Communication/Plan
-
cont comfort measures
Assessment / Plan
Assessment / Plan
Limited Physical Exam Comfort Care
General: no acute distress, appears comfortable at this time
HEENT: Normocephalic atraumatic
RESPIRATORY: Stable respiratory status on nasal cannula oxygen supplementation
CVS: S1, S2 normal. RRR. No murmur, rub or gallop. right chest port present
3D SPECIALIST: AOx3 conversant coherent
Psych: calm
IMPRESSION:
79F primary peritoneal Ca on salvage chemo HFpEF venous stasis dermatitis sent by SNF for evaluation SOB. Initially on increase oxygen requirement from 2 to 4 liters was noted, with her oxygen saturation staying in the low 90s most of the time. She
was planned for chest X-ray before her condition further declined prompting referral to ED. Oxygen requirement further increased to 6L. Patient also had nausea vomiting during ED evaluation, nonbloody, responded well to anti-emetics. Labs were
significant for Leukocytosis, severe hyponatremia, and DANIEL. CT abd/pelvis suspicious for findings lymphangitic carcinomatosis lungs, enlarged Lt axillary lymph nodes suspicious for metastasis, mod upper abd ascites with LUQ peritoneal
carcinomatosis, b/l hydronephrosis, and possible SBO vs ileus also noted. Poor prognosis, end stage disease metastatic primary peritoneal cancer, following goals of care discussion, patient AOx3 at capacity to make her own medical decisions, pt
requested to pursue comfort care hospice. Patient's daughter SCOTT Edwards and son Fernando in agreement with patient's decisions.
PLAN:
#Metastatic Primary Peritoneal Ca
#Acute Hypoxic Respiratory Failure
#Leukocytosis unclear etiology
#DANIEL
#Severe Hyponatremia
# Acute on Chronic HFpEF
Med surg admit
Poor prognosis, end stage disease metastatic primary peritoneal cancer
Comfort care
Regular diet
dilaudid prn with transition to gtt as necessary
prn antiemetic anxiety
Hospice Eval appreciated
Possible transition to inpt hospice tomorrow if qualifies
DNR
Discussed with patient and patient's daughter SCOTT Edwards
I spent a total of 40 minutes with the patient or on the floor. More than 50% of this time involved counseling and coordination of care.
Anticipated Discharge: 24 - 48 hours
Subjective/Interval History
-
Date of Service: December 22, 2024
No acute distress, appears comfortable at this time, alert conversant coherent.
Objective Data
-
Vital Signs:
Vital Signs
Temp Pulse Resp BP Pulse Ox
97.4 F 89 20 118/82 99
12/22/24 02:51 12/22/24 02:51 12/22/24 02:51 12/22/24 02:51 12/22/24 02:51
I&O
12/20/24 12/21/24 12/22/24
06:59 06:59 06:59
Intake Total 550 / 550 840 / 840
Balance 550 / 550 840 / 840
[2024-12-22 07:15] VITALS: BP 101/68
--- NOTE | 2024-12-22 12:07 | CM ---
Reviewed the chart notes. CM consult for hospice received and referral placed in [facility] for Hospice.
--- NOTE | 2024-12-22 13:12 | HOSPNOTE ---
Spoke with patient and family. They are all in agreement to focus on comfort and we will follow daily. Attending and CM updated. At this time the patient does not meet inpatient criteria, however that may change. We will continue to follow daily and
update.
[2024-12-22] MEDS: DILAUDID 0.25 MG IV (13:37)
[2024-12-22 19:20] VITALS: BP 110/78
[2024-12-22 20:06] VITALS: BP 110/78
[2024-12-23 07:00] VITALS: BP 103/72
--- NOTE | 2024-12-23 07:14 | W.PN.HOSP.TC ---
Today's Communication/Plan
-
cont comfort measures
Assessment / Plan
Assessment / Plan
Limited Physical Exam Comfort Care
General: no acute distress, appears comfortable at this time
HEENT: Normocephalic atraumatic
RESPIRATORY: Stable respiratory status on nasal cannula oxygen supplementation
CVS: S1, S2 normal. RRR. No murmur, rub or gallop. right chest port present
JEWELRY SALES ASSOCIATE: AOx3 conversant coherent
Psych: calm
IMPRESSION:
79F primary peritoneal Ca on salvage chemo HFpEF venous stasis dermatitis sent by SNF for evaluation SOB. Initially on increase oxygen requirement from 2 to 4 liters was noted, with her oxygen saturation staying in the low 90s most of the time. She
was planned for chest X-ray before her condition further declined prompting referral to ED. Oxygen requirement further increased to 6L. Patient also had nausea vomiting during ED evaluation, nonbloody, responded well to anti-emetics. Labs were
significant for Leukocytosis, severe hyponatremia, and DANIEL. CT abd/pelvis suspicious for findings lymphangitic carcinomatosis lungs, enlarged Lt axillary lymph nodes suspicious for metastasis, mod upper abd ascites with LUQ peritoneal
carcinomatosis, b/l hydronephrosis, and possible SBO vs ileus also noted. Poor prognosis, end stage disease metastatic primary peritoneal cancer, following goals of care discussion, patient AOx3 at capacity to make her own medical decisions, pt
requested to pursue comfort care hospice. Patient's daughter SCOTT Edwards and son Fernando in agreement with patient's decisions.
PLAN:
#Metastatic Primary Peritoneal Ca
#Acute on Chronic Hypoxic Respiratory Failure
#Leukocytosis unclear etiology
#DANIEL
#Severe Hyponatremia
# Acute on Chronic HFpEF
Med surg admit
Poor prognosis, end stage disease metastatic primary peritoneal cancer
Comfort care
Regular diet
dilaudid prn with transition to gtt as necessary
prn antiemetic anxiety
Hospice Eval appreciated
Possible transition to inpt hospice later on as patient progresses
Suspect Patient under reporting symptoms, patient encouraged to be more forthcoming with symptoms, emphasizing comfort as priority
DNR
I spent a total of 40 minutes with the patient or on the floor. More than 50% of this time involved counseling and coordination of care.
Anticipated Discharge: 24 - 48 hours
Subjective/Interval History
-
Date of Service: December 23, 2024
Seen and examined at bedside, doesn't seem to be in acute distress but patient worried about nausea, asking to have bag available just in case. Appears uncomfortable but denies pain. Suspect patient underreporting symptoms.
Objective Data
-
Vital Signs:
Vital Signs
Temp Pulse Resp BP Pulse Ox
97.4 F 90 16 110/78 97
12/22/24 19:20 12/22/24 19:20 12/22/24 19:20 12/22/24 19:20 12/22/24 19:20
I&O
12/22/24 12/23/24 12/24/24
06:59 06:59 06:59
Intake Total 840 / 840 580 / 580
Balance 840 / 840 580 / 580
[2024-12-23] MEDS: ZOFRAN 4 MG IV (09:50)
--- NOTE | 2024-12-23 10:30 | PN.CDI ---
CDI
- -
CDI:
Physician Documentation Request
Admit Date: 12/21/24 13:04
Dear Doctor Mele,
Patient admitted for hypoxia.
ED Physician Documentation: 'Initially, an increase in oxygen requirement from 2 to 4 liters was noted, with her oxygen saturation staying in the low 90s most of the time.'
12/22 Hospitalist PN: 'Acute Hypoxic Respiratory Failure'
Clarify which of the following accurately represents the acuity of the hypoxic respiratory failure. Possible options might include:
____ Acute
Acute on Chronic
____ Other
Use of terms such as suspected, likely, concern for, or probable (associated with a specific diagnosis that is being evaluated, monitored, or treated as if it exists) are acceptable and can be coded in the inpatient setting, when documented at the
time of discharge.
Thank you,
Susan Corbett RN, BSN
CDI Specialist
Available via [place] text
Please use your independent medical judgment in providing your response.
[2024-12-23] MEDS: COMPAZINE 5 MG IV (11:39)
[2024-12-23] MEDS: DILAUDID 0.25 MG IV ×3 (11:39→17:47)
--- NOTE | 2024-12-23 12:57 | HOSPNOTE ---
Patient will continue with comfort measures. I washed patient and repositioned and she was grimacing and stating that she had pain. When asked where her pain was she denied pain I am not sure patient is able to answer appropriately and should be
assessed by facial grimacing or moaning. Patient definitely has pain when turned and does experience nausea. Patient was medicated with IV pain meds and anti nausea. The patient asked that the oxygen be removed. We will continue to follow and if
patient does meet inpatient criteria we will admit. We will continue to follow.
--- NOTE | 2024-12-23 15:45 | CM ---
Chart reviewed rajendra to continue on comfort measures.
Plan; Comfort measures, follow with [facility].
[2024-12-23] MEDS: ATIVAN 0.5 MG PO (16:43)
[2024-12-23 19:15] VITALS: BP 90/59
--- NOTE | 2024-12-24 01:54 | W.PN.DEATH ---
Pronouncement of
-
Called to see patient to pronounce.
No spontaneous heart tones or respirations noted.
Patient not responsive to verbal stimuli.
Patient is pronounced .
Time of : 00:55
Date of : 12/24/24
Family Notified: Yes
--- NOTE | 2024-12-24 04:23 | PTCARENOTE ---
Patient passed. VICKY, covering floor, in to pronounce. [facility] called. Patient does not meet criteria for donation. Daughter in to collect belongings. Postmortem care done and patient taken to [facility] [place].
--- NOTE | 2024-12-24 07:13 | W.DCSUMMARY ---
Discharge Summary
Discharge Data
Date of Admission: 12/21/24
Date of Discharge: 12/24/24
-
Pending Results: No
Discharge Plan
-
Patient Disposition:
Date/Time
Date/Time: 12/24/24 00:55
Discharge Date and Time
Discharge Date/Time: 12/24/24 04:15
Print Language: BAHRAINI
== END 2024-12-24 00:55 | disposition expired | DRG 374 ==
LOC: 2 NORTH 13:04
PROVIDERS: Emergency Medicine; ADMITTING PHYSICIAN Internal Medicine; EMERGENCY PHYSICIAN Emergency Medicine; FAMILY PHYSICIAN Family Medicine
DX: C48.2 Malignant neoplasm of peritoneum, unspecified (principal); I50.33 Acute on chronic diastolic (congestive) heart failure; J96.21 Acute and chronic respiratory failure with hypoxia; N17.9 Acute kidney failure, unspecified; E87.1 Hypo-osmolality and hyponatremia; F41.9 Anxiety disorder, unspecified; Z66 Do not resuscitate; Z51.5 Encounter for palliative care; Z79.899 Other long term (current) drug therapy
CPT/HCPCS: 71045; 71250; 74176; 80053; 81003; 81015; 83605; 85025; 85610; 85730; 86850; 86900; 86901; 87040; 87086; 93005; 99285